=== PATIENT | male | born 1950 | race American Indian/Alaskan Native ===

== ENCOUNTER 2017-07-01 12:25 | Inpatient (IN) | payer MEDICARE, MEDICAID ==
[2017-07-01 12:26] VITALS: BMI 24.9
[2017-07-01] MEDS ORDERED: Pantoprazole 80 MG in Sodium Chloride 0.9% 100 ML IVPB STA (13:10)
--- NOTE | 2017-07-01 13:34 | RAD ---
HISTORY: Sepsis Patient COMPARISON: 02/01/2016 FINDINGS: LUNGS: There is consolidation in the upper lobes, lingula and left lower lobe. The right lung is clear. PLEURA: No significant pleural effusion identified, no pneumothorax apparent. CARDIOVASCULAR: Normal. OSSEOUS STRUCTURES: No significant abnormalities. VISUALIZED UPPER ABDOMEN: Normal. OTHER FINDINGS: None. IMPRESSION: Multifocal pneumonia in the left lung. Follow-up to resolution is advised.
[2017-07-01 13:40] LABS: ABG ALLEN TEST POS; ARTERIAL BLOOD GAS HCO3 25.1 mmol/L (21-28); ARTERIAL BLOOD GAS O2 SAT 72.4 % (95-98); ARTERIAL BLOOD GAS PCO2 36 mm/Hg (35-45); ARTERIAL BLOOD GAS PH 7.45 (7.35-7.45); ARTERIAL BLOOD GAS PO2 33 mm/Hg (80-100); ARTERIAL BLOOD GAS TCO2 26.1 mmol/L (22-28)
[2017-07-01] MEDS ORDERED: Vancomycin 1 GM 1 GM/250 ML BAG IV STA (13:47)
[2017-07-01] MEDS ORDERED: Sodium Chloride 0.9% 1,000 ML IV ONE ×2 (13:47→15:22)
[2017-07-01] MEDS ORDERED: Cefepime 1 GM in Sodium Chloride 0.9% 50 ML IVPB STA (13:47)
[2017-07-01] MEDS ORDERED: Moxifloxacin IV 400mg/250ml NS 400 MG/250 ML BAG IV STA (13:48)
[2017-07-01 13:49] LABS: BASO # 0.1 K/uL (0.0-0.2); BASO % 0.4 % (0.0-2.0); HEMOGLOBIN 13.3 g/dL (12.0-18.0); LYMPH # 0.6 K/uL (1.0-4.3); LYMPH % 3.8 % (20.0-40.0); MEAN CORPUSCULAR HEMOGLOBIN 24.6 pg (27.0-31.0); MEAN CORPUSCULAR HGB CONC 32.7 g/dL (33.0-37.0); MEAN PLATELET VOLUME 9.3 fL (7.2-11.7); MONO # 0.6 K/uL (0.0-0.8); MONO % 4.1 % (0.0-10.0); NEUT % 91.7 % (50.0-75.0); PLATELET COUNT 175 K/uL (130-400); RBC 5.42 Mil/uL (4.40-5.90); RED CELL DISTRIBUTION WIDTH 17.2 % (11.5-14.5)
[2017-07-01 13:51] LABS: WHITE BLOOD COUNT 15.3 K/uL (4.8-10.8)
[2017-07-01 13:52] LABS: MEAN CELL VOLUME 75.3 fL (80.0-94.0)
[2017-07-01 13:58] LABS: INR 1.5; PROTHROMBIN TIME 17.6 SECONDS (9.7-12.2)
[2017-07-01] MEDS ORDERED: Sodium Chloride 0.9% 1,000 ML ONE (14:03)
[2017-07-01 14:07] LABS: ALB/GLOB RATIO 0.8 (1.0-2.1); ALBUMIN 3.7 g/dL (3.5-5.0); ALT/SGPT 31 U/L (21-72); AST/SGOT 22 U/L (17-59); BLOOD UREA NITROGEN 16 mg/dL (9-20); CALCIUM 8.8 mg/dl (8.6-10.4); GFR AFRICAN-AMERICAN > 60; GFR NON-AFRICAN AMERICAN > 60
--- NOTE | 2017-07-01 14:13 | C.PDOC ---
History Of Present Illness Patient sent from [place] for evaluation of coffee ground emesis since approx 7: 15am. PMHx of MS, sepsis, pneumonia, CVA, gastritis, UTI, atrial fibrillation. As per [place] papers, currently on ASA 81mg PO and Eliquis 5mg PO. Time Seen by Provider: 07/01/17 12:54 Chief Complaint (Nursing): GI Problem Past Medical History Vital Signs: Last Vital Signs Temp 99 F 07/07/17 19:25 Pulse 57 L 07/07/17 19:25 Resp 23 07/07/17 19:25 BP 131/71 07/07/17 19:25 Pulse Ox 88 L 07/08/17 09:41 - Medical History PMH: HTN, Multiple Sclerosis, Pneumonia, Chronic Kidney Disease - [facility] Procedures DILATION OF URETHRA, PERCUTANEOUS APPROACH (02/25/16) ENTERAL INFUSION OF CONCENTRATED NUT. SUBSTANCES (04/12/13) INSERTION OF INFUSION DEV INTO R BRACH VEIN, PERC APPROACH (01/29/16) INSERTION OF INFUSION DEV INTO SUP VENA CAVA, PERC APPROACH (02/25/16) PERCUTANEOUS [ENDOSCOPIC] GASTROSTOMY [PEG] (04/12/13) Family History: States: Unknown Family Hx - Social History Hx Tobacco Use: No Hx Alcohol Use: No Hx Substance Use: No ED Course And Treatment - Laboratory Results Result Diagrams: 07/07/17 13:50 07/07/17 13:50 ECG: Interpreted By Me, Viewed By Me (sinus tachycardia 122bpm, normal axis, no acute ST/T wave changes) ECG Interpretation: Abnormal O2 Sat by Pulse Oximetry: 88 (ra) Pulse Ox Interpretation: Normal - Radiology CXR: Interpreted by Me, Viewed By Me (left sided pneumonia) Progress Note: Blood work, UA, CXR, EKG ordered and reviewed. IV NS bolus (30ml /kg) and broad spectrum antibiotics for pneumonia ordered. [place] tylenol given. Multiple attempts made at left sided EJ, unsuccessful. B/L 24 gauge IVs in feet inserted by me. Left arm 18 gauge inserted by nurse. Guzmán catheter insertion attempted by nurse x 2, and once by me with coudet catheter 10 venezuelan , unsuccessful. 15:20- Spoke with siding stapler Dr. Gonzalez, will come down and see patient. Dr. Chaka Ballesteros notified of patient being admitted to ICU for sepsis, coffee ground emesis, pneumonia. 16:15- NG tube inserted by Dr. Gonzalez and ICU. CTA chest ordered at his request; patient to go to ICU after CT. 17:45- Patient sent back from CT scan (no ICU beds) due to O2 desaturation to 30s when placed flat. Discussed with inetnsivist, will intubate patient in ED. RSI at bedside, patient given IV etomidate 20mg and IV rocuronium 60mg. One attempt made at direct laryngoscopy, cords very anterior and blood in oropharynx. Patient suctioned, 2nd attempt made with glidescope successful. OG tube inserted. Postintubation CXR ordered and pending. 6:45PM - CXR- ET tube in trachea, OG tube looped in esophagus. OG removed, attempted reinsertion unscuccessful. NG tube inserted into right nare, (+) epigastric gurgle auscultated, confirmed placement. CXR ordered. - Physician Consult Information Physician Contacted: Azul Lundberg Outcome Of Conversation: Discussed patient with his GI, recommends IV reglan and opening up peg tube to air to decompress abdomen. Will see patient for GI consult. Critical Care Time - Critical Care Note Total Time (in mins): 90 Documented critical care: time excludes all time spent performing seperately billable procedures. Disposition - Disposition Disposition: HOSPITALIZED Disposition Time: 15:23 Condition: CRITICAL - Clinical Impression Clinical Impression: Sepsis, Pneumonia, Coffee ground emesis, Respiratory distress, Bandemia, Tachycardia Procedure: Intubation - Time Performed Time Performed: 17:50 - Consent Obtained Consent obtained: Emergent consent implied - Performed By Performed by: Attending Physician - Indications Indication(s):: Hypoxia, Airway protection - Method Method:: Oral-Laryngoscopy - Rapid Sequence Intubation Anesthetic:: Etomidate (20MG) Paralytic:: Rocuronium (60MG) - Tube type Tube type:: Endotracheal tube (7.5) Tube size:: Uncuffed Number of attempts:: 2 Depth measured at lip: cm: 24 - Confirmation Confirmation: Direct visual.of intubate, End-tidal CO2 positive, Bilat. breath sounds
[2017-07-01 14:15] LABS: CK-MB 0.51 ng/mL (0.0-3.38)
[2017-07-01 14:25] LABS: ANISOCYTOSIS SLIGHT; BANDS 11 % (0-2); LYMPHOCYTE 2 % (20-40); MONOCYTE 3 % (0-10); NEUTROPHIL 84 % (50-75); OVALOCYTES SLIGHT; PLATELET ESTIMATE NORMAL (NORMAL); TOTAL CELLS COUNTED 100
[2017-07-01] MEDS ORDERED: Moxifloxacin IV 400mg/250ml NS 400 MG/250 ML BAG IVPB ONE (15:37)
[2017-07-01 15:59] LABS: ABG ALLEN TEST YES; ARTERIAL BLOOD GAS HCO3 25.4 mmol/L (21-28); ARTERIAL BLOOD GAS O2 SAT 88.9 % (95-98); ARTERIAL BLOOD GAS PCO2 31 mm/Hg (35-45); ARTERIAL BLOOD GAS PH 7.49 (7.35-7.45); ARTERIAL BLOOD GAS PO2 48 mm/Hg (80-100); ARTERIAL BLOOD GAS TCO2 24.6 mmol/L (22-28)
[2017-07-01] MEDS: Piperacill/Tazo 4.5gm in Dex 4.5 GM/100 ML BAG IVPB SCH (16:57)
[2017-07-01] MEDS ORDERED: Pantoprazole 80 MG in Sodium Chloride 0.9% 100 ML IVP SCH (17:00)
[2017-07-01] MEDS ORDERED: Iodixanol 320 MG/ML 100 ML BOTTLE IV ONE (17:11)
--- NOTE | 2017-07-01 17:22 | CP.PCM.CON ---
<Cong Price - Last Filed: 07/01/17 17:55> History of Present Illness - History of Present Illness History of Present Illness: CCU Consult Note HPI: Patient is a 66M with a PMH of HTN, CKD, Multiple Sclerosis, Gastritis, PEG , Afib, CVA on Eliquis and ASA. Patient comes from [place] after being found to have coffee ground emesis since [address] Lundberg was contact by the ED and told them to leave PEG open to air to help decompress the stomach. ICU was called. When we arrived the patient was laying in bed with brown fluid mixed with blood on towel under his chin. We connected the patient to pulse ox to find that he was saturating in the low 80s. We called respiratory to place the patient on high flow. The patient was lethargic would only open his eyes slightly when spoken to. We inserted a NGT and started protonix drip. Given hypoxia on ABG and tachy patient was taken for CTA to r/o PE. During that time patient desaturated so the test was unable to be done. Patient will be taken back to ED for intubation at this time. PMH: HTN, CKD, Multiple Sclerosis, Gastritis, Afib, CVA PSH: PEG, Suprapubic cath FH: unattainable SH: unattainable Meds: Eliquis/ASA All: NKA Review of Systems - Review of Systems Review of Systems: per hpi Past Patient History - Infectious Disease Hx of Infectious Diseases: MRSA - Past Medical History & Family History Past Medical History?: Yes - Past Social History Smoking Status: Never Smoked - CARDIAC Hx Hypertension: Yes - PULMONARY Hx Pneumonia: Yes - NEUROLOGICAL Hx Multiple Sclerosis: Yes - RENAL Hx Chronic Kidney Disease: Yes - MUSCULOSKELETAL/RHEUMATOLOGICAL Hx Falls: Yes - GASTROINTESTINAL Hx Gastrointestinal Disorders: Yes Other/Comment: Peg tube. Dysphagia - GENITOURINARY/GYNECOLOGICAL Other/Comment: hx MRSA in urine 2012 - PSYCHIATRIC Hx Substance Use: No - SURGICAL HISTORY Hx Surgeries: Yes Other/Comment: PEG insertion: Suprapubic cath - ANESTHESIA Hx Anesthesia: Yes Hx Anesthesia Reactions: No Hx Malignant Hyperthermia: No Meds Allergies/Adverse Reactions: Allergies Allergy/AdvReac Type Severity Reaction Status Date / Time No Known Allergies Allergy Unverified 01/29/16 17:27 - Medications Medications: Current Medications Pantoprazole Sodium 80 mg/ (Sodium Chloride) 100 mls @ 10 mls/hr IVP .Q10H ON LICENSE OF [facility] PRN Reason: 8 MG/HR Piperacillin Sod/Tazobactam Sod (Zosyn 4.5 Gm Iv Premix) 4.5 gm in 100 mls @ 100 mls/hr IVPB Q8H ON LICENSE OF [facility] Last Admin: 07/01/17 16:57 Dose: 100 mls/hr Vancomycin/Sodium Chloride (Vancomycin 1 Gm/Ns 200 Ml) 1 gm in 200 mls @ 133.333 mls/hr IVPB Q24H ON LICENSE OF [facility] Stop: 07/06/17 19:01 Physical Exam - Constitutional Appears: Chronically Ill - Head Exam Head Exam: NORMAL INSPECTION, NORMOCEPHALIC - Eye Exam Eye Exam: EOMI - Cardiovascular Exam Cardiovascular Exam: Tachycardia - GI/Abdominal Exam GI & Abdominal Exam: Normal Bowel Sounds, Soft. absent: Distended, Tenderness Additional comments: PEG - Extremities Exam Extremities exam: Negative for: joint swelling, tenderness Results - Vital Signs Recent Vital Signs: Last Vital Signs Temp 100.9 F H 07/01/17 16:59 Pulse 105 H 07/01/17 16:59 Resp 20 07/01/17 16:59 BP 117/62 07/01/17 16:59 Pulse Ox 92 L 07/01/17 16:59 - Labs Result Diagrams: 07/01/17 13:46 07/01/17 13:46 Labs: Laboratory Results - last 24 hr 07/01/17 07/01/17 07/01/17 13:37 13:46 13:46 WBC 15.3 H D RBC 5.42 Hgb 13.3 Hct 40.8 MCV 75.3 L D MCH 24.6 L MCHC 32.7 L RDW 17.2 H Plt Count 175 MPV 9.3 Neut % (Auto) 91.7 H Lymph % (Auto) 3.8 L [place] % (Auto) 4.1 Eos % (Auto) 0.0 Baso % (Auto) 0.4 Neut # (Auto) 14.0 H Lymph # (Auto) 0.6 L [place] # (Auto) 0.6 Eos # (Auto) 0.0 Baso # (Auto) 0.1 Neutrophils % (Manual) 84 H Band Neutrophils % 11 H* Lymphocytes % (Manual) 2 L Monocytes % (Manual) 3 Platelet Estimate Normal Anisocytosis (manual) Slight Ovalocytes Slight PT 17.6 H INR 1.5 APTT 35 H Puncture Site Rra pCO2 36 pO2 33 L* HCO3 25.1 ABG pH 7.45 ABG Total CO2 26.1 ABG O2 Saturation 72.4 L ABG Base Excess 1.3 Diaz Test Pos ABG Potassium 3.2 L A-a O2 Difference 635.0 Respiratory Index 19.2 Sodium 143.0 Chloride 108.0 H Glucose 120 H Lactate 2.0 Liter Flow 12.0 FiO2 100.0 Crit Value Called To Dr juarez Crit Value Called By Amos winter admittance attendant Crit Value Read Back Y Blood Gas Notified Time 1340 Potassium Carbon Dioxide Anion Gap BUN Creatinine Est GFR ( Amer) Est GFR (Non-Af Amer) Random Glucose Calcium Phosphorus Magnesium Total Bilirubin AST ALT Alkaline Phosphatase Total Creatine Kinase CK-MB (Mass) Troponin I Total Protein Albumin Globulin Albumin/Globulin Ratio Arterial Blood Potassium 3.2 L Blood Type Antibody Screen 07/01/17 07/01/17 07/01/17 13:46 13:51 15:50 WBC RBC Hgb Hct MCV MCH MCHC RDW Plt Count MPV Neut % (Auto) Lymph % (Auto) [place] % (Auto) Eos % (Auto) Baso % (Auto) Neut # (Auto) Lymph # (Auto) [place] # (Auto) Eos # (Auto) Baso # (Auto) Neutrophils % (Manual) Band Neutrophils % Lymphocytes % (Manual) Monocytes % (Manual) Platelet Estimate Anisocytosis (manual) Ovalocytes PT INR APTT Puncture Site Rra pCO2 31 L pO2 48 L HCO3 25.4 ABG pH 7.49 H ABG Total CO2 24.6 ABG O2 Saturation 88.9 L ABG Base Excess 1.0 Diaz Test Yes ABG Potassium 3.4 L A-a O2 Difference Respiratory Index Sodium 142 142.0 Chloride 106 111.0 H Glucose 110 Lactate 3.1 H Liter Flow 3.0 FiO2 Crit Value Called To Crit Value Called By Crit Value Read Back Blood Gas Notified Time Potassium 3.6 Carbon Dioxide 25 Anion Gap 16 BUN 16 Creatinine 0.8 Est GFR ( Amer) > 60 Est GFR (Non-Af Amer) > 60 Random Glucose 134 H Calcium 8.8 Phosphorus 2.3 L Magnesium 1.9 Total Bilirubin 0.9 AST 22 ALT 31 Alkaline Phosphatase 115 Total Creatine Kinase 105 CK-MB (Mass) 0.51 Troponin I < 0.0120 Total Protein 8.2 Albumin 3.7 Globulin 4.5 H Albumin/Globulin Ratio 0.8 L Arterial Blood Potassium 3.4 L Blood Type O POSITIVE Antibody Screen Negative Assessment & Plan - Assessment and Plan (Free Text) Assessment: 66M SOB, Coffee ground emesis Plan: Neuro: Very lethargic, Hx of CVA, may be secondary to CVA or hypoxia Cardio: Hx of afib Pulm: severely hypoxic, r/o PE, CTA, patient to be intubated in ED. Cant safely start anticoag given the coffee ground emesis so patient will need to be intubated for CTA and then plan for EGD Renal: No acute issues GI: patient presents with coffee ground emesis, NGT, Dr. Lundberg consult. Protonix Drip. PPX: Protonix drip <Jorge Luis Gonzalez - Last Filed: 07/01/17 19:22> Meds - Medications Medications: Current Medications Albuterol Sulfate (Albuterol 0.083% Inhal Gisella (2.5 Mg/3 Ml) Ud) 2.5 mg IH RQ6 LYNDSAY Piperacillin Sod/Tazobactam Sod (Zosyn 4.5 Gm Iv Premix) 4.5 gm in 100 mls @ 100 mls/hr IVPB Q8H ON LICENSE OF [facility] Last Admin: 07/01/17 16:57 Dose: 100 mls/hr Vancomycin/Sodium Chloride (Vancomycin 1 Gm/Ns 200 Ml) 1 gm in 200 mls @ 133.333 mls/hr IVPB Q24H ON LICENSE OF [facility] Stop: 07/06/17 19:01 Pantoprazole Sodium 80 mg/ (Sodium Chloride) 100 mls @ 10 mls/hr IV .Q10H LYNDSAY PRN Reason: 8 MG/HR Lactated Ringer's (Lactated Ringer's) 1,000 mls @ 150 mls/hr IV .Q6H40M LYNDSAY Propofol (Diprivan) 1,000 mg in 100 mls @ 2.517 mls/hr IV .Q24H PRN; Protocol; 5 MCG/KG/MIN PRN Reason: TITRATE PER MD ORDER Last Titration: 07/01/17 19:04 Dose: 10 mcg/kg/min, 5.035 mls/hr Results - Vital Signs Recent Vital Signs: Last Vital Signs Temp 99.6 F 07/01/17 18:33 Pulse 127 H 07/01/17 18:33 Resp 17 07/01/17 18:33 BP 173/107 H 07/01/17 18:33 Pulse Ox 88 L 07/01/17 18:54 - Labs Result Diagrams: 07/01/17 13:46 07/01/17 13:46 Labs: Laboratory Results - last 24 hr 07/01/17 07/01/17 07/01/17 13:37 13:46 13:46 WBC 15.3 H D RBC 5.42 Hgb 13.3 Hct 40.8 MCV 75.3 L D MCH 24.6 L MCHC 32.7 L RDW 17.2 H Plt Count 175 MPV 9.3 Neut % (Auto) 91.7 H Lymph % (Auto) 3.8 L [place] % (Auto) 4.1 Eos % (Auto) 0.0 Baso % (Auto) 0.4 Neut # (Auto) 14.0 H Lymph # (Auto) 0.6 L [place] # (Auto) 0.6 Eos # (Auto) 0.0 Baso # (Auto) 0.1 Neutrophils % (Manual) 84 H Band Neutrophils % 11 H* Lymphocytes % (Manual) 2 L Monocytes % (Manual) 3 Platelet Estimate Normal Anisocytosis (manual) Slight Ovalocytes Slight PT 17.6 H INR 1.5 APTT 35 H Puncture Site Rra pCO2 36 pO2 33 L* HCO3 25.1 ABG pH 7.45 ABG Total CO2 26.1 ABG O2 Saturation 72.4 L ABG Base Excess 1.3 Diaz Test Pos ABG Potassium 3.2 L A-a O2 Difference 635.0 Respiratory Index 19.2 Sodium 143.0 Chloride 108.0 H Glucose 120 H Lactate 2.0 Liter Flow 12.0 Vent Mode Mechanical Rate FiO2 100.0 Tidal Volume PEEP Crit Value Called To Dr juarez Crit Value Called By Amos winter admittance attendant Crit Value Read Back Y Blood Gas Notified Time 1340 Potassium Carbon Dioxide Anion Gap BUN Creatinine Est GFR ( Amer) Est GFR (Non-Af Amer) POC Glucose (mg/dL) Random Glucose Calcium Phosphorus Magnesium Total Bilirubin AST ALT Alkaline Phosphatase Total Creatine Kinase CK-MB (Mass) Troponin I Total Protein Albumin Globulin Albumin/Globulin Ratio Arterial Blood Potassium 3.2 L Blood Type Antibody Screen 07/01/17 07/01/17 07/01/17 13:46 13:51 15:50 WBC RBC Hgb Hct MCV MCH MCHC RDW Plt Count MPV Neut % (Auto) Lymph % (Auto) [place] % (Auto) Eos % (Auto) Baso % (Auto) Neut # (Auto) Lymph # (Auto) [place] # (Auto) Eos # (Auto) Baso # (Auto) Neutrophils % (Manual) Band Neutrophils % Lymphocytes % (Manual) Monocytes % (Manual) Platelet Estimate Anisocytosis (manual) Ovalocytes PT INR APTT Puncture Site Rra pCO2 31 L pO2 48 L HCO3 25.4 ABG pH 7.49 H ABG Total CO2 24.6 ABG O2 Saturation 88.9 L ABG Base Excess 1.0 Diaz Test Yes ABG Potassium 3.4 L A-a O2 Difference Respiratory Index Sodium 142 142.0 Chloride 106 111.0 H Glucose 110 Lactate 3.1 H Liter Flow 3.0 Vent Mode Mechanical Rate FiO2 Tidal Volume PEEP Crit Value Called To Crit Value Called By Crit Value Read Back Blood Gas Notified Time Potassium 3.6 Carbon Dioxide 25 Anion Gap 16 BUN 16 Creatinine 0.8 Est GFR ( Amer) > 60 Est GFR (Non-Af Amer) > 60 POC Glucose (mg/dL) Random Glucose 134 H Calcium 8.8 Phosphorus 2.3 L Magnesium 1.9 Total Bilirubin 0.9 AST 22 ALT 31 Alkaline Phosphatase 115 Total Creatine Kinase 105 CK-MB (Mass) 0.51 Troponin I < 0.0120 Total Protein 8.2 Albumin 3.7 Globulin 4.5 H Albumin/Globulin Ratio 0.8 L Arterial Blood Potassium 3.4 L Blood Type O POSITIVE Antibody Screen Negative 07/01/17 07/01/17 18:46 18:50 WBC RBC Hgb Hct MCV MCH MCHC RDW Plt Count MPV Neut % (Auto) Lymph % (Auto) [place] % (Auto) Eos % (Auto) Baso % (Auto) Neut # (Auto) Lymph # (Auto) [place] # (Auto) Eos # (Auto) Baso # (Auto) Neutrophils % (Manual) Band Neutrophils % Lymphocytes % (Manual) Monocytes % (Manual) Platelet Estimate Anisocytosis (manual) Ovalocytes PT INR APTT Puncture Site Rra pCO2 35 pO2 207 H HCO3 24.5 ABG pH 7.43 ABG Total CO2 24.3 ABG O2 Saturation 100.0 H ABG Base Excess -0.6 Diaz Test Yes ABG Potassium 3.0 L A-a O2 Difference 462.0 Respiratory Index 2.2 Sodium 143.0 Chloride 113.0 H Glucose 119 H Lactate 1.7 Liter Flow Vent Mode Prvc Mechanical Rate 16 FiO2 100.0 Tidal Volume 500 PEEP 5 Crit Value Called To Crit Value Called By Crit Value Read Back Blood Gas Notified Time Potassium Carbon Dioxide Anion Gap BUN Creatinine Est GFR ( Amer) Est GFR (Non-Af Amer) POC Glucose (mg/dL) 92 Random Glucose Calcium Phosphorus Magnesium Total Bilirubin AST ALT Alkaline Phosphatase Total Creatine Kinase CK-MB (Mass) Troponin I Total Protein Albumin Globulin Albumin/Globulin Ratio Arterial Blood Potassium 3.0 L Blood Type Antibody Screen Attending/Attestation - Attestation I have personally seen and examined this patient.: Yes I have fully participated in the care of the patient.: Yes I have reviewed all pertinent clinical information: Yes Notes (Text): 07/01/17 19:18 I have seen and examined the patient. Medical records, lab studies, and imaging were reviewed by me and a management plan was formulated on multidisciplinary rounds with resident Dr. Price. I agree with their documented assessment and plan. Coffee ground emesis, will need EGD to r/o ulcer, starting protonix gtt. ASA reversal with platelets and DDAVP. CT angio to r/o PE. intubated for airway protection and hypoxia. Critical Care Time 35 minutes. Multi-disciplinary rounds were performed with house staff, nursing, speech therapy, respiratory therapy, pharmacy and nutrition with integrated input from the primary team/attending and other consulting services. The documented time is cumulative and includes review of patient data/exams/labs/chart review and examination of the patient on rounds and throughout the day; time is exclusive of any procedures or teaching time.
[2017-07-01] MEDS ORDERED: Pantoprazole 80 MG in Sodium Chloride 0.9% 100 ML IV SCH (17:30)
--- NOTE | 2017-07-01 17:56 | CP.PCM.HP ---
Past Patient History - Infectious Disease Hx of Infectious Diseases: MRSA - Past Medical History & Family History Past Medical History?: Yes - Past Social History Smoking Status: Never Smoked - CARDIAC Hx Hypertension: Yes - PULMONARY Hx Pneumonia: Yes - NEUROLOGICAL Hx Multiple Sclerosis: Yes - RENAL Hx Chronic Kidney Disease: Yes - MUSCULOSKELETAL/RHEUMATOLOGICAL Hx Falls: Yes - GASTROINTESTINAL Hx Gastrointestinal Disorders: Yes Other/Comment: Peg tube. Dysphagia - GENITOURINARY/GYNECOLOGICAL Other/Comment: hx MRSA in urine 2012 - PSYCHIATRIC Hx Substance Use: No - SURGICAL HISTORY Hx Surgeries: Yes Other/Comment: PEG insertion: Suprapubic cath - ANESTHESIA Hx Anesthesia: Yes Hx Anesthesia Reactions: No Hx Malignant Hyperthermia: No Meds Allergies/Adverse Reactions: Allergies Allergy/AdvReac Type Severity Reaction Status Date / Time No Known Allergies Allergy Unverified 01/29/16 17:27 Physical Exam - Constitutional Appears: Well - Head Exam Head Exam: ATRAUMATIC, NORMAL INSPECTION, NORMOCEPHALIC - Eye Exam Eye Exam: EOMI, Normal appearance, PERRL Pupil Exam: NORMAL ACCOMODATION, PERRL - ENT Exam ENT Exam: Mucous Membranes Moist, Normal Exam - Neck Exam Neck exam: Positive for: Normal Inspection - Respiratory Exam Respiratory Exam: Decreased Breath Sounds - Cardiovascular Exam Cardiovascular Exam: REGULAR RHYTHM, +S1, +S2 - GI/Abdominal Exam GI & Abdominal Exam: Diminished Bowel Sounds, Soft - Rectal Exam Rectal Exam: Deferred Results - Vital Signs Recent Vital Signs: Last Vital Signs Temp 100.9 F H 07/01/17 16:59 Pulse 105 H 07/01/17 16:59 Resp 20 07/01/17 16:59 BP 117/62 07/01/17 16:59 Pulse Ox 92 L 07/01/17 16:59 - Labs Result Diagrams: 07/01/17 13:46 07/01/17 13:46 Labs: Laboratory Results - last 24 hr 07/01/17 07/01/17 07/01/17 13:37 13:46 13:46 WBC 15.3 H D RBC 5.42 Hgb 13.3 Hct 40.8 MCV 75.3 L D MCH 24.6 L MCHC 32.7 L RDW 17.2 H Plt Count 175 MPV 9.3 Neut % (Auto) 91.7 H Lymph % (Auto) 3.8 L [place] % (Auto) 4.1 Eos % (Auto) 0.0 Baso % (Auto) 0.4 Neut # (Auto) 14.0 H Lymph # (Auto) 0.6 L [place] # (Auto) 0.6 Eos # (Auto) 0.0 Baso # (Auto) 0.1 Neutrophils % (Manual) 84 H Band Neutrophils % 11 H* Lymphocytes % (Manual) 2 L Monocytes % (Manual) 3 Platelet Estimate Normal Anisocytosis (manual) Slight Ovalocytes Slight PT 17.6 H INR 1.5 APTT 35 H Puncture Site Rra pCO2 36 pO2 33 L* HCO3 25.1 ABG pH 7.45 ABG Total CO2 26.1 ABG O2 Saturation 72.4 L ABG Base Excess 1.3 Diaz Test Pos ABG Potassium 3.2 L A-a O2 Difference 635.0 Respiratory Index 19.2 Sodium 143.0 Chloride 108.0 H Glucose 120 H Lactate 2.0 Liter Flow 12.0 FiO2 100.0 Crit Value Called To Dr juarez Crit Value Called By Aoms winter secondary set up man Crit Value Read Back Y Blood Gas Notified Time 1340 Potassium Carbon Dioxide Anion Gap BUN Creatinine Est GFR ( Amer) Est GFR (Non-Af Amer) Random Glucose Calcium Phosphorus Magnesium Total Bilirubin AST ALT Alkaline Phosphatase Total Creatine Kinase CK-MB (Mass) Troponin I Total Protein Albumin Globulin Albumin/Globulin Ratio Arterial Blood Potassium 3.2 L Blood Type Antibody Screen 07/01/17 07/01/17 07/01/17 13:46 13:51 15:50 WBC RBC Hgb Hct MCV MCH MCHC RDW Plt Count MPV Neut % (Auto) Lymph % (Auto) [place] % (Auto) Eos % (Auto) Baso % (Auto) Neut # (Auto) Lymph # (Auto) [place] # (Auto) Eos # (Auto) Baso # (Auto) Neutrophils % (Manual) Band Neutrophils % Lymphocytes % (Manual) Monocytes % (Manual) Platelet Estimate Anisocytosis (manual) Ovalocytes PT INR APTT Puncture Site Rra pCO2 31 L pO2 48 L HCO3 25.4 ABG pH 7.49 H ABG Total CO2 24.6 ABG O2 Saturation 88.9 L ABG Base Excess 1.0 Diaz Test Yes ABG Potassium 3.4 L A-a O2 Difference Respiratory Index Sodium 142 142.0 Chloride 106 111.0 H Glucose 110 Lactate 3.1 H Liter Flow 3.0 FiO2 Crit Value Called To Crit Value Called By Crit Value Read Back Blood Gas Notified Time Potassium 3.6 Carbon Dioxide 25 Anion Gap 16 BUN 16 Creatinine 0.8 Est GFR ( Amer) > 60 Est GFR (Non-Af Amer) > 60 Random Glucose 134 H Calcium 8.8 Phosphorus 2.3 L Magnesium 1.9 Total Bilirubin 0.9 AST 22 ALT 31 Alkaline Phosphatase 115 Total Creatine Kinase 105 CK-MB (Mass) 0.51 Troponin I < 0.0120 Total Protein 8.2 Albumin 3.7 Globulin 4.5 H Albumin/Globulin Ratio 0.8 L Arterial Blood Potassium 3.4 L Blood Type O POSITIVE Antibody Screen Negative
[2017-07-01] MEDS ORDERED: Lactated Ringer's 1,000 ML IV SCH (18:15)
[2017-07-01] MEDS: Propofol 10 mg/ml 1,000 MG/100 ML VIAL IV PRN (18:32)
[2017-07-01] MEDS ORDERED: Rocuronium 10 mg/ml (5 ml) IV STA (18:38)
[2017-07-01] MEDS ORDERED: Etomidate 20 mg/10ml Inj IV STA (18:38)
[2017-07-01] MEDS ORDERED: Propofol 10 mg/ml 1,000 MG/100 ML VIAL ONE (18:39)
[2017-07-01 19:04] LABS: ABG ALLEN TEST YES; ARTERIAL BLOOD GAS HCO3 24.5 mmol/L (21-28); ARTERIAL BLOOD GAS PCO2 35 mm/Hg (35-45); ARTERIAL BLOOD GAS PH 7.43 (7.35-7.45); ARTERIAL BLOOD GAS PO2 207 mm/Hg (80-100); ARTERIAL BLOOD GAS TCO2 24.3 mmol/L (22-28)
[2017-07-01] MEDS ORDERED: Propofol 10 mg/ml Inj (20 ML) IV STA (19:19)
--- NOTE | 2017-07-01 20:14 | CT ---
EXAM: CT Angiography Chest With Intravenous Contrast EXAM DATE/TIME: Exam ordered 07/01/2017 4:23 PM CLINICAL HISTORY: 66 years old, male; Signs and symptoms; Dyspnea and shortness of breath; Patient HX: Hypxia; Additional info: Hypoxia, R/O pe TECHNIQUE: Axial computed tomographic angiography images of the chest with intravenous contrast using pulmonary embolism protocol. All CT scans at this facility use one or more dose reduction techniques, viz.: automated exposure control; ma/kV adjustment per patient size (including targeted exams where dose is matched to indication; i.e. head); or iterative reconstruction technique. MIP reconstructed images were created and reviewed. Coronal and sagittal reformatted images were created and reviewed. CONTRAST: 100 mL of visipaque 320 administered intravenously. COMPARISON: No relevant prior studies available. FINDINGS: Pulmonary arteries: Unremarkable. No pulmonary embolism. Aorta: The ascending thoracic aorta measures 4.4 cm in maximum diameter. No thoracic aortic aneurysm. Lungs: Atelectasis/consolidation is noted in the medial basal segment and posterior basal segment of the right lower lobe. Patchy atelectasis/pneumonitis is noted in the superior segment of the right lower lobe and posterior segment of the right upper lobe. There is enlargement of the centrilobular cor structures in the posterior segment of the left upper lobe with irregular hazy parenchymal density. Patchy atelectasis/consolidation is noted in the posterior subsegment of the left upper lobe. Consolidation is noted of the left lower lobe with relative sparing of the superior segment. Pleural space: Unremarkable. No significant effusion. No pneumothorax. Heart: Unremarkable. No cardiomegaly. No significant pericardial effusion. No evidence of RV dysfunction. Bones/joints: A 1 cm area of sclerosis is noted in the midportion of the sacrum body. A 3 mm area of sclerosis is noted in the manubrium. There is no associated soft tissue abnormality noted. There is apparent mild levoscoliosis of the thoracic spine which could be positional in nature. No acute fracture. No dislocation. Soft tissues: Unremarkable. Lymph nodes: There are enlarged lymph nodes are noted in the AP window and prevascular space. An AP window lymph node measures 2.3 x 1.7 by 1.4 cm. 2 AP window is measure approximately a centimeter. A precarinal lymph node measures approximately a centimeter. Right hilar lymph nodes the measure approximately 1.5 cm are present. Left infrahilar lymph node measuring approximately 2 cm is noted. Tubes, lines and devices: The distal tip of the endotracheal tube is a 5 cm above the adebayo.The tip of the nasogastric tube is positioned within the body of the stomach. IMPRESSION: 1. No pulmonary embolism. 2. Atelectasis/consolidation noted in both lower lobes, left greater than right with patchy pneumonitis noted predominantly in the posterior segments of the upper lobes bilaterally. 3. Mediastinal and hilar adenopathy as described above. 4. Aneurysmal dilatation of the ascending thoracic aorta with a maximum diameter 4.4 cm. 5. 2 areas of sclerosis noted within the sternum. The significance is uncertain. Osteoblastic metastatic disease versus benign bone islands are among the diagnostic considerations. No soft tissue abnormality noted.
[2017-07-01] MEDS: Lactated Ringer's 1,000 ML IV SCH (20:55)
[2017-07-01 21:45] LABS: BASO % 0.2 % (0.0-2.0); EOS % 0.4 % (0.0-4.0); HEMOGLOBIN 12.2 g/dL (12.0-18.0); LYMPH # 1.2 K/uL (1.0-4.3); MEAN CORPUSCULAR HGB CONC 32.2 g/dL (33.0-37.0); MONO # 0.5 K/uL (0.0-0.8); NEUT # 10.5 K/uL (1.8-7.0); NEUT % 85.4 % (50.0-75.0); NRBC % 0.1 % (0.0-2.0); RBC 4.88 Mil/uL (4.40-5.90); RED CELL DISTRIBUTION WIDTH 17.3 % (11.5-14.5); WHITE BLOOD COUNT 12.3 K/uL (4.8-10.8)
[2017-07-01 21:46] LABS: MEAN CELL VOLUME 77.4 fL (80.0-94.0)
[2017-07-01] MEDS: Rosuvastatin Calcium 2.5 mg Tab PEG SCH (22:03)
[2017-07-01] MEDS: Vancomycin 1 gm/NS 200 ml 1 GM/200 ML BAG IVPB SCH (22:09)
[2017-07-02] MEDS: Propofol 10 mg/ml 1,000 MG/100 ML VIAL IV PRN (00:35)
[2017-07-02] MEDS: Piperacill/Tazo 4.5gm in Dex 4.5 GM/100 ML BAG IVPB SCH ×3 (01:33→17:42)
[2017-07-02] MEDS: Albuterol 0.083% Inhal Sol (2.5 mg/3 mL) UD IH SCH ×3 (01:45→13:09)
[2017-07-02] MEDS ORDERED: Sodium Chloride 0.9% 1,000 ML IV ONE (01:51)
[2017-07-02] MEDS ORDERED: Albumin Human 25% (12.5 gm/50 ml) IV ONE (01:53)
--- NOTE | 2017-07-02 01:58 | CP.PCM.PN ---
Subjective - Date & Time of Evaluation Date of Evaluation: 07/02/17 Time of Evaluation: 01:57 - Subjective Subjective: Patient urinated, incontinent, [place] cath inserted. Objective - Vital Signs/Intake and Output Vital Signs (last 24 hours): Temp Pulse Resp BP Pulse Ox 100.1 F H 103 H 16 88/49 L 98 07/02/17 00:00 07/02/17 01:20 07/02/17 01:20 07/02/17 01:19 07/02/17 01:20 Intake and Output: 07/01/17 07/02/17 18:59 06:59 Intake Total 777.8 Output Total 0 Balance 777.8 - Medications Medications: Current Medications Albuterol Sulfate (Albuterol 0.083% Inhal Gisella (2.5 Mg/3 Ml) Ud) 2.5 mg IH RQ6 [facility] Last Admin: 07/02/17 01:45 Dose: 2.5 mg Aspirin (Aspirin Chewable) 81 mg PEG DAILY [facility] Clopidogrel Bisulfate (Plavix) 75 mg PEG DAILY [facility] Docusate Sodium (Colace) 100 mg PEG DAILY PRN PRN Reason: Constipation Famotidine (Pepcid) 20 mg PO BID [facility] Ferrous Sulfate (Feosol Liq) 220 mg PEG DAILY [facility] Piperacillin Sod/Tazobactam Sod (Zosyn 4.5 Gm Iv Premix) 4.5 gm in 100 mls @ 100 mls/hr IVPB Q8H [facility] Last Admin: 07/02/17 01:33 Dose: 100 mls/hr Vancomycin/Sodium Chloride (Vancomycin 1 Gm/Ns 200 Ml) 1 gm in 200 mls @ 133.333 mls/hr IVPB Q24H [facility] Stop: 07/06/17 19:01 Last Admin: 07/01/17 22:09 Dose: 133.333 mls/hr Lactated Ringer's (Lactated Ringer's) 1,000 mls @ 150 mls/hr IV .Q6H40M [facility] Last Admin: 07/01/17 20:55 Dose: 150 mls/hr Propofol (Diprivan) 1,000 mg in 100 mls @ 2.517 mls/hr IV .Q24H PRN; Protocol; 5 MCG/KG/MIN PRN Reason: TITRATE PER MD ORDER Last Admin: 07/02/17 00:35 Dose: 20 mcg/kg/min, 10.07 mls/hr Sodium Chloride (Sodium Chloride 0.9%) 1,000 mls @ 1,000 mls/hr IV .Q1H ONE Stop: 07/02/17 02:50 Rosuvastatin Calcium (Crestor) 10 mg PEG HS LYNDSAY Last Admin: 07/01/17 22:03 Dose: Not Given - Labs Labs: 07/01/17 21:40 07/01/17 13:46 PT 17.6 SECONDS (9.7-12.2) H 07/01/17 13:46 INR 1.5 07/01/17 13:46 APTT 35 SECONDS (21-34) H 07/01/17 13:46
[2017-07-02] MEDS: Lactated Ringer's 1,000 ML IV SCH (02:07)
[2017-07-02 05:46] LABS: ARTERIAL BLOOD GAS HCO3 26.5 mmol/L (21-28); ARTERIAL BLOOD GAS HEMOGLOBIN 10.5 g/dL (11.7-17.4); ARTERIAL BLOOD GAS O2 SAT 99.7 % (95-98); ARTERIAL BLOOD GAS PCO2 35 mm/Hg (35-45); ARTERIAL BLOOD GAS PH 7.47 (7.35-7.45); ARTERIAL BLOOD GAS PO2 114 mm/Hg (80-100); ARTERIAL BLOOD GAS TCO2 26.6 mmol/L (22-28)
[2017-07-02 06:42] LABS: BASO % 0.4 % (0.0-2.0); EOS # 0.1 K/uL (0.0-0.7); EOS % 0.7 % (0.0-4.0); HEMOGLOBIN 10.5 g/dL (12.0-18.0); LYMPH % 8.8 % (20.0-40.0); MEAN CELL VOLUME 77.1 fL (80.0-94.0); MEAN CORPUSCULAR HEMOGLOBIN 25.1 pg (27.0-31.0); MEAN CORPUSCULAR HGB CONC 32.6 g/dL (33.0-37.0); MEAN PLATELET VOLUME 10.7 fL (7.2-11.7); MONO # 0.7 K/uL (0.0-0.8); MONO % 5.8 % (0.0-10.0); NEUT # 9.9 K/uL (1.8-7.0); NEUT % 84.3 % (50.0-75.0); NRBC % 0.1 % (0.0-2.0); PLATELET COUNT 111 K/uL (130-400); RBC 4.19 Mil/uL (4.40-5.90); RED CELL DISTRIBUTION WIDTH 17.3 % (11.5-14.5); WHITE BLOOD COUNT 11.8 K/uL (4.8-10.8)
[2017-07-02 06:50] LABS: SQUAMOUS EPITHIAL 1 /hpf (0-5); URINE BILIRUBIN NEGATIVE (NEGATIVE); URINE BLOOD NEGATIVE (NEGATIVE); URINE CLARITY Clear (Clear); URINE COLOR Yellow (YELLOW); URINE GLUCOSE (UA) NORMAL (Normal); URINE LEUKOCYTE ESTERASE TRACE Leu/uL (Negative); URINE PROTEIN 1+ mg/dL (NEGATIVE); URINE UROBILINOGEN NORMAL mg/dL (0.2-1.0)
[2017-07-02 07:35] LABS: BLOOD UREA NITROGEN 14 mg/dL (9-20); CALCIUM 7.6 mg/dl (8.6-10.4); GFR AFRICAN-AMERICAN > 60; GFR NON-AFRICAN AMERICAN > 60
[2017-07-02 07:36] LABS: ALB/GLOB RATIO 0.8 (1.0-2.1); ALBUMIN 2.8 g/dL (3.5-5.0); ALT/SGPT 18 U/L (21-72); AST/SGOT 30 U/L (17-59)
--- NOTE | 2017-07-02 08:31 | RAD ---
Chest x-ray single frontal view History: Assessment of gastric tube. Comparison: 07/01/2017 Findings: NG tube extending into stomach. Moderate venous congestion with bibasilar airspace opacities. Tortuous aorta. Bilateral hilar prominence. Degenerative changes spine shoulders. Deformity of the left clavicle. Impression: NG tube extending into stomach. Moderate venous congestion with bibasilar airspace opacities. Tortuous aorta. Bilateral hilar prominence.
--- NOTE | 2017-07-02 08:51 | RAD ---
Chest x-ray single frontal view History: Intubated. Comparison: 07/01/2017 Findings: Interval removal of a nasogastric tube. Endotracheal tube extending into the mid thoracic trachea. Moderate venous congestion. Small to moderate left pleural effusion. Consolidative changes in the left mid to lower lung zone and right lung base. Cardiomegaly. Degenerative changes in the spine and shoulders. Deformity of the left clavicle. Impression: Interval removal of a nasogastric tube. Endotracheal tube extending into the mid thoracic trachea. Moderate venous congestion. Small to moderate left pleural effusion. Consolidative changes in the left mid to lower lung zone and right lung base. Cardiomegaly.
--- NOTE | 2017-07-02 08:52 | RAD ---
Chest x-ray single frontal view History: Intubation. Comparison: 07/01/2017 Findings: Endotracheal tube extending into the mid thoracic trachea. Prominent opacification seen within the left mid to lower lung zone as well as within the right lung base and right infrahilar region. Right hilar prominence. Top normal heart size. Degenerative changes in the spine and shoulders. Deformity of the left clavicle. Impression: Endotracheal tube extending into the mid thoracic trachea. Prominent opacification seen within the left mid to lower lung zone as well as within the right lung base and right infrahilar region. Right hilar prominence.
[2017-07-02] MEDS ORDERED: Magnesium Sulfate 1 gm in D5W 1 GM/100 ML BAG IVPB ONE (09:00)
[2017-07-02] MEDS ORDERED: Midazolam 2 MG/2 ML VIAL ONE ×2 (09:08→11:04)
[2017-07-02] MEDS ORDERED: Propofol 10 mg/ml Inj (20 ML) ONE (09:08)
[2017-07-02 09:14] LABS: BANDS 13 % (0-2); LYMPHOCYTE 12 % (20-40); MONOCYTE 5 % (0-10); NEUTROPHIL 70 % (50-75); PLATELET ESTIMATE SLIGHTLY DECREASED (NORMAL); TOTAL CELLS COUNTED 100
[2017-07-02 09:16] LABS: HYPOCHROMIC SLIGHT; LARGE PLATELETS PRESENT
[2017-07-02] MEDS ORDERED: Potassium Phosphate 15 MMOLE in Sodium Chloride 0.9% 250 ML IV ONE (09:30)
[2017-07-02] MEDS ORDERED: Lactated Ringer's 1,000 ML IV ONE (09:45)
[2017-07-02] MEDS: Ferrous Sulfate 300 mg/5 mL Liq UD PEG SCH (10:18)
[2017-07-02] MEDS ORDERED: ePHEDrine 50 mg/ml Inj ONE (10:40)
[2017-07-02] MEDS ORDERED: Dexmedetomidine Hydrochloride 200 MCG in Sodium Chloride 0.9% 48 ML IV PRN (11:15)
[2017-07-02] MEDS: Potassium Phosphate 15 MMOLE in Sodium Chloride 0.9% 250 ML IV ONE ×2 (11:47→12:22)
[2017-07-02] MEDS ORDERED: Potassium Phosphate 15 MMOLE in Dextrose 5% In Water 250 ML IVPB ONE (12:00)
--- NOTE | 2017-07-02 12:14 | RAD ---
HISTORY: tlc insertion COMPARISON: Chest x-ray performed 07/02/17, CTA chest performed 07/01/17 TECHNIQUE: Chest, one view. FINDINGS: Endotracheal tube terminates approximately 3.4 cm above the adebayo. Right IJ approach central venous catheter extends to the SVC. LUNGS: Moderate venous congestion. Consolidative changes within the mid to lower lung zones and left lung base, slightly increased in extent. Small left pleural effusion. No definite pneumothorax. Please note that chest x-ray has limited sensitivity for the detection of pulmonary masses. CARDIOVASCULAR: Cardiomegaly. OSSEOUS STRUCTURES: Degenerative changes. Osseous demineralization. Scoliosis convex to the right. Deformity of the left clavicle. VISUALIZED UPPER ABDOMEN: Unremarkable. OTHER FINDINGS: None. IMPRESSION: Endotracheal tube terminates approximately 3.4 cm above the adebayo. Right IJ approach central venous catheter extends to the SVC. Moderate venous congestion. Consolidative changes within the mid to lower lung zones and left lung base, slightly increased in extent. Small left pleural effusion. Cardiomegaly.
[2017-07-02] MEDS ORDERED: Albuterol 0.083% Inhal Sol (2.5 mg/3 mL) UD IH PRN (14:56)
--- NOTE | 2017-07-02 14:58 | CP.CCUPN ---
<Cong Price - Last Filed: 07/02/17 14:52> CCU Subjective - Physician Review Subjective (Free Text): 07/02/17 14:52 patient seen and examined at bedside EGD today was negative for active bleeding Extubated and tolerating well CCU Objective - Vital Signs / Intake & Output Vital Signs (Last 4 hours): Vital Signs Temp Pulse Resp BP Pulse Ox 07/02/17 13:00 100 H 19 116/69 97 07/02/17 12:00 99.4 F 101 H 19 110/56 L 97 07/02/17 11:00 100 H 16 107/57 L 98 Intake and Output (Last 8hrs): Intake & Output 07/01/17 07/02/17 07/02/17 22:59 06:59 14:59 Intake Total 212.6 2452.9 837.8 Output Total 0 100 Balance 212.6 2352.9 837.8 Weight 195 lb 12.8 oz Intake: IV 40.0 125 Intake, IV Amount 172.6 2327.9 837.8 Left Foot 10 70 Right Forearm 150 2150 750 Right Forearm 2nd port 12.6 107.9 87.8 Output: Urine 0 100 Urine, Voided 0 100 Other: # Voids Urine, Voided 1 # Bowel Movements 1 - Medications Active Medications: Active Medications Generic Name Dose Route Start Last Admin Trade Name Freq PRN Reason Stop Dose Admin Albuterol Sulfate 2.5 mg 07/01/17 18:15 07/02/17 13:09 Albuterol 0.083% Inhal Gisella (2.5 Mg/3 Ml) Ud IH 2.5 mg RQ6 LYNDSAY Administration Apixaban 5 mg 07/02/17 18:00 Eliquis PO BID LYNDSAY Aspirin 81 mg 07/02/17 10:00 07/02/17 10:19 Aspirin Chewable PEG 81 mg DAILY LYNDSAY Administration Clopidogrel Bisulfate 75 mg 07/02/17 10:00 07/02/17 10:22 Plavix PEG 75 mg DAILY LYNDSAY Administration Docusate Sodium 100 mg 07/01/17 20:15 Colace PEG DAILY PRN Constipation Famotidine 20 mg 07/02/17 10:00 07/02/17 10:19 Pepcid PO 20 mg BID LYNDSAY Administration Ferrous Sulfate 220 mg 07/02/17 10:00 03/01/18 10:18 Feosol Liq PEG 220 mg DAILY LYNDSAY Administration Piperacillin Sod/Tazobactam Sod 4.5 gm in 100 mls @ 100 mls/hr 07/01/17 17:00 07/02/17 10:00 Zosyn 4.5 Gm Iv Premix IVPB 100 mls/hr Q8H LYNDSAY Administration Vancomycin/Sodium Chloride 1 gm in 200 mls @ 133.333 mls/hr 07/01/17 19:00 22:09 Vancomycin 1 Gm/Ns 200 Ml IVPB 07/06/17 19:01 133.333 mls/hr Q24H LYNDSAY Administration Dexmedetomidine HCl 200 mcg/ 50 mls @ 4.44 mls/hr 07/02/17 11:15 07/02/17 11: 48 Sodium Chloride IV 0.2 mcg/kg/hr TITR PRN 4.44 mls/hr Agitation Administration Protocol 0.2 MCG/KG/HR Potassium Phosphate 15 mmole/ 255 mls @ 63 mls/hr 07/02/17 12:00 07/02/17 12: 22 Sodium Chloride IV 07/02/17 16:02 63 mls/hr ONCE ONE Administration Rosuvastatin Calcium 10 mg 07/01/17 22:00 07/01/17 22:03 Crestor PEG Not Given HS LYNDSAY - Patient Studies Lab Studies: Microbiology Studies 07/01/17 21:27 Gram Stain - Preliminary Sputum Lab Studies 07/02/17 07/02/17 07/02/17 Range/Units 06:36 06:36 06:28 WBC 11.8 H (4.8-10.8) K/uL RBC 4.19 L (4.40-5.90) Mil/uL Hgb 10.5 L (12.0-18.0) g/dL Hct 32.3 L (35.0-51.0) % MCV 77.1 L (80.0-94.0) fL MCH 25.1 L (27.0-31.0) pg MCHC 32.6 L (33.0-37.0) g/dL RDW 17.3 H (11.5-14.5) % Plt Count 111 L (130-400) K/uL MPV 10.7 (7.2-11.7) fL Neut % (Auto) 84.3 H (50.0-75.0) % Lymph % (Auto) 8.8 L (20.0-40.0) % Butler % (Auto) 5.8 (0.0-10.0) % Eos % (Auto) 0.7 (0.0-4.0) % Baso % (Auto) 0.4 (0.0-2.0) % Neut # (Auto) 9.9 H (1.8-7.0) K/uL Lymph # (Auto) 1.0 (1.0-4.3) K/uL Butler # (Auto) 0.7 (0.0-0.8) K/uL Eos # (Auto) 0.1 (0.0-0.7) K/uL Baso # (Auto) 0.0 (0.0-0.2) K/uL Neutrophils % (Manual) 70 (50-75) % Band Neutrophils % 13 H* (0-2) % Lymphocytes % (Manual) 12 L (20-40) % Monocytes % (Manual) 5 (0-10) % Platelet Estimate Slightly decreased L (NORMAL) Large Platelets Present Hypochromasia (manual) Slight Puncture Site pCO2 (35-45) mm/Hg pO2 (80-100) mm/Hg HCO3 (21-28) mmol/L ABG pH (7.35-7.45) ABG Total CO2 (22-28) mmol/L ABG O2 Saturation (95-98) % ABG Base Excess (-2.0-3.0) mmol/L ABG Hemoglobin (11.7-17.4) g/dL ABG Carboxyhemoglobin (0.5-1.5) % POC ABG HHb (Measured) (0.0-5.0) % ABG Methemoglobin (0.0-3.0) % Diaz Test ABG Potassium (3.6-5.2) mmol/L A-a O2 Difference mm/Hg Respiratory Index Hgb O2 Saturation (95.0-98.0) % Sodium 141 (132-148) mmol/l Chloride 109 H (98-107) mmol/L Glucose (75-110) mg/dl Lactate (0.7-2.1) mmol/L Liter Flow Vent Mode Mechanical Rate FiO2 % Tidal Volume PEEP Potassium 3.6 (3.6-5.2) mmol/L Carbon Dioxide 22 (22-30) mmol/L Anion Gap 14 (10-20) BUN 14 (9-20) mg/dL Creatinine 0.8 (0.8-1.5) mg/dL Est GFR ( Amer) > 60 Est GFR (Non-Af Amer) > 60 POC Glucose (mg/dL) (65-110) mg/dL Random Glucose 81 (75-110) mg/dL Calcium 7.6 L (8.6-10.4) mg/dl Phosphorus 1.9 L (2.5-4.5) mg/dL Magnesium 1.7 (1.6-2.3) mg/dL Total Bilirubin 1.3 (0.2-1.3) mg/dL AST 30 (17-59) U/L ALT 18 L D (21-72) U/L Alkaline Phosphatase 59 (38-126) U/L Total Protein 6.4 (6.3-8.3) g/dL Albumin 2.8 L D (3.5-5.0) g/dL Globulin 3.6 (2.2-3.9) gm/dL Albumin/Globulin Ratio 0.8 L (1.0-2.1) Arterial Blood Potassium (3.6-5.2) mmol/L Urine Color Yellow (YELLOW) Urine Clarity Clear (Clear) Urine pH 6.0 (5.0-8.0) Ur Specific [place] > 1.060 H (1.003-1.030) Urine Protein 1+ H (NEGATIVE) mg/dL Urine Glucose (UA) Normal (Normal) mg/dL Urine Ketones Negative (NEGATIVE) mg/dL Urine Blood Negative (NEGATIVE) Urine Nitrate Negative (NEGATIVE) Urine Bilirubin Negative (NEGATIVE) Urine Urobilinogen Normal (0.2-1.0) mg/dL Ur Leukocyte Esterase Trace (Negative) Diana/uL Urine WBC (Auto) 7 H (0-5) /hpf Urine RBC (Auto) 5 H (0-3) /hpf Ur Squamous Epith Cells 1 (0-5) /hpf Blood Type Antibody Screen 07/02/17 07/01/17 07/01/17 Range/Units 05:12 21:40 18:50 WBC 12.3 H (4.8-10.8) K/uL RBC 4.88 (4.40-5.90) Mil/uL Hgb 12.2 (12.0-18.0) g/dL Hct 37.8 (35.0-51.0) % MCV 77.4 L D (80.0-94.0) fL MCH 25.0 L (27.0-31.0) pg MCHC 32.2 L (33.0-37.0) g/dL RDW 17.3 H (11.5-14.5) % Plt Count 130 (130-400) K/uL MPV 10.0 (7.2-11.7) fL Neut % (Auto) 85.4 H (50.0-75.0) % Lymph % (Auto) 10.0 L (20.0-40.0) % Butler % (Auto) 4.0 (0.0-10.0) % Eos % (Auto) 0.4 (0.0-4.0) % Baso % (Auto) 0.2 (0.0-2.0) % Neut # (Auto) 10.5 H (1.8-7.0) K/uL Lymph # (Auto) 1.2 (1.0-4.3) K/uL Butler # (Auto) 0.5 (0.0-0.8) K/uL Eos # (Auto) 0.0 (0.0-0.7) K/uL Baso # (Auto) 0.0 (0.0-0.2) K/uL Neutrophils % (Manual) (50-75) % Band Neutrophils % (0-2) % Lymphocytes % (Manual) (20-40) % Monocytes % (Manual) (0-10) % Platelet Estimate (NORMAL) Large Platelets Hypochromasia (manual) Puncture Site Rb Rra pCO2 35 35 (35-45) mm/Hg pO2 114 H 207 H (80-100) mm/Hg HCO3 26.5 24.5 (21-28) mmol/L ABG pH 7.47 H 7.43 (7.35-7.45) ABG Total CO2 26.6 24.3 (22-28) mmol/L ABG O2 Saturation 99.7 H 100.0 H (95-98) % ABG Base Excess 2.0 -0.6 (-2.0-3.0) mmol/L ABG Hemoglobin 10.5 L (11.7-17.4) g/dL ABG Carboxyhemoglobin 1.9 H (0.5-1.5) % POC ABG HHb (Measured) 0.3 (0.0-5.0) % ABG Methemoglobin 1.0 (0.0-3.0) % Diaz Test Na Yes ABG Potassium 3.0 L (3.6-5.2) mmol/L A-a O2 Difference 199.0 462.0 mm/Hg Respiratory Index 1.7 2.2 Hgb O2 Saturation 96.9 (95.0-98.0) % Sodium 143.0 (132-148) mmol/l Chloride 113.0 H (98-107) mmol/L Glucose 119 H (75-110) mg/dl Lactate 1.7 (0.7-2.1) mmol/L Liter Flow Vent Mode Prvc Prvc Mechanical Rate 16 16 FiO2 50.0 100.0 % Tidal Volume 500 500 PEEP 5 5 Potassium (3.6-5.2) mmol/L Carbon Dioxide (22-30) mmol/L Anion Gap (10-20) BUN (9-20) mg/dL Creatinine (0.8-1.5) mg/dL Est GFR ( Amer) Est GFR (Non-Af Amer) POC Glucose (mg/dL) (65-110) mg/dL Random Glucose (75-110) mg/dL Calcium (8.6-10.4) mg/dl Phosphorus (2.5-4.5) mg/dL Magnesium (1.6-2.3) mg/dL Total Bilirubin (0.2-1.3) mg/dL AST (17-59) U/L ALT (21-72) U/L Alkaline Phosphatase (38-126) U/L Total Protein (6.3-8.3) g/dL Albumin (3.5-5.0) g/dL Globulin (2.2-3.9) gm/dL Albumin/Globulin Ratio (1.0-2.1) Arterial Blood Potassium 3.0 L (3.6-5.2) mmol/L Urine Color (YELLOW) Urine Clarity (Clear) Urine pH (5.0-8.0) Ur Specific [place] (1.003-1.030) Urine Protein (NEGATIVE) mg/dL Urine Glucose (UA) (Normal) mg/dL Urine Ketones (NEGATIVE) mg/dL Urine Blood (NEGATIVE) Urine Nitrate (NEGATIVE) Urine Bilirubin (NEGATIVE) Urine Urobilinogen (0.2-1.0) mg/dL Ur Leukocyte Esterase (Negative) Diana/uL Urine WBC (Auto) (0-5) /hpf Urine RBC (Auto) (0-3) /hpf Ur Squamous Epith Cells (0-5) /hpf Blood Type Antibody Screen 07/01/17 07/01/17 07/01/17 Range/Units 18:46 15:50 13:51 WBC (4.8-10.8) K/uL RBC (4.40-5.90) Mil/uL Hgb (12.0-18.0) g/dL Hct (35.0-51.0) % MCV (80.0-94.0) fL MCH (27.0-31.0) pg MCHC (33.0-37.0) g/dL RDW (11.5-14.5) % Plt Count (130-400) K/uL MPV (7.2-11.7) fL Neut % (Auto) (50.0-75.0) % Lymph % (Auto) (20.0-40.0) % Butler % (Auto) (0.0-10.0) % Eos % (Auto) (0.0-4.0) % Baso % (Auto) (0.0-2.0) % Neut # (Auto) (1.8-7.0) K/uL Lymph # (Auto) (1.0-4.3) K/uL Butler # (Auto) (0.0-0.8) K/uL Eos # (Auto) (0.0-0.7) K/uL Baso # (Auto) (0.0-0.2) K/uL Neutrophils % (Manual) (50-75) % Band Neutrophils % (0-2) % Lymphocytes % (Manual) (20-40) % Monocytes % (Manual) (0-10) % Platelet Estimate (NORMAL) Large Platelets Hypochromasia (manual) Puncture Site Rra pCO2 31 L (35-45) mm/Hg pO2 48 L (80-100) mm/Hg HCO3 25.4 (21-28) mmol/L ABG pH 7.49 H (7.35-7.45) ABG Total CO2 24.6 (22-28) mmol/L ABG O2 Saturation 88.9 L (95-98) % ABG Base Excess 1.0 (-2.0-3.0) mmol/L ABG Hemoglobin (11.7-17.4) g/dL ABG Carboxyhemoglobin (0.5-1.5) % POC ABG HHb (Measured) (0.0-5.0) % ABG Methemoglobin (0.0-3.0) % Diaz Test Yes ABG Potassium 3.4 L (3.6-5.2) mmol/L A-a O2 Difference mm/Hg Respiratory Index Hgb O2 Saturation (95.0-98.0) % Sodium 142.0 (132-148) mmol/l Chloride 111.0 H (98-107) mmol/L Glucose 110 (75-110) mg/dl Lactate 3.1 H (0.7-2.1) mmol/L Liter Flow 3.0 Vent Mode Mechanical Rate FiO2 % Tidal Volume PEEP Potassium (3.6-5.2) mmol/L Carbon Dioxide (22-30) mmol/L Anion Gap (10-20) BUN (9-20) mg/dL Creatinine (0.8-1.5) mg/dL Est GFR ( Amer) Est GFR (Non-Af Amer) POC Glucose (mg/dL) 92 (65-110) mg/dL Random Glucose (75-110) mg/dL Calcium (8.6-10.4) mg/dl Phosphorus (2.5-4.5) mg/dL Magnesium (1.6-2.3) mg/dL Total Bilirubin (0.2-1.3) mg/dL AST (17-59) U/L ALT (21-72) U/L Alkaline Phosphatase (38-126) U/L Total Protein (6.3-8.3) g/dL Albumin (3.5-5.0) g/dL Globulin (2.2-3.9) gm/dL Albumin/Globulin Ratio (1.0-2.1) Arterial Blood Potassium 3.4 L (3.6-5.2) mmol/L Urine Color (YELLOW) Urine Clarity (Clear) Urine pH (5.0-8.0) Ur Specific [place] (1.003-1.030) Urine Protein (NEGATIVE) mg/dL Urine Glucose (UA) (Normal) mg/dL Urine Ketones (NEGATIVE) mg/dL Urine Blood (NEGATIVE) Urine Nitrate (NEGATIVE) Urine Bilirubin (NEGATIVE) Urine Urobilinogen (0.2-1.0) mg/dL Ur Leukocyte Esterase (Negative) Diana/uL Urine WBC (Auto) (0-5) /hpf Urine RBC (Auto) (0-3) /hpf Ur Squamous Epith Cells (0-5) /hpf Blood Type O POSITIVE Antibody Screen Negative Laboratory Results - last 24 hr 07/01/17 07/01/17 07/01/17 13:51 15:50 18:46 WBC RBC Hgb Hct MCV MCH MCHC RDW Plt Count MPV Neut % (Auto) Lymph % (Auto) Butler % (Auto) Eos % (Auto) Baso % (Auto) Neut # (Auto) Lymph # (Auto) Butler # (Auto) Eos # (Auto) Baso # (Auto) Neutrophils % (Manual) Band Neutrophils % Lymphocytes % (Manual) Monocytes % (Manual) Platelet Estimate Large Platelets Hypochromasia (manual) Puncture Site Rra pCO2 31 L pO2 48 L HCO3 25.4 ABG pH 7.49 H ABG Total CO2 24.6 ABG O2 Saturation 88.9 L ABG Base Excess 1.0 ABG Hemoglobin ABG Carboxyhemoglobin POC ABG HHb (Measured) ABG Methemoglobin Diaz Test Yes ABG Potassium 3.4 L A-a O2 Difference Respiratory Index Hgb O2 Saturation Sodium 142.0 Chloride 111.0 H Glucose 110 Lactate 3.1 H Liter Flow 3.0 Vent Mode Mechanical Rate FiO2 Tidal Volume PEEP Potassium Carbon Dioxide Anion Gap BUN Creatinine Est GFR ( Amer) Est GFR (Non-Af Amer) POC Glucose (mg/dL) 92 Random Glucose Calcium Phosphorus Magnesium Total Bilirubin AST ALT Alkaline Phosphatase Total Protein Albumin Globulin Albumin/Globulin Ratio Arterial Blood Potassium 3.4 L Urine Color Urine Clarity Urine pH Ur Specific [place] Urine Protein Urine Glucose (UA) Urine Ketones Urine Blood Urine Nitrate Urine Bilirubin Urine Urobilinogen Ur Leukocyte Esterase Urine WBC (Auto) Urine RBC (Auto) Ur Squamous Epith Cells Blood Type O POSITIVE Antibody Screen Negative 07/01/17 07/01/1718 18:50 21:40 05:12 WBC 12.3 H RBC 4.88 Hgb 12.2 Hct 37.8 MCV 77.4 L D MCH 25.0 L MCHC 32.2 L RDW 17.3 H Plt Count 130 MPV 10.0 Neut % (Auto) 85.4 H Lymph % (Auto) 10.0 L Butler % (Auto) 4.0 Eos % (Auto) 0.4 Baso % (Auto) 0.2 Neut # (Auto) 10.5 H Lymph # (Auto) 1.2 Butler # (Auto) 0.5 Eos # (Auto) 0.0 Baso # (Auto) 0.0 Neutrophils % (Manual) Band Neutrophils % Lymphocytes % (Manual) Monocytes % (Manual) Platelet Estimate Large Platelets Hypochromasia (manual) Puncture Site Rra Rb pCO2 35 35 pO2 207 H 114 H HCO3 24.5 26.5 ABG pH 7.43 7.47 H ABG Total CO2 24.3 26.6 ABG O2 Saturation 100.0 H 99.7 H ABG Base Excess -0.6 2.0 ABG Hemoglobin 10.5 L ABG Carboxyhemoglobin 1.9 H POC ABG HHb (Measured) 0.3 ABG Methemoglobin 1.0 Diaz Test Yes Na ABG Potassium 3.0 L A-a O2 Difference 462.0 199.0 Respiratory Index 2.2 1.7 Hgb O2 Saturation 96.9 Sodium 143.0 Chloride 113.0 H Glucose 119 H Lactate 1.7 Liter Flow Vent Mode Prvc Prvc Mechanical Rate 16 16 FiO2 100.0 50.0 Tidal Volume 500 500 PEEP 5 5 Potassium Carbon Dioxide Anion Gap BUN Creatinine Est GFR ( Amer) Est GFR (Non-Af Amer) POC Glucose (mg/dL) Random Glucose Calcium Phosphorus Magnesium Total Bilirubin AST ALT Alkaline Phosphatase Total Protein Albumin Globulin Albumin/Globulin Ratio Arterial Blood Potassium 3.0 L Urine Color Urine Clarity Urine pH Ur Specific [place] Urine Protein Urine Glucose (UA) Urine Ketones Urine Blood Urine Nitrate Urine Bilirubin Urine Urobilinogen Ur Leukocyte Esterase Urine WBC (Auto) Urine RBC (Auto) Ur Squamous Epith Cells Blood Type Antibody Screen 07/02/17 07/02/17 07/02/17 06:28 06:36 06:36 WBC 11.8 H RBC 4.19 L Hgb 10.5 L Hct 32.3 L MCV 77.1 L MCH 25.1 L MCHC 32.6 L RDW 17.3 H Plt Count 111 L MPV 10.7 Neut % (Auto) 84.3 H Lymph % (Auto) 8.8 L Butler % (Auto) 5.8 Eos % (Auto) 0.7 Baso % (Auto) 0.4 Neut # (Auto) 9.9 H Lymph # (Auto) 1.0 Butler # (Auto) 0.7 Eos # (Auto) 0.1 Baso # (Auto) 0.0 Neutrophils % (Manual) 70 Band Neutrophils % 13 H* Lymphocytes % (Manual) 12 L Monocytes % (Manual) 5 Platelet Estimate Slightly decreased L Large Platelets Present Hypochromasia (manual) Slight Puncture Site pCO2 pO2 HCO3 ABG pH ABG Total CO2 ABG O2 Saturation ABG Base Excess ABG Hemoglobin ABG Carboxyhemoglobin POC ABG HHb (Measured) ABG Methemoglobin Diaz Test ABG Potassium A-a O2 Difference Respiratory Index Hgb O2 Saturation Sodium 141 Chloride 109 H Glucose Lactate Liter Flow Vent Mode Mechanical Rate FiO2 Tidal Volume PEEP Potassium 3.6 Carbon Dioxide 22 Anion Gap 14 BUN 14 Creatinine 0.8 Est GFR ( Amer) > 60 Est GFR (Non-Af Amer) > 60 POC Glucose (mg/dL) Random Glucose 81 Calcium 7.6 L Phosphorus 1.9 L Magnesium 1.7 Total Bilirubin 1.3 AST 30 ALT 18 L D Alkaline Phosphatase 59 Total Protein 6.4 Albumin 2.8 L D Globulin 3.6 Albumin/Globulin Ratio 0.8 L Arterial Blood Potassium Urine Color Yellow Urine Clarity Clear Urine pH 6.0 Ur Specific [place] > 1.060 H Urine Protein 1+ H Urine Glucose (UA) Normal Urine Ketones Negative Urine Blood Negative Urine Nitrate Negative Urine Bilirubin Negative Urine Urobilinogen Normal Ur Leukocyte Esterase Trace Urine WBC (Auto) 7 H Urine RBC (Auto) 5 H Ur Squamous Epith Cells 1 Blood Type Antibody Screen Fingerstick Blood Sugar Results: 92 Critical Care Progress Note - Nutrition Nutrition: Nutrition Category Date Time Status NPO Diet [DIET] Diets 07/01/17 Dinner Active Assessment/Plan - Assessment and Plan (Free Text) Assessment: 66M SOB, Coffee ground emesis Plan: Neuro: Lethargic, History of MS, No sedation Cardio: Hx of afib on eliquis Pulm: CTA negative for PE, Extubated today, Bilateral PNA on vanco, zosyn, moxiflox Renal: No acute issues GI: EGD Negative for bleed PPX: Pepcid, Eliquis, scd <Luis Enrique Ballesteros M - Last Filed: 07/02/17 16:09> CCU Subjective - Physician Review Critical Care Time Spent (in minutes): 35 CCU Objective - Vital Signs / Intake & Output Vital Signs (Last 4 hours): Vital Signs Pulse Resp BP Pulse Ox 07/02/17 15:00 102 H 19 116/71 97 07/02/17 14:00 101 H 18 122/84 98 07/02/17 13:00 100 H 19 116/69 97 Intake and Output (Last 8hrs): Intake & Output 07/02/17 07/02/17 07/02/17 06:59 14:59 22:59 Intake Total 2452.9 937.8 100 Output Total 100 Balance 2352.9 937.8 100 Weight 195 lb 12.8 oz Intake: IV 125 Intake, IV Amount 2327.9 937.8 100 Left Foot 70 Right Forearm 2150 850 100 Right Forearm 2nd port 107.9 87.8 Output: Urine 100 Urine, Voided 100 Other: # Voids Urine, Voided 1 - Medications Active Medications: Active Medications Generic Name Dose Route Start Last Admin Trade Name Freq PRN Reason Stop Dose Admin Albuterol Sulfate 2.5 mg 07/02/17 14:56 Albuterol 0.083% Inhal Gisella (2.5 Mg/3 Ml) Ud IH RQ6 PRN Wheezing Apixaban 5 mg 07/02/17 18:00 Eliquis PO BID LYNDSAY Docusate Sodium 100 mg 07/01/17 20:15 Colace PEG DAILY PRN Constipation Famotidine 20 mg 07/02/17 10:00 07/02/17 10:19 Pepcid PO 20 mg BID LYNDSAY Administration Ferrous Sulfate 220 mg 07/02/17 10:00 07/02/17 10:18 Feosol Liq PEG 220 mg DAILY LYNDSAY Administration Piperacillin Sod/Tazobactam Sod 4.5 gm in 100 mls @ 100 mls/hr 07/01/17 17:00 07/02/17 10:00 Zosyn 4.5 Gm Iv Premix IVPB 100 mls/hr Q8H LYNDSAY Administration Vancomycin/Sodium Chloride 1 gm in 200 mls @ 133.333 mls/hr 07/01/17 19:00 22:09 Vancomycin 1 Gm/Ns 200 Ml IVPB 07/06/17 19:01 133.333 mls/hr Q24H LYNDSAY Administration Metoprolol Tartrate 2.5 mg 07/02/17 15:30 Lopressor IVP Q6H LYNDSAY Rosuvastatin Calcium 10 mg 07/01/17 22:00 07/01/17 22:03 Crestor PEG Not Given HS [facility] - Patient Studies Lab Studies: Microbiology Studies 07/01/17 21:27 Gram Stain - Preliminary Sputum Lab Studies 07/02/17 07/02/17 07/02/17 Range/Units 06:36 06:36 06:28 WBC 11.8 H (4.8-10.8) K/uL RBC 4.19 L (4.40-5.90) Mil/uL Hgb 10.5 L (12.0-18.0) g/dL Hct 32.3 L (35.0-51.0) % MCV 77.1 L (80.0-94.0) fL MCH 25.1 L (27.0-31.0) pg MCHC 32.6 L (33.0-37.0) g/dL RDW 17.3 H (11.5-14.5) % Plt Count 111 L (130-400) K/uL MPV 10.7 (7.2-11.7) fL Neut % (Auto) 84.3 H (50.0-75.0) % Lymph % (Auto) 8.8 L (20.0-40.0) % Butler % (Auto) 5.8 (0.0-10.0) % Eos % (Auto) 0.7 (0.0-4.0) % Baso % (Auto) 0.4 (0.0-2.0) % Neut # (Auto) 9.9 H (1.8-7.0) K/uL Lymph # (Auto) 1.0 (1.0-4.3) K/uL Butler # (Auto) 0.7 (0.0-0.8) K/uL Eos # (Auto) 0.1 (0.0-0.7) K/uL Baso # (Auto) 0.0 (0.0-0.2) K/uL Neutrophils % (Manual) 70 (50-75) % Band Neutrophils % 13 H* (0-2) % Lymphocytes % (Manual) 12 L (20-40) % Monocytes % (Manual) 5 (0-10) % Platelet Estimate Slightly decreased L (NORMAL) Large Platelets Present Hypochromasia (manual) Slight Puncture Site pCO2 (35-45) mm/Hg pO2 (80-100) mm/Hg HCO3 (21-28) mmol/L ABG pH (7.35-7.45) ABG Total CO2 (22-28) mmol/L ABG O2 Saturation (95-98) % ABG Base Excess (-2.0-3.0) mmol/L ABG Hemoglobin (11.7-17.4) g/dL ABG Carboxyhemoglobin (0.5-1.5) % POC ABG HHb (Measured) (0.0-5.0) % ABG Methemoglobin (0.0-3.0) % Diaz Test ABG Potassium (3.6-5.2) mmol/L A-a O2 Difference mm/Hg Respiratory Index Hgb O2 Saturation (95.0-98.0) % Sodium 141 (132-148) mmol/l Chloride 109 H (98-107) mmol/L Glucose (75-110) mg/dl Lactate (0.7-2.1) mmol/L Vent Mode Mechanical Rate FiO2 % Tidal Volume PEEP Potassium 3.6 (3.6-5.2) mmol/L Carbon Dioxide 22 (22-30) mmol/L Anion Gap 14 (10-20) BUN 14 (9-20) mg/dL Creatinine 0.8 (0.8-1.5) mg/dL Est GFR ( Amer) > 60 Est GFR (Non-Af Amer) > 60 POC Glucose (mg/dL) (65-110) mg/dL Random Glucose 81 (75-110) mg/dL Calcium 7.6 L (8.6-10.4) mg/dl Phosphorus 1.9 L (2.5-4.5) mg/dL Magnesium 1.7 (1.6-2.3) mg/dL Total Bilirubin 1.3 (0.2-1.3) mg/dL AST 30 (17-59) U/L ALT 18 L D (21-72) U/L Alkaline Phosphatase 59 (38-126) U/L Total Protein 6.4 (6.3-8.3) g/dL Albumin 2.8 L D (3.5-5.0) g/dL Globulin 3.6 (2.2-3.9) gm/dL Albumin/Globulin Ratio 0.8 L (1.0-2.1) Arterial Blood Potassium (3.6-5.2) mmol/L Urine Color Yellow (YELLOW) Urine Clarity Clear (Clear) Urine pH 6.0 (5.0-8.0) Ur Specific [place] > 1.060 H (1.003-1.030) Urine Protein 1+ H (NEGATIVE) mg/dL Urine Glucose (UA) Normal (Normal) mg/dL Urine Ketones Negative (NEGATIVE) mg/dL Urine Blood Negative (NEGATIVE) Urine Nitrate Negative (NEGATIVE) Urine Bilirubin Negative (NEGATIVE) Urine Urobilinogen Normal (0.2-1.0) mg/dL Ur Leukocyte Esterase Trace (Negative) Diana/uL Urine WBC (Auto) 7 H (0-5) /hpf Urine RBC (Auto) 5 H (0-3) /hpf Ur Squamous Epith Cells 1 (0-5) /hpf 07/02/17 07/01/17 07/01/17 Range/Units 05:12 21:40 18:50 WBC 12.3 H (4.8-10.8) K/uL RBC 4.88 (4.40-5.90) Mil/uL Hgb 12.2 (12.0-18.0) g/dL Hct 37.8 (35.0-51.0) % MCV 77.4 L D (80.0-94.0) fL MCH 25.0 L (27.0-31.0) pg MCHC 32.2 L (33.0-37.0) g/dL RDW 17.3 H (11.5-14.5) % Plt Count 130 (130-400) K/uL MPV 10.0 (7.2-11.7) fL Neut % (Auto) 85.4 H (50.0-75.0) % Lymph % (Auto) 10.0 L (20.0-40.0) % Butler % (Auto) 4.0 (0.0-10.0) % Eos % (Auto) 0.4 (0.0-4.0) % Baso % (Auto) 0.2 (0.0-2.0) % Neut # (Auto) 10.5 H (1.8-7.0) K/uL Lymph # (Auto) 1.2 (1.0-4.3) K/uL Butler # (Auto) 0.5 (0.0-0.8) K/uL Eos # (Auto) 0.0 (0.0-0.7) K/uL Baso # (Auto) 0.0 (0.0-0.2) K/uL Neutrophils % (Manual) (50-75) % Band Neutrophils % (0-2) % Lymphocytes % (Manual) (20-40) % Monocytes % (Manual) (0-10) % Platelet Estimate (NORMAL) Large Platelets Hypochromasia (manual) Puncture Site Rb Rra pCO2 35 35 (35-45) mm/Hg pO2 114 H 207 H (80-100) mm/Hg HCO3 26.5 24.5 (21-28) mmol/L ABG pH 7.47 H 7.43 (7.35-7.45) ABG Total CO2 26.6 24.3 (22-28) mmol/L ABG O2 Saturation 99.7 H 100.0 H (95-98) % ABG Base Excess 2.0 -0.6 (-2.0-3.0) mmol/L ABG Hemoglobin 10.5 L (11.7-17.4) g/dL ABG Carboxyhemoglobin 1.9 H (0.5-1.5) % POC ABG HHb (Measured) 0.3 (0.0-5.0) % ABG Methemoglobin 1.0 (0.0-3.0) % Diaz Test Na Yes ABG Potassium 3.0 L (3.6-5.2) mmol/L A-a O2 Difference 199.0 462.0 mm/Hg Respiratory Index 1.7 2.2 Hgb O2 Saturation 96.9 (95.0-98.0) % Sodium 143.0 (132-148) mmol/l Chloride 113.0 H (98-107) mmol/L Glucose 119 H (75-110) mg/dl Lactate 1.7 (0.7-2.1) mmol/L Vent Mode Prvc Prvc Mechanical Rate 16 16 FiO2 50.0 100.0 % Tidal Volume 500 500 PEEP 5 5 Potassium (3.6-5.2) mmol/L Carbon Dioxide (22-30) mmol/L Anion Gap (10-20) BUN (9-20) mg/dL Creatinine (0.8-1.5) mg/dL Est GFR ( Amer) Est GFR (Non-Af Amer) POC Glucose (mg/dL) (65-110) mg/dL Random Glucose (75-110) mg/dL Calcium (8.6-10.4) mg/dl Phosphorus (2.5-4.5) mg/dL Magnesium (1.6-2.3) mg/dL Total Bilirubin (0.2-1.3) mg/dL AST (17-59) U/L ALT (21-72) U/L Alkaline Phosphatase (38-126) U/L Total Protein (6.3-8.3) g/dL Albumin (3.5-5.0) g/dL Globulin (2.2-3.9) gm/dL Albumin/Globulin Ratio (1.0-2.1) Arterial Blood Potassium 3.0 L (3.6-5.2) mmol/L Urine Color (YELLOW) Urine Clarity (Clear) Urine pH (5.0-8.0) Ur Specific [place] (1.003-1.030) Urine Protein (NEGATIVE) mg/dL Urine Glucose (UA) (Normal) mg/dL Urine Ketones (NEGATIVE) mg/dL Urine Blood (NEGATIVE) Urine Nitrate (NEGATIVE) Urine Bilirubin (NEGATIVE) Urine Urobilinogen (0.2-1.0) mg/dL Ur Leukocyte Esterase (Negative) Diana/uL Urine WBC (Auto) (0-5) /hpf Urine RBC (Auto) (0-3) /hpf Ur Squamous Epith Cells (0-5) /hpf 07/01/17 Range/Units 18:46 WBC (4.8-10.8) K/uL RBC (4.40-5.90) Mil/uL Hgb (12.0-18.0) g/dL Hct (35.0-51.0) % MCV (80.0-94.0) fL MCH (27.0-31.0) pg MCHC (33.0-37.0) g/dL RDW (11.5-14.5) % Plt Count (130-400) K/uL MPV (7.2-11.7) fL Neut % (Auto) (50.0-75.0) % Lymph % (Auto) (20.0-40.0) % Butler % (Auto) (0.0-10.0) % Eos % (Auto) (0.0-4.0) % Baso % (Auto) (0.0-2.0) % Neut # (Auto) (1.8-7.0) K/uL Lymph # (Auto) (1.0-4.3) K/uL Butler # (Auto) (0.0-0.8) K/uL Eos # (Auto) (0.0-0.7) K/uL Baso # (Auto) (0.0-0.2) K/uL Neutrophils % (Manual) (50-75) % Band Neutrophils % (0-2) % Lymphocytes % (Manual) (20-40) % Monocytes % (Manual) (0-10) % Platelet Estimate (NORMAL) Large Platelets Hypochromasia (manual) Puncture Site pCO2 (35-45) mm/Hg pO2 (80-100) mm/Hg HCO3 (21-28) mmol/L ABG pH (7.35-7.45) ABG Total CO2 (22-28) mmol/L ABG O2 Saturation (95-98) % ABG Base Excess (-2.0-3.0) mmol/L ABG Hemoglobin (11.7-17.4) g/dL ABG Carboxyhemoglobin (0.5-1.5) % POC ABG HHb (Measured) (0.0-5.0) % ABG Methemoglobin (0.0-3.0) % Diaz Test ABG Potassium (3.6-5.2) mmol/L A-a O2 Difference mm/Hg Respiratory Index Hgb O2 Saturation (95.0-98.0) % Sodium (132-148) mmol/l Chloride (98-107) mmol/L Glucose (75-110) mg/dl Lactate (0.7-2.1) mmol/L Vent Mode Mechanical Rate FiO2 % Tidal Volume PEEP Potassium (3.6-5.2) mmol/L Carbon Dioxide (22-30) mmol/L Anion Gap (10-20) BUN (9-20) mg/dL Creatinine (0.8-1.5) mg/dL Est GFR ( Amer) Est GFR (Non-Af Amer) POC Glucose (mg/dL) 92 (65-110) mg/dL Random Glucose (75-110) mg/dL Calcium (8.6-10.4) mg/dl Phosphorus (2.5-4.5) mg/dL Magnesium (1.6-2.3) mg/dL Total Bilirubin (0.2-1.3) mg/dL AST (17-59) U/L ALT (21-72) U/L Alkaline Phosphatase (38-126) U/L Total Protein (6.3-8.3) g/dL Albumin (3.5-5.0) g/dL Globulin (2.2-3.9) gm/dL Albumin/Globulin Ratio (1.0-2.1) Arterial Blood Potassium (3.6-5.2) mmol/L Urine Color (YELLOW) Urine Clarity (Clear) Urine pH (5.0-8.0) Ur Specific [place] (1.003-1.030) Urine Protein (NEGATIVE) mg/dL Urine Glucose (UA) (Normal) mg/dL Urine Ketones (NEGATIVE) mg/dL Urine Blood (NEGATIVE) Urine Nitrate (NEGATIVE) Urine Bilirubin (NEGATIVE) Urine Urobilinogen (0.2-1.0) mg/dL Ur Leukocyte Esterase (Negative) Diana/uL Urine WBC (Auto) (0-5) /hpf Urine RBC (Auto) (0-3) /hpf Ur Squamous Epith Cells (0-5) /hpf Laboratory Results - last 24 hr 07/01/17 07/01/17 07/01/17 18:46 18:50 21:40 WBC 12.3 H RBC 4.88 Hgb 12.2 Hct 37.8 MCV 77.4 L D MCH 25.0 L MCHC 32.2 L RDW 17.3 H Plt Count 130 MPV 10.0 Neut % (Auto) 85.4 H Lymph % (Auto) 10.0 L Butler % (Auto) 4.0 Eos % (Auto) 0.4 Baso % (Auto) 0.2 Neut # (Auto) 10.5 H Lymph # (Auto) 1.2 Butler # (Auto) 0.5 Eos # (Auto) 0.0 Baso # (Auto) 0.0 Neutrophils % (Manual) Band Neutrophils % Lymphocytes % (Manual) Monocytes % (Manual) Platelet Estimate Large Platelets Hypochromasia (manual) Puncture Site Rra pCO2 35 pO2 207 H HCO3 24.5 ABG pH 7.43 ABG Total CO2 24.3 ABG O2 Saturation 100.0 H ABG Base Excess -0.6 ABG Hemoglobin ABG Carboxyhemoglobin POC ABG HHb (Measured) ABG Methemoglobin Diaz Test Yes ABG Potassium 3.0 L A-a O2 Difference 462.0 Respiratory Index 2.2 Hgb O2 Saturation Sodium 143.0 Chloride 113.0 H Glucose 119 H Lactate 1.7 Vent Mode Prvc Mechanical Rate 16 FiO2 100.0 Tidal Volume 500 PEEP 5 Potassium Carbon Dioxide Anion Gap BUN Creatinine Est GFR ( Amer) Est GFR (Non-Af Amer) POC Glucose (mg/dL) 92 Random Glucose Calcium Phosphorus Magnesium Total Bilirubin AST ALT Alkaline Phosphatase Total Protein Albumin Globulin Albumin/Globulin Ratio Arterial Blood Potassium 3.0 L Urine Color Urine Clarity Urine pH Ur Specific [place] Urine Protein Urine Glucose (UA) Urine Ketones Urine Blood Urine Nitrate Urine Bilirubin Urine Urobilinogen Ur Leukocyte Esterase Urine WBC (Auto) Urine RBC (Auto) Ur Squamous Epith Cells 07/02/17 07/02/17 07/02/17 05:12 06:28 06:36 WBC RBC Hgb Hct MCV MCH MCHC RDW Plt Count MPV Neut % (Auto) Lymph % (Auto) Butler % (Auto) Eos % (Auto) Baso % (Auto) Neut # (Auto) Lymph # (Auto) Butler # (Auto) Eos # (Auto) Baso # (Auto) Neutrophils % (Manual) Band Neutrophils % Lymphocytes % (Manual) Monocytes % (Manual) Platelet Estimate Large Platelets Hypochromasia (manual) Puncture Site Rb pCO2 35 pO2 114 H HCO3 26.5 ABG pH 7.47 H ABG Total CO2 26.6 ABG O2 Saturation 99.7 H ABG Base Excess 2.0 ABG Hemoglobin 10.5 L ABG Carboxyhemoglobin 1.9 H POC ABG HHb (Measured) 0.3 ABG Methemoglobin 1.0 Diaz Test Na ABG Potassium A-a O2 Difference 199.0 Respiratory Index 1.7 Hgb O2 Saturation 96.9 Sodium 141 Chloride 109 H Glucose Lactate Vent Mode Prvc Mechanical Rate 16 FiO2 50.0 Tidal Volume 500 PEEP 5 Potassium 3.6 Carbon Dioxide 22 Anion Gap 14 BUN 14 Creatinine 0.8 Est GFR ( Amer) > 60 Est GFR (Non-Af Amer) > 60 POC Glucose (mg/dL) Random Glucose 81 Calcium 7.6 L Phosphorus 1.9 L Magnesium 1.7 Total Bilirubin 1.3 AST 30 ALT 18 L D Alkaline Phosphatase 59 Total Protein 6.4 Albumin 2.8 L D Globulin 3.6 Albumin/Globulin Ratio 0.8 L Arterial Blood Potassium Urine Color Yellow Urine Clarity Clear Urine pH 6.0 Ur Specific [place] > 1.060 H Urine Protein 1+ H Urine Glucose (UA) Normal Urine Ketones Negative Urine Blood Negative Urine Nitrate Negative Urine Bilirubin Negative Urine Urobilinogen Normal Ur Leukocyte Esterase Trace Urine WBC (Auto) 7 H Urine RBC (Auto) 5 H Ur Squamous Epith Cells 1 07/02/17 06:36 WBC 11.8 H RBC 4.19 L Hgb 10.5 L Hct 32.3 L MCV 77.1 L MCH 25.1 L MCHC 32.6 L RDW 17.3 H Plt Count 111 L MPV 10.7 Neut % (Auto) 84.3 H Lymph % (Auto) 8.8 L Butler % (Auto) 5.8 Eos % (Auto) 0.7 Baso % (Auto) 0.4 Neut # (Auto) 9.9 H Lymph # (Auto) 1.0 Butler # (Auto) 0.7 Eos # (Auto) 0.1 Baso # (Auto) 0.0 Neutrophils % (Manual) 70 Band Neutrophils % 13 H* Lymphocytes % (Manual) 12 L Monocytes % (Manual) 5 Platelet Estimate Slightly decreased L Large Platelets Present Hypochromasia (manual) Slight Puncture Site pCO2 pO2 HCO3 ABG pH ABG Total CO2 ABG O2 Saturation ABG Base Excess ABG Hemoglobin ABG Carboxyhemoglobin POC ABG HHb (Measured) ABG Methemoglobin Diaz Test ABG Potassium A-a O2 Difference Respiratory Index Hgb O2 Saturation Sodium Chloride Glucose Lactate Vent Mode Mechanical Rate FiO2 Tidal Volume PEEP Potassium Carbon Dioxide Anion Gap BUN Creatinine Est GFR ( Amer) Est GFR (Non-Af Amer) POC Glucose (mg/dL) Random Glucose Calcium Phosphorus Magnesium Total Bilirubin AST ALT Alkaline Phosphatase Total Protein Albumin Globulin Albumin/Globulin Ratio Arterial Blood Potassium Urine Color Urine Clarity Urine pH Ur Specific [place] Urine Protein Urine Glucose (UA) Urine Ketones Urine Blood Urine Nitrate Urine Bilirubin Urine Urobilinogen Ur Leukocyte Esterase Urine WBC (Auto) Urine RBC (Auto) Ur Squamous Epith Cells Critical Care Progress Note - Nutrition Nutrition: Nutrition Category Date Time Status NPO Diet [DIET] Diets 07/01/17 Dinner Active Assessment/Plan - Assessment and Plan (Free Text) Plan: Patient seen and examined at bedside. patient intubated to protect airway during upper gi bleed, Above resident note reviewed and verified during MICU rounds. medications- reconciled -s/p EGD -Esophagitis: continue PPI, carafate -A-fib: rate controlled with lopressor, and AC with eliquis -?aspiration sepsis: continue empirical abx -MS: avoid sedation, -constipation : PRN dulcolax -tolerated CPAP -extubate -monitor cbc -cc time 35 minutes - Date & Time Date: 07/02/17
--- NOTE | 2017-07-02 15:59 | CP.PCM.PN ---
Subjective - Date & Time of Evaluation Date of Evaluation: 07/02/17 Time of Evaluation: 12:40 - Subjective Subjective: clinically same Objective - Vital Signs/Intake and Output Vital Signs (last 24 hours): Temp Pulse Resp BP Pulse Ox 99.4 F 102 H 19 116/71 97 07/02/17 12:00 07/02/17 15:00 07/02/17 15:00 07/02/17 15:00 07/02/17 15:00 Intake and Output: 07/02/17 07/02/17 06:59 18:59 Intake Total 2665.5 1037.8 Output Total 100 Balance 2565.5 1037.8 - Medications Medications: Current Medications Albuterol Sulfate (Albuterol 0.083% Inhal Gisella (2.5 Mg/3 Ml) Ud) 2.5 mg IH RQ6 PRN PRN Reason: Wheezing Apixaban (Eliquis) 5 mg PO BID [facility] Docusate Sodium (Colace) 100 mg PEG DAILY PRN PRN Reason: Constipation Famotidine (Pepcid) 20 mg PO BID [facility] Last Admin: 07/02/17 10:19 Dose: 20 mg Ferrous Sulfate (Feosol Liq) 220 mg PEG DAILY [facility] Last Admin: 07/02/17 10:18 Dose: 220 mg Piperacillin Sod/Tazobactam Sod (Zosyn 4.5 Gm Iv Premix) 4.5 gm in 100 mls @ 100 mls/hr IVPB Q8H [facility] Last Admin: 07/02/17 10:00 Dose: 100 mls/hr Vancomycin/Sodium Chloride (Vancomycin 1 Gm/Ns 200 Ml) 1 gm in 200 mls @ 133.333 mls/hr IVPB Q24H [facility] Stop: 07/06/17 19:01 Last Admin: 07/01/17 22:09 Dose: 133.333 mls/hr Potassium Phosphate 15 mmole/ (Sodium Chloride) 255 mls @ 63 mls/hr IV ONCE ONE Stop: 07/02/17 16:02 Last Admin: 07/02/17 12:22 Dose: 63 mls/hr Metoprolol Tartrate (Lopressor) 2.5 mg IVP Q6H [facility] Rosuvastatin Calcium (Crestor) 10 mg PEG HS [facility] Last Admin: 07/01/17 22:03 Dose: Not Given - Labs Labs: 07/02/17 06:36 07/02/17 06:28 PT 17.6 SECONDS (9.7-12.2) H 07/01/17 13:46 INR 1.5 07/01/17 13:46 APTT 35 SECONDS (21-34) H 07/01/17 13:46 - Constitutional Appears: Well - Head Exam Head Exam: ATRAUMATIC, NORMAL INSPECTION, NORMOCEPHALIC - Eye Exam Eye Exam: EOMI, Normal appearance, PERRL Pupil Exam: NORMAL ACCOMODATION, PERRL - ENT Exam ENT Exam: Mucous Membranes Moist, Normal Exam - Neck Exam Neck Exam: Full ROM, Normal Inspection. absent: Lymphadenopathy - Respiratory Exam Respiratory Exam: Decreased Breath Sounds - Cardiovascular Exam Cardiovascular Exam: REGULAR RHYTHM, +S1, +S2 - GI/Abdominal Exam GI & Abdominal Exam: Soft, Diminished Bowel Sounds - Rectal Exam Rectal Exam: Deferred
[2017-07-02] MEDS: Metoprolol 1 mg/ml Inj IVP SCH ×2 (16:00→22:05)
--- NOTE | 2017-07-02 16:41 | PCM.PROC ---
Procedures Attestation:: I certify that I have explained the specified Operation(s) or Procedure(s), risks, benefits and reasonable alternatives to the Patient and/or other person responsible. The opportunity was given to ask questions and all questions answered - Central Line Placement Right Triple Lumen Catheter Aseptic technique was employed throughout the procedure: Hand Hygiene done prior to procedure, Full sterile barriers (mask, hair cover, sterile gown, sterile gloves), Full body sterile drape, Chloraprep Antiseptic: 30 second prep for IJ or SC sites CVP Time Out Performed: Yes Ultrasound Used for Placement: Yes Central Line Length: 20 cm Post Procedure: Sutured in Place, Good Blood Return, All Ports Aspirated, Flushed, Capped, Sterile Dressing Applied Secured by: Suture Post procedure dressing: Gauze Post Procedure X-Ray: Yes
[2017-07-02] MEDS: Vancomycin 1 gm/NS 200 ml 1 GM/200 ML BAG IVPB SCH (18:09)
--- NOTE | 2017-07-02 18:56 | CARD ---
APPROVED REPORT EKG Measurement Heart [id number] <Conclusion> Sinus tachycardia Inferior infarct, age undetermined Abnormal ECG
[2017-07-02] MEDS: Rosuvastatin Calcium 2.5 mg Tab PEG SCH (22:07)
[2017-07-03] MEDS: Piperacill/Tazo 4.5gm in Dex 4.5 GM/100 ML BAG IVPB SCH ×3 (00:51→17:23)
[2017-07-03] MEDS: Metoprolol 1 mg/ml Inj IVP SCH ×4 (03:52→23:00)
[2017-07-03 06:27] LABS: BASO # 0.1 K/uL (0.0-0.2); BASO % 0.8 % (0.0-2.0); EOS # 0.3 K/uL (0.0-0.7); HEMOGLOBIN 9.9 g/dL (12.0-18.0); LYMPH # 1.2 K/uL (1.0-4.3); LYMPH % 12.8 % (20.0-40.0); MEAN CELL VOLUME 76.5 fL (80.0-94.0); MEAN CORPUSCULAR HEMOGLOBIN 24.9 pg (27.0-31.0); MEAN CORPUSCULAR HGB CONC 32.6 g/dL (33.0-37.0); MEAN PLATELET VOLUME 9.7 fL (7.2-11.7); MONO # 0.6 K/uL (0.0-0.8); MONO % 6.4 % (0.0-10.0); NRBC % 0.1 % (0.0-2.0); RBC 3.95 Mil/uL (4.40-5.90); RED CELL DISTRIBUTION WIDTH 17.4 % (11.5-14.5)
[2017-07-03 06:44] LABS: ALB/GLOB RATIO 0.8 (1.0-2.1); ALBUMIN 2.8 g/dL (3.5-5.0); ALT/SGPT 31 U/L (21-72); AST/SGOT 29 U/L (17-59); BLOOD UREA NITROGEN 12 mg/dL (9-20); CALCIUM 8.1 mg/dl (8.6-10.4); GFR AFRICAN-AMERICAN > 60; GFR NON-AFRICAN AMERICAN > 60
--- NOTE | 2017-07-03 07:09 | CON ---
DATE: 07/01/[address] Pavon to Dr. Christopher Ballesteros. I was called for GI consultation by the admitting MD as well as the ER staff. The patient seen and fully examined on 07/01/2017 as requested by the ER staff as well as Dr. Christopher Ballesteros. The entire chart is reviewed including, but not limited to, the most recent lab and radiological results, current and the previous medication list, current and the previous medical events, allergy to medication list, as well as all the available current and the previous medical records. Case discussed with the staff at length. HISTORY OF PRESENT ILLNESS: This is a 66-year-old male who was admitted through the emergency room due to recurrent episode of nausea and vomiting of coffee-ground material as well as traces of all the blood through his previously inserted PEG tube. It has to be mentioned that the patient is aphasic and most of the information obtained from medical record, medical staff and the nursing staff as well as from the patient's own brother. PAST MEDICAL HISTORY: Including but not limited to, 1. Multiple sclerosis. 2. Hypertension. 3. Chronic renal disease. 4. COPD with pneumonia. 5. CVA. 6. Peptic ulcer disease. 7. Dysphagia, status post PEG insertion done by myself before. FAMILY HISTORY: Unknown. SOCIAL HISTORY: No known history of cigarette smoking or alcohol intake. CURRENT MEDICATIONS: Medication lists were reviewed. ALLERGY: ALLERGY TO MEDICATION, UNCLEAR. LABORATORY DATA: After being admitted to the hospital, the patient was found to have leukocytosis of 15.3 but normal hemoglobin and hematocrit with increased blood glucose level to 134. PHYSICAL EXAMINATION: GENERAL/VITAL SIGNS: A 66-year-old male with low grade temperature of 99.6, pulse of 108 respiratory rate 20-22, blood pressure 168/104. HEENT: Showed pale, dry oral mucous membrane. Nonicteric sclerae. LUNGS: Few scattered crepitation. Decreased air entry at bases. HEART: S1 and S2 with increased rate. ABDOMEN: Soft with mild abdominal distention. PEG tube is in place. Bowel sounds are hyperactive. No mass or organomegaly. No rebound tenderness or guarding. EXTREMITIES: Mild lower extremity edematous changes. No clubbing or cyanosis. NEUROLOGIC: No reported new neurological deficits, sensory or motor. No reported new focal deficits. IMPRESSION: 1. Upper gastrointestinal bleeding as reported, to rule out gastric versus duodenal ulcer. 2. Rule out upper gastrointestinal tract occult malignancy. SUGGESTIONS: 1. Agree with your plan. 2. Correct an underlying coagulopathy. 3. Proton pump inhibitors IV. 4. Hold PEG feeding for now. Start peripheral hyperalimentation. 5. Endoscopic evaluation of upper GI tract when the patient is more stable clinically and after receiving consent from the family. 6. Further recommendation to follow. 7. Cancer markers ____. 8. Sectional abdominal and pelvic CAT scan if the patient's symptoms persist. Thank you for letting me participate in your patient's case management. Azul Pavon MD
--- NOTE | 2017-07-03 10:50 | RAD ---
HISTORY: extubated, pna COMPARISON: 07/02/2017 FINDINGS: LUNGS: Extensive bibasilar opacity, possibly multi lobar pneumonia. Rule out pulmonary edema. PLEURA: No significant pleural effusion identified, no pneumothorax apparent. CARDIOVASCULAR: Normal heart size. Congestive change noted. Right internal jugular multi lumen central venous catheter unchanged. Endotracheal tube has been removed. OSSEOUS STRUCTURES: No significant abnormalities. VISUALIZED UPPER ABDOMEN: Normal. OTHER FINDINGS: None. IMPRESSION: Extensive bibasilar opacity. Multi lobar pneumonia versus pulmonary edema. No pleural effusion. Congestive change noted. Endotracheal tube removed.
[2017-07-03] MEDS: Ferrous Sulfate 300 mg/5 mL Liq UD PEG SCH (11:31)
--- NOTE | 2017-07-03 14:36 | VASCLAB ---
PROCEDURE: Lower Extremity Venous Duplex Exam. HISTORY: Leg swelling PRIORS: None. TECHNIQUE: Bilateral common femoral, femoral, popliteal and posterior tibial, peroneal and great saphenous veins were evaluated. Flow was assessed with color Doppler, compressibility, assessment of phasic flow and augmentation response. Report prepared by SCOTT Hernandez FINDINGS: RIGHT: 1. Common Femoral Vein: 1.1. Compressibility - Fully compressible: Thrombus - None : Flow - Phasic: Augmentation -Normal: Reflux - None. 2. Femoral Vein: (proximal and mid views only) 2.1. Compressibility - Fully compressible: Thrombus - None : Flow - Phasic: Augmentation -Normal: Reflux - None. 3. Popliteal Vein: 3.1. Compressibility - Fully compressible: Thrombus - None : Flow - Phasic: Augmentation -Normal: Reflux - None. 4. Posterior Tibial Vein: 4.1. Compressibility - Fully compressible: Thrombus - None: Flow - Phasic: Augmentation -Normal: Reflux - None. 5. Peroneal Vein: 5.1. Poorly imaged due to swelling. 6. Great Saphenous Vein: 6.1. Compressibility - Fully compressible: Thrombus - None: Flow - Phasic: Augmentation - Normal: Reflux - None. LEFT: 1. Common Femoral Vein: 1.1. Compressibility - Fully compressible: Thrombus - None: Flow - Phasic: Augmentation -Normal: Reflux - None. 2. Femoral Vein: 2.1. Compressibility - Fully compressible: Thrombus - None: Flow - Phasic: Augmentation -Normal: Reflux - None. 3. Popliteal Vein: 3.1. Compressibility - Fully compressible: Thrombus - None : Flow - Phasic: Augmentation -Normal: Reflux - None. 4. Posterior Tibial Vein: 4.1. Unable to examine. 5. Peroneal Vein: 5.1. Unable to examine. 6. Great Saphenous Vein: 6.1. Unable to examine. OTHER FINDINGS: Right: None significant. Left: None significant. IMPRESSION: 1. No evidence of venous thrombosis in bilateral lower extremities, for those imaged veins named above. 2. Limited exam, due to patient limited positioning.
--- NOTE | 2017-07-03 17:54 | CP.PCM.PN ---
Subjective - Date & Time of Evaluation Date of Evaluation: 07/03/17 Time of Evaluation: 12:40 - Subjective Subjective: clinically same Objective - Vital Signs/Intake and Output Vital Signs (last 24 hours): Temp Pulse Resp BP Pulse Ox 99.6 F 68 23 119/59 L 96 07/03/17 16:00 07/03/17 17:00 07/03/17 17:00 07/03/17 16:23 07/03/17 17:00 Intake and Output: 07/03/17 07/03/17 06:59 18:59 Intake Total 270 680 Output Total 330 400 Balance -60 280 - Medications Medications: Current Medications Albuterol Sulfate (Albuterol 0.083% Inhal Gisella (2.5 Mg/3 Ml) Ud) 2.5 mg IH RQ6 [facility] Apixaban (Eliquis) 5 mg PO BID [facility] Last Admin: 07/03/17 17:24 Dose: 5 mg Bisacodyl (Dulcolax) 10 mg MD HS PRN PRN Reason: Constipation Docusate Sodium (Colace) 100 mg PEG DAILY PRN PRN Reason: Constipation Famotidine (Pepcid) 20 mg PO BID [facility] Last Admin: 07/03/17 17:23 Dose: 20 mg Ferrous Sulfate (Feosol Liq) 220 mg PEG DAILY [facility] Last Admin: 07/03/17 11:31 Dose: 220 mg Piperacillin Sod/Tazobactam Sod (Zosyn 4.5 Gm Iv Premix) 4.5 gm in 100 mls @ 100 mls/hr IVPB Q8H [facility] Last Admin: 07/03/17 17:23 Dose: 100 mls/hr Vancomycin/Sodium Chloride (Vancomycin 1 Gm/Ns 200 Ml) 1 gm in 200 mls @ 133.333 mls/hr IVPB Q24H [facility] Stop: 07/06/17 19:01 Last Admin: 07/02/17 18:09 Dose: 133.333 mls/hr Metoprolol Tartrate (Lopressor) 2.5 mg IVP Q6H [facility] Last Admin: 07/03/17 17:23 Dose: 2.5 mg Rosuvastatin Calcium (Crestor) 10 mg PEG HS [facility] Last Admin: 07/02/17 22:07 Dose: 10 mg - Labs Labs: 07/03/17 06:22 07/03/17 06:22 PT 17.6 SECONDS (9.7-12.2) H 07/01/17 13:46 INR 1.5 07/01/17 13:46 APTT 35 SECONDS (21-34) H 07/01/17 13:46 - Constitutional Appears: Well - Head Exam Head Exam: ATRAUMATIC, NORMAL INSPECTION, NORMOCEPHALIC - Eye Exam Eye Exam: EOMI, Normal appearance, PERRL Pupil Exam: NORMAL ACCOMODATION, PERRL - ENT Exam ENT Exam: Mucous Membranes Moist, Normal Exam - Neck Exam Neck Exam: Full ROM, Normal Inspection. absent: Lymphadenopathy - Respiratory Exam Respiratory Exam: Decreased Breath Sounds - Cardiovascular Exam Cardiovascular Exam: REGULAR RHYTHM, +S1, +S2 - GI/Abdominal Exam GI & Abdominal Exam: Soft, Diminished Bowel Sounds - Rectal Exam Rectal Exam: Deferred
[2017-07-03] MEDS: Vancomycin 1 gm/NS 200 ml 1 GM/200 ML BAG IVPB SCH (18:01)
--- NOTE | 2017-07-03 22:31 | US ---
EXAM: US Abdomen Complete CLINICAL HISTORY: 66 years old, male; Signs and symptoms; Abdominal tenderness; Additional info: R/O cholecystitis TECHNIQUE: Real-time ultrasound of the abdomen (complete) with image documentation. COMPARISON: No relevant prior studies available. FINDINGS: Limitations: Patient compliance as per technologist. Liver: Enlarged, 18.8 cm. Fatty infiltration. No mass. No intrahepatic ductal dilatation. Gallbladder: No gallstones. Up to 0.4 cm wall thickness. No pericholecystic fluid. No sonographic Bray's sign. Common bile duct: No dilatation. No stones. Pancreas: Obscured by overlying bowel gas. Kidneys: Normal echogenicity. No hydronephrosis. Spleen: Not evaluated. Aorta: Obscured by overlying bowel gas. Inferior vena cava: Unremarkable. Free fluid: No significant free fluid. Bladder: Not adequately visualized. IMPRESSION: 1. Mild gallbladder wall thickening. Clinical correlation is needed. 2. Incidental/non-acute findings are described above.
[2017-07-04] MEDS: Rosuvastatin Calcium 2.5 mg Tab PEG SCH ×2 (00:07→21:53)
[2017-07-04] MEDS: Piperacill/Tazo 4.5gm in Dex 4.5 GM/100 ML BAG IVPB SCH ×3 (01:10→16:06)
[2017-07-04] MEDS: Albuterol 0.083% Inhal Sol (2.5 mg/3 mL) UD IH SCH ×4 (02:03→19:59)
[2017-07-04] MEDS: Metoprolol 1 mg/ml Inj IVP SCH ×4 (04:30→21:49)
[2017-07-04 07:01] LABS: BASO % 0.6 % (0.0-2.0); EOS # 0.4 K/uL (0.0-0.7); EOS % 5.2 % (0.0-4.0); HEMOGLOBIN 9.7 g/dL (12.0-18.0); LYMPH # 1.1 K/uL (1.0-4.3); LYMPH % 16.1 % (20.0-40.0); MEAN CELL VOLUME 76.2 fL (80.0-94.0); MEAN CORPUSCULAR HEMOGLOBIN 24.9 pg (27.0-31.0); MEAN CORPUSCULAR HGB CONC 32.7 g/dL (33.0-37.0); MONO # 0.5 K/uL (0.0-0.8); MONO % 6.5 % (0.0-10.0); NEUT # 4.9 K/uL (1.8-7.0); NEUT % 71.6 % (50.0-75.0); RBC 3.9 Mil/uL (4.40-5.90); RED CELL DISTRIBUTION WIDTH 16.8 % (11.5-14.5); WHITE BLOOD COUNT 6.9 K/uL (4.8-10.8)
[2017-07-04 07:31] LABS: ALB/GLOB RATIO 0.8 (1.0-2.1); ALBUMIN 2.8 g/dL (3.5-5.0); ALT/SGPT 42 U/L (21-72); AST/SGOT 37 U/L (17-59); BLOOD UREA NITROGEN 9 mg/dL (9-20); CALCIUM 8.1 mg/dl (8.6-10.4); GFR AFRICAN-AMERICAN > 60; GFR NON-AFRICAN AMERICAN > 60
[2017-07-04] MEDS: Ferrous Sulfate 300 mg/5 mL Liq UD PEG SCH (09:34)
[2017-07-04] MEDS: Vancomycin 1 gm/NS 200 ml 1 GM/200 ML BAG IVPB SCH (18:00)
--- NOTE | 2017-07-04 19:40 | CP.PCM.PN ---
Subjective - Date & Time of Evaluation Date of Evaluation: 07/04/17 Time of Evaluation: 11:10 - Subjective Subjective: Continue Eliquis Vancomycin continue Continue Zosyn ID consultations IV fluid Diet as ordered Objective - Vital Signs/Intake and Output Vital Signs (last 24 hours): Temp Pulse Resp BP Pulse Ox 99.4 F 72 18 133/77 95 07/04/17 16:00 07/04/17 08:00 07/04/17 16:00 07/04/17 04:00 07/04/17 16:00 - Medications Medications: Current Medications Albuterol Sulfate (Albuterol 0.083% Inhal Gisella (2.5 Mg/3 Ml) Ud) 2.5 mg IH RQ6 [facility] Last Admin: 07/04/17 13:19 Dose: Not Given Apixaban (Eliquis) 5 mg PO BID [facility] Last Admin: 07/04/17 17:13 Dose: 5 mg Bisacodyl (Dulcolax) 10 mg ID HS PRN PRN Reason: Constipation Docusate Sodium (Colace) 100 mg PEG DAILY PRN PRN Reason: Constipation Famotidine (Pepcid) 20 mg PO BID [facility] Last Admin: 07/04/17 17:14 Dose: 20 mg Ferrous Sulfate (Feosol Liq) 220 mg PEG DAILY [facility] Last Admin: 07/04/17 09:34 Dose: 220 mg Piperacillin Sod/Tazobactam Sod (Zosyn 4.5 Gm Iv Premix) 4.5 gm in 100 mls @ 100 mls/hr IVPB Q8H [facility] Last Admin: 07/04/17 16:06 Dose: 100 mls/hr Vancomycin/Sodium Chloride (Vancomycin 1 Gm/Ns 200 Ml) 1 gm in 200 mls @ 133.333 mls/hr IVPB Q24H [facility] Stop: 07/06/17 19:01 Last Admin: 07/04/17 18:00 Dose: 133.333 mls/hr Metoprolol Tartrate (Lopressor) 2.5 mg IVP Q6H [facility] Last Admin: 07/04/17 16:04 Dose: Not Given Rosuvastatin Calcium (Crestor) 10 mg PEG HS [facility] Last Admin: 07/04/17 00:07 Dose: 10 mg - Labs Labs: 07/04/17 06:57 07/04/17 06:57 PT 17.6 SECONDS (9.7-12.2) H 07/01/17 13:46 INR 1.5 07/01/17 13:46 APTT 35 SECONDS (21-34) H 07/01/17 13:46
[2017-07-05] MEDS: Piperacill/Tazo 4.5gm in Dex 4.5 GM/100 ML BAG IVPB SCH ×3 (00:28→17:14)
[2017-07-05] MEDS: Albuterol 0.083% Inhal Sol (2.5 mg/3 mL) UD IH SCH ×4 (01:38→19:17)
[2017-07-05] MEDS: Metoprolol 1 mg/ml Inj IVP SCH ×4 (03:27→22:01)
[2017-07-05] MEDS: Ferrous Sulfate 300 mg/5 mL Liq UD PEG SCH (09:30)
--- NOTE | 2017-07-05 11:35 | PN ---
DATE: LOCATION: ICU 17. SUBJECTIVE: This is a 66-year-old male seen and examined early in rounds without significant clinical changes or reported active bleeding as per record. The patient is nonverbal, on vancomycin IV as well as Eliquis with Zosyn IV. The entire chart is reviewed including, but not limited to, the most recent lab and radiology study results, current and previous medication list, current and previous medical events. Case discussed with the staff at length as well as the old medical cost consultant. The patient appeared to be somewhat awake, alert, tolerating PEG feeding well, but still incontinent of urine and stool as reported. [place] catheter is in place. Today's lab is still pending; but the patient recently reported to have normal white blood cell with hypochromic microcytic anemia, but normal platelet count with abnormal ABGs with increased blood glucose level, low calcium, low phosphorus and low albumin. PHYSICAL EXAMINATION: GENERAL: This is a 66-year-old male. VITAL SIGNS: Afebrile with pulse of 58, respiratory rate 20 to 22, blood pressure 106/54. HEENT: Showed pale, dry oral mucous membrane, nonicteric sclera. LUNGS: Few scattered crepitation. Decreased air entry at bases. HEART: Positive S1 and S2. ABDOMEN: Soft with slight distention, but previously inserted PEG tube is in place without reported bleeding, residual, or resistant. EXTREMITIES: With evidence of left arm contractions, but no clubbing or cyanosis with mild lower extremity edematous changes. NEUROLOGIC: No reported new neurological deficits, sensory, or motor. IMPRESSION: 1. Recent history of upper gastrointestinal bleeding, none this morning, subsided. 2. Peptic ulcer disease. 3. Known history of but not limited to hypertension, chronic obstructive pulmonary disease with pneumonia, chronic renal insufficiency, multiple sclerosis, cerebrovascular accident with reported dysphagia and status post percutaneous endoscopic gastrostomy insertion, intact. 3. Hypochromic microcytic anemia, most likely secondary to above. SUGGESTION: 1. Agree with your plan. 2. Subsequent increase the rate of eating. 3. Correct any underlying coagulopathy. Azul Pavon MD
--- NOTE | 2017-07-05 16:08 | CP.PCM.PN ---
Subjective - Date & Time of Evaluation Date of Evaluation: 07/05/17 Time of Evaluation: 11:50 - Subjective Subjective: clinically same Objective - Vital Signs/Intake and Output Vital Signs (last 24 hours): Temp Pulse Resp BP Pulse Ox 98.1 F 70 21 116/68 98 07/05/17 12:00 07/05/17 12:00 07/05/17 12:00 07/05/17 12:00 07/05/17 12:00 Intake and Output: 07/05/17 07/05/17 06:59 18:59 Intake Total 550 100 Output Total 0 550 Balance 550 -450 - Medications Medications: Current Medications Albuterol Sulfate (Albuterol 0.083% Inhal Gisella (2.5 Mg/3 Ml) Ud) 2.5 mg IH RQ6 [facility] Last Admin: 07/05/17 14:24 Dose: Not Given Apixaban (Eliquis) 5 mg PO BID [facility] Last Admin: 07/05/17 09:30 Dose: 5 mg Bisacodyl (Dulcolax) 10 mg [place] HS PRN PRN Reason: Constipation Docusate Sodium (Colace) 100 mg PEG DAILY PRN PRN Reason: Constipation Famotidine (Pepcid) 20 mg PO BID [facility] Last Admin: 07/05/17 09:30 Dose: 20 mg Ferrous Sulfate (Feosol Liq) 220 mg PEG DAILY [facility] Last Admin: 07/05/17 09:30 Dose: 220 mg Piperacillin Sod/Tazobactam Sod (Zosyn 4.5 Gm Iv Premix) 4.5 gm in 100 mls @ 100 mls/hr IVPB Q8H [facility] Last Admin: 07/05/17 09:29 Dose: 100 mls/hr Vancomycin/Sodium Chloride (Vancomycin 1 Gm/Ns 200 Ml) 1 gm in 200 mls @ 133.333 mls/hr IVPB Q24H [facility] Stop: 07/06/17 19:01 Last Admin: 07/04/17 18:00 Dose: 133.333 mls/hr Metoprolol Tartrate (Lopressor) 2.5 mg IVP Q6H [facility] Last Admin: 07/05/17 15:44 Dose: Not Given Rosuvastatin Calcium (Crestor) 10 mg PEG HS [facility] Last Admin: 07/04/17 21:53 Dose: 10 mg - Labs Labs: 07/04/17 06:57 07/04/17 06:57 PT 17.6 SECONDS (9.7-12.2) H 07/01/17 13:46 INR 1.5 07/01/17 13:46 APTT 35 SECONDS (21-34) H 07/01/17 13:46 - Constitutional Appears: Well - Head Exam Head Exam: ATRAUMATIC, NORMAL INSPECTION, NORMOCEPHALIC - Eye Exam Eye Exam: EOMI, Normal appearance, PERRL Pupil Exam: NORMAL ACCOMODATION, PERRL - ENT Exam ENT Exam: Mucous Membranes Moist, Normal Exam - Neck Exam Neck Exam: Full ROM, Normal Inspection. absent: Lymphadenopathy - Respiratory Exam Respiratory Exam: Decreased Breath Sounds - Cardiovascular Exam Cardiovascular Exam: REGULAR RHYTHM, +S1, +S2 - GI/Abdominal Exam GI & Abdominal Exam: Soft, Diminished Bowel Sounds - Rectal Exam Rectal Exam: Deferred Assessment and Plan (1) Hematuria due to cystitis Status: Acute (2) Hypokalemia Status: Acute (3) MRSA (methicillin resistant staph aureus) culture positive Status: Acute (4) Pneumonia Status: Acute (5) Sepsis Status: Acute (6) Suprapubic catheter dysfunction Status: Acute (7) Urinary retention Status: Acute - Assessment and Plan (Free Text) Plan: Continue same feeding Vanco and Zosyn as ordered Eliquis Follow-up with the cardiology GI and DVT prophylaxis
[2017-07-05] MEDS: Vancomycin 1 gm/NS 200 ml 1 GM/200 ML BAG IVPB SCH (18:18)
[2017-07-05] MEDS: Rosuvastatin Calcium 2.5 mg Tab PEG SCH (22:02)
[2017-07-06] MEDS: Piperacill/Tazo 4.5gm in Dex 4.5 GM/100 ML BAG IVPB SCH ×3 (01:25→17:00)
[2017-07-06] MEDS: Albuterol 0.083% Inhal Sol (2.5 mg/3 mL) UD IH SCH ×3 (02:55→19:38)
[2017-07-06] MEDS: Metoprolol 1 mg/ml Inj IVP SCH ×4 (04:00→21:24)
--- NOTE | 2017-07-06 07:38 | PN ---
LOCATION: ICU 17. SUBJECTIVE: This is a 66-year-old male post upper endoscopy due to reported nausea and vomiting of coffee-ground material with occasional hematemesis, which is subsided, appeared to be somewhat more awake and alert with PEG tube in place. The patient is still having new [place] Catheter with slightly darker urine. No reported active bleeding. No reported chest pain or palpitation or significant shortness of breath. The entire chart is reviewed including but not limited to the most recent lab and radiologist study results, current and the previous medication list, current and the previous medical events and today's lab results still pending; however, the patient still has hypochromic microcytic anemia with thrombocytopenia as per yesterday's blood workup with low potassium, low calcium, low phosphorus with low total protein and low albumin. Abdominal and bladder ultrasound done yesterday, official report seen. Repeated chest x-ray done yesterday, official report and the films were seen indicative of extensive bibasilar opacity with multilobar pneumonia versus possible pulmonary edema with endotracheal tube removed. PHYSICAL EXAMINATION: GENERAL: This is a 66-year-old male. VITAL SIGNS: Afebrile with pulse of 70, respiratory 20 to 22, blood pressure of 130/72. HEENT: Showed pale, dry oral mucous membrane, nonicteric sclera. LUNGS: Few scattered crepitation. Decreased air entry at bases. HEART: Positive S1 and S2. ABDOMEN: With mild distention. Bowel sounds are present. Feeding tube is in place, intact. No reported residual resistant or bleeding. EXTREMITIES: Without significant reported clubbing, cyanosis or edematous changes. NEUROLOGIC: No reported new neurological deficits, sensory, or motor. Peripheral pulses are present, but weak bilaterally. It has to be mentioned that the pathology report of the gastric mucosa is negative for helicobacter pylori infection. IMPRESSION: 1. Reported recent gastrointestinal bleeding, subsided. 2. Multiple sclerosis by history. 3. Pneumonia and/or pulmonary edema bilaterally. 4. Known history of hypertension, chronic renal disease, chronic obstructive pulmonary disease. 5. Cerebrovascular accident by history. 6. Dysphagia, malnutrition, hypoalbuminemia with status post percutaneous endoscopic gastrostomy insertion. 7. Anemia, secondary to above. 8. Electrolyte imbalance with hypokalemia and hypocalcemia. SUGGESTION: 1. Continue current management. 2. Correct any underlying electrolyte imbalance. 3. Correct any underlying coagulopathy. 4. No heparin and no anticoagulant or antiplatelet medications in the meantime due to the patient's recent history of bleeding. 5. Further recommendation to follow. Azul Pavon MD
--- NOTE | 2017-07-06 07:39 | PN ---
DATE: LOCATION: ICU, 17. SUBJECTIVE: This is a [id number]ho man seen and examined in rounds today without significant clinical changes. No reported active bleeding so far. The entire chart is reviewed including, but not limited to the most recent lab and radiology study results, current and the previous medication list, current and the previous medical events. Case discussed with the staff. LABORATORY DATA: Today's lab showed hemoglobin 9.9, hematocrit 30.3. This is highly suggestive of hypochromic macrocytic anemia with thrombocytopenia of , potassium 3.2, calcium 8.1, phosphorus 1.8, total bilirubin mildly elevated at 1.6, total protein 6.2, albumin 2.8. PHYSICAL EXAMINATION GENERAL: A 66-year-old male appeared to be more awake and alert. VITAL SIGNS: Low-grade temperature 99.9, heart rate of 96, respiratory rate of 20 to 24, blood pressure 116/68. HEENT: Showed pale, dry oral mucous membrane. Nonicteric sclerae. LUNGS: Scattered crepitation, decreased air entry at bases. HEART: Positive S1 and S2. ABDOMEN: Soft, with mild distension. No mass or organomegaly. No rebound tenderness or guarding. NEUROLOGIC: No reported new neurological deficits, sensory or motor. No reported new focal deficits. EXTREMITIES: Peripheral pulses are present, but weak. It has to be mentioned that there was no significant combination of chest pain or palpitation as per the staff. IMPRESSION: 1. The patient has peptic ulcer disease with diffuse esophagitis. 2. Recent history of nausea and vomiting coffee-ground material, none this a.m. 3. Multiple past medical history including, but not limited to multiple sclerosis, cerebrovascular accident, hypertension, chronic renal disease. 4. Dysphagia, malnutrition status post percutaneous endoscopic gastrostomy insertion. 5. Chronic obstructive pulmonary disease with anemia by history. SUGGESTION: 1. Continue current management. 2. Subsequent increase of the rate of the feeding tube. 3. Followup H and H with blood transfusion as needed to keep hemoglobin at 10 g percent. Azul Pavon MD
--- NOTE | 2017-07-06 07:42 | CON ---
DATE: The patient admitted through the emergency room with history of multiple sclerosis, questionable urinary retention. The patient had a condom catheter in place. The patient is comfortable with the condom catheter and attempt to put in a Guzmán failed. 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 The patient now is voiding through the Tiemann catheter, in one day voiding 400 cc. approximately 200. The patient is comfortable. No further intervention necessary at this point. Pedro Thayer MD
[2017-07-06] MEDS: Ferrous Sulfate 300 mg/5 mL Liq UD PEG SCH (11:19)
[2017-07-06 13:31] LABS: ALB/GLOB RATIO 0.8 (1.0-2.1); ALBUMIN 3.1 g/dL (3.5-5.0); ALT/SGPT 40 U/L (21-72); AST/SGOT 27 U/L (17-59); BLOOD UREA NITROGEN 10 mg/dL (9-20); CALCIUM 8.1 mg/dl (8.6-10.4); GFR AFRICAN-AMERICAN > 60; GFR NON-AFRICAN AMERICAN > 60
--- NOTE | 2017-07-06 15:05 | PN ---
DATE: LOCATION: ICU 17. SUBJECTIVE: This is a 66-year-old man seen and examined in rounds without reported significant clinical changes or reported active bleeding this morning, no reported chest pain or palpitation. The entire chart is reviewed including but not limited to the most recent lab and radiology study results, current and the previous medication list, current and the previous medical events. Case discussed with the staff at length. It had to be mentioned that today's lab is still pending, but the patient recently reported to have mild subsequent drop of hemoglobin and hematocrit with low indices highly suggestive of hypochromic macrocytic anemia, but not normal white blood cells and normal platelet count with low CO2 content, mildly increased blood glucose level, low calcium, low magnesium, and low albumin. The patient is so far tolerating PEG feeding without reported bleeding, resistant or residual. PHYSICAL EXAMINATION GENERAL: A 66-year-old male, afebrile who has pulse of 82, respiratory rate 20 to 22, blood pressure of 128/74. HEENT: Showed pale, dry, oral mucous membranes. Nonicteric sclera. LUNGS: Few scattered crepitation. Decreased air entry at bases. HEART: Positive S1 and S2. ABDOMEN: Soft, bowel sounds are present with PEG tube in place with slight abdominal distention. No mass or organomegaly. EXTREMITIES: Lower extremities, mild edematous changes. No clubbing or cyanosis. No reported significant edematous changes, but with evidence of left arm contractions. NEUROLOGIC: No new reported neurologic deficits, sensory or motor. Peripheral pulses are present bilaterally but weak. No reported new focal deficits. IMPRESSION: 1. Recent test of gastrointestinal bleeding, subsiding. 2. Peptic ulcer disease. 3. Hypochromic macrocytic anemia, most likely secondary to above as well as chronic disease. 4. Known history of but not limited to chronic obstructive pulmonary disease, hypertension, pneumonia, chronic renal insufficiency, with multiple sclerosis. 5. Known history of cerebrovascular accident. 6. Dysphagia, status post percutaneous endoscopic gastrostomy insertion before, stable. SUGGESTIONS: 1. Continue current management. 2. Due to the patient's anemia, repeat H and H to follow, with possible blood transfusion as needed, only to keep hemoglobin around 10 gm%. 3. Increase the rate of feeding, and subsequently increase frequency as needed. Azul Pavon MD 11:05:41
[2017-07-06] MEDS: Vancomycin 1 gm/NS 200 ml 1 GM/200 ML BAG IVPB SCH (18:00)
--- NOTE | 2017-07-06 19:43 | CP.PCM.PN ---
Subjective - Date & Time of Evaluation Date of Evaluation: 07/06/17 Time of Evaluation: 16:10 Objective - Vital Signs/Intake and Output Vital Signs (last 24 hours): Temp Pulse Resp BP Pulse Ox 97.2 F L 79 19 128/77 99 07/06/17 14:00 07/06/17 14:00 07/06/17 14:00 07/06/17 14:00 07/06/17 14:00 Intake and Output: 07/06/17 07/07/17 18:59 06:59 Intake Total 1000 Balance 1000 - Medications Medications: Current Medications Albuterol Sulfate (Albuterol 0.083% Inhal Gisella (2.5 Mg/3 Ml) Ud) 2.5 mg IH RQ6 [facility] Last Admin: 07/06/17 19:38 Dose: Not Given Apixaban (Eliquis) 5 mg PO BID [facility] Last Admin: 07/06/17 18:02 Dose: 5 mg Bisacodyl (Dulcolax) 10 mg [place] HS PRN PRN Reason: Constipation Docusate Sodium (Colace) 100 mg PEG DAILY PRN PRN Reason: Constipation Last Admin: 07/06/17 11:17 Dose: 100 mg Famotidine (Pepcid) 20 mg PO BID [facility] Last Admin: 07/06/17 18:06 Dose: 20 mg Ferrous Sulfate (Feosol Liq) 220 mg PEG DAILY [facility] Last Admin: 07/06/17 11:19 Dose: 220 mg Piperacillin Sod/Tazobactam Sod (Zosyn 4.5 Gm Iv Premix) 4.5 gm in 100 mls @ 100 mls/hr IVPB Q8H [facility] Last Admin: 07/06/17 17:00 Dose: 100 mls/hr Metoprolol Tartrate (Lopressor) 2.5 mg IVP Q6H [facility] Last Admin: 07/06/17 15:48 Dose: 2.5 mg Rosuvastatin Calcium (Crestor) 10 mg PEG HS [facility] Last Admin: 07/05/17 22:02 Dose: 10 mg - Labs Labs: 07/04/17 06:57 07/06/17 13:14 PT 17.6 SECONDS (9.7-12.2) H 07/01/17 13:46 INR 1.5 07/01/17 13:46 APTT 35 SECONDS (21-34) H 07/01/17 13:46 Assessment and Plan (1) Hematuria due to cystitis Status: Acute (2) Hypokalemia Status: Acute (3) MRSA (methicillin resistant staph aureus) culture positive Status: Acute (4) Pneumonia Status: Acute (5) Sepsis Status: Acute (6) Suprapubic catheter dysfunction Status: Acute (7) Urinary retention Status: Acute
[2017-07-06] MEDS: Rosuvastatin Calcium 2.5 mg Tab PEG SCH (21:15)
[2017-07-07] MEDS: Albuterol 0.083% Inhal Sol (2.5 mg/3 mL) UD IH SCH ×3 (01:14→19:05)
[2017-07-07] MEDS: Piperacill/Tazo 4.5gm in Dex 4.5 GM/100 ML BAG IVPB SCH ×3 (01:30→17:12)
[2017-07-07] MEDS: Metoprolol 1 mg/ml Inj IVP SCH ×3 (03:15→15:09)
[2017-07-07] MEDS: Ferrous Sulfate 300 mg/5 mL Liq UD PEG SCH (09:55)
--- NOTE | 2017-07-07 12:59 | CP.PCM.PN ---
Subjective - Date & Time of Evaluation Date of Evaluation: 07/07/17 Time of Evaluation: 12:58 - Subjective Subjective: PT SEEN WITH DR. Chaka BARNES DURING AFTERNOON ROUNDS. LABS REPEATED TODAY AND REVIEWED WITH . PT IS CLEARED FOR D/C AND TO RETURN TO [facility] TODAY PER Juan DOMINGUEZ. SPUTUM CX RESULTS DISCUSSED WITH DR. DOMINGUEZ; PT WILL CONTINUE ZOSYN 4.5 GM IV Q8 HOURS FOR ANOTHER 3 DAYS (LAST DAY TO BE GIVEN IS 07/10/17 FOR A TOTAL OF 10 DAYS REGIMEN); NO NEED FOR PICC LINE. PT TO BE D/.C WITH [facility] OK WITH PMD. METOPROLOL DOSE CONVERTED TO ORAL ALSO ADDED TO MED REC. PT TO BE FOLLOWED BY DR. DOMINGUEZ WHILE AT [facility]. SW AWARE OF DC AND WILL MAKE ARRANGEMENTS. NO FURTHER ORDERS. -PLACE UNDER THE SERVICE OF DR. Christopher DOMINGUEZ WHILE AT [facility]--- CALL UPON ARRIVAL TO FACILITY FOR ADMITTING ORDERS. -CONTINUE MEDICATIONS PER THE MED REC---CHANGES CAN BE MADE BY DR. DOMINGUEZ. -CONTINUE ZOSYN 4.5 GM IV Q8 HOURS X3 MORE DAYS (TO COMPLETE FULL 10 REGIMEN; WAS STARTED ON 07/01/17 AND LAST DOSE TO BE GIVEN ON ). [facility] CARE UNTIL IV ZOSYN IS COMPLETED, REPLACE [facility] PRN. -CONTINUE PEG FEEDINGS FOLLOWS; CHANGES CAN BE MADE BY DR. DOMINGUEZ: 1) JEVITY 1.5 TO RUN CONTINUOUSLY AT 50 ML/HR. -ASPIRATION PRECAUTIONS PER FACILITY PROTOCOL. -FURTHER ORDERS AND RECOMMENDATIONS PER DR. DOMINGUEZ. Objective - Vital Signs/Intake and Output Vital Signs (last 24 hours): Temp Pulse Resp BP Pulse Ox 97.8 F 78 18 120/74 99 07/07/17 12:00 07/07/17 12:00 07/07/17 12:00 07/07/17 12:00 07/07/17 12:00 Intake and Output: 07/07/17 07/07/17 06:59 18:59 Intake Total 500 300 Output Total 300 300 Balance 200 0 - Medications Medications: Current Medications Albuterol Sulfate (Albuterol 0.083% Inhal Gisella (2.5 Mg/3 Ml) Ud) 2.5 mg IH RQ6 [facility] Last Admin: 03/06/18 07:21 Dose: Not Given Apixaban (Eliquis) 5 mg PO BID [facility] Last Admin: 07/07/17 09:56 Dose: 5 mg Bisacodyl (Dulcolax) 10 mg [place] HS PRN PRN Reason: Constipation Docusate Sodium (Colace) 100 mg PEG DAILY PRN PRN Reason: Constipation Last Admin: 07/06/17 11:17 Dose: 100 mg Famotidine (Pepcid) 20 mg PO BID [facility] Last Admin: 07/07/17 09:56 Dose: 20 mg Ferrous Sulfate (Feosol Liq) 220 mg PEG DAILY [facility] Last Admin: 07/07/17 09:55 Dose: 220 mg Piperacillin Sod/Tazobactam Sod (Zosyn 4.5 Gm Iv Premix) 4.5 gm in 100 mls @ 100 mls/hr IVPB Q8H [facility] Last Admin: 07/07/17 09:54 Dose: 100 mls/hr Metoprolol Tartrate (Lopressor) 2.5 mg IVP Q6H [facility] Last Admin: 07/07/17 09:55 Dose: 2.5 mg Rosuvastatin Calcium (Crestor) 10 mg PEG HS [facility] Last Admin: 07/06/17 21:15 Dose: 10 mg - Labs Labs: 07/04/17 06:57 07/06/17 13:14 PT 17.6 SECONDS (9.7-12.2) H 07/01/17 13:46 INR 1.5 07/01/17 13:46 APTT 35 SECONDS (21-34) H 07/01/17 13:46
[2017-07-07 14:01] LABS: BASO # 0.1 K/uL (0.0-0.2); BASO % 0.8 % (0.0-2.0); EOS # 0.5 K/uL (0.0-0.7); EOS % 5.4 % (0.0-4.0); HEMOGLOBIN 10.6 g/dL (12.0-18.0); LYMPH # 1.4 K/uL (1.0-4.3); LYMPH % 15.5 % (20.0-40.0); MEAN CELL VOLUME 76.2 fL (80.0-94.0); MEAN CORPUSCULAR HEMOGLOBIN 25.2 pg (27.0-31.0); MONO # 0.8 K/uL (0.0-0.8); MONO % 8.2 % (0.0-10.0); NEUT # 6.5 K/uL (1.8-7.0); NEUT % 70.1 % (50.0-75.0); NRBC % 0.2 % (0.0-2.0); RBC 4.22 Mil/uL (4.40-5.90); RED CELL DISTRIBUTION WIDTH 16.8 % (11.5-14.5); WHITE BLOOD COUNT 9.3 K/uL (4.8-10.8)
[2017-07-07 14:12] LABS: BLOOD UREA NITROGEN 12 mg/dL (9-20); CALCIUM 8.2 mg/dl (8.6-10.4); GFR AFRICAN-AMERICAN > 60; GFR NON-AFRICAN AMERICAN > 60
[2017-07-07 20:12] VITALS: BP 131/71; PULSE 57; RESP 23; TEMP 99
--- NOTE | 2017-07-07 21:16 | CP.PCM.PN ---
Subjective - Date & Time of Evaluation Date of Evaluation: 07/07/17 Objective - Vital Signs/Intake and Output Vital Signs (last 24 hours): Temp Pulse Resp BP Pulse Ox 99 F 57 L 23 131/71 98 07/07/17 19:25 07/07/17 19:25 07/07/17 19:25 07/07/17 19:25 07/07/17 19:25 Intake and Output: 07/07/17 07/08/17 18:59 06:59 Intake Total 900 Output Total 600 Balance 300 - Labs Labs: 07/07/17 13:50 07/07/17 13:50 PT 17.6 SECONDS (9.7-12.2) H 07/01/17 13:46 INR 1.5 07/01/17 13:46 APTT 35 SECONDS (21-34) H 07/01/17 13:46 Assessment and Plan (1) Hematuria due to cystitis Status: Acute (2) Hypokalemia Status: Acute (3) MRSA (methicillin resistant staph aureus) culture positive Status: Acute (4) Pneumonia Status: Acute (5) Sepsis Status: Acute (6) Suprapubic catheter dysfunction Status: Acute (7) Urinary retention Status: Acute - Assessment and Plan (Free Text) Plan: Follow-up with ID follow-up with the IN follow-up with the dosing follow-up with the Eric[facility] possible discharge planning for dosing for 3 more days will resume the Copaxone once the patient is back in the [facility] casein and discussed with the staff
[2017-07-08 09:32] VITALS: O2SAT 88
== END 2017-07-07 20:56 | DRG 208 ==
LOC: C.ER 12:25 → C.9E 15:23 → C.9I 18:06
PROVIDERS: ADMIT Internal Medicine Nephrology; ATTEND Internal Medicine Nephrology
PROC: 5A1935Z Respiratory Ventilation, Less than 24 Consecutive Hours (ICD-10-PCS; 2017-07-01)
PROC: 0BH17EZ Insertion of Endotracheal Airway into Trachea, Via Natural or Artificial Opening (ICD-10-PCS; 2017-07-01)
PROC: 02HV33Z Insertion of Infusion Device into Superior Vena Cava, Percutaneous Approach (ICD-10-PCS; 2017-07-02)
PROC: 3E0G76Z Introduction of Nutritional Substance into Upper GI, Via Natural or Artificial Opening (ICD-10-PCS; 2017-07-02)
PROC: 3E0336Z Introduction of Nutritional Substance into Peripheral Vein, Percutaneous Approach (ICD-10-PCS; 2017-07-02)
PROC: 0DB68ZX Excision of Stomach, Via Natural or Artificial Opening Endoscopic, Diagnostic (ICD-10-PCS; principal; 2017-07-02 09:45)
DX: J18.9 Pneumonia, unspecified organism (principal); A41.1 Sepsis due to other specified staphylococcus; E46 Unspecified protein-calorie malnutrition; K92.0 Hematemesis; G35 Multiple sclerosis; J44.0 Chronic obstructive pulmonary disease with (acute) lower respiratory infection; D68.9 Coagulation defect, unspecified; D69.6 Thrombocytopenia, unspecified; I48.91 Unspecified atrial fibrillation; E83.51 Hypocalcemia; R47.01 Aphasia; T83.090A Other mechanical complication of cystostomy catheter, initial encounter; N30.91 Cystitis, unspecified with hematuria; D50.9 Iron deficiency anemia, unspecified; K29.50 Unspecified chronic gastritis without bleeding; D53.9 Nutritional anemia, unspecified; E87.6 Hypokalemia; I12.9 Hypertensive chronic kidney disease with stage 1 through stage 4 chronic kidney disease, or unspecified chronic kidney disease; K21.0 Gastro-esophageal reflux disease with esophagitis; N18.9 Chronic kidney disease, unspecified; R09.02 Hypoxemia; K44.9 Diaphragmatic hernia without obstruction or gangrene; K29.80 Duodenitis without bleeding; R13.10 Dysphagia, unspecified; N35.9 Urethral stricture, unspecified; Z79.82 Long term (current) use of aspirin; Z86.14 Personal history of Methicillin resistant Staphylococcus aureus infection; Z79.01 Long term (current) use of anticoagulants; Z86.73 Personal history of transient ischemic attack (TIA), and cerebral infarction without residual deficits; Z87.11 Personal history of peptic ulcer disease; Z87.01 Personal history of pneumonia (recurrent); Z93.1 Gastrostomy status

== ENCOUNTER 2018-03-04 05:02 | Inpatient (IN) | payer MEDICARE, MEDICAID ==
--- NOTE | 2018-03-04 05:08 | C.PDOC ---
History Of Present Illness 67 year old male is brought to the ED by EMS from his Detention for evaluation. Patient was initially sent for evaluation of high fever, however patient was later found unresponsive at the Detention. Patient had fever of 104 and was given Tylenol. No further history able to be obtained due to patient's current state. Upon arrival patient was in acute distress, tachypnic, tachycardic, lethargic and satting 90%. Time Seen by Provider: 03/04/18 05:08 Chief Complaint (Nursing): Respiratory Distress History Per: EMS History/Exam Limitations: clinical condition Onset/Duration Of Symptoms: Hrs Current Symptoms Are (Timing): Still Present Severity: Severe Pain Scale Rating Of: 9 Reports Recently: Seen In ED, Treated By A Physician, Hospitalized Recent travel outside of the [place]: No Additional History Per: Detention Past Medical History Reviewed: Historical Data, Nursing Documentation, Vital Signs - Medical History PMH: COPD, HTN, Multiple Sclerosis, Pneumonia, Chronic Kidney Disease Surgical History: No Surg Hx - [facility] Procedures DILATION OF URETHRA, PERCUTANEOUS APPROACH (02/25/16) ENTERAL INFUSION OF CONCENTRATED NUT. SUBSTANCES (04/12/13) EXCISION OF STOMACH, ENDO, DIAGN (07/01/17) INSERTION OF ENDOTRACHEAL AIRWAY INTO TRACHEA, VIA OPENING (07/01/17) INSERTION OF INFUSION DEV INTO R BRACH VEIN, PERC APPROACH (01/29/16) INSERTION OF INFUSION DEV INTO SUP VENA CAVA, PERC APPROACH (07/01/17) INTRODUCTION OF NUTRITIONAL INTO PERIPH VEIN, PERC APPROACH (07/01/17) INTRODUCTION OF NUTRITIONAL INTO UP GI, VIA OPENING (07/01/17) PERCUTANEOUS [ENDOSCOPIC] GASTROSTOMY [PEG] (04/12/13) RESPIRATORY VENTILATION, LESS THAN 24 CONSECUTIVE HOURS (07/01/17) Family History: States: Unknown Family Hx - Social History Hx Tobacco Use: No Hx Alcohol Use: No Hx Substance Use: No Review Of Systems Review Of Systems: ROS cannot be obtained secondary to pt's inabilty to answer questions. Physical Exam - Physical Exam Appears: In Acute Distress, Other (lethargic, unresponsive) Skin: Warm, Dry Head: Normacephalic Eye(s): bilateral: Normal Inspection Oral Mucosa: Dry Neck: Supple Chest: Symmetrical Cardiovascular: Rhythm Regular (tachycardic) Respiratory: No Rales, Rhonchi, No Wheezing, Other (tachypnic) Gastrointestinal/Abdominal: Soft, No Tenderness, No Guarding, No Rebound, Other (PEG tube in place) Back: Normal Inspection Male Genital: Circumcised, Other (hypospadias, hauser in place) Extremity: Bilateral: Atraumatic, Normal Color And Temperature Pulses: Left Dorsalis Pedis: Normal, Right Dorsalis Pedis: Normal Neurological/Psych: Other (lethargic, unresponsive) Gait: Unable To Assess ED Course And Treatment - Laboratory Results Result Diagrams: 03/04/18 05:35 03/04/18 05:35 ECG: Interpreted By Me, Viewed By Me ECG Rhythm: Sinus Tachycardia (151), Nonspecific Changes O2 Sat by Pulse Oximetry: 91 Pulse Ox Interpretation: Abnormal - Radiology CXR: Interpreted by Me, Viewed By Me CXR Interpretation: Yes: Other (rotated). No: Infiltrates, Fracture, Pne mothorax Progress Note: Plan: - ABG. - VBG. - EKG. - Labs. - CXR. - Zosyn IVPB. - Tylenol 975 mg PEG. - Tylenol 650 mg DC. - Vacomycin IVPB. - Urine culture. - Blood culture. - UA. unable to canulate urethra even with a coudet. 6am spoke with dr barone -icu-will come and see the pt in the ed Critical Care Time - Critical Care Note Total Time (in mins): 40 Documented critical care: time excludes all time spent performing seperately billable procedures. Disposition Discussed With : Mckenzie Ballesteros Comment: accepted the pt on his service and took over the care at 6:05 AM Doctor Will See Patient In The: ED Counseled Patient/Family Regarding: Studies Performed, Diagnosis - Disposition Disposition: HOSPITALIZED Disposition Time: 05:08 Condition: CRITICAL Forms: [employer] ([place]ian) - Clinical Impression Clinical Impression: Sepsis, Tachycardia, Respiratory distress, Hypernatremia - Scribe Statement The provider has reviewed the documentation as recorded by the Scribe Kan Bergman All medical record entries made by the Scribe were at my direction and personally dictated by me. I have reviewed the chart and agree that the record accurately reflects my personal performance of the history, physical exam, medical decision making, and the department course for this patient. I have also personally directed, reviewed, and agree with the discharge instructions and disposition. Decision To Admit - Pt Status Changed To: Hospital Disposition Of: Inpatient - Admit Certification Admit to Inpatient:: After my assessment, the patient will require hospitalization for at least two midnights. This is because of the severity of symptoms shown, intensity of services needed, and/or the medical risk in this patient being treated as an outpatient. - InPatient: Physician Admission Certification: I certify that this patient requires 2 or more midnights of care for the following reason:: After my assessment, the patient will require hospitalization for at least two midnights. This is bec ause of the severity of symptoms shown, intensity of services needed, and/or the medical risk in this patient being treated as an outpatient. - . Bed Request Type: ICU Admitting Physician: Mckenzie Ballesteros Patient Diagnosis: Sepsis, Tachycardia, Respiratory distress, Hypernatremia
[2018-03-04 05:10] VITALS: BMI 27.3
[2018-03-04] MEDS ORDERED: Vancomycin 1 gm/NS 200 ml 1 GM/200 ML BAG IVPB STA (05:10)
[2018-03-04] MEDS ORDERED: Piperacill/Tazo 3.375gm in Dex 3.375 GM/50 ML BAG IVPB STA (05:10)
[2018-03-04] MEDS ORDERED: Sodium Chloride 0.9% 1,000 ML ONE (05:21)
[2018-03-04 05:39] LABS: BASO % 0.4 % (0.0-2.0); EOS % 0.1 % (0.0-4.0); HEMOGLOBIN 15.9 g/dL (12.0-18.0); LYMPH # 0.9 K/uL (1.0-4.3); LYMPH % 9.7 % (20.0-40.0); MEAN CELL VOLUME 79.9 fL (80.0-94.0); MEAN CORPUSCULAR HEMOGLOBIN 25.1 pg (27.0-31.0); MEAN CORPUSCULAR HGB CONC 31.4 g/dL (33.0-37.0); MEAN PLATELET VOLUME 11.4 fL (7.2-11.7); MONO # 0.6 K/uL (0.0-0.8); MONO % 6.9 % (0.0-10.0); NEUT # 7.6 K/uL (1.8-7.0); NEUT % 82.9 % (50.0-75.0); NRBC % 0.2 % (0.0-2.0); PLATELET COUNT 157 K/uL (130-400); RBC 6.35 Mil/uL (4.40-5.90); WHITE BLOOD COUNT 9.1 K/uL (4.8-10.8)
[2018-03-04 05:40] LABS: VENOUS BLOOD GAS BASE EXCESS -7.4 mmol/L (0.0-2.0); VENOUS BLOOD GAS PCO2 19 mmHg (40-60); VENOUS BLOOD GAS PO2 55 mm/Hg (30-55); VENOUS BLOOD PH 7.47 (7.32-7.43)
[2018-03-04] MEDS ORDERED: Piperacillin/Tazobact 3.375 gm 100 ML IVPB ONE (05:42)
[2018-03-04] MEDS ORDERED: Vancomycin 1 GM 1 GM/250 ML BAG IVPB ONE (05:47)
[2018-03-04 06:00] LABS: INR 2.9; PROTHROMBIN TIME 31.7 SECONDS (9.7-12.2)
[2018-03-04 06:04] LABS: ABG ALLEN TEST YES; ARTERIAL BLOOD GAS HCO3 20.1 mmol/L (21-28); ARTERIAL BLOOD GAS O2 SAT 95.6 % (95-98); ARTERIAL BLOOD GAS PCO2 24 mm/Hg (35-45); ARTERIAL BLOOD GAS PH 7.44 (7.35-7.45); ARTERIAL BLOOD GAS PO2 67 mm/Hg (80-100)
[2018-03-04 06:15] LABS: ALB/GLOB RATIO 0.8 (1.0-2.1); ALT/SGPT 98 U/L (21-72); AST/SGOT 52 U/L (17-59); BLOOD UREA NITROGEN 30 mg/dL (9-20); CALCIUM 7.4 mg/dl (8.6-10.4); GFR NON-AFRICAN AMERICAN 51
--- NOTE | 2018-03-04 06:54 | CP.PCM.CON ---
History of Present Illness - History of Present Illness History of Present Illness: Chief complaint: Patient was sent from assisted for high fever and also lethargic. HPI: Patient is a 66M with a PMH of HTN, CKD, Multiple Sclerosis, Gastritis, PEG, Afib, CVA on Eliquis and ASA. Patient was sent from assisted because of the high fever, and also unresponsive in the assisted. Patient was having fever of 104 and was sent to the emergency room because of the unstable condition. In the emergency room patient was found to be severe acute respiratory distress, he was tachypneic and tachycardic and he was also unresponsive at the time. He was initially placed on BiPAP. IV fluids were given. Slowly he got better. Now he is more awake. He is responding, following simple, is. But currently he is on BiPAP. Tachypnea noted. He was also mildly tachycardic. Comparing of some pain in the abdomen. Attempted for Guzmán catheter by the ER, but unable to get. Patient is also on anticoagulation Patient in the past had a multiple hospitalization for pneumonia sepsis. PMH: HTN, CKD, Multiple Sclerosis, Gastritis, Afib, CVA PSH: PEG, Suprapubic cath FH: unattainable SH: unattainable Meds: Eliquis/ASA All: NKA Review of system: Currently patient is awake. On BiPAP. Chest bilateral good air entry. Regular heart sound noted. Abdominal tenderness in the lower part of the abdomen noted. 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 Labs: Sodium 161. Elevated BUN mild elevation of the lactate noted Chest x-ray showing no acute infiltrative changes. Assessment: Patient is a 67-year-old male with a history of hypertension, renal insufficiency, multiple sclerosis, history of PEG a history of GI bleed in the past and also sepsis in the past and now admitted with the high fever, tachy cardia tachypnea most likely related to infectious process, but the source is unclear. Currently on BiPAP with respiratory failure secondary to sepsis. Will continue the BiPAP. IV fluid. Antibiotic. Blood cultures taken. Will be monitoring the patient in the intensive care unit. GI and DVT prophylaxis. Will get the CAT scan of the abdomen possibly to rule out underlying source P And will follow-up the patient in ICU Past Patient History - Infectious Disease Hx of Infectious Diseases: MRSA - Past Medical History & Family History Past Medical History?: Yes - Past Social History Smoking Status: Never Smoked - CARDIAC Hx Hypertension: Yes - PULMONARY Hx Chronic Obstructive Pulmonary Disease (COPD): Yes Hx Pneumonia: Yes - NEUROLOGICAL Hx Multiple Sclerosis: Yes - RENAL Hx Chronic Kidney Disease: Yes - HEMATOLOGICAL/ONCOLOGICAL Other/Comment: sepsis - MUSCULOSKELETAL/RHEUMATOLOGICAL Hx Falls: Yes - GASTROINTESTINAL Hx Gastrointestinal Disorders: Yes Other/Comment: Peg tube. Dysphagia - GENITOURINARY/GYNECOLOGICAL Other/Comment: hx MRSA in urine 2012 - PSYCHIATRIC Hx Substance Use: No - SURGICAL HISTORY Hx Surgeries: Yes Other/Comment: PEG insertion: Suprapubic cath - ANESTHESIA Hx Anesthesia: Yes Hx Anesthesia Reactions: No Hx Malignant Hyperthermia: No Meds Allergies/Adverse Reactions: Allergies Allergy/AdvReac Type Severity Reaction Status Date / Time No Known Allergies Allergy Verified 03/04/18 05:12 - Medications Medications: Current Medications Acetaminophen (Tylenol 325mg Tab) 975 mg PEG ONCE PRN PRN Reason: Fever >100.4 F Results - Vital Signs Recent Vital Signs: Last Vital Signs Temp 100.6 F H 03/04/18 06:25 Pulse 122 H 03/04/18 06:25 Resp 26 H 03/04/18 06:25 BP 100/65 03/04/18 06:25 Pulse Ox 95 03/04/18 06:25 - Labs Result Diagrams: 03/04/18 05:35 03/04/18 05:35 Labs: Laboratory Results - last 24 hr 03/04/18 03/04/18 03/04/18 05:12 05:15 05:35 WBC 9.1 RBC 6.35 H Hgb 15.9 D Hct 50.7 MCV 79.9 L D MCH 25.1 L MCHC 31.4 L RDW 18.0 H Plt Count 157 MPV 11.4 Neut % (Auto) 82.9 H Lymph % (Auto) 9.7 L Real % (Auto) 6.9 Eos % (Auto) 0.1 Baso % (Auto) 0.4 Neut # (Auto) 7.6 H Lymph # (Auto) 0.9 L Real # (Auto) 0.6 Eos # (Auto) 0.0 Baso # (Auto) 0.0 PT INR APTT Puncture Site pCO2 pO2 55 HCO3 ABG pH ABG Total CO2 ABG O2 Saturation ABG Base Excess Diaz Test ABG Potassium VBG pH 7.47 H VBG pCO2 19 L* VBG HCO3 19.0 VBG Total CO2 14.4 L VBG O2 Sat (Calc) 92.5 H VBG Base Excess -7.4 L VBG Potassium 3.1 L A-a O2 Difference Respiratory Index Sodium 163.0 H* Chloride 135.0 H Glucose 117 H Lactate 4.1 H* FiO2 Inspiratory BiPAP Expiratory BiPAP Crit Value Called To Renea donahue Crit Value Called By Renata rt Crit Value Read Back Y Blood Gas Notified Time 540 Potassium Carbon Dioxide Anion Gap BUN Creatinine Est GFR ( Amer) Est GFR (Non-Af Amer) POC Glucose (mg/dL) 149 H Random Glucose Calcium Phosphorus Magnesium Total Bilirubin AST ALT Alkaline Phosphatase Total Protein Albumin Globulin Albumin/Globulin Ratio Arterial Blood Potassium Venous Blood Potassium 3.1 L 03/04/18 03/04/18 03/04/18 05:35 05:35 05:45 WBC RBC Hgb Hct MCV MCH MCHC RDW Plt Count MPV Neut % (Auto) Lymph % (Auto) Real % (Auto) Eos % (Auto) Baso % (Auto) Neut # (Auto) Lymph # (Auto) Real # (Auto) Eos # (Auto) Baso # (Auto) PT 31.7 H INR 2.9 APTT 37 H Puncture Site Rb pCO2 24 L pO2 67 L HCO3 20.1 L ABG pH 7.44 ABG Total CO2 17.0 L ABG O2 Saturation 95.6 ABG Base Excess -6.0 L Diaz Test Yes ABG Potassium 3.3 L VBG pH VBG pCO2 VBG HCO3 VBG Total CO2 VBG O2 Sat (Calc) VBG Base Excess VBG Potassium A-a O2 Difference 260.0 Respiratory Index 3.9 Sodium 161 H* 163.0 H* Chloride 134 H 131.0 H Glucose 146 H Lactate 5.6 H* FiO2 50.0 Inspiratory BiPAP 14 Expiratory BiPAP 6 Crit Value Called To Renea donahue Crit Value Called By Emiliano rt Crit Value Read Back Y Blood Gas Notified Time 559 Potassium 3.2 L Carbon Dioxide 15 L Anion Gap 15 BUN 30 H Creatinine 1.4 Est GFR ( Amer) > 60 Est GFR (Non-Af Amer) 51 POC Glucose (mg/dL) Random Glucose 139 H Calcium 7.4 L Phosphorus 2.3 L Magnesium 2.1 Total Bilirubin 1.5 H AST 52 ALT 98 H D Alkaline Phosphatase 86 Total Protein 6.9 Albumin 3.0 L Globulin 3.9 Albumin/Globulin Ratio 0.8 L Arterial Blood Potassium 3.3 L Venous Blood Potassium
[2018-03-04] MEDS ORDERED: Piperacillin/Tazobact 3.375 GM in Sodium Chloride 100 ML IVPB SCH (07:00)
[2018-03-04] MEDS: Sodium Chloride 0.45% 1,000 ML IV SCH ×2 (07:04→17:14)
[2018-03-04] MEDS ORDERED: Potassium Chloride 20 mEq/15 ml LIQ UD PO ONE ×3 (07:35→11:30)
[2018-03-04] MEDS: Albuterol 0.083% Inhal Sol (2.5 mg/3 mL) UD IH SCH ×2 (08:04→19:00)
[2018-03-04 08:12] LABS: ANISOCYTOSIS SLIGHT; BANDS 32 % (0-2); LYMPHOCYTE 14 % (20-40); MONOCYTE 4 % (0-10); NEUTROPHIL 50 % (50-75); PLATELET ESTIMATE NORMAL (NORMAL); TOTAL CELLS COUNTED 100
--- NOTE | 2018-03-04 08:19 | RAD ---
Date of service: 03/04/2018 HISTORY: Sepsis Patient COMPARISON: 07/03/2017 FINDINGS: LUNGS: Current technique markedly different than before. Current technique markedly rotated towards the left Prior right basal opacities no longer appreciated-interval clearance suggested. The prior left basal opacities are also much improved-nearly completely cleared. PLEURA: No significant pleural effusion identified, no pneumothorax apparent. CARDIOVASCULAR: There is presence of aortic atherosclerotic calcification on x-ray. Normal cardiac size. No current significant appearing pulmonary vascular congestion. OSSEOUS STRUCTURES: No significant abnormalities. VISUALIZED UPPER ABDOMEN: Normal. OTHER FINDINGS: None. IMPRESSION: Although exam is limited, interval improvement suggested in prior bibasilar pathology
--- NOTE | 2018-03-04 10:57 | PCM.SEPTIC ---
<Jessica Rosales - Last Filed: 03/04/18 10:54> Sepsis Progress Note - Reassessment Type Date of Evaluation: 03/04/18 Time of Evaluation: 10:45 Reassessment Type: Non-invasive reassessment - Non Invasive Reassessment Were the most recent vital sign reviewed: Yes Vital Sign (Latest): Temp Pulse Resp BP Pulse Ox 100.6 F H 119 H 36 H 101/66 98 03/04/18 06:25 03/04/18 07:32 03/04/18 07:32 03/04/18 07:32 03/04/18 07:32 Cardiovascular: Yes: Regular Rate, Rhythm, Tachycardia Respiratory: Yes: Normal Breath Sounds, Other (BiPAP). No: Accessory Muscle Use, Respiratory Distress Capillary Refill: Normal (Less than 2 sec) Skin: Normal Color, Warm, Dry <Luis Enrique Ballesteros M - Last Filed: 03/05/18 12:55> Sepsis Progress Note - Non Invasive Reassessment Vital Sign (Latest): Temp Pulse Resp BP Pulse Ox 98.3 F 94 H 24 93/58 L 94 L 03/04/18 16:00 03/05/18 11:32 03/05/18 11:32 03/05/18 11:32 03/05/18 11:32
--- NOTE | 2018-03-04 11:57 | CT ---
PROCEDURE: CT Abdomen and Pelvis without Oral or IV contrast. HISTORY: sepsis COMPARISON: Limited abdominal/renal ultrasound performed 07/03/17 TECHNIQUE: Contiguous axial images of the abdomen and pelvis. No oral or IV contrast administered. Coronal and Sagittal reformats generated and reviewed. Radiation dose: Total exam DLP = 1224.86 mGy-cm. This CT exam was performed using one or more of the following dose reduction techniques: Automated exposure control, adjustment of the mA and/or kV according to patient size, and/or use of iterative reconstruction technique. FINDINGS: There is limited evaluation of the solid organs without the administration of IV contrast. LOWER THORAX: Luoj-[id number]-hqdm-right lower lobe consolidation/atelectasis. Patchy ground-glass infiltrates and nodular opacities. Trace left pleural effusion. No visible pneumothorax. LIVER: Portal venous gas. Otherwise unremarkable unenhanced appearance. GALLBLADDER AND BILE DUCTS: Unremarkable unenhanced appearance. PANCREAS: Unremarkable unenhanced appearance. SPLEEN: Unremarkable unenhanced appearance. ADRENALS: Unremarkable unenhanced appearance. KIDNEYS AND URETERS: No hydronephrosis or obstructing renal calculus. Bilateral renal atrophy. BLADDER: Calcifications along the dependent portions of the urinary bladder which appears mildly thick walled. REPRODUCTIVE: Unremarkable. APPENDIX: No secondary signs of acute appendicitis. BOWEL: Percutaneous gastrostomy tube. The stomach is nondistended. Lack of oral contrast limits evaluation for bowel pathology. No evidence of bowel obstruction. Moderate to severe constipation. PERITONEUM: No significant free fluid. No definite free air. LYMPH NODES: No bulky lymphadenopathy identified. VASCULATURE: No aortic aneurysm. Atherosclerotic calcifications of the aorta present. BONES: Degenerative changes. Osseous demineralization. Multilevel Schmorl's nodes. OTHER FINDINGS: None. IMPRESSION: Portal venous gas. Correlate clinically for possibility of infection, inflammation, trauma, or ischemia of the gastrointestinal tact. Percutaneous gastrostomy tube. Calcifications noted along the dependent aspect of the urinary bladder which is distended and mildly thick-walled. Correlate clinically including urinalysis. Moderate to severe constipation. Spsl-[id number]-eoim-right lower lobe consolidation/atelectasis. Patchy ground-glass infiltrates and nodular opacities. Trace left pleural effusion. Additional findings as above. Findings discussed with ACCOUNT EXECUTIVE AGRIBUSINESSAMBER Hazel on 03/04/18 at 11:41 a.m.
--- NOTE | 2018-03-04 12:23 | CP.CCUPN ---
<Jessica Rosales - Last Filed: 03/04/18 19:03> CCU Subjective - Physician Review Events Since Last Encounter (Free Text): 03/04/18 18:23 Patient was seen as soon as he arrived from ED. Subjective (Free Text): 03/04/18 12:23 Patient was seen and examined this morning. He is on BiPap. He does not appear in acute distress. He can follow simple commands. 03/04/18 19:05 Critical Care Time Spent (in minutes): 35 CCU Objective - Vital Signs / Intake & Output Intake and Output (Last 8hrs): Intake & Output 03/03/18 03/04/18 03/04/18 22:59 06:59 14:59 Weight 185 lb 3.013 oz - Physical Exam Physical Exam Limitations: Positive for: Altered Mental Status Head: Positive for: Atraumatic, Normocephalic Pupils: Positive for: PERRL Extroacular Muscles: Positive for: EOMI Mouth: Positive for: Dry Respiratory/Chest: Positive for: Other (BiPAP). Negative for: Respiratory Distress Cardiovascular: Positive for: Regular Rate and Rhythm, Tachycardic Abdomen: Positive for: Tenderness (mild). Negative for: Distention Neurological: Positive for: GCS=15 Skin: Positive for: Warm, Dry, Normal Color Psychiatric: Positive for: Alert - Medications Active Medications: Active Medications Generic Name Dose Route Start Last Admin Trade Name Freq PRN Reason Stop Dose Admin Acetaminophen 975 mg 03/04/18 05:10 Tylenol 325mg Tab PEG ONCE PRN Fever >100.4 F Albuterol Sulfate 2.5 mg 03/04/18 08:00 03/04/18 08:04 Albuterol 0.083% Inhal Gisella (2.5 Mg/3 Ml) Ud IH Not Given RQ6 LYNDSAY Sodium Chloride 1,000 mls @ 100 mls/hr 03/04/18 07:00 03/04/18 07:04 Sodium Chloride 0.45% IV 100 mls/hr .Q10H LYNDSAY Administration Piperacillin Sod/Tazobactam Sod 3.375 gm in 50 mls @ 100 mls/hr 03/04/18 14:00 Zosyn 3.375 Gm Iv Premix IVPB Q8H LYNDSAY Protocol Vancomycin HCl 1 gm in 250 mls @ 166.7 mls/hr 03/05/18 07:00 Vancomycin 1gm In Normal Saline Addvantage IVPB Q24H LYNDSAY Protocol Metoprolol Tartrate 12.5 mg 03/04/18 10:00 Lopressor PEG Q12 LYNDSAY Pantoprazole Sodium 40 mg 03/04/18 07:00 03/04/18 07:05 Protonix Inj IVP 40 mg Q12H LYNDSAY Administration - Patient Studies Lab Studies: Lab Studies 03/04/18 03/04/18 03/04/18 Range/Units 08:11 05:45 05:35 WBC (4.8-10.8) K/uL RBC (4.40-5.90) Mil/uL Hgb (12.0-18.0) g/dL Hct (35.0-51.0) % MCV (80.0-94.0) fL MCH (27.0-31.0) pg MCHC (33.0-37.0) g/dL RDW (11.5-14.5) % Plt Count (130-400) K/uL MPV (7.2-11.7) fL Neut % (Auto) (50.0-75.0) % Lymph % (Auto) (20.0-40.0) % [place] % (Auto) (0.0-10.0) % Eos % (Auto) (0.0-4.0) % Baso % (Auto) (0.0-2.0) % Neut # (Auto) (1.8-7.0) K/uL Lymph # (Auto) (1.0-4.3) K/uL [place] # (Auto) (0.0-0.8) K/uL Eos # (Auto) (0.0-0.7) K/uL Baso # (Auto) (0.0-0.2) K/uL Neutrophils % (Manual) (50-75) % Band Neutrophils % (0-2) % Lymphocytes % (Manual) (20-40) % Monocytes % (Manual) (0-10) % Platelet Estimate (NORMAL) Anisocytosis (manual) PT (9.7-12.2) SECONDS INR APTT (21-34) SECONDS Puncture Site Rb pCO2 24 L (35-45) mm/Hg pO2 67 L (30-55) mm/Hg HCO3 20.1 L (21-28) mmol/L ABG pH 7.44 (7.35-7.45) ABG Total CO2 17.0 L (22-28) mmol/L ABG O2 Saturation 95.6 (95-98) % ABG Base Excess -6.0 L (-2.0-3.0) mmol/L Diaz Test Yes ABG Potassium 3.3 L (3.6-5.2) mmol/L VBG pH (7.32-7.43) VBG pCO2 (40-60) mmHg VBG HCO3 mmol/L VBG Total CO2 (22-28) mmol/L VBG O2 Sat (Calc) (40-65) % VBG Base Excess (0.0-2.0) mmol/L VBG Potassium (3.6-5.2) mmol/L A-a O2 Difference 260.0 mm/Hg Respiratory Index 3.9 Sodium 163.0 H* 161 H* (132-148) mmol/l Chloride 131.0 H 134 H (98-107) mmol/L Glucose 146 H (75-110) mg/dl Lactate 5.6 H* (0.7-2.1) mmol/L FiO2 50.0 % Inspiratory BiPAP 14 Expiratory BiPAP 6 Crit Value Called To Renea donahue Crit Value Called By Emiliano rt Crit Value Read Back Y Blood Gas Notified Time 559 Potassium 3.2 L (3.6-5.2) mmol/L Carbon Dioxide 15 L (22-30) mmol/L Anion Gap 15 (10-20) BUN 30 H (9-20) mg/dL Creatinine 1.4 (0.8-1.5) mg/dL Est GFR ( Amer) > 60 Est GFR (Non-Af Amer) 51 POC Glucose (mg/dL) (65-110) mg/dL Random Glucose 139 H (75-110) mg/dL Lactic Acid 3.5 H (0.7-2.1) mmol/L Calcium 7.4 L (8.6-10.4) mg/dl Phosphorus 2.3 L (2.5-4.5) mg/dL Magnesium 2.1 (1.6-2.3) mg/dL Total Bilirubin 1.5 H (0.2-1.3) mg/dL AST 52 (17-59) U/L ALT 98 H D (21-72) U/L Alkaline Phosphatase 86 (38-126) U/L Total Protein 6.9 (6.3-8.3) g/dL Albumin 3.0 L (3.5-5.0) g/dL Globulin 3.9 (2.2-3.9) gm/dL Albumin/Globulin Ratio 0.8 L (1.0-2.1) Arterial Blood Potassium 3.3 L (3.6-5.2) mmol/L Venous Blood Potassium (3.6-5.2) mmol/L 03/04/18 03/04/18 03/04/18 Range/Units 05:35 05:35 05:15 WBC 9.1 (4.8-10.8) K/uL RBC 6.35 H (4.40-5.90) Mil/uL Hgb 15.9 D (12.0-18.0) g/dL Hct 50.7 (35.0-51.0) % MCV 79.9 L D (80.0-94.0) fL MCH 25.1 L (27.0-31.0) pg MCHC 31.4 L (33.0-37.0) g/dL RDW 18.0 H (11.5-14.5) % Plt Count 157 (130-400) K/uL MPV 11.4 (7.2-11.7) fL Neut % (Auto) 82.9 H (50.0-75.0) % Lymph % (Auto) 9.7 L (20.0-40.0) % [place] % (Auto) 6.9 (0.0-10.0) % Eos % (Auto) 0.1 (0.0-4.0) % Baso % (Auto) 0.4 (0.0-2.0) % Neut # (Auto) 7.6 H (1.8-7.0) K/uL Lymph # (Auto) 0.9 L (1.0-4.3) K/uL [place] # (Auto) 0.6 (0.0-0.8) K/uL Eos # (Auto) 0.0 (0.0-0.7) K/uL Baso # (Auto) 0.0 (0.0-0.2) K/uL Neutrophils % (Manual) 50 (50-75) % Band Neutrophils % 32 H* (0-2) % Lymphocytes % (Manual) 14 L (20-40) % Monocytes % (Manual) 4 (0-10) % Platelet Estimate Normal (NORMAL) Anisocytosis (manual) Slight PT 31.7 H (9.7-12.2) SECONDS INR 2.9 APTT 37 H (21-34) SECONDS Puncture Site pCO2 (35-45) mm/Hg pO2 55 (30-55) mm/Hg HCO3 (21-28) mmol/L ABG pH (7.35-7.45) ABG Total CO2 (22-28) mmol/L ABG O2 Saturation (95-98) % ABG Base Excess (-2.0-3.0) mmol/L Diaz Test ABG Potassium (3.6-5.2) mmol/L VBG pH 7.47 H (7.32-7.43) VBG pCO2 19 L* (40-60) mmHg VBG HCO3 19.0 mmol/L VBG Total CO2 14.4 L (22-28) mmol/L VBG O2 Sat (Calc) 92.5 H (40-65) % VBG Base Excess -7.4 L (0.0-2.0) mmol/L VBG Potassium 3.1 L (3.6-5.2) mmol/L A-a O2 Difference mm/Hg Respiratory Index Sodium 163.0 H* (132-148) mmol/l Chloride 135.0 H (98-107) mmol/L Glucose 117 H (75-110) mg/dl Lactate 4.1 H* (0.7-2.1) mmol/L FiO2 % Inspiratory BiPAP Expiratory BiPAP Crit Value Called To Renea rn Crit Value Called By Renata rt Crit Value Read Back Y Blood Gas Notified Time 540 Potassium (3.6-5.2) mmol/L Carbon Dioxide (22-30) mmol/L Anion Gap (10-20) BUN (9-20) mg/dL Creatinine (0.8-1.5) mg/dL Est GFR ( Amer) Est GFR (Non-Af Amer) POC Glucose (mg/dL) (65-110) mg/dL Random Glucose (75-110) mg/dL Lactic Acid (0.7-2.1) mmol/L Calcium (8.6-10.4) mg/dl Phosphorus (2.5-4.5) mg/dL Magnesium (1.6-2.3) mg/dL Total Bilirubin (0.2-1.3) mg/dL AST (17-59) U/L ALT (21-72) U/L Alkaline Phosphatase (38-126) U/L Total Protein (6.3-8.3) g/dL Albumin (3.5-5.0) g/dL Globulin (2.2-3.9) gm/dL Albumin/Globulin Ratio (1.0-2.1) Arterial Blood Potassium (3.6-5.2) mmol/L Venous Blood Potassium 3.1 L (3.6-5.2) mmol/L 03/04/18 Range/Units 05:12 WBC (4.8-10.8) K/uL RBC (4.40-5.90) Mil/uL Hgb (12.0-18.0) g/dL Hct (35.0-51.0) % MCV (80.0-94.0) fL MCH (27.0-31.0) pg MCHC (33.0-37.0) g/dL RDW (11.5-14.5) % Plt Count (130-400) K/uL MPV (7.2-11.7) fL Neut % (Auto) (50.0-75.0) % Lymph % (Auto) (20.0-40.0) % [place] % (Auto) (0.0-10.0) % Eos % (Auto) (0.0-4.0) % Baso % (Auto) (0.0-2.0) % Neut # (Auto) (1.8-7.0) K/uL Lymph # (Auto) (1.0-4.3) K/uL [place] # (Auto) (0.0-0.8) K/uL Eos # (Auto) (0.0-0.7) K/uL Baso # (Auto) (0.0-0.2) K/uL Neutrophils % (Manual) (50-75) % Band Neutrophils % (0-2) % Lymphocytes % (Manual) (20-40) % Monocytes % (Manual) (0-10) % Platelet Estimate (NORMAL) Anisocytosis (manual) PT (9.7-12.2) SECONDS INR APTT (21-34) SECONDS Puncture Site pCO2 (35-45) mm/Hg pO2 (30-55) mm/Hg HCO3 (21-28) mmol/L ABG pH (7.35-7.45) ABG Total CO2 (22-28) mmol/L ABG O2 Saturation (95-98) % ABG Base Excess (-2.0-3.0) mmol/L Diaz Test ABG Potassium (3.6-5.2) mmol/L VBG pH (7.32-7.43) VBG pCO2 (40-60) mmHg VBG HCO3 mmol/L VBG Total CO2 (22-28) mmol/L VBG O2 Sat (Calc) (40-65) % VBG Base Excess (0.0-2.0) mmol/L VBG Potassium (3.6-5.2) mmol/L A-a O2 Difference mm/Hg Respiratory Index Sodium (132-148) mmol/l Chloride (98-107) mmol/L Glucose (75-110) mg/dl Lactate (0.7-2.1) mmol/L FiO2 % Inspiratory BiPAP Expiratory BiPAP Crit Value Called To Crit Value Called By Crit Value Read Back Blood Gas Notified Time Potassium (3.6-5.2) mmol/L Carbon Dioxide (22-30) mmol/L Anion Gap (10-20) BUN (9-20) mg/dL Creatinine (0.8-1.5) mg/dL Est GFR ( Amer) Est GFR (Non-Af Amer) POC Glucose (mg/dL) 149 H (65-110) mg/dL Random Glucose (75-110) mg/dL Lactic Acid (0.7-2.1) mmol/L Calcium (8.6-10.4) mg/dl Phosphorus (2.5-4.5) mg/dL Magnesium (1.6-2.3) mg/dL Total Bilirubin (0.2-1.3) mg/dL AST (17-59) U/L ALT (21-72) U/L Alkaline Phosphatase (38-126) U/L Total Protein (6.3-8.3) g/dL Albumin (3.5-5.0) g/dL Globulin (2.2-3.9) gm/dL Albumin/Globulin Ratio (1.0-2.1) Arterial Blood Potassium (3.6-5.2) mmol/L Venous Blood Potassium (3.6-5.2) mmol/L Laboratory Results - last 24 hr 03/04/18 03/04/18 03/04/18 05:12 05:15 05:35 WBC 9.1 RBC 6.35 H Hgb 15.9 D Hct 50.7 MCV 79.9 L D MCH 25.1 L MCHC 31.4 L RDW 18.0 H Plt Count 157 MPV 11.4 Neut % (Auto) 82.9 H Lymph % (Auto) 9.7 L [place] % (Auto) 6.9 Eos % (Auto) 0.1 Baso % (Auto) 0.4 Neut # (Auto) 7.6 H Lymph # (Auto) 0.9 L [place] # (Auto) 0.6 Eos # (Auto) 0.0 Baso # (Auto) 0.0 Neutrophils % (Manual) 50 Band Neutrophils % 32 H* Lymphocytes % (Manual) 14 L Monocytes % (Manual) 4 Platelet Estimate Normal Anisocytosis (manual) Slight PT INR APTT Puncture Site pCO2 pO2 55 HCO3 ABG pH ABG Total CO2 ABG O2 Saturation ABG Base Excess Diaz Test ABG Potassium VBG pH 7.47 H VBG pCO2 19 L* VBG HCO3 19.0 VBG Total CO2 14.4 L VBG O2 Sat (Calc) 92.5 H VBG Base Excess -7.4 L VBG Potassium 3.1 L A-a O2 Difference Respiratory Index Sodium 163.0 H* Chloride 135.0 H Glucose 117 H Lactate 4.1 H* FiO2 Inspiratory BiPAP Expiratory BiPAP Crit Value Called To Renea donahue Crit Value Called By Renata rt Crit Value Read Back Y Blood Gas Notified Time 540 Potassium Carbon Dioxide Anion Gap BUN Creatinine Est GFR ( Amer) Est GFR (Non-Af Amer) POC Glucose (mg/dL) 149 H Random Glucose Lactic Acid Calcium Phosphorus Magnesium Total Bilirubin AST ALT Alkaline Phosphatase Total Protein Albumin Globulin Albumin/Globulin Ratio Arterial Blood Potassium Venous Blood Potassium 3.1 L 03/04/18 03/04/18 03/04/18 05:35 05:35 05:45 WBC RBC Hgb Hct MCV MCH MCHC RDW Plt Count MPV Neut % (Auto) Lymph % (Auto) [place] % (Auto) Eos % (Auto) Baso % (Auto) Neut # (Auto) Lymph # (Auto) [place] # (Auto) Eos # (Auto) Baso # (Auto) Neutrophils % (Manual) Band Neutrophils % Lymphocytes % (Manual) Monocytes % (Manual) Platelet Estimate Anisocytosis (manual) PT 31.7 H INR 2.9 APTT 37 H Puncture Site Rb pCO2 24 L pO2 67 L HCO3 20.1 L ABG pH 7.44 ABG Total CO2 17.0 L ABG O2 Saturation 95.6 ABG Base Excess -6.0 L Diaz Test Yes ABG Potassium 3.3 L VBG pH VBG pCO2 VBG HCO3 VBG Total CO2 VBG O2 Sat (Calc) VBG Base Excess VBG Potassium A-a O2 Difference 260.0 Respiratory Index 3.9 Sodium 161 H* 163.0 H* Chloride 134 H 131.0 H Glucose 146 H Lactate 5.6 H* FiO2 50.0 Inspiratory BiPAP 14 Expiratory BiPAP 6 Crit Value Called To Renea donahue Crit Value Called By Emiliano rt Crit Value Read Back Y Blood Gas Notified Time 559 Potassium 3.2 L Carbon Dioxide 15 L Anion Gap 15 BUN 30 H Creatinine 1.4 Est GFR ( Amer) > 60 Est GFR (Non-Af Amer) 51 POC Glucose (mg/dL) Random Glucose 139 H Lactic Acid Calcium 7.4 L Phosphorus 2.3 L Magnesium 2.1 Total Bilirubin 1.5 H AST 52 ALT 98 H D Alkaline Phosphatase 86 Total Protein 6.9 Albumin 3.0 L Globulin 3.9 Albumin/Globulin Ratio 0.8 L Arterial Blood Potassium 3.3 L Venous Blood Potassium 03/04/18 08:11 WBC RBC Hgb Hct MCV MCH MCHC RDW Plt Count MPV Neut % (Auto) Lymph % (Auto) [place] % (Auto) Eos % (Auto) Baso % (Auto) Neut # (Auto) Lymph # (Auto) [place] # (Auto) Eos # (Auto) Baso # (Auto) Neutrophils % (Manual) Band Neutrophils % Lymphocytes % (Manual) Monocytes % (Manual) Platelet Estimate Anisocytosis (manual) PT INR APTT Puncture Site pCO2 pO2 HCO3 ABG pH ABG Total CO2 ABG O2 Saturation ABG Base Excess Diaz Test ABG Potassium VBG pH VBG pCO2 VBG HCO3 VBG Total CO2 VBG O2 Sat (Calc) VBG Base Excess VBG Potassium A-a O2 Difference Respiratory Index Sodium Chloride Glucose Lactate FiO2 Inspiratory BiPAP Expiratory BiPAP Crit Value Called To Crit Value Called By Crit Value Read Back Blood Gas Notified Time Potassium Carbon Dioxide Anion Gap BUN Creatinine Est GFR ( Amer) Est GFR (Non-Af Amer) POC Glucose (mg/dL) Random Glucose Lactic Acid 3.5 H Calcium Phosphorus Magnesium Total Bilirubin AST ALT Alkaline Phosphatase Total Protein Albumin Globulin Albumin/Globulin Ratio Arterial Blood Potassium Venous Blood Potassium EKG/Cardiology Studies: Cardiology / EKG Studies 03/04/18 05:10 ELECTROCARDIOGRAM Stat Comment: Mode Of Transportation: Reason For Exam: Sepsis Patient Fingerstick Blood Sugar Results: 149 Review of Systems - Review of Systems Systems not reviewed;Unavailable: Acuity of Condition Critical Care Progress Note - Extremities/Vascular Does the Patient have a Central Venous Catheter?: No Does the Patient need a Central Venous Catheter?: No Does the Patient have a Guzmán Catheter?: No Does the Patient need a Gumzán Catheter?: No - Prophylaxis GI Prophylaxis GI: PPI - Prophylaxis DVT Prophylaxis DVT: SCDs - Nutrition Nutrition: Nutrition Category Date Time Status NPO Diet [DIET] Diets 03/04/18 Lunch Active Assessment/Plan - Assessment and Plan (Free Text) Assessment: Patient is a 67 yo male who presented from retirement with fever and lethargy. Patient was placed on BiPAP. Code sepsis was called. Plan: Neuro: - h/o CVA- LUE deficit AMS - Strong patient - Monitor mental status CV: Dehydration - BUN 30 - ProBNP 825 - Trop 0.06 - IVF- alternate LR and NS HTN - Metoprolol 12.5 mg PO BID - Monitor vitals Afib - Hold Eliquis due to elevated INR Pulm: Respiratory distress - CXR: no active disease - CT A/P: L>R lower lobe consolidation/atelectasis, patchy ground glass infiltrates and nodular opacities - Maintain spO2>92%- BiPAP or NC PRN - Duoneb Q6H GI: - CT A/P: portal venous gas - NPO - PEG tube - [employer] Operator consulted Constipation - Dulcolax PRN Renal: Volume contraction hyponatremia - NA 161 - CMP daily - Replete electrolytes PRN - Bladder scan- straight cath PRN Endo: - Maintain euglycemia - Hypoglycemia protocol - Accuchecks Q6H Heme: Coagulopathy - PT/INR/PTT increased- hold Eliquis - Monitor H&H ID: Sepsis- suspect 2/ PNA - Temp 100.6 - Lactate 4.1->5.6->3.5->4.1 - Procal pending - UA pending - Blood Cx pending - Tylenol 650 mg PO Q6H PRN - Zosyn 3.375 g IV Q8H - Vancomycin 1 g IV Q24H PPx: VTE: SCDs GI: PTX 40 mg PO Q12H Code status: full code Case discussed with attending, Dr. Sharon Ballesteros. PGY-1 Jessica Rosales D.O. <Luis Enrique Ballesteros - Last Filed: 03/05/18 11:18> CCU Objective - Vital Signs / Intake & Output Vital Signs (Last 4 hours): Vital Signs Pulse Resp BP 03/05/18 08:24 22 L 03/05/18 07:32 98 H 25 H 103/62 03/05/18 07:30 99 H 24 Intake and Output (Last 8hrs): Intake & Output 03/04/18 03/05/18 03/05/18 22:59 06:59 14:59 Intake Total 3400 2800 200 Output Total 126 251 Balance 3274 2549 200 Weight 190 lb Intake: Intake, IV Amount 3200 2600 200 Right Proximal Port 3200 2600 200 Internal Jugular Other 200 200 Output: Gastric Amount 0 Stomach 0 Urine 125 250 Condom 250 Urethral (Guzmán) 125 Urine/Stool Mix 1 1 Other: # Bowel Movements 1 - Medications Active Medications: Active Medications Generic Name Dose Route Start Last Admin Trade Name Freq PRN Reason Stop Dose Admin Acetaminophen 975 mg 03/04/18 05:10 Tylenol 325mg Tab PEG ONCE PRN Fever >100.4 F Albuterol Sulfate 2.5 mg 03/04/18 08:00 03/05/18 07:45 Albuterol 0.083% Inhal Gisella (2.5 Mg/3 Ml) Ud IH 2.5 mg RQ6 LYNDSAY Administration Aspirin 81 mg 03/05/18 10:00 03/05/18 10:15 Ecotrin PO 81 mg DAILY LYNDSAY Administration Dextrose 0 ml 03/04/18 19:10 Dextrose 50% Inj IV STAT PRN Hypoglycemia Protocol Protocol Dextrose 0 gm 03/04/18 19:10 Glutose 15 PO ONCE PRN Hypoglycemia Protocol Protocol Glucagon 0 mg 03/04/18 19:10 Glucagen Diagnostic Kit IM STAT PRN Hypoglycemia Protocol Protocol Piperacillin Sod/Tazobactam Sod 3.375 gm in 50 mls @ 100 mls/hr 03/04/18 14:00 03/05/18 05:13 Zosyn 3.375 Gm Iv Premix IVPB 100 mls/hr Q8H LYNDSAY Administration Protocol Vancomycin/Sodium Chloride 1 gm in 200 mls @ 166.7 mls/hr 03/05/18 07:00 03/05/18 06:54 Vancomycin 1 Gm/Ns 200 Ml IVPB 03/10/18 07:01 166.7 mls/hr Q24H LYNDSAY Administration Protocol Dextrose 1,000 mls @ 0 mls/hr 03/04/18 19:10 Dextrose 5% In Water 1000 Ml IV .Q0M PRN Hypoglycemia Protocol Protocol Per Protocol Dextrose/Sodium Chloride 1,000 mls @ 150 mls/hr 03/05/18 06:30 03/05/18 07:44 Dextrose 5%/0.45% Ns 1000 Ml IV 150 mls/hr .Q6H40M LYNDSAY Administration Potassium Phosphate 15 mmole/ 255 mls @ 42.5 mls/hr 03/05/18 09:00 03/05/18 09:50 Dextrose IVPB 03/05/18 14:59 42.5 mls/hr ONCE ONE Administration Sodium Chloride 1,000 mls @ 100 mls/hr 03/05/18 09:30 03/05/18 10:00 Sodium Chloride 0.45% IV 100 mls/hr .Q10H LYNDSAY Administration Metoprolol Tartrate 12.5 mg 03/05/18 10:00 03/05/18 10:14 Lopressor PEG 12.5 mg Q12 LYNDSAY Administration Pantoprazole Sodium 40 mg 03/04/18 07:00 03/05/18 07:39 Protonix Inj IVP 40 mg Q12H LYNDSAY Administration Rosuvastatin Calcium 5 mg 03/05/18 22:00 Crestor PO HS LYNDSAY Tamsulosin HCl 0.4 mg 03/05/18 10:00 03/05/18 10:15 Flomax PO 0.4 mg DAILY LYNDSAY Administration - Patient Studies Lab Studies: Microbiology Studies 03/04/18 07:26 Blood Culture - Preliminary Blood Gram Positive Cocci Gram Stain - Final 03/04/18 07:26 Blood Culture - Preliminary Blood NO GROWTH AFTER 24 HOURS Lab Studies 03/05/18 03/05/18 03/05/18 Range/Units 06:19 06:14 06:14 WBC (4.8-10.8) K/uL RBC (4.40-5.90) Mil/uL Hgb (12.0-18.0) g/dL Hct (35.0-51.0) % MCV (80.0-94.0) fL MCH (27.0-31.0) pg MCHC (33.0-37.0) g/dL RDW (11.5-14.5) % Plt Count (130-400) K/uL MPV (7.2-11.7) fL Neut % (Auto) (50.0-75.0) % Lymph % (Auto) (20.0-40.0) % [place] % (Auto) (0.0-10.0) % Eos % (Auto) (0.0-4.0) % Baso % (Auto) (0.0-2.0) % Neut # (Auto) (1.8-7.0) K/uL Lymph # (Auto) (1.0-4.3) K/uL [place] # (Auto) (0.0-0.8) K/uL Eos # (Auto) (0.0-0.7) K/uL Baso # (Auto) (0.0-0.2) K/uL PT 30.3 H (9.7-12.2) SECONDS INR 2.8 APTT 34 (21-34) SECONDS Sodium 154 H (132-148) mmol/L Potassium 3.7 (3.6-5.2) mmol/L Chloride 129 H (98-107) mmol/L Carbon Dioxide 21 L (22-30) mmol/L Anion Gap 8 L (10-20) BUN 20 (9-20) mg/dL Creatinine 0.9 (0.8-1.5) mg/dL Est GFR ( Amer) > 60 Est GFR (Non-Af Amer) > 60 POC Glucose (mg/dL) (65-110) mg/dL Random Glucose 91 (75-110) mg/dL Lactic Acid 1.6 (0.7-2.1) mmol/L Calcium 7.3 L (8.6-10.4) mg/dl Phosphorus 1.3 L (2.5-4.5) mg/dL Magnesium 2.0 (1.6-2.3) mg/dL Total Bilirubin 1.6 H (0.2-1.3) mg/dL AST 39 (17-59) U/L ALT 58 (21-72) U/L Alkaline Phosphatase 65 (38-126) U/L Troponin I (0.00-0.120) ng/mL NT-Pro-B Natriuret Pep (0-900) pg/mL Total Protein 5.9 L (6.3-8.3) g/dL Albumin 2.5 L D (3.5-5.0) g/dL Globulin 3.3 (2.2-3.9) gm/dL Albumin/Globulin Ratio 0.8 L (1.0-2.1) Procalcitonin (0.19-0.49) NG/ML Urine Color (YELLOW) Urine Clarity (Clear) Urine pH (5.0-8.0) Ur Specific [place] (1.003-1.030) Urine Protein (NEGATIVE) mg/dL Urine Glucose (UA) (Normal) mg/dL Urine Ketones (NEGATIVE) mg/dL Urine Blood (NEGATIVE) Urine Nitrate (NEGATIVE) Urine Bilirubin (NEGATIVE) Urine Urobilinogen (0.2-1.0) mg/dL Ur Leukocyte Esterase (Negative) Diana/uL Urine WBC (Auto) (0-5) /hpf Urine RBC (Auto) (0-3) /hpf Urine Opiates Screen (NEGATIVE) Ur Opiates (GC/MS) (Negative) 300 Urine Methadone Screen (NEGATIVE) Ur Methadone, Qual (Negative) 300 Urine Propoxyphene (Negative) 300 Methaqualone (Negative) 300 Ur Barbiturates Screen (NEGATIVE) Ur Barbiturates, Qual (Negative) 300 Ur Phencyclidine Scrn (NEGATIVE) Ur Phencyclidine (PCP) (Negative) 25 Ur Amphetamines Screen (Negative) 1000 U Benzodiazepines Scrn (NEGATIVE) U Benzodiazepines Qual (Negative) 300 Urine Cocaine (Negative) 300 U Oth Cocaine Metabols (NEGATIVE) U Cannabinoids Screen (NEGATIVE) U Marijuana (THC) Screen (Negative) 50 Drugs of Abuse Note 03/05/18 03/05/18 03/04/18 Range/Units 06:14 05:27 23:24 WBC 11.0 H (4.8-10.8) K/uL RBC 4.54 (4.40-5.90) Mil/uL Hgb 11.7 L D (12.0-18.0) g/dL Hct 36.7 (35.0-51.0) % MCV 80.8 (80.0-94.0) fL MCH 25.7 L (27.0-31.0) pg MCHC 31.7 L (33.0-37.0) g/dL RDW 17.5 H (11.5-14.5) % Plt Count 90 L D (130-400) K/uL MPV 11.9 H (7.2-11.7) fL Neut % (Auto) 82.9 H (50.0-75.0) % Lymph % (Auto) 11.0 L (20.0-40.0) % [place] % (Auto) 4.8 (0.0-10.0) % Eos % (Auto) 0.7 (0.0-4.0) % Baso % (Auto) 0.6 (0.0-2.0) % Neut # (Auto) 9.2 H (1.8-7.0) K/uL Lymph # (Auto) 1.2 (1.0-4.3) K/uL [place] # (Auto) 0.5 (0.0-0.8) K/uL Eos # (Auto) 0.1 (0.0-0.7) K/uL Baso # (Auto) 0.1 (0.0-0.2) K/uL PT (9.7-12.2) SECONDS INR APTT (21-34) SECONDS Sodium (132-148) mmol/L Potassium (3.6-5.2) mmol/L Chloride (98-107) mmol/L Carbon Dioxide (22-30) mmol/L Anion Gap (10-20) BUN (9-20) mg/dL Creatinine (0.8-1.5) mg/dL Est GFR ( Amer) Est GFR (Non-Af Amer) POC Glucose (mg/dL) 88 97 (65-110) mg/dL Random Glucose (75-110) mg/dL Lactic Acid (0.7-2.1) mmol/L Calcium (8.6-10.4) mg/dl Phosphorus (2.5-4.5) mg/dL Magnesium (1.6-2.3) mg/dL Total Bilirubin (0.2-1.3) mg/dL AST (17-59) U/L ALT (21-72) U/L Alkaline Phosphatase (38-126) U/L Troponin I (0.00-0.120) ng/mL NT-Pro-B Natriuret Pep (0-900) pg/mL Total Protein (6.3-8.3) g/dL Albumin (3.5-5.0) g/dL Globulin (2.2-3.9) gm/dL Albumin/Globulin Ratio (1.0-2.1) Procalcitonin (0.19-0.49) NG/ML Urine Color (YELLOW) Urine Clarity (Clear) Urine pH (5.0-8.0) Ur Specific [place] (1.003-1.030) Urine Protein (NEGATIVE) mg/dL Urine Glucose (UA) (Normal) mg/dL Urine Ketones (NEGATIVE) mg/dL Urine Blood (NEGATIVE) Urine Nitrate (NEGATIVE) Urine Bilirubin (NEGATIVE) Urine Urobilinogen (0.2-1.0) mg/dL Ur Leukocyte Esterase (Negative) [place]/uL Urine WBC (Auto) (0-5) /hpf Urine RBC (Auto) (0-3) /hpf Urine Opiates Screen (NEGATIVE) Ur Opiates (GC/MS) (Negative) 300 Urine Methadone Screen (NEGATIVE) Ur Methadone, Qual (Negative) 300 Urine Propoxyphene (Negative) 300 Methaqualone (Negative) 300 Ur Barbiturates Screen (NEGATIVE) Ur Barbiturates, Qual (Negative) 300 Ur Phencyclidine Scrn (NEGATIVE) Ur Phencyclidine (PCP) (Negative) 25 Ur Amphetamines Screen (Negative) 1000 U Benzodiazepines Scrn (NEGATIVE) U Benzodiazepines Qual (Negative) 300 Urine Cocaine (Negative) 300 U Oth Cocaine Metabols (NEGATIVE) U Cannabinoids Screen (NEGATIVE) U Marijuana (THC) Screen (Negative) 50 Drugs of Abuse Note 03/04/18 03/04/18 03/04/18 Range/Units 18:27 18:27 18:06 WBC (4.8-10.8) K/uL RBC (4.40-5.90) Mil/uL Hgb (12.0-18.0) g/dL Hct (35.0-51.0) % MCV (80.0-94.0) fL MCH (27.0-31.0) pg MCHC (33.0-37.0) g/dL RDW (11.5-14.5) % Plt Count (130-400) K/uL MPV (7.2-11.7) fL Neut % (Auto) (50.0-75.0) % Lymph % (Auto) (20.0-40.0) % [place] % (Auto) (0.0-10.0) % Eos % (Auto) (0.0-4.0) % Baso % (Auto) (0.0-2.0) % Neut # (Auto) (1.8-7.0) K/uL Lymph # (Auto) (1.0-4.3) K/uL [place] # (Auto) (0.0-0.8) K/uL Eos # (Auto) (0.0-0.7) K/uL Baso # (Auto) (0.0-0.2) K/uL PT (9.7-12.2) SECONDS INR APTT (21-34) SECONDS Sodium (132-148) mmol/L Potassium (3.6-5.2) mmol/L Chloride (98-107) mmol/L Carbon Dioxide (22-30) mmol/L Anion Gap (10-20) BUN (9-20) mg/dL Creatinine (0.8-1.5) mg/dL Est GFR ( Amer) Est GFR (Non-Af Amer) POC Glucose (mg/dL) 98 (65-110) mg/dL Random Glucose (75-110) mg/dL Lactic Acid 2.4 H (0.7-2.1) mmol/L Calcium (8.6-10.4) mg/dl Phosphorus (2.5-4.5) mg/dL Magnesium (1.6-2.3) mg/dL Total Bilirubin (0.2-1.3) mg/dL AST (17-59) U/L ALT (21-72) U/L Alkaline Phosphatase (38-126) U/L Troponin I 0.0600 (0.00-0.120) ng/mL NT-Pro-B Natriuret Pep 825 (0-900) pg/mL Total Protein (6.3-8.3) g/dL Albumin (3.5-5.0) g/dL Globulin (2.2-3.9) gm/dL Albumin/Globulin Ratio (1.0-2.1) Procalcitonin (0.19-0.49) NG/ML Urine Color (YELLOW) Urine Clarity (Clear) Urine pH (5.0-8.0) Ur Specific [place] (1.003-1.030) Urine Protein (NEGATIVE) mg/dL Urine Glucose (UA) (Normal) mg/dL Urine Ketones (NEGATIVE) mg/dL Urine Blood (NEGATIVE) Urine Nitrate (NEGATIVE) Urine Bilirubin (NEGATIVE) Urine Urobilinogen (0.2-1.0) mg/dL Ur Leukocyte Esterase (Negative) [place]/uL Urine WBC (Auto) (0-5) /hpf Urine RBC (Auto) (0-3) /hpf Urine Opiates Screen (NEGATIVE) Ur Opiates (GC/MS) (Negative) 300 Urine Methadone Screen (NEGATIVE) Ur Methadone, Qual (Negative) 300 Urine Propoxyphene (Negative) 300 Methaqualone (Negative) 300 Ur Barbiturates Screen (NEGATIVE) Ur Barbiturates, Qual (Negative) 300 Ur Phencyclidine Scrn (NEGATIVE) Ur Phencyclidine (PCP) (Negative) 25 Ur Amphetamines Screen (Negative) 1000 U Benzodiazepines Scrn (NEGATIVE) U Benzodiazepines Qual (Negative) 300 Urine Cocaine (Negative) 300 U Oth Cocaine Metabols (NEGATIVE) U Cannabinoids Screen (NEGATIVE) U Marijuana (THC) Screen (Negative) 50 Drugs of Abuse Note 03/04/18 03/04/18 03/04/18 Range/Units 15:30 15:30 13:57 WBC (4.8-10.8) K/uL RBC (4.40-5.90) Mil/uL Hgb (12.0-18.0) g/dL Hct (35.0-51.0) % MCV (80.0-94.0) fL MCH (27.0-31.0) pg MCHC (33.0-37.0) g/dL RDW (11.5-14.5) % Plt Count (130-400) K/uL MPV (7.2-11.7) fL Neut % (Auto) (50.0-75.0) % Lymph % (Auto) (20.0-40.0) % [place] % (Auto) (0.0-10.0) % Eos % (Auto) (0.0-4.0) % Baso % (Auto) (0.0-2.0) % Neut # (Auto) (1.8-7.0) K/uL Lymph # (Auto) (1.0-4.3) K/uL [place] # (Auto) (0.0-0.8) K/uL Eos # (Auto) (0.0-0.7) K/uL Baso # (Auto) (0.0-0.2) K/uL PT (9.7-12.2) SECONDS INR APTT (21-34) SECONDS Sodium (132-148) mmol/L Potassium (3.6-5.2) mmol/L Chloride (98-107) mmol/L Carbon Dioxide (22-30) mmol/L Anion Gap (10-20) BUN (9-20) mg/dL Creatinine (0.8-1.5) mg/dL Est GFR ( Amer) Est GFR (Non-Af Amer) POC Glucose (mg/dL) (65-110) mg/dL Random Glucose (75-110) mg/dL Lactic Acid 4.1 H* (0.7-2.1) mmol/L Calcium (8.6-10.4) mg/dl Phosphorus (2.5-4.5) mg/dL Magnesium (1.6-2.3) mg/dL Total Bilirubin (0.2-1.3) mg/dL AST (17-59) U/L ALT (21-72) U/L Alkaline Phosphatase (38-126) U/L Troponin I (0.00-0.120) ng/mL NT-Pro-B Natriuret Pep (0-900) pg/mL Total Protein (6.3-8.3) g/dL Albumin (3.5-5.0) g/dL Globulin (2.2-3.9) gm/dL Albumin/Globulin Ratio (1.0-2.1) Procalcitonin (0.19-0.49) NG/ML Urine Color Michelle (YELLOW) Urine Clarity Hazy (Clear) Urine pH 5.0 (5.0-8.0) Ur Specific [place] 1.032 H (1.003-1.030) Urine Protein 2+ H (NEGATIVE) mg/dL Urine Glucose (UA) Normal (Normal) mg/dL Urine Ketones Negative (NEGATIVE) mg/dL Urine Blood 3+ H (NEGATIVE) Urine Nitrate Negative (NEGATIVE) Urine Bilirubin Negative (NEGATIVE) Urine Urobilinogen Normal (0.2-1.0) mg/dL Ur Leukocyte Esterase 2+ H (Negative) Diana/uL Urine WBC (Auto) 72 H (0-5) /hpf Urine RBC (Auto) 2617 H (0-3) /hpf Urine Opiates Screen Negative (NEGATIVE) Ur Opiates (GC/MS) (Negative) 300 Urine Methadone Screen Negative (NEGATIVE) Ur Methadone, Qual (Negative) 300 Urine Propoxyphene (Negative) 300 Methaqualone (Negative) 300 Ur Barbiturates Screen Negative (NEGATIVE) Ur Barbiturates, Qual (Negative) 300 Ur Phencyclidine Scrn Negative (NEGATIVE) Ur Phencyclidine (PCP) (Negative) 25 Ur Amphetamines Screen Negative (Negative) 1000 U Benzodiazepines Scrn Negative (NEGATIVE) U Benzodiazepines Qual (Negative) 300 Urine Cocaine (Negative) 300 U Oth Cocaine Metabols Negative (NEGATIVE) U Cannabinoids Screen Negative (NEGATIVE) U Marijuana (THC) Screen (Negative) 50 Drugs of Abuse Note 03/04/18 03/04/18 03/04/18 Range/Units 13:33 13:27 11:27 WBC (4.8-10.8) K/uL RBC (4.40-5.90) Mil/uL Hgb (12.0-18.0) g/dL Hct (35.0-51.0) % MCV (80.0-94.0) fL MCH (27.0-31.0) pg MCHC (33.0-37.0) g/dL RDW (11.5-14.5) % Plt Count (130-400) K/uL MPV (7.2-11.7) fL Neut % (Auto) (50.0-75.0) % Lymph % (Auto) (20.0-40.0) % [place] % (Auto) (0.0-10.0) % Eos % (Auto) (0.0-4.0) % Baso % (Auto) (0.0-2.0) % Neut # (Auto) (1.8-7.0) K/uL Lymph # (Auto) (1.0-4.3) K/uL [place] # (Auto) (0.0-0.8) K/uL Eos # (Auto) (0.0-0.7) K/uL Baso # (Auto) (0.0-0.2) K/uL PT (9.7-12.2) SECONDS INR APTT (21-34) SECONDS Sodium 161 H* (132-148) mmol/L Potassium 4.0 (3.6-5.2) mmol/L Chloride 128 H (98-107) mmol/L Carbon Dioxide 23 (22-30) mmol/L Anion Gap 15 (10-20) BUN 31 H (9-20) mg/dL Creatinine 1.2 (0.8-1.5) mg/dL Est GFR ( Amer) > 60 Est GFR (Non-Af Amer) > 60 POC Glucose (mg/dL) 115 H (65-110) mg/dL Random Glucose 125 H (75-110) mg/dL Lactic Acid (0.7-2.1) mmol/L Calcium 8.2 L (8.6-10.4) mg/dl Phosphorus (2.5-4.5) mg/dL Magnesium (1.6-2.3) mg/dL Total Bilirubin 2.4 H (0.2-1.3) mg/dL AST 59 (17-59) U/L ALT 92 H (21-72) U/L Alkaline Phosphatase 83 (38-126) U/L Troponin I (0.00-0.120) ng/mL NT-Pro-B Natriuret Pep (0-900) pg/mL Total Protein 7.7 (6.3-8.3) g/dL Albumin 3.5 (3.5-5.0) g/dL Globulin 4.2 H (2.2-3.9) gm/dL Albumin/Globulin Ratio 0.8 L (1.0-2.1) Procalcitonin (0.19-0.49) NG/ML Urine Color (YELLOW) Urine Clarity (Clear) Urine pH (5.0-8.0) Ur Specific [place] (1.003-1.030) Urine Protein (NEGATIVE) mg/dL Urine Glucose (UA) (Normal) mg/dL Urine Ketones (NEGATIVE) mg/dL Urine Blood (NEGATIVE) Urine Nitrate (NEGATIVE) Urine Bilirubin (NEGATIVE) Urine Urobilinogen (0.2-1.0) mg/dL Ur Leukocyte Esterase (Negative) Diana/uL Urine WBC (Auto) (0-5) /hpf Urine RBC (Auto) (0-3) /hpf Urine Opiates Screen (NEGATIVE) Ur Opiates (GC/MS) Negative (Negative) 300 Urine Methadone Screen (NEGATIVE) Ur Methadone, Qual Negative (Negative) 300 Urine Propoxyphene Negative (Negative) 300 Methaqualone Negative (Negative) 300 Ur Barbiturates Screen (NEGATIVE) Ur Barbiturates, Qual Negative (Negative) 300 Ur Phencyclidine Scrn (NEGATIVE) Ur Phencyclidine (PCP) Negative (Negative) 25 Ur Amphetamines Screen Negative (Negative) 1000 U Benzodiazepines Scrn (NEGATIVE) U Benzodiazepines Qual Negative (Negative) 300 Urine Cocaine Negative (Negative) 300 U Oth Cocaine Metabols (NEGATIVE) U Cannabinoids Screen (NEGATIVE) U Marijuana (THC) Screen Negative (Negative) 50 Drugs of Abuse Note See note 03/04/18 Range/Units 05:35 WBC (4.8-10.8) K/uL RBC (4.40-5.90) Mil/uL Hgb (12.0-18.0) g/dL Hct (35.0-51.0) % MCV (80.0-94.0) fL MCH (27.0-31.0) pg MCHC (33.0-37.0) g/dL RDW (11.5-14.5) % Plt Count (130-400) K/uL MPV (7.2-11.7) fL Neut % (Auto) (50.0-75.0) % Lymph % (Auto) (20.0-40.0) % [place] % (Auto) (0.0-10.0) % Eos % (Auto) (0.0-4.0) % Baso % (Auto) (0.0-2.0) % Neut # (Auto) (1.8-7.0) K/uL Lymph # (Auto) (1.0-4.3) K/uL [place] # (Auto) (0.0-0.8) K/uL Eos # (Auto) (0.0-0.7) K/uL Baso # (Auto) (0.0-0.2) K/uL PT (9.7-12.2) SECONDS INR APTT (21-34) SECONDS Sodium (132-148) mmol/L Potassium (3.6-5.2) mmol/L Chloride (98-107) mmol/L Carbon Dioxide (22-30) mmol/L Anion Gap (10-20) BUN (9-20) mg/dL Creatinine (0.8-1.5) mg/dL Est GFR ( Amer) Est GFR (Non-Af Amer) POC Glucose (mg/dL) (65-110) mg/dL Random Glucose (75-110) mg/dL Lactic Acid (0.7-2.1) mmol/L Calcium (8.6-10.4) mg/dl Phosphorus (2.5-4.5) mg/dL Magnesium (1.6-2.3) mg/dL Total Bilirubin (0.2-1.3) mg/dL AST (17-59) U/L ALT (21-72) U/L Alkaline Phosphatase (38-126) U/L Troponin I (0.00-0.120) ng/mL NT-Pro-B Natriuret Pep (0-900) pg/mL Total Protein (6.3-8.3) g/dL Albumin (3.5-5.0) g/dL Globulin (2.2-3.9) gm/dL Albumin/Globulin Ratio (1.0-2.1) Procalcitonin 0.10 L (0.19-0.49) NG/ML Urine Color (YELLOW) Urine Clarity (Clear) Urine pH (5.0-8.0) Ur Specific [place] (1.003-1.030) Urine Protein (NEGATIVE) mg/dL Urine Glucose (UA) (Normal) mg/dL Urine Ketones (NEGATIVE) mg/dL Urine Blood (NEGATIVE) Urine Nitrate (NEGATIVE) Urine Bilirubin (NEGATIVE) Urine Urobilinogen (0.2-1.0) mg/dL Ur Leukocyte Esterase (Negative) Diana/uL Urine WBC (Auto) (0-5) /hpf Urine RBC (Auto) (0-3) /hpf Urine Opiates Screen (NEGATIVE) Ur Opiates (GC/MS) (Negative) 300 Urine Methadone Screen (NEGATIVE) Ur Methadone, Qual (Negative) 300 Urine Propoxyphene (Negative) 300 Methaqualone (Negative) 300 Ur Barbiturates Screen (NEGATIVE) Ur Barbiturates, Qual (Negative) 300 Ur Phencyclidine Scrn (NEGATIVE) Ur Phencyclidine (PCP) (Negative) 25 Ur Amphetamines Screen (Negative) 1000 U Benzodiazepines Scrn (NEGATIVE) U Benzodiazepines Qual (Negative) 300 Urine Cocaine (Negative) 300 U Oth Cocaine Metabols (NEGATIVE) U Cannabinoids Screen (NEGATIVE) U Marijuana (THC) Screen (Negative) 50 Drugs of Abuse Note Laboratory Results - last 24 hr 03/04/18 03/04/18 03/04/18 05:35 11:27 13:27 WBC RBC Hgb Hct MCV MCH MCHC RDW Plt Count MPV Neut % (Auto) Lymph % (Auto) [place] % (Auto) Eos % (Auto) Baso % (Auto) Neut # (Auto) Lymph # (Auto) [place] # (Auto) Eos # (Auto) Baso # (Auto) PT INR APTT Sodium 161 H* Potassium 4.0 Chloride 128 H Carbon Dioxide 23 Anion Gap 15 BUN 31 H Creatinine 1.2 Est GFR ( Amer) > 60 Est GFR (Non-Af Amer) > 60 POC Glucose (mg/dL) 115 H Random Glucose 125 H Lactic Acid Calcium 8.2 L Phosphorus Magnesium Total Bilirubin 2.4 H AST 59 ALT 92 H Alkaline Phosphatase 83 Troponin I NT-Pro-B Natriuret Pep Total Protein 7.7 Albumin 3.5 Globulin 4.2 H Albumin/Globulin Ratio 0.8 L Procalcitonin 0.10 L Urine Color Urine Clarity Urine pH Ur Specific [place] Urine Protein Urine Glucose (UA) Urine Ketones Urine Blood Urine Nitrate Urine Bilirubin Urine Urobilinogen Ur Leukocyte Esterase Urine WBC (Auto) Urine RBC (Auto) Urine Opiates Screen Ur Opiates (GC/MS) Urine Methadone Screen Ur Methadone, Qual Urine Propoxyphene Methaqualone Ur Barbiturates Screen Ur Barbiturates, Qual Ur Phencyclidine Scrn Ur Phencyclidine (PCP) Ur Amphetamines Screen U Benzodiazepines Scrn U Benzodiazepines Qual Urine Cocaine U Oth Cocaine Metabols U Cannabinoids Screen U Marijuana (THC) Screen Drugs of Abuse Note 03/04/18 03/04/18 03/04/18 13:33 13:57 15:30 WBC RBC Hgb Hct MCV MCH MCHC RDW Plt Count MPV Neut % (Auto) Lymph % (Auto) [place] % (Auto) Eos % (Auto) Baso % (Auto) Neut # (Auto) Lymph # (Auto) [place] # (Auto) Eos # (Auto) Baso # (Auto) PT INR APTT Sodium Potassium Chloride Carbon Dioxide Anion Gap BUN Creatinine Est GFR ( Amer) Est GFR (Non-Af Amer) POC Glucose (mg/dL) Random Glucose Lactic Acid 4.1 H* Calcium Phosphorus Magnesium Total Bilirubin AST ALT Alkaline Phosphatase Troponin I NT-Pro-B Natriuret Pep Total Protein Albumin Globulin Albumin/Globulin Ratio Procalcitonin Urine Color Urine Clarity Urine pH Ur Specific [place] Urine Protein Urine Glucose (UA) Urine Ketones Urine Blood Urine Nitrate Urine Bilirubin Urine Urobilinogen Ur Leukocyte Esterase Urine WBC (Auto) Urine RBC (Auto) Urine Opiates Screen Negative Ur Opiates (GC/MS) Negative Urine Methadone Screen Negative Ur Methadone, Qual Negative Urine Propoxyphene Negative Methaqualone Negative Ur Barbiturates Screen Negative Ur Barbiturates, Qual Negative Ur Phencyclidine Scrn Negative Ur Phencyclidine (PCP) Negative Ur Amphetamines Screen Negative Negative U Benzodiazepines Scrn Negative U Benzodiazepines Qual Negative Urine Cocaine Negative U Oth Cocaine Metabols Negative U Cannabinoids Screen Negative U Marijuana (THC) Screen Negative Drugs of Abuse Note See note 03/04/18 03/04/18 03/04/18 15:30 18:06 18:27 WBC RBC Hgb Hct MCV MCH MCHC RDW Plt Count MPV Neut % (Auto) Lymph % (Auto) [place] % (Auto) Eos % (Auto) Baso % (Auto) Neut # (Auto) Lymph # (Auto) [place] # (Auto) Eos # (Auto) Baso # (Auto) PT INR APTT Sodium Potassium Chloride Carbon Dioxide Anion Gap BUN Creatinine Est GFR ( Amer) Est GFR (Non-Af Amer) POC Glucose (mg/dL) 98 Random Glucose Lactic Acid 2.4 H Calcium Phosphorus Magnesium Total Bilirubin AST ALT Alkaline Phosphatase Troponin I NT-Pro-B Natriuret Pep Total Protein Albumin Globulin Albumin/Globulin Ratio Procalcitonin Urine Color Michelle Urine Clarity Hazy Urine pH 5.0 Ur Specific [place] 1.032 H Urine Protein 2+ H Urine Glucose (UA) Normal Urine Ketones Negative Urine Blood 3+ H Urine Nitrate Negative Urine Bilirubin Negative Urine Urobilinogen Normal Ur Leukocyte Esterase 2+ H Urine WBC (Auto) 72 H Urine RBC (Auto) 2617 H Urine Opiates Screen Ur Opiates (GC/MS) Urine Methadone Screen Ur Methadone, Qual Urine Propoxyphene Methaqualone Ur Barbiturates Screen Ur Barbiturates, Qual Ur Phencyclidine Scrn Ur Phencyclidine (PCP) Ur Amphetamines Screen U Benzodiazepines Scrn U Benzodiazepines Qual Urine Cocaine U Oth Cocaine Metabols U Cannabinoids Screen U Marijuana (THC) Screen Drugs of Abuse Note 03/04/18 03/04/18 03/05/18 18:27 23:24 05:27 WBC RBC Hgb Hct MCV MCH MCHC RDW Plt Count MPV Neut % (Auto) Lymph % (Auto) [place] % (Auto) Eos % (Auto) Baso % (Auto) Neut # (Auto) Lymph # (Auto) [place] # (Auto) Eos # (Auto) Baso # (Auto) PT INR APTT Sodium Potassium Chloride Carbon Dioxide Anion Gap BUN Creatinine Est GFR ( Amer) Est GFR (Non-Af Amer) POC Glucose (mg/dL) 97 88 Random Glucose Lactic Acid Calcium Phosphorus Magnesium Total Bilirubin AST ALT Alkaline Phosphatase Troponin I 0.0600 NT-Pro-B Natriuret Pep 825 Total Protein Albumin Globulin Albumin/Globulin Ratio Procalcitonin Urine Color Urine Clarity Urine pH Ur Specific [place] Urine Protein Urine Glucose (UA) Urine Ketones Urine Blood Urine Nitrate Urine Bilirubin Urine Urobilinogen Ur Leukocyte Esterase Urine WBC (Auto) Urine RBC (Auto) Urine Opiates Screen Ur Opiates (GC/MS) Urine Methadone Screen Ur Methadone, Qual Urine Propoxyphene Methaqualone Ur Barbiturates Screen Ur Barbiturates, Qual Ur Phencyclidine Scrn Ur Phencyclidine (PCP) Ur Amphetamines Screen U Benzodiazepines Scrn U Benzodiazepines Qual Urine Cocaine U Oth Cocaine Metabols U Cannabinoids Screen U Marijuana (THC) Screen Drugs of Abuse Note 03/05/18 03/05/18 03/05/18 06:14 06:14 06:14 WBC 11.0 H RBC 4.54 Hgb 11.7 L D Hct 36.7 MCV 80.8 MCH 25.7 L MCHC 31.7 L RDW 17.5 H Plt Count 90 L D MPV 11.9 H Neut % (Auto) 82.9 H Lymph % (Auto) 11.0 L [place] % (Auto) 4.8 Eos % (Auto) 0.7 Baso % (Auto) 0.6 Neut # (Auto) 9.2 H Lymph # (Auto) 1.2 [place] # (Auto) 0.5 Eos # (Auto) 0.1 Baso # (Auto) 0.1 PT 30.3 H INR 2.8 APTT 34 Sodium 154 H Potassium 3.7 Chloride 129 H Carbon Dioxide 21 L Anion Gap 8 L BUN 20 Creatinine 0.9 Est GFR ( Amer) > 60 Est GFR (Non-Af Amer) > 60 POC Glucose (mg/dL) Random Glucose 91 Lactic Acid Calcium 7.3 L Phosphorus 1.3 L Magnesium 2.0 Total Bilirubin 1.6 H AST 39 ALT 58 Alkaline Phosphatase 65 Troponin I NT-Pro-B Natriuret Pep Total Protein 5.9 L Albumin 2.5 L D Globulin 3.3 Albumin/Globulin Ratio 0.8 L Procalcitonin Urine Color Urine Clarity Urine pH Ur Specific [place] Urine Protein Urine Glucose (UA) Urine Ketones Urine Blood Urine Nitrate Urine Bilirubin Urine Urobilinogen Ur Leukocyte Esterase Urine WBC (Auto) Urine RBC (Auto) Urine Opiates Screen Ur Opiates (GC/MS) Urine Methadone Screen Ur Methadone, Qual Urine Propoxyphene Methaqualone Ur Barbiturates Screen Ur Barbiturates, Qual Ur Phencyclidine Scrn Ur Phencyclidine (PCP) Ur Amphetamines Screen U Benzodiazepines Scrn U Benzodiazepines Qual Urine Cocaine U Oth Cocaine Metabols U Cannabinoids Screen U Marijuana (THC) Screen Drugs of Abuse Note 03/05/18 06:19 WBC RBC Hgb Hct MCV MCH MCHC RDW Plt Count MPV Neut % (Auto) Lymph % (Auto) [place] % (Auto) Eos % (Auto) Baso % (Auto) Neut # (Auto) Lymph # (Auto) [place] # (Auto) Eos # (Auto) Baso # (Auto) PT INR APTT Sodium Potassium Chloride Carbon Dioxide Anion Gap BUN Creatinine Est GFR ( Amer) Est GFR (Non-Af Amer) POC Glucose (mg/dL) Random Glucose Lactic Acid 1.6 Calcium Phosphorus Magnesium Total Bilirubin AST ALT Alkaline Phosphatase Troponin I NT-Pro-B Natriuret Pep Total Protein Albumin Globulin Albumin/Globulin Ratio Procalcitonin Urine Color Urine Clarity Urine pH Ur Specific [place] Urine Protein Urine Glucose (UA) Urine Ketones Urine Blood Urine Nitrate Urine Bilirubin Urine Urobilinogen Ur Leukocyte Esterase Urine WBC (Auto) Urine RBC (Auto) Urine Opiates Screen Ur Opiates (GC/MS) Urine Methadone Screen Ur Methadone, Qual Urine Propoxyphene Methaqualone Ur Barbiturates Screen Ur Barbiturates, Qual Ur Phencyclidine Scrn Ur Phencyclidine (PCP) Ur Amphetamines Screen U Benzodiazepines Scrn U Benzodiazepines Qual Urine Cocaine U Oth Cocaine Metabols U Cannabinoids Screen U Marijuana (THC) Screen Drugs of Abuse Note Critical Care Progress Note - Nutrition Nutrition: Nutrition Category Date Time Status NPO Diet [DIET] Diets 03/04/18 Lunch Active Assessment/Plan - Assessment and Plan (Free Text) Plan: Above patient seen and examined at bedside. Patient with poor IV access not tolrating IVF via peripharl line -Dehydration: continue IV hdyration -HOMER: continue IVF, avoid nephrotoxic drugs -sepsis: delgado culture, lactic q3hrs (resolving), continue empirical abx -continue dvt/pud ppx -continue to resusitate -above resident documents my clinical management and physical exam - Date & Time Date: 03/04/18 Time: 21:00
[2018-03-04] MEDS ORDERED: Lactated Ringer's 1,000 ML IV ONE ×3 (12:54→18:09)
[2018-03-04 13:59] LABS: ALB/GLOB RATIO 0.8 (1.0-2.1); ALBUMIN 3.5 g/dL (3.5-5.0); ALT/SGPT 92 U/L (21-72); AST/SGOT 59 U/L (17-59); BLOOD UREA NITROGEN 31 mg/dL (9-20); CALCIUM 8.2 mg/dl (8.6-10.4); GFR NON-AFRICAN AMERICAN > 60
[2018-03-04] MEDS: Piperacill/Tazo 3.375gm in Dex 3.375 GM/50 ML BAG IVPB SCH ×2 (14:00→21:36)
[2018-03-04 15:51] LABS: URINE BILIRUBIN NEGATIVE (NEGATIVE); URINE BLOOD 3+ (NEGATIVE); URINE CLARITY Hazy (Clear); URINE COLOR Amber (YELLOW); URINE GLUCOSE (UA) NORMAL (Normal); URINE LEUKOCYTE ESTERASE 2+ Leu/uL (Negative); URINE PROTEIN 2+ mg/dL (NEGATIVE); URINE UROBILINOGEN NORMAL mg/dL (0.2-1.0)
[2018-03-04] MEDS ORDERED: Sodium Chloride 0.9% 1,000 ML IV ONE (17:30)
[2018-03-04] MEDS: Dextrose 5%/0.45% NS 1,000 ML IV SCH ×2 (17:35→20:53)
[2018-03-04 18:04] LABS: BARBITURATES, UR NEGATIVE (NEGATIVE); BENZODIAZEPINES, UR NEGATIVE (NEGATIVE); OPIATES, UR NEGATIVE (NEGATIVE); PHENCYCLIDINE, UR NEGATIVE (NEGATIVE)
--- NOTE | 2018-03-04 18:08 | CP.PCM.HP ---
Past Patient History - Infectious Disease Hx of Infectious Diseases: MRSA - Past Medical History & Family History Past Medical History?: Yes - Past Social History Smoking Status: Never Smoked - CARDIAC Hx Hypertension: Yes - PULMONARY Hx Chronic Obstructive Pulmonary Disease (COPD): Yes Hx Pneumonia: Yes - NEUROLOGICAL Hx Multiple Sclerosis: Yes - RENAL Hx Chronic Kidney Disease: Yes - HEMATOLOGICAL/ONCOLOGICAL Other/Comment: sepsis - MUSCULOSKELETAL/RHEUMATOLOGICAL Hx Falls: Yes - GASTROINTESTINAL Hx Gastrointestinal Disorders: Yes Other/Comment: Peg tube. Dysphagia - GENITOURINARY/GYNECOLOGICAL Other/Comment: hx MRSA in urine 2012 - PSYCHIATRIC Hx Substance Use: No - SURGICAL HISTORY Hx Surgeries: Yes Other/Comment: PEG insertion: Suprapubic cath - ANESTHESIA Hx Anesthesia: Yes Hx Anesthesia Reactions: No Hx Malignant Hyperthermia: No Meds Allergies/Adverse Reactions: Allergies Allergy/AdvReac Type Severity Reaction Status Date / Time No Known Allergies Allergy Verified 03/04/18 05:12 Physical Exam - Constitutional Appears: Well - Head Exam Head Exam: ATRAUMATIC, NORMAL INSPECTION, NORMOCEPHALIC - Eye Exam Eye Exam: EOMI, Normal appearance, PERRL Pupil Exam: NORMAL ACCOMODATION, PERRL - ENT Exam ENT Exam: Mucous Membranes Moist, Normal Exam - Neck Exam Neck exam: Positive for: Normal Inspection - Respiratory Exam Respiratory Exam: Decreased Breath Sounds - Cardiovascular Exam Cardiovascular Exam: REGULAR RHYTHM, +S1, +S2 - GI/Abdominal Exam GI & Abdominal Exam: Diminished Bowel Sounds, Soft - Rectal Exam Rectal Exam: Deferred Results - Vital Signs Recent Vital Signs: Last Vital Signs Temp 100.6 F H 03/04/18 06:25 Pulse 119 H 03/04/18 07:32 Resp 36 H 03/04/18 07:32 BP 101/66 03/04/18 07:32 Pulse Ox 98 03/04/18 07:32 - Labs Result Diagrams: 03/04/18 05:35 03/04/18 13:27 Labs: Laboratory Results - last 24 hr 03/04/18 03/04/18 03/04/18 05:12 05:15 05:35 WBC 9.1 RBC 6.35 H Hgb 15.9 D Hct 50.7 MCV 79.9 L D MCH 25.1 L MCHC 31.4 L RDW 18.0 H Plt Count 157 MPV 11.4 Neut % (Auto) 82.9 H Lymph % (Auto) 9.7 L Yancey % (Auto) 6.9 Eos % (Auto) 0.1 Baso % (Auto) 0.4 Neut # (Auto) 7.6 H Lymph # (Auto) 0.9 L Yancey # (Auto) 0.6 Eos # (Auto) 0.0 Baso # (Auto) 0.0 Neutrophils % (Manual) 50 Band Neutrophils % 32 H* Lymphocytes % (Manual) 14 L Monocytes % (Manual) 4 Platelet Estimate Normal Anisocytosis (manual) Slight PT INR APTT Puncture Site pCO2 pO2 55 HCO3 ABG pH ABG Total CO2 ABG O2 Saturation ABG Base Excess Diaz Test ABG Potassium VBG pH 7.47 H VBG pCO2 19 L* VBG HCO3 19.0 VBG Total CO2 14.4 L VBG O2 Sat (Calc) 92.5 H VBG Base Excess -7.4 L VBG Potassium 3.1 L A-a O2 Difference Respiratory Index Sodium 163.0 H* Chloride 135.0 H Glucose 117 H Lactate 4.1 H* FiO2 Inspiratory BiPAP Expiratory BiPAP Crit Value Called To Renea donahue Crit Value Called By Renata rt Crit Value Read Back Y Blood Gas Notified Time 540 Potassium Carbon Dioxide Anion Gap BUN Creatinine Est GFR ( Amer) Est GFR (Non-Af Amer) POC Glucose (mg/dL) 149 H Random Glucose Lactic Acid Calcium Phosphorus Magnesium Total Bilirubin AST ALT Alkaline Phosphatase Total Protein Albumin Globulin Albumin/Globulin Ratio Procalcitonin Arterial Blood Potassium Venous Blood Potassium 3.1 L Urine Color Urine Clarity Urine pH Ur Specific [place] Urine Protein Urine Glucose (UA) Urine Ketones Urine Blood Urine Nitrate Urine Bilirubin Urine Urobilinogen Ur Leukocyte Esterase Urine WBC (Auto) Urine RBC (Auto) Urine Opiates Screen Urine Methadone Screen Ur Barbiturates Screen Ur Phencyclidine Scrn Ur Amphetamines Screen U Benzodiazepines Scrn U Oth Cocaine Metabols U Cannabinoids Screen 03/04/18 03/04/18 03/04/18 05:35 05:35 05:35 WBC RBC Hgb Hct MCV MCH MCHC RDW Plt Count MPV Neut % (Auto) Lymph % (Auto) Yancey % (Auto) Eos % (Auto) Baso % (Auto) Neut # (Auto) Lymph # (Auto) Yancey # (Auto) Eos # (Auto) Baso # (Auto) Neutrophils % (Manual) Band Neutrophils % Lymphocytes % (Manual) Monocytes % (Manual) Platelet Estimate Anisocytosis (manual) PT 31.7 H INR 2.9 APTT 37 H Puncture Site pCO2 pO2 HCO3 ABG pH ABG Total CO2 ABG O2 Saturation ABG Base Excess Diaz Test ABG Potassium VBG pH VBG pCO2 VBG HCO3 VBG Total CO2 VBG O2 Sat (Calc) VBG Base Excess VBG Potassium A-a O2 Difference Respiratory Index Sodium 161 H* Chloride 134 H Glucose Lactate FiO2 Inspiratory BiPAP Expiratory BiPAP Crit Value Called To Crit Value Called By Crit Value Read Back Blood Gas Notified Time Potassium 3.2 L Carbon Dioxide 15 L Anion Gap 15 BUN 30 H Creatinine 1.4 Est GFR ( Amer) > 60 Est GFR (Non-Af Amer) 51 POC Glucose (mg/dL) Random Glucose 139 H Lactic Acid Calcium 7.4 L Phosphorus 2.3 L Magnesium 2.1 Total Bilirubin 1.5 H AST 52 ALT 98 H D Alkaline Phosphatase 86 Total Protein 6.9 Albumin 3.0 L Globulin 3.9 Albumin/Globulin Ratio 0.8 L Procalcitonin 0.10 L Arterial Blood Potassium Venous Blood Potassium Urine Color Urine Clarity Urine pH Ur Specific [place] Urine Protein Urine Glucose (UA) Urine Ketones Urine Blood Urine Nitrate Urine Bilirubin Urine Urobilinogen Ur Leukocyte Esterase Urine WBC (Auto) Urine RBC (Auto) Urine Opiates Screen Urine Methadone Screen Ur Barbiturates Screen Ur Phencyclidine Scrn Ur Amphetamines Screen U Benzodiazepines Scrn U Oth Cocaine Metabols U Cannabinoids Screen 03/04/18 03/04/18 03/04/18 05:45 08:11 11:27 WBC RBC Hgb Hct MCV MCH MCHC RDW Plt Count MPV Neut % (Auto) Lymph % (Auto) Yancey % (Auto) Eos % (Auto) Baso % (Auto) Neut # (Auto) Lymph # (Auto) Yancey # (Auto) Eos # (Auto) Baso # (Auto) Neutrophils % (Manual) Band Neutrophils % Lymphocytes % (Manual) Monocytes % (Manual) Platelet Estimate Anisocytosis (manual) PT INR APTT Puncture Site Rb pCO2 24 L pO2 67 L HCO3 20.1 L ABG pH 7.44 ABG Total CO2 17.0 L ABG O2 Saturation 95.6 ABG Base Excess -6.0 L Diaz Test Yes ABG Potassium 3.3 L VBG pH VBG pCO2 VBG HCO3 VBG Total CO2 VBG O2 Sat (Calc) VBG Base Excess VBG Potassium A-a O2 Difference 260.0 Respiratory Index 3.9 Sodium 163.0 H* Chloride 131.0 H Glucose 146 H Lactate 5.6 H* FiO2 50.0 Inspiratory BiPAP 14 Expiratory BiPAP 6 Crit Value Called To Renea donahue Crit Value Called By Emiliano rt Crit Value Read Back Y Blood Gas Notified Time 559 Potassium Carbon Dioxide Anion Gap BUN Creatinine Est GFR ( Amer) Est GFR (Non-Af Amer) POC Glucose (mg/dL) 115 H Random Glucose Lactic Acid 3.5 H Calcium Phosphorus Magnesium Total Bilirubin AST ALT Alkaline Phosphatase Total Protein Albumin Globulin Albumin/Globulin Ratio Procalcitonin Arterial Blood Potassium 3.3 L Venous Blood Potassium Urine Color Urine Clarity Urine pH Ur Specific [place] Urine Protein Urine Glucose (UA) Urine Ketones Urine Blood Urine Nitrate Urine Bilirubin Urine Urobilinogen Ur Leukocyte Esterase Urine WBC (Auto) Urine RBC (Auto) Urine Opiates Screen Urine Methadone Screen Ur Barbiturates Screen Ur Phencyclidine Scrn Ur Amphetamines Screen U Benzodiazepines Scrn U Oth Cocaine Metabols U Cannabinoids Screen 03/04/18 03/04/18 03/04/18 13:27 13:57 15:30 WBC RBC Hgb Hct MCV MCH MCHC RDW Plt Count MPV Neut % (Auto) Lymph % (Auto) Yancey % (Auto) Eos % (Auto) Baso % (Auto) Neut # (Auto) Lymph # (Auto) Yancey # (Auto) Eos # (Auto) Baso # (Auto) Neutrophils % (Manual) Band Neutrophils % Lymphocytes % (Manual) Monocytes % (Manual) Platelet Estimate Anisocytosis (manual) PT INR APTT Puncture Site pCO2 pO2 HCO3 ABG pH ABG Total CO2 ABG O2 Saturation ABG Base Excess Diaz Test ABG Potassium VBG pH VBG pCO2 VBG HCO3 VBG Total CO2 VBG O2 Sat (Calc) VBG Base Excess VBG Potassium A-a O2 Difference Respiratory Index Sodium 161 H* Chloride 128 H Glucose Lactate FiO2 Inspiratory BiPAP Expiratory BiPAP Crit Value Called To Crit Value Called By Crit Value Read Back Blood Gas Notified Time Potassium 4.0 Carbon Dioxide 23 Anion Gap 15 BUN 31 H Creatinine 1.2 Est GFR ( Amer) > 60 Est GFR (Non-Af Amer) > 60 POC Glucose (mg/dL) Random Glucose 125 H Lactic Acid 4.1 H* Calcium 8.2 L Phosphorus Magnesium Total Bilirubin 2.4 H AST 59 ALT 92 H Alkaline Phosphatase 83 Total Protein 7.7 Albumin 3.5 Globulin 4.2 H Albumin/Globulin Ratio 0.8 L Procalcitonin Arterial Blood Potassium Venous Blood Potassium Urine Color Urine Clarity Urine pH Ur Specific [place] Urine Protein Urine Glucose (UA) Urine Ketones Urine Blood Urine Nitrate Urine Bilirubin Urine Urobilinogen Ur Leukocyte Esterase Urine WBC (Auto) Urine RBC (Auto) Urine Opiates Screen Negative Urine Methadone Screen Negative Ur Barbiturates Screen Negative Ur Phencyclidine Scrn Negative Ur Amphetamines Screen Negative U Benzodiazepines Scrn Negative U Oth Cocaine Metabols Negative U Cannabinoids Screen Negative 03/04/18 15:30 WBC RBC Hgb Hct MCV MCH MCHC RDW Plt Count MPV Neut % (Auto) Lymph % (Auto) [place] % (Auto) Eos % (Auto) Baso % (Auto) Neut # (Auto) Lymph # (Auto) [place]y # (Auto) Eos # (Auto) Baso # (Auto) Neutrophils % (Manual) Band Neutrophils % Lymphocytes % (Manual) Monocytes % (Manual) Platelet Estimate Anisocytosis (manual) PT INR APTT Puncture Site pCO2 pO2 HCO3 ABG pH ABG Total CO2 ABG O2 Saturation ABG Base Excess Diaz Test ABG Potassium VBG pH VBG pCO2 VBG HCO3 VBG Total CO2 VBG O2 Sat (Calc) VBG Base Excess VBG Potassium A-a O2 Difference Respiratory Index Sodium Chloride Glucose Lactate FiO2 Inspiratory BiPAP Expiratory BiPAP Crit Value Called To Crit Value Called By Crit Value Read Back Blood Gas Notified Time Potassium Carbon Dioxide Anion Gap BUN Creatinine Est GFR ( Amer) Est GFR (Non-Af Amer) POC Glucose (mg/dL) Random Glucose Lactic Acid Calcium Phosphorus Magnesium Total Bilirubin AST ALT Alkaline Phosphatase Total Protein Albumin Globulin Albumin/Globulin Ratio Procalcitonin Arterial Blood Potassium Venous Blood Potassium Urine Color Michelle Urine Clarity Hazy Urine pH 5.0 Ur Specific [place] 1.032 H Urine Protein 2+ H Urine Glucose (UA) Normal Urine Ketones Negative Urine Blood 3+ H Urine Nitrate Negative Urine Bilirubin Negative Urine Urobilinogen Normal Ur Leukocyte Esterase 2+ H Urine WBC (Auto) 72 H Urine RBC (Auto) 2617 H Urine Opiates Screen Urine Methadone Screen Ur Barbiturates Screen Ur Phencyclidine Scrn Ur Amphetamines Screen U Benzodiazepines Scrn U Oth Cocaine Metabols U Cannabinoids Screen
--- NOTE | 2018-03-04 18:09 | PCM.PROC ---
Procedures Attestation:: I certify that I have explained the specified Operation(s) or Procedure(s), risks, benefits and reasonable alternatives to the Patient and/or other person responsible. The opportunity was given to ask questions and all questions answered - Central Line Placement Right Internal Jugular Triple Lumen Catheter Aseptic technique was employed throughout the procedure: Full sterile barriers (mask, hair cover, sterile gown, sterile gloves), Chloraprep Antiseptic: 30 sec ond prep for IJ or SC sites CVP Time Out Performed: Yes Pt. Placed on Pulse Ox Monitor: Yes Central Line Prep: Chlorhexidine-Alcohol Combination Local Anesthesia Used: Lidocaine 1% Amount of Anesthesia Used (mls): 20 Ultrasound Used for Placement: Yes Central Line Lumen Inserted: triple Central Line Length: 20 cm Post Procedure: Sutured in Place, Good Blood Return, All Ports Aspirated, Flushed, Capped, Sterile Dressing Applied Secured by: Suture Post procedure dressing: Gauze, Clear vapor permeable, Chlorhexidine disc ( Biopatch) Post Procedure X-Ray: Yes Patient Tolerated Procedure: Well Immediate Complications: None
--- NOTE | 2018-03-04 18:48 | RAD ---
HISTORY: s/p central line placement COMPARISON: Chest x-ray performed 03/04/18 at 540 hr TECHNIQUE: Chest, one view. FINDINGS: Right IJ approach central venous catheter extends to the expected location of the SVC. Examination limited by habitus and patient obliquity. LUNGS: Right greater than left lower lobe consolidations. Patchy lingular infiltrate. No significant pleural effusion or definite pneumothorax. CARDIOVASCULAR: Cardiomegaly. Ectatic aorta. No significant atherosclerotic calcification present. OSSEOUS STRUCTURES: Degenerative changes. VISUALIZED UPPER ABDOMEN: Unremarkable. OTHER FINDINGS: None. IMPRESSION: Right IJ approach central venous catheter extends expected location of the SVC. Right greater than left lower lobe consolidations, increased since earlier the same day. Patchy lingular infiltrate.
[2018-03-04 19:01] LABS: TROPONIN I 0.06 ng/mL (0.00-0.120)
[2018-03-04] MEDS ORDERED: Glucagon Recombinant 1 mg Inj IM PRN (19:10)
[2018-03-04] MEDS ORDERED: Dextrose 50% SYRINGE Inj (50 ml) IV PRN (19:10)
[2018-03-05] MEDS: Albuterol 0.083% Inhal Sol (2.5 mg/3 mL) UD IH SCH ×4 (02:10→19:31)
[2018-03-05] MEDS: Dextrose 5%/0.45% NS 1,000 ML IV SCH (03:15)
[2018-03-05] MEDS ORDERED: Sodium Chloride 0.9% 1,000 ML IV ONE (03:56)
[2018-03-05] MEDS ORDERED: Dextrose 5%/0.9% NS 1,000 ML IV SCH (04:00)
[2018-03-05] MEDS: Piperacill/Tazo 3.375gm in Dex 3.375 GM/50 ML BAG IVPB SCH ×3 (05:13→23:12)
[2018-03-05 06:23] LABS: BASO # 0.1 K/uL (0.0-0.2); BASO % 0.6 % (0.0-2.0); EOS # 0.1 K/uL (0.0-0.7); EOS % 0.7 % (0.0-4.0); HEMOGLOBIN 11.7 g/dL (12.0-18.0); LYMPH # 1.2 K/uL (1.0-4.3); MEAN CELL VOLUME 80.8 fL (80.0-94.0); MEAN CORPUSCULAR HEMOGLOBIN 25.7 pg (27.0-31.0); MEAN CORPUSCULAR HGB CONC 31.7 g/dL (33.0-37.0); MEAN PLATELET VOLUME 11.9 fL (7.2-11.7); MONO # 0.5 K/uL (0.0-0.8); MONO % 4.8 % (0.0-10.0); NEUT # 9.2 K/uL (1.8-7.0); NEUT % 82.9 % (50.0-75.0); NRBC % 0.1 % (0.0-2.0); RBC 4.54 Mil/uL (4.40-5.90); RED CELL DISTRIBUTION WIDTH 17.5 % (11.5-14.5)
[2018-03-05] MEDS ORDERED: Dextrose 5%/0.45% NS 1,000 ML IV SCH (06:30)
[2018-03-05 06:32] LABS: INR 2.8; PROTHROMBIN TIME 30.3 SECONDS (9.7-12.2)
[2018-03-05] MEDS: Vancomycin 1 gm/NS 200 ml 1 GM/200 ML BAG IVPB SCH (06:54)
[2018-03-05 06:58] LABS: ALB/GLOB RATIO 0.8 (1.0-2.1); ALBUMIN 2.5 g/dL (3.5-5.0); ALT/SGPT 58 U/L (21-72); AST/SGOT 39 U/L (17-59); BLOOD UREA NITROGEN 20 mg/dL (9-20); CALCIUM 7.3 mg/dl (8.6-10.4); GFR NON-AFRICAN AMERICAN > 60
[2018-03-05] MEDS ORDERED: Digoxin 500 mcg/2ml (0.5 mg/2ml) Inj IVP ONE (08:34)
[2018-03-05] MEDS ORDERED: Potassium Phosphate 15 MMOLE in Dextrose 5% In Water 250 ML IVPB ONE (09:00)
[2018-03-05] MEDS ORDERED: Sodium Chloride 0.45% 1,000 ML IV SCH (09:30)
[2018-03-05 10:16] VITALS: PULSE 104
--- NOTE | 2018-03-05 10:26 | CP.CCUPN ---
<Jessica Rosales - Last Filed: 03/05/18 10:23> CCU Subjective - Physician Review Events Since Last Encounter (Free Text): 03/05/18 10:23 no over night events reported Subjective (Free Text): 03/05/18 10:23 Patient was seen and examined this morning. He states he feels a little better. He is receiving a breathing treatment. Not in acute distress. Not requiring BiPAP. Critical Care Time Spent (in minutes): 35 CCU Objective - Vital Signs / Intake & Output Vital Signs (Last 4 hours): Vital Signs Pulse Resp BP 03/05/18 08:24 22 L 03/05/18 07:32 98 H 25 H 103/62 03/05/18 07:30 99 H 24 03/05/18 07:05 102 H 29 H 109/67 03/05/18 07:00 95 H 27 H 03/05/18 06:33 102 H 17 110/73 03/05/18 06:30 102 H 14 Intake and Output (Last 8hrs): Intake & Output 03/04/18 03/05/18 03/05/18 22:59 06:59 14:59 Intake Total 3400 2800 200 Output Total 126 251 Balance 3274 2549 200 Weight 190 lb Intake: Intake, IV Amount 3200 2600 200 Right Proximal Port 3200 2600 200 Internal Jugular Other 200 200 Output: Gastric Amount 0 Stomach 0 Urine 125 250 Condom 250 Urethral ([place]) 125 Urine/Stool Mix 1 1 Other: # Bowel Movements 1 - Physical Exam Head: Positive for: Atraumatic, Normocephalic Pupils: Positive for: PERRL Extroacular Muscles: Positive for: EOMI Mouth: Positive for: Dry Respiratory/Chest: Positive for: Other (BiPAP). Negative for: Respiratory Distress Cardiovascular: Positive for: Regular Rate and Rhythm, Tachycardic Abdomen: Positive for: Tenderness (mild). Negative for: Distention Neurological: Positive for: GCS=15 Skin: Positive for: Warm, Dry, Normal Color Psychiatric: Positive for: Alert - Medications Active Medications: Active Medications Generic Name Dose Route Start Last Admin Trade Name Freq PRN Reason Stop Dose Admin Acetaminophen 975 mg 03/04/18 05:10 Tylenol 325mg Tab PEG ONCE PRN Fever >100.4 F Albuterol Sulfate 2.5 mg 03/04/18 08:00 03/05/18 07:45 Albuterol 0.083% Inhal Gisella (2.5 Mg/3 Ml) Ud IH 2.5 mg RQ6 LYNDSAY Administration Aspirin 81 mg 03/05/18 10:00 03/05/18 10:15 Ecotrin PO 81 mg DAILY LYNDSAY Administration Dextrose 0 ml 03/04/18 19:10 Dextrose 50% Inj IV STAT PRN Hypoglycemia Protocol Protocol Dextrose 0 gm 03/04/18 19:10 Glutose 15 PO ONCE PRN Hypoglycemia Protocol Protocol Glucagon 0 mg 03/04/18 19:10 Glucagen Diagnostic Kit IM STAT PRN Hypoglycemia Protocol Protocol Piperacillin Sod/Tazobactam Sod 3.375 gm in 50 mls @ 100 mls/hr 03/04/18 14:00 03/05/18 05:13 Zosyn 3.375 Gm Iv Premix IVPB 100 mls/hr Q8H LYNDSAY Administration Protocol Vancomycin/Sodium Chloride 1 gm in 200 mls @ 166.7 mls/hr 03/05/18 07:00 03/05/18 06:54 Vancomycin 1 Gm/Ns 200 Ml IVPB 03/10/18 07:01 166.7 mls/hr Q24H LYNDSAY Administration Protocol Dextrose 1,000 mls @ 0 mls/hr 03/04/18 19:10 Dextrose 5% In Water 1000 Ml IV .Q0M PRN Hypoglycemia Protocol Protocol Per Protocol Dextrose/Sodium Chloride 1,000 mls @ 150 mls/hr 03/05/18 06:30 03/05/18 07:44 Dextrose 5%/0.45% Ns 1000 Ml IV 150 mls/hr .Q6H40M LYNDSAY Administration Potassium Phosphate 15 mmole/ 255 mls @ 42.5 mls/hr 03/05/18 09:00 03/05/18 09:50 Dextrose IVPB 03/05/18 14:59 42.5 mls/hr ONCE ONE Administration Sodium Chloride 1,000 mls @ 100 mls/hr 03/05/18 09:30 03/05/18 10:00 Sodium Chloride 0.45% IV 100 mls/hr .Q10H LYNDSAY Administration Metoprolol Tartrate 12.5 mg 03/05/18 10:00 03/05/18 10:14 Lopressor PEG 12.5 mg Q12 LYNDSAY Administration Pantoprazole Sodium 40 mg 03/04/18 07:00 11/02/18 07:39 Protonix Inj IVP 40 mg Q12H LYNDSAY Administration Rosuvastatin Calcium 5 mg 03/05/18 22:00 Crestor PO HS LYNDSAY Tamsulosin HCl 0.4 mg 03/05/18 10:00 03/05/18 10:15 Flomax PO 0.4 mg DAILY LYNDSAY Administration - Patient Studies Lab Studies: Microbiology Studies 03/04/18 07:26 Blood Culture - Preliminary Blood Gram Positive Cocci Gram Stain - Final 03/04/18 07:26 Blood Culture - Preliminary Blood NO GROWTH AFTER 24 HOURS Lab Studies 03/05/18 03/05/18 03/05/18 Range/Units 06:19 06:14 06:14 WBC (4.8-10.8) K/uL RBC (4.40-5.90) Mil/uL Hgb (12.0-18.0) g/dL Hct (35.0-51.0) % MCV (80.0-94.0) fL MCH (27.0-31.0) pg MCHC (33.0-37.0) g/dL RDW (11.5-14.5) % Plt Count (130-400) K/uL MPV (7.2-11.7) fL Neut % (Auto) (50.0-75.0) % Lymph % (Auto) (20.0-40.0) % [place] % (Auto) (0.0-10.0) % Eos % (Auto) (0.0-4.0) % Baso % (Auto) (0.0-2.0) % Neut # (Auto) (1.8-7.0) K/uL Lymph # (Auto) (1.0-4.3) K/uL [place] # (Auto) (0.0-0.8) K/uL Eos # (Auto) (0.0-0.7) K/uL Baso # (Auto) (0.0-0.2) K/uL PT 30.3 H (9.7-12.2) SECONDS INR 2.8 APTT 34 (21-34) SECONDS Sodium 154 H (132-148) mmol/L Potassium 3.7 (3.6-5.2) mmol/L Chloride 129 H (98-107) mmol/L Carbon Dioxide 21 L (22-30) mmol/L Anion Gap 8 L (10-20) BUN 20 (9-20) mg/dL Creatinine 0.9 (0.8-1.5) mg/dL Est GFR ( Amer) > 60 Est GFR (Non-Af Amer) > 60 POC Glucose (mg/dL) (65-110) mg/dL Random Glucose 91 (75-110) mg/dL Lactic Acid 1.6 (0.7-2.1) mmol/L Calcium 7.3 L (8.6-10.4) mg/dl Phosphorus 1.3 L (2.5-4.5) mg/dL Magnesium 2.0 (1.6-2.3) mg/dL Total Bilirubin 1.6 H (0.2-1.3) mg/dL AST 39 (17-59) U/L ALT 58 (21-72) U/L Alkaline Phosphatase 65 (38-126) U/L Troponin I (0.00-0.120) ng/mL NT-Pro-B Natriuret Pep (0-900) pg/mL Total Protein 5.9 L (6.3-8.3) g/dL Albumin 2.5 L D (3.5-5.0) g/dL Globulin 3.3 (2.2-3.9) gm/dL Albumin/Globulin Ratio 0.8 L (1.0-2.1) Procalcitonin (0.19-0.49) NG/ML Urine Color (YELLOW) Urine Clarity (Clear) Urine pH (5.0-8.0) Ur Specific [place] (1.003-1.030) Urine Protein (NEGATIVE) mg/dL Urine Glucose (UA) (Normal) mg/dL Urine Ketones (NEGATIVE) mg/dL Urine Blood (NEGATIVE) Urine Nitrate (NEGATIVE) Urine Bilirubin (NEGATIVE) Urine Urobilinogen (0.2-1.0) mg/dL Ur Leukocyte Esterase (Negative) Diana/uL Urine WBC (Auto) (0-5) /hpf Urine RBC (Auto) (0-3) /hpf Urine Opiates Screen (NEGATIVE) Ur Opiates (GC/MS) (Negative) 300 Urine Methadone Screen (NEGATIVE) Ur Methadone, Qual (Negative) 300 Urine Propoxyphene (Negative) 300 Methaqualone (Negative) 300 Ur Barbiturates Screen (NEGATIVE) Ur Barbiturates, Qual (Negative) 300 Ur Phencyclidine Scrn (NEGATIVE) Ur Phencyclidine (PCP) (Negative) 25 Ur Amphetamines Screen (Negative) 1000 U Benzodiazepines Scrn (NEGATIVE) U Benzodiazepines Qual (Negative) 300 Urine Cocaine (Negative) 300 U Oth Cocaine Metabols (NEGATIVE) U Cannabinoids Screen (NEGATIVE) U Marijuana (THC) Screen (Negative) 50 Drugs of Abuse Note 03/05/18 03/05/18 03/04/18 Range/Units 06:14 05:27 23:24 WBC 11.0 H (4.8-10.8) K/uL RBC 4.54 (4.40-5.90) Mil/uL Hgb 11.7 L D (12.0-18.0) g/dL Hct 36.7 (35.0-51.0) % MCV 80.8 (80.0-94.0) fL MCH 25.7 L (27.0-31.0) pg MCHC 31.7 L (33.0-37.0) g/dL RDW 17.5 H (11.5-14.5) % Plt Count 90 L D (130-400) K/uL MPV 11.9 H (7.2-11.7) fL Neut % (Auto) 82.9 H (50.0-75.0) % Lymph % (Auto) 11.0 L (20.0-40.0) % [place] % (Auto) 4.8 (0.0-10.0) % Eos % (Auto) 0.7 (0.0-4.0) % Baso % (Auto) 0.6 (0.0-2.0) % Neut # (Auto) 9.2 H (1.8-7.0) K/uL Lymph # (Auto) 1.2 (1.0-4.3) K/uL [place] # (Auto) 0.5 (0.0-0.8) K/uL Eos # (Auto) 0.1 (0.0-0.7) K/uL Baso # (Auto) 0.1 (0.0-0.2) K/uL PT (9.7-12.2) SECONDS INR APTT (21-34) SECONDS Sodium (132-148) mmol/L Potassium (3.6-5.2) mmol/L Chloride (98-107) mmol/L Carbon Dioxide (22-30) mmol/L Anion Gap (10-20) BUN (9-20) mg/dL Creatinine (0.8-1.5) mg/dL Est GFR ( Amer) Est GFR (Non-Af Amer) POC Glucose (mg/dL) 88 97 (65-110) mg/dL Random Glucose (75-110) mg/dL Lactic Acid (0.7-2.1) mmol/L Calcium (8.6-10.4) mg/dl Phosphorus (2.5-4.5) mg/dL Magnesium (1.6-2.3) mg/dL Total Bilirubin (0.2-1.3) mg/dL AST (17-59) U/L ALT (21-72) U/L Alkaline Phosphatase (38-126) U/L Troponin I (0.00-0.120) ng/mL NT-Pro-B Natriuret Pep (0-900) pg/mL Total Protein (6.3-8.3) g/dL Albumin (3.5-5.0) g/dL Globulin (2.2-3.9) gm/dL Albumin/Globulin Ratio (1.0-2.1) Procalcitonin (0.19-0.49) NG/ML Urine Color (YELLOW) Urine Clarity (Clear) Urine pH (5.0-8.0) Ur Specific [place] (1.003-1.030) Urine Protein (NEGATIVE) mg/dL Urine Glucose (UA) (Normal) mg/dL Urine Ketones (NEGATIVE) mg/dL Urine Blood (NEGATIVE) Urine Nitrate (NEGATIVE) Urine Bilirubin (NEGATIVE) Urine Urobilinogen (0.2-1.0) mg/dL Ur Leukocyte Esterase (Negative) Diana/uL Urine WBC (Auto) (0-5) /hpf Urine RBC (Auto) (0-3) /hpf Urine Opiates Screen (NEGATIVE) Ur Opiates (GC/MS) (Negative) 300 Urine Methadone Screen (NEGATIVE) Ur Methadone, Qual (Negative) 300 Urine Propoxyphene (Negative) 300 Methaqualone (Negative) 300 Ur Barbiturates Screen (NEGATIVE) Ur Barbiturates, Qual (Negative) 300 Ur Phencyclidine Scrn (NEGATIVE) Ur Phencyclidine (PCP) (Negative) 25 Ur Amphetamines Screen (Negative) 1000 U Benzodiazepines Scrn (NEGATIVE) U Benzodiazepines Qual (Negative) 300 Urine Cocaine (Negative) 300 U Oth Cocaine Metabols (NEGATIVE) U Cannabinoids Screen (NEGATIVE) U Marijuana (THC) Screen (Negative) 50 Drugs of Abuse Note 03/04/18 03/04/18 03/04/18 Range/Units 18:27 18:27 18:06 WBC (4.8-10.8) K/uL RBC (4.40-5.90) Mil/uL Hgb (12.0-18.0) g/dL Hct (35.0-51.0) % MCV (80.0-94.0) fL MCH (27.0-31.0) pg MCHC (33.0-37.0) g/dL RDW (11.5-14.5) % Plt Count (130-400) K/uL MPV (7.2-11.7) fL Neut % (Auto) (50.0-75.0) % Lymph % (Auto) (20.0-40.0) % [place] % (Auto) (0.0-10.0) % Eos % (Auto) (0.0-4.0) % Baso % (Auto) (0.0-2.0) % Neut # (Auto) (1.8-7.0) K/uL Lymph # (Auto) (1.0-4.3) K/uL [place] # (Auto) (0.0-0.8) K/uL Eos # (Auto) (0.0-0.7) K/uL Baso # (Auto) (0.0-0.2) K/uL PT (9.7-12.2) SECONDS INR APTT (21-34) SECONDS Sodium (132-148) mmol/L Potassium (3.6-5.2) mmol/L Chloride (98-107) mmol/L Carbon Dioxide (22-30) mmol/L Anion Gap (10-20) BUN (9-20) mg/dL Creatinine (0.8-1.5) mg/dL Est GFR ( Amer) Est GFR (Non-Af Amer) POC Glucose (mg/dL) 98 (65-110) mg/dL Random Glucose (75-110) mg/dL Lactic Acid 2.4 H (0.7-2.1) mmol/L Calcium (8.6-10.4) mg/dl Phosphorus (2.5-4.5) mg/dL Magnesium (1.6-2.3) mg/dL Total Bilirubin (0.2-1.3) mg/dL AST (17-59) U/L ALT (21-72) U/L Alkaline Phosphatase (38-126) U/L Troponin I 0.0600 (0.00-0.120) ng/mL NT-Pro-B Natriuret Pep 825 (0-900) pg/mL Total Protein (6.3-8.3) g/dL Albumin (3.5-5.0) g/dL Globulin (2.2-3.9) gm/dL Albumin/Globulin Ratio (1.0-2.1) Procalcitonin (0.19-0.49) NG/ML Urine Color (YELLOW) Urine Clarity (Clear) Urine pH (5.0-8.0) Ur Specific [place] (1.003-1.030) Urine Protein (NEGATIVE) mg/dL Urine Glucose (UA) (Normal) mg/dL Urine Ketones (NEGATIVE) mg/dL Urine Blood (NEGATIVE) Urine Nitrate (NEGATIVE) Urine Bilirubin (NEGATIVE) Urine Urobilinogen (0.2-1.0) mg/dL Ur Leukocyte Esterase (Negative) Diana/uL Urine WBC (Auto) (0-5) /hpf Urine RBC (Auto) (0-3) /hpf Urine Opiates Screen (NEGATIVE) Ur Opiates (GC/MS) (Negative) 300 Urine Methadone Screen (NEGATIVE) Ur Methadone, Qual (Negative) 300 Urine Propoxyphene (Negative) 300 Methaqualone (Negative) 300 Ur Barbiturates Screen (NEGATIVE) Ur Barbiturates, Qual (Negative) 300 Ur Phencyclidine Scrn (NEGATIVE) Ur Phencyclidine (PCP) (Negative) 25 Ur Amphetamines Screen (Negative) 1000 U Benzodiazepines Scrn (NEGATIVE) U Benzodiazepines Qual (Negative) 300 Urine Cocaine (Negative) 300 U Oth Cocaine Metabols (NEGATIVE) U Cannabinoids Screen (NEGATIVE) U Marijuana (THC) Screen (Negative) 50 Drugs of Abuse Note 11/01/18 11/01/18 11/01/18 Range/Units 15:30 15:30 13:57 WBC (4.8-10.8) K/uL RBC (4.40-5.90) Mil/uL Hgb (12.0-18.0) g/dL Hct (35.0-51.0) % MCV (80.0-94.0) fL MCH (27.0-31.0) pg MCHC (33.0-37.0) g/dL RDW (11.5-14.5) % Plt Count (130-400) K/uL MPV (7.2-11.7) fL Neut % (Auto) (50.0-75.0) % Lymph % (Auto) (20.0-40.0) % [place] % (Auto) (0.0-10.0) % Eos % (Auto) (0.0-4.0) % Baso % (Auto) (0.0-2.0) % Neut # (Auto) (1.8-7.0) K/uL Lymph # (Auto) (1.0-4.3) K/uL [place] # (Auto) (0.0-0.8) K/uL Eos # (Auto) (0.0-0.7) K/uL Baso # (Auto) (0.0-0.2) K/uL PT (9.7-12.2) SECONDS INR APTT (21-34) SECONDS Sodium (132-148) mmol/L Potassium (3.6-5.2) mmol/L Chloride (98-107) mmol/L Carbon Dioxide (22-30) mmol/L Anion Gap (10-20) BUN (9-20) mg/dL Creatinine (0.8-1.5) mg/dL Est GFR ( Amer) Est GFR (Non-Af Amer) POC Glucose (mg/dL) (65-110) mg/dL Random Glucose (75-110) mg/dL Lactic Acid 4.1 H* (0.7-2.1) mmol/L Calcium (8.6-10.4) mg/dl Phosphorus (2.5-4.5) mg/dL Magnesium (1.6-2.3) mg/dL Total Bilirubin (0.2-1.3) mg/dL AST (17-59) U/L ALT (21-72) U/L Alkaline Phosphatase (38-126) U/L Troponin I (0.00-0.120) ng/mL NT-Pro-B Natriuret Pep (0-900) pg/mL Total Protein (6.3-8.3) g/dL Albumin (3.5-5.0) g/dL Globulin (2.2-3.9) gm/dL Albumin/Globulin Ratio (1.0-2.1) Procalcitonin (0.19-0.49) NG/ML Urine Color [place] (YELLOW) Urine Clarity Hazy (Clear) Urine pH 5.0 (5.0-8.0) Ur Specific [place] 1.032 H (1.003-1.030) Urine Protein 2+ H (NEGATIVE) mg/dL Urine Glucose (UA) Normal (Normal) mg/dL Urine Ketones Negative (NEGATIVE) mg/dL Urine Blood 3+ H (NEGATIVE) Urine Nitrate Negative (NEGATIVE) Urine Bilirubin Negative (NEGATIVE) Urine Urobilinogen Normal (0.2-1.0) mg/dL Ur Leukocyte Esterase 2+ H (Negative) Diana/uL Urine WBC (Auto) 72 H (0-5) /hpf Urine RBC (Auto) 2617 H (0-3) /hpf Urine Opiates Screen Negative (NEGATIVE) Ur Opiates (GC/MS) (Negative) 300 Urine Methadone Screen Negative (NEGATIVE) Ur Methadone, Qual (Negative) 300 Urine Propoxyphene (Negative) 300 Methaqualone (Negative) 300 Ur Barbiturates Screen Negative (NEGATIVE) Ur Barbiturates, Qual (Negative) 300 Ur Phencyclidine Scrn Negative (NEGATIVE) Ur Phencyclidine (PCP) (Negative) 25 Ur Amphetamines Screen Negative (Negative) 1000 U Benzodiazepines Scrn Negative (NEGATIVE) U Benzodiazepines Qual (Negative) 300 Urine Cocaine (Negative) 300 U Oth Cocaine Metabols Negative (NEGATIVE) U Cannabinoids Screen Negative (NEGATIVE) U Marijuana (THC) Screen (Negative) 50 Drugs of Abuse Note 03/04/18 03/04/18 03/04/18 Range/Units 13:33 13:27 11:27 WBC (4.8-10.8) K/uL RBC (4.40-5.90) Mil/uL Hgb (12.0-18.0) g/dL Hct (35.0-51.0) % MCV (80.0-94.0) fL MCH (27.0-31.0) pg MCHC (33.0-37.0) g/dL RDW (11.5-14.5) % Plt Count (130-400) K/uL MPV (7.2-11.7) fL Neut % (Auto) (50.0-75.0) % Lymph % (Auto) (20.0-40.0) % [place] % (Auto) (0.0-10.0) % Eos % (Auto) (0.0-4.0) % Baso % (Auto) (0.0-2.0) % Neut # (Auto) (1.8-7.0) K/uL Lymph # (Auto) (1.0-4.3) K/uL [place] # (Auto) (0.0-0.8) K/uL Eos # (Auto) (0.0-0.7) K/uL Baso # (Auto) (0.0-0.2) K/uL PT (9.7-12.2) SECONDS INR APTT (21-34) SECONDS Sodium 161 H* (132-148) mmol/L Potassium 4.0 (3.6-5.2) mmol/L Chloride 128 H (98-107) mmol/L Carbon Dioxide 23 (22-30) mmol/L Anion Gap 15 (10-20) BUN 31 H (9-20) mg/dL Creatinine 1.2 (0.8-1.5) mg/dL Est GFR ( Amer) > 60 Est GFR (Non-Af Amer) > 60 POC Glucose (mg/dL) 115 H (65-110) mg/dL Random Glucose 125 H (75-110) mg/dL Lactic Acid (0.7-2.1) mmol/L Calcium 8.2 L (8.6-10.4) mg/dl Phosphorus (2.5-4.5) mg/dL Magnesium (1.6-2.3) mg/dL Total Bilirubin 2.4 H (0.2-1.3) mg/dL AST 59 (17-59) U/L ALT 92 H (21-72) U/L Alkaline Phosphatase 83 (38-126) U/L Troponin I (0.00-0.120) ng/mL NT-Pro-B Natriuret Pep (0-900) pg/mL Total Protein 7.7 (6.3-8.3) g/dL Albumin 3.5 (3.5-5.0) g/dL Globulin 4.2 H (2.2-3.9) gm/dL Albumin/Globulin Ratio 0.8 L (1.0-2.1) Procalcitonin (0.19-0.49) NG/ML Urine Color (YELLOW) Urine Clarity (Clear) Urine pH (5.0-8.0) Ur Specific [place] (1.003-1.030) Urine Protein (NEGATIVE) mg/dL Urine Glucose (UA) (Normal) mg/dL Urine Ketones (NEGATIVE) mg/dL Urine Blood (NEGATIVE) Urine Nitrate (NEGATIVE) Urine Bilirubin (NEGATIVE) Urine Urobilinogen (0.2-1.0) mg/dL Ur Leukocyte Esterase (Negative) Diana/uL Urine WBC (Auto) (0-5) /hpf Urine RBC (Auto) (0-3) /hpf Urine Opiates Screen (NEGATIVE) Ur Opiates (GC/MS) Negative (Negative) 300 Urine Methadone Screen (NEGATIVE) Ur Methadone, Qual Negative (Negative) 300 Urine Propoxyphene Negative (Negative) 300 Methaqualone Negative (Negative) 300 Ur Barbiturates Screen (NEGATIVE) Ur Barbiturates, Qual Negative (Negative) 300 Ur Phencyclidine Scrn (NEGATIVE) Ur Phencyclidine (PCP) Negative (Negative) 25 Ur Amphetamines Screen Negative (Negative) 1000 U Benzodiazepines Scrn (NEGATIVE) U Benzodiazepines Qual Negative (Negative) 300 Urine Cocaine Negative (Negative) 300 U Oth Cocaine Metabols (NEGATIVE) U Cannabinoids Screen (NEGATIVE) U Marijuana (THC) Screen Negative (Negative) 50 Drugs of Abuse Note See note 03/04/18 Range/Units 05:35 WBC (4.8-10.8) K/uL RBC (4.40-5.90) Mil/uL Hgb (12.0-18.0) g/dL Hct (35.0-51.0) % MCV (80.0-94.0) fL MCH (27.0-31.0) pg MCHC (33.0-37.0) g/dL RDW (11.5-14.5) % Plt Count (130-400) K/uL MPV (7.2-11.7) fL Neut % (Auto) (50.0-75.0) % Lymph % (Auto) (20.0-40.0) % [place] % (Auto) (0.0-10.0) % Eos % (Auto) (0.0-4.0) % Baso % (Auto) (0.0-2.0) % Neut # (Auto) (1.8-7.0) K/uL Lymph # (Auto) (1.0-4.3) K/uL [place] # (Auto) (0.0-0.8) K/uL Eos # (Auto) (0.0-0.7) K/uL Baso # (Auto) (0.0-0.2) K/uL PT (9.7-12.2) SECONDS INR APTT (21-34) SECONDS Sodium (132-148) mmol/L Potassium (3.6-5.2) mmol/L Chloride (98-107) mmol/L Carbon Dioxide (22-30) mmol/L Anion Gap (10-20) BUN (9-20) mg/dL Creatinine (0.8-1.5) mg/dL Est GFR ( Amer) Est GFR (Non-Af Amer) POC Glucose (mg/dL) (65-110) mg/dL Random Glucose (75-110) mg/dL Lactic Acid (0.7-2.1) mmol/L Calcium (8.6-10.4) mg/dl Phosphorus (2.5-4.5) mg/dL Magnesium (1.6-2.3) mg/dL Total Bilirubin (0.2-1.3) mg/dL AST (17-59) U/L ALT (21-72) U/L Alkaline Phosphatase (38-126) U/L Troponin I (0.00-0.120) ng/mL NT-Pro-B Natriuret Pep (0-900) pg/mL Total Protein (6.3-8.3) g/dL Albumin (3.5-5.0) g/dL Globulin (2.2-3.9) gm/dL Albumin/Globulin Ratio (1.0-2.1) Procalcitonin 0.10 L (0.19-0.49) NG/ML Urine Color (YELLOW) Urine Clarity (Clear) Urine pH (5.0-8.0) Ur Specific [place] (1.003-1.030) Urine Protein (NEGATIVE) mg/dL Urine Glucose (UA) (Normal) mg/dL Urine Ketones (NEGATIVE) mg/dL Urine Blood (NEGATIVE) Urine Nitrate (NEGATIVE) Urine Bilirubin (NEGATIVE) Urine Urobilinogen (0.2-1.0) mg/dL Ur Leukocyte Esterase (Negative) Diana/uL Urine WBC (Auto) (0-5) /hpf Urine RBC (Auto) (0-3) /hpf Urine Opiates Screen (NEGATIVE) Ur Opiates (GC/MS) (Negative) 300 Urine Methadone Screen (NEGATIVE) Ur Methadone, Qual (Negative) 300 Urine Propoxyphene (Negative) 300 Methaqualone (Negative) 300 Ur Barbiturates Screen (NEGATIVE) Ur Barbiturates, Qual (Negative) 300 Ur Phencyclidine Scrn (NEGATIVE) Ur Phencyclidine (PCP) (Negative) 25 Ur Amphetamines Screen (Negative) 1000 U Benzodiazepines Scrn (NEGATIVE) U Benzodiazepines Qual (Negative) 300 Urine Cocaine (Negative) 300 U Oth Cocaine Metabols (NEGATIVE) U Cannabinoids Screen (NEGATIVE) U Marijuana (THC) Screen (Negative) 50 Drugs of Abuse Note Laboratory Results - last 24 hr 03/04/18 03/04/18 03/04/18 05:35 11:27 13:27 WBC RBC Hgb Hct MCV MCH MCHC RDW Plt Count MPV Neut % (Auto) Lymph % (Auto) [place] % (Auto) Eos % (Auto) Baso % (Auto) Neut # (Auto) Lymph # (Auto) [place] # (Auto) Eos # (Auto) Baso # (Auto) PT INR APTT Sodium 161 H* Potassium 4.0 Chloride 128 H Carbon Dioxide 23 Anion Gap 15 BUN 31 H Creatinine 1.2 Est GFR ( Amer) > 60 Est GFR (Non-Af Amer) > 60 POC Glucose (mg/dL) 115 H Random Glucose 125 H Lactic Acid Calcium 8.2 L Phosphorus Magnesium Total Bilirubin 2.4 H AST 59 ALT 92 H Alkaline Phosphatase 83 Troponin I NT-Pro-B Natriuret Pep Total Protein 7.7 Albumin 3.5 Globulin 4.2 H Albumin/Globulin Ratio 0.8 L Procalcitonin 0.10 L Urine Color Urine Clarity Urine pH Ur Specific [place] Urine Protein Urine Glucose (UA) Urine Ketones Urine Blood Urine Nitrate Urine Bilirubin Urine Urobilinogen Ur Leukocyte Esterase Urine WBC (Auto) Urine RBC (Auto) Urine Opiates Screen Ur Opiates (GC/MS) Urine Methadone Screen Ur Methadone, Qual Urine Propoxyphene Methaqualone Ur Barbiturates Screen Ur Barbiturates, Qual Ur Phencyclidine Scrn Ur Phencyclidine (PCP) Ur Amphetamines Screen U Benzodiazepines Scrn U Benzodiazepines Qual Urine Cocaine U Oth Cocaine Metabols U Cannabinoids Screen U Marijuana (THC) Screen Drugs of Abuse Note 03/04/18 03/04/18 03/04/18 13:33 13:57 15:30 WBC RBC Hgb Hct MCV MCH MCHC RDW Plt Count MPV Neut % (Auto) Lymph % (Auto) [place] % (Auto) Eos % (Auto) Baso % (Auto) Neut # (Auto) Lymph # (Auto) [place] # (Auto) Eos # (Auto) Baso # (Auto) PT INR APTT Sodium Potassium Chloride Carbon Dioxide Anion Gap BUN Creatinine Est GFR ( Amer) Est GFR (Non-Af Amer) POC Glucose (mg/dL) Random Glucose Lactic Acid 4.1 H* Calcium Phosphorus Magnesium Total Bilirubin AST ALT Alkaline Phosphatase Troponin I NT-Pro-B Natriuret Pep Total Protein Albumin Globulin Albumin/Globulin Ratio Procalcitonin Urine Color Urine Clarity Urine pH Ur Specific [place] Urine Protein Urine Glucose (UA) Urine Ketones Urine Blood Urine Nitrate Urine Bilirubin Urine Urobilinogen Ur Leukocyte Esterase Urine WBC (Auto) Urine RBC (Auto) Urine Opiates Screen Negative Ur Opiates (GC/MS) Negative Urine Methadone Screen Negative Ur Methadone, Qual Negative Urine Propoxyphene Negative Methaqualone Negative Ur Barbiturates Screen Negative Ur Barbiturates, Qual Negative Ur Phencyclidine Scrn Negative Ur Phencyclidine (PCP) Negative Ur Amphetamines Screen Negative Negative U Benzodiazepines Scrn Negative U Benzodiazepines Qual Negative Urine Cocaine Negative U Oth Cocaine Metabols Negative U Cannabinoids Screen Negative U Marijuana (THC) Screen Negative Drugs of Abuse Note See note 03/04/18 03/04/18 03/04/18 15:30 18:06 18:27 WBC RBC Hgb Hct MCV MCH MCHC RDW Plt Count MPV Neut % (Auto) Lymph % (Auto) [place] % (Auto) Eos % (Auto) Baso % (Auto) Neut # (Auto) Lymph # (Auto) [place] # (Auto) Eos # (Auto) Baso # (Auto) PT INR APTT Sodium Potassium Chloride Carbon Dioxide Anion Gap BUN Creatinine Est GFR ( Amer) Est GFR (Non-Af Amer) POC Glucose (mg/dL) 98 Random Glucose Lactic Acid 2.4 H Calcium Phosphorus Magnesium Total Bilirubin AST ALT Alkaline Phosphatase Troponin I NT-Pro-B Natriuret Pep Total Protein Albumin Globulin Albumin/Globulin Ratio Procalcitonin Urine Color [place] Urine Clarity Hazy Urine pH 5.0 Ur Specific [place] 1.032 H Urine Protein 2+ H Urine Glucose (UA) Normal Urine Ketones Negative Urine Blood 3+ H Urine Nitrate Negative Urine Bilirubin Negative Urine Urobilinogen Normal Ur Leukocyte Esterase 2+ H Urine WBC (Auto) 72 H Urine RBC (Auto) 2617 H Urine Opiates Screen Ur Opiates (GC/MS) Urine Methadone Screen Ur Methadone, Qual Urine Propoxyphene Methaqualone Ur Barbiturates Screen Ur Barbiturates, Qual Ur Phencyclidine Scrn Ur Phencyclidine (PCP) Ur Amphetamines Screen U Benzodiazepines Scrn U Benzodiazepines Qual Urine Cocaine U Oth Cocaine Metabols U Cannabinoids Screen U Marijuana (THC) Screen Drugs of Abuse Note 03/04/18 03/04/18 03/05/18 18:27 23:24 05:27 WBC RBC Hgb Hct MCV MCH MCHC RDW Plt Count MPV Neut % (Auto) Lymph % (Auto) [place] % (Auto) Eos % (Auto) Baso % (Auto) Neut # (Auto) Lymph # (Auto) [place] # (Auto) Eos # (Auto) Baso # (Auto) PT INR APTT Sodium Potassium Chloride Carbon Dioxide Anion Gap BUN Creatinine Est GFR ( Amer) Est GFR (Non-Af Amer) POC Glucose (mg/dL) 97 88 Random Glucose Lactic Acid Calcium Phosphorus Magnesium Total Bilirubin AST ALT Alkaline Phosphatase Troponin I 0.0600 NT-Pro-B Natriuret Pep 825 Total Protein Albumin Globulin Albumin/Globulin Ratio Procalcitonin Urine Color Urine Clarity Urine pH Ur Specific [place] Urine Protein Urine Glucose (UA) Urine Ketones Urine Blood Urine Nitrate Urine Bilirubin Urine Urobilinogen Ur Leukocyte Esterase Urine WBC (Auto) Urine RBC (Auto) Urine Opiates Screen Ur Opiates (GC/MS) Urine Methadone Screen Ur Methadone, Qual Urine Propoxyphene Methaqualone Ur Barbiturates Screen Ur Barbiturates, Qual Ur Phencyclidine Scrn Ur Phencyclidine (PCP) Ur Amphetamines Screen U Benzodiazepines Scrn U Benzodiazepines Qual Urine Cocaine U Oth Cocaine Metabols U Cannabinoids Screen U Marijuana (THC) Screen Drugs of Abuse Note 03/05/18 03/05/18 03/05/18 06:14 06:14 06:14 WBC 11.0 H RBC 4.54 Hgb 11.7 L D Hct 36.7 MCV 80.8 MCH 25.7 L MCHC 31.7 L RDW 17.5 H Plt Count 90 L D MPV 11.9 H Neut % (Auto) 82.9 H Lymph % (Auto) 11.0 L [place] % (Auto) 4.8 Eos % (Auto) 0.7 Baso % (Auto) 0.6 Neut # (Auto) 9.2 H Lymph # (Auto) 1.2 [place] # (Auto) 0.5 Eos # (Auto) 0.1 Baso # (Auto) 0.1 PT 30.3 H INR 2.8 APTT 34 Sodium 154 H Potassium 3.7 Chloride 129 H Carbon Dioxide 21 L Anion Gap 8 L BUN 20 Creatinine 0.9 Est GFR ( Amer) > 60 Est GFR (Non-Af Amer) > 60 POC Glucose (mg/dL) Random Glucose 91 Lactic Acid Calcium 7.3 L Phosphorus 1.3 L Magnesium 2.0 Total Bilirubin 1.6 H AST 39 ALT 58 Alkaline Phosphatase 65 Troponin I NT-Pro-B Natriuret Pep Total Protein 5.9 L Albumin 2.5 L D Globulin 3.3 Albumin/Globulin Ratio 0.8 L Procalcitonin Urine Color Urine Clarity Urine pH Ur Specific [place] Urine Protein Urine Glucose (UA) Urine Ketones Urine Blood Urine Nitrate Urine Bilirubin Urine Urobilinogen Ur Leukocyte Esterase Urine WBC (Auto) Urine RBC (Auto) Urine Opiates Screen Ur Opiates (GC/MS) Urine Methadone Screen Ur Methadone, Qual Urine Propoxyphene Methaqualone Ur Barbiturates Screen Ur Barbiturates, Qual Ur Phencyclidine Scrn Ur Phencyclidine (PCP) Ur Amphetamines Screen U Benzodiazepines Scrn U Benzodiazepines Qual Urine Cocaine U Oth Cocaine Metabols U Cannabinoids Screen U Marijuana (THC) Screen Drugs of Abuse Note 03/05/18 06:19 WBC RBC Hgb Hct MCV MCH MCHC RDW Plt Count MPV Neut % (Auto) Lymph % (Auto) [place] % (Auto) Eos % (Auto) Baso % (Auto) Neut # (Auto) Lymph # (Auto) [place] # (Auto) Eos # (Auto) Baso # (Auto) PT INR APTT Sodium Potassium Chloride Carbon Dioxide Anion Gap BUN Creatinine Est GFR ( Amer) Est GFR (Non-Af Amer) POC Glucose (mg/dL) Random Glucose Lactic Acid 1.6 Calcium Phosphorus Magnesium Total Bilirubin AST ALT Alkaline Phosphatase Troponin I NT-Pro-B Natriuret Pep Total Protein Albumin Globulin Albumin/Globulin Ratio Procalcitonin Urine Color Urine Clarity Urine pH Ur Specific [place] Urine Protein Urine Glucose (UA) Urine Ketones Urine Blood Urine Nitrate Urine Bilirubin Urine Urobilinogen Ur Leukocyte Esterase Urine WBC (Auto) Urine RBC (Auto) Urine Opiates Screen Ur Opiates (GC/MS) Urine Methadone Screen Ur Methadone, Qual Urine Propoxyphene Methaqualone Ur Barbiturates Screen Ur Barbiturates, Qual Ur Phencyclidine Scrn Ur Phencyclidine (PCP) Ur Amphetamines Screen U Benzodiazepines Scrn U Benzodiazepines Qual Urine Cocaine U Oth Cocaine Metabols U Cannabinoids Screen U Marijuana (THC) Screen Drugs of Abuse Note Fingerstick Blood Sugar Results: 88 Results Reviewed to Date: Yes Review of Systems - Review of Systems Systems not reviewed;Unavailable: Other (nebulizer) Critical Care Progress Note - Extremities/Vascular Does the Patient have a Central Venous Catheter?: Yes Insertion Site: Internal Jugular Vein Does the Patient need a Central Venous Catheter?: Yes Does the Patient have a Guzmán Catheter?: No Does the Patient need a Guzmán Catheter?: No - Prophylaxis GI Prophylaxis GI: PPI - Prophylaxis DVT Prophylaxis DVT: SCDs - Nutrition Nutrition: Nutrition Category Date Time Status NPO Diet [DIET] Diets 03/04/18 Lunch Active Assessment/Plan - Assessment and Plan (Free Text) Assessment: Patient is a 67 yo male who presented from [facility] with fever and lethargy. Patient was placed on BiPAP. Code sepsis was called. Patient no longer requires BiPAP. Central line was place din R IJ due to poor IV access 2/2 severe dehydration. Plan: Neuro: - h/o CVA- LUE deficit - MS not on tx AMS- delirium, improving - UDS neg - [place] patient - Monitor mental status CV: Dehydration - Elevated BUN improved (20) - ProBNP 825 - Trop 0.06 - CVP improving (2->7) - 1/2NS @ 100 mL/hr HTN - Metoprolol 12.5 mg PO BID - Monitor vitals- maintain MAP>65 Afib - Hold Eliquis due to elevated INR - Metoprolol 12.5 mg PO BID - Digoxin 0.5 mg IV x1 H/o CVA - Start ASA 81 mg PO daily - Start Crestor 10 mg PO QHS Pulm: Respiratory distress - CXR: no active disease - CT A/P: L>R lower lobe consolidation/atelectasis, patchy ground glass infiltrates and nodular opacities - Maintain spO2>92%- BiPAP or NC PRN - Duoneb Q6H GI: PEG tube - CT A/P: portal venous gas - NPO - Wallpaperer Helper consulted - GI consulted (Karis) Constipation- resolved - Dulcolax PRN - Elevated Tbili (1.6) - ALP wnl - FOBT pending Renal: Volume contraction hyponatremia - Na 161->154 - CMP daily - Replete electrolytes PRN - 1/2NS @ 100 mL/hr - Condom cath - Start Flomax 0.4 mg PO daily - Bladder scan PRN Endo: - Maintain euglycemia - Hypoglycemia protocol - Accuchecks Q6H Heme: Coagulopathy - PT/INR/PTT increased- hold Eliquis Anemia - Hgb 11.7- appropriate decrease due to rehydration - Monitor H&H - FOBT pending ID: Sepsis- suspect 2/2 PNA - Afebrile since 03/04 6AM - Elevated lactate (max 5.6)- improved (1.2) - Procal 0.1 - UA: 2+LE, neg nitrate, 72 WBC, 3+blood (likely traumatic) - Blood Cx GPC 1/2 - Tylenol 650 mg PO Q6H PRN - Zosyn 3.375 g IV Q8H - Vancomycin 1 g IV Q24H - Trough pending PPx: VTE: SCDs GI: PTX 40 mg PO Q12H PT/OT/ST Code status: full code Case discussed with attending, Dr. Sharon Ballesteros. PGY-1 Jessica Rosales D.O. <Luis Enrique Ballesteros - Last Filed: 03/05/18 11:16> CCU Objective - Vital Signs / Intake & Output Vital Signs (Last 4 hours): Vital Signs Pulse Resp BP 03/05/18 08:24 22 L 03/05/18 07:32 98 H 25 H 103/62 03/05/18 07:30 99 H 24 Intake and Output (Last 8hrs): Intake & Output 03/04/18 03/05/18 03/05/18 22:59 06:59 14:59 Intake Total 3400 2800 200 Output Total 126 251 Balance 3274 2549 200 Weight 190 lb Intake: Intake, IV Amount 3200 2600 200 Right Proximal Port 3200 2600 200 Internal Jugular Other 200 200 Output: Gastric Amount 0 Stomach 0 Urine 125 250 Condom 250 Urethral (Guzmán) 125 Urine/Stool Mix 1 1 Other: # Bowel Movements 1 - Medications Active Medications: Active Medications Generic Name Dose Route Start Last Admin Trade Name Freq PRN Reason Stop Dose Admin Acetaminophen 975 mg 03/04/18 05:10 Tylenol 325mg Tab PEG ONCE PRN Fever >100.4 F Albuterol Sulfate 2.5 mg 03/04/18 08:00 03/05/18 07:45 Albuterol 0.083% Inhal Gisella (2.5 Mg/3 Ml) Ud IH 2.5 mg RQ6 LYNDSAY Administration Aspirin 81 mg 03/05/18 10:00 03/05/18 10:15 Ecotrin PO 81 mg DAILY LYNDSAY Administration Dextrose 0 ml 03/04/18 19:10 Dextrose 50% Inj IV STAT PRN Hypoglycemia Protocol Protocol Dextrose 0 gm 03/04/18 19:10 Glutose 15 PO ONCE PRN Hypoglycemia Protocol Protocol Glucagon 0 mg 03/04/18 19:10 Glucagen Diagnostic Kit IM STAT PRN Hypoglycemia Protocol Protocol Piperacillin Sod/Tazobactam Sod 3.375 gm in 50 mls @ 100 mls/hr 03/04/18 14:00 03/05/18 05:13 Zosyn 3.375 Gm Iv Premix IVPB 100 mls/hr Q8H LYNDSAY Administration Protocol Vancomycin/Sodium Chloride 1 gm in 200 mls @ 166.7 mls/hr 03/05/18 07:00 03/05/18 06:54 Vancomycin 1 Gm/Ns 200 Ml IVPB 03/10/18 07:01 166.7 mls/hr Q24H LYNDSAY Administration Protocol Dextrose 1,000 mls @ 0 mls/hr 03/04/18 19:10 Dextrose 5% In Water 1000 Ml IV .Q0M PRN Hypoglycemia Protocol Protocol Per Protocol Dextrose/Sodium Chloride 1,000 mls @ 150 mls/hr 03/05/18 06:30 03/05/18 07:44 Dextrose 5%/0.45% Ns 1000 Ml IV 150 mls/hr .Q6H40M LYNDSAY Administration Potassium Phosphate 15 mmole/ 255 mls @ 42.5 mls/hr 03/05/18 09:00 03/05/18 09:50 Dextrose IVPB 03/05/18 14:59 42.5 mls/hr ONCE ONE Administration Sodium Chloride 1,000 mls @ 100 mls/hr 03/05/18 09:30 03/05/18 10:00 Sodium Chloride 0.45% IV 100 mls/hr .Q10H LYNDSAY Administration Metoprolol Tartrate 12.5 mg 03/05/18 10:00 03/05/18 10:14 Lopressor PEG 12.5 mg Q12 LYNDSAY Administration Pantoprazole Sodium 40 mg 03/04/18 07:00 03/05/18 07:39 Protonix Inj IVP 40 mg Q12H LYNDSAY Administration Rosuvastatin Calcium 5 mg 03/05/18 22:00 Crestor PO HS LYNDSAY Tamsulosin HCl 0.4 mg 03/05/18 10:00 03/05/18 10:15 Flomax PO 0.4 mg DAILY LYNDSAY Administration - Patient Studies Lab Studies: Microbiology Studies 03/04/18 07:26 Blood Culture - Preliminary Blood Gram Positive Cocci Gram Stain - Final 03/04/18 07:26 Blood Culture - Preliminary Blood NO GROWTH AFTER 24 HOURS Lab Studies 03/05/18 03/05/18 03/05/18 Range/Units 06:19 06:14 06:14 WBC (4.8-10.8) K/uL RBC (4.40-5.90) Mil/uL Hgb (12.0-18.0) g/dL Hct (35.0-51.0) % MCV (80.0-94.0) fL MCH (27.0-31.0) pg MCHC (33.0-37.0) g/dL RDW (11.5-14.5) % Plt Count (130-400) K/uL MPV (7.2-11.7) fL Neut % (Auto) (50.0-75.0) % Lymph % (Auto) (20.0-40.0) % [place] % (Auto) (0.0-10.0) % Eos % (Auto) (0.0-4.0) % Baso % (Auto) (0.0-2.0) % Neut # (Auto) (1.8-7.0) K/uL Lymph # (Auto) (1.0-4.3) K/uL [place] # (Auto) (0.0-0.8) K/uL Eos # (Auto) (0.0-0.7) K/uL Baso # (Auto) (0.0-0.2) K/uL PT 30.3 H (9.7-12.2) SECONDS INR 2.8 APTT 34 (21-34) SECONDS Sodium 154 H (132-148) mmol/L Potassium 3.7 (3.6-5.2) mmol/L Chloride 129 H (98-107) mmol/L Carbon Dioxide 21 L (22-30) mmol/L Anion Gap 8 L (10-20) BUN 20 (9-20) mg/dL Creatinine 0.9 (0.8-1.5) mg/dL Est GFR ( Amer) > 60 Est GFR (Non-Af Amer) > 60 POC Glucose (mg/dL) (65-110) mg/dL Random Glucose 91 (75-110) mg/dL Lactic Acid 1.6 (0.7-2.1) mmol/L Calcium 7.3 L (8.6-10.4) mg/dl Phosphorus 1.3 L (2.5-4.5) mg/dL Magnesium 2.0 (1.6-2.3) mg/dL Total Bilirubin 1.6 H (0.2-1.3) mg/dL AST 39 (17-59) U/L ALT 58 (21-72) U/L Alkaline Phosphatase 65 (38-126) U/L Troponin I (0.00-0.120) ng/mL NT-Pro-B Natriuret Pep (0-900) pg/mL Total Protein 5.9 L (6.3-8.3) g/dL Albumin 2.5 L D (3.5-5.0) g/dL Globulin 3.3 (2.2-3.9) gm/dL Albumin/Globulin Ratio 0.8 L (1.0-2.1) Procalcitonin (0.19-0.49) NG/ML Urine Color (YELLOW) Urine Clarity (Clear) Urine pH (5.0-8.0) Ur Specific [place] (1.003-1.030) Urine Protein (NEGATIVE) mg/dL Urine Glucose (UA) (Normal) mg/dL Urine Ketones (NEGATIVE) mg/dL Urine Blood (NEGATIVE) Urine Nitrate (NEGATIVE) Urine Bilirubin (NEGATIVE) Urine Urobilinogen (0.2-1.0) mg/dL Ur Leukocyte Esterase (Negative) Diana/uL Urine WBC (Auto) (0-5) /hpf Urine RBC (Auto) (0-3) /hpf Urine Opiates Screen (NEGATIVE) Ur Opiates (GC/MS) (Negative) 300 Urine Methadone Screen (NEGATIVE) Ur Methadone, Qual (Negative) 300 Urine Propoxyphene (Negative) 300 Methaqualone (Negative) 300 Ur Barbiturates Screen (NEGATIVE) Ur Barbiturates, Qual (Negative) 300 Ur Phencyclidine Scrn (NEGATIVE) Ur Phencyclidine (PCP) (Negative) 25 Ur Amphetamines Screen (Negative) 1000 U Benzodiazepines Scrn (NEGATIVE) U Benzodiazepines Qual (Negative) 300 Urine Cocaine (Negative) 300 U Oth Cocaine Metabols (NEGATIVE) U Cannabinoids Screen (NEGATIVE) U Marijuana (THC) Screen (Negative) 50 Drugs of Abuse Note 03/05/18 03/05/18 03/04/18 Range/Units 06:14 05:27 23:24 WBC 11.0 H (4.8-10.8) K/uL RBC 4.54 (4.40-5.90) Mil/uL Hgb 11.7 L D (12.0-18.0) g/dL Hct 36.7 (35.0-51.0) % MCV 80.8 (80.0-94.0) fL MCH 25.7 L (27.0-31.0) pg MCHC 31.7 L (33.0-37.0) g/dL RDW 17.5 H (11.5-14.5) % Plt Count 90 L D (130-400) K/uL MPV 11.9 H (7.2-11.7) fL Neut % (Auto) 82.9 H (50.0-75.0) % Lymph % (Auto) 11.0 L (20.0-40.0) % [place] % (Auto) 4.8 (0.0-10.0) % Eos % (Auto) 0.7 (0.0-4.0) % Baso % (Auto) 0.6 (0.0-2.0) % Neut # (Auto) 9.2 H (1.8-7.0) K/uL Lymph # (Auto) 1.2 (1.0-4.3) K/uL [place] # (Auto) 0.5 (0.0-0.8) K/uL Eos # (Auto) 0.1 (0.0-0.7) K/uL Baso # (Auto) 0.1 (0.0-0.2) K/uL PT (9.7-12.2) SECONDS INR APTT (21-34) SECONDS Sodium (132-148) mmol/L Potassium (3.6-5.2) mmol/L Chloride (98-107) mmol/L Carbon Dioxide (22-30) mmol/L Anion Gap (10-20) BUN (9-20) mg/dL Creatinine (0.8-1.5) mg/dL Est GFR ( Amer) Est GFR (Non-Af Amer) POC Glucose (mg/dL) 88 97 (65-110) mg/dL Random Glucose (75-110) mg/dL Lactic Acid (0.7-2.1) mmol/L Calcium (8.6-10.4) mg/dl Phosphorus (2.5-4.5) mg/dL Magnesium (1.6-2.3) mg/dL Total Bilirubin (0.2-1.3) mg/dL AST (17-59) U/L ALT (21-72) U/L Alkaline Phosphatase (38-126) U/L Troponin I (0.00-0.120) ng/mL NT-Pro-B Natriuret Pep (0-900) pg/mL Total Protein (6.3-8.3) g/dL Albumin (3.5-5.0) g/dL Globulin (2.2-3.9) gm/dL Albumin/Globulin Ratio (1.0-2.1) Procalcitonin (0.19-0.49) NG/ML Urine Color (YELLOW) Urine Clarity (Clear) Urine pH (5.0-8.0) Ur Specific [place] (1.003-1.030) Urine Protein (NEGATIVE) mg/dL Urine Glucose (UA) (Normal) mg/dL Urine Ketones (NEGATIVE) mg/dL Urine Blood (NEGATIVE) Urine Nitrate (NEGATIVE) Urine Bilirubin (NEGATIVE) Urine Urobilinogen (0.2-1.0) mg/dL Ur Leukocyte Esterase (Negative) Diana/uL Urine WBC (Auto) (0-5) /hpf Urine RBC (Auto) (0-3) /hpf Urine Opiates Screen (NEGATIVE) Ur Opiates (GC/MS) (Negative) 300 Urine Methadone Screen (NEGATIVE) Ur Methadone, Qual (Negative) 300 Urine Propoxyphene (Negative) 300 Methaqualone (Negative) 300 Ur Barbiturates Screen (NEGATIVE) Ur Barbiturates, Qual (Negative) 300 Ur Phencyclidine Scrn (NEGATIVE) Ur Phencyclidine (PCP) (Negative) 25 Ur Amphetamines Screen (Negative) 1000 U Benzodiazepines Scrn (NEGATIVE) U Benzodiazepines Qual (Negative) 300 Urine Cocaine (Negative) 300 U Oth Cocaine Metabols (NEGATIVE) U Cannabinoids Screen (NEGATIVE) U Marijuana (THC) Screen (Negative) 50 Drugs of Abuse Note 03/04/18 03/04/18 03/04/18 Range/Units 18:27 18:27 18:06 WBC (4.8-10.8) K/uL RBC (4.40-5.90) Mil/uL Hgb (12.0-18.0) g/dL Hct (35.0-51.0) % MCV (80.0-94.0) fL MCH (27.0-31.0) pg MCHC (33.0-37.0) g/dL RDW (11.5-14.5) % Plt Count (130-400) K/uL MPV (7.2-11.7) fL Neut % (Auto) (50.0-75.0) % Lymph % (Auto) (20.0-40.0) % [place] % (Auto) (0.0-10.0) % Eos % (Auto) (0.0-4.0) % Baso % (Auto) (0.0-2.0) % Neut # (Auto) (1.8-7.0) K/uL Lymph # (Auto) (1.0-4.3) K/uL [place] # (Auto) (0.0-0.8) K/uL Eos # (Auto) (0.0-0.7) K/uL Baso # (Auto) (0.0-0.2) K/uL PT (9.7-12.2) SECONDS INR APTT (21-34) SECONDS Sodium (132-148) mmol/L Potassium (3.6-5.2) mmol/L Chloride (98-107) mmol/L Carbon Dioxide (22-30) mmol/L Anion Gap (10-20) BUN (9-20) mg/dL Creatinine (0.8-1.5) mg/dL Est GFR ( Amer) Est GFR (Non-Af Amer) POC Glucose (mg/dL) 98 (65-110) mg/dL Random Glucose (75-110) mg/dL Lactic Acid 2.4 H (0.7-2.1) mmol/L Calcium (8.6-10.4) mg/dl Phosphorus (2.5-4.5) mg/dL Magnesium (1.6-2.3) mg/dL Total Bilirubin (0.2-1.3) mg/dL AST (17-59) U/L ALT (21-72) U/L Alkaline Phosphatase (38-126) U/L Troponin I 0.0600 (0.00-0.120) ng/mL NT-Pro-B Natriuret Pep 825 (0-900) pg/mL Total Protein (6.3-8.3) g/dL Albumin (3.5-5.0) g/dL Globulin (2.2-3.9) gm/dL Albumin/Globulin Ratio (1.0-2.1) Procalcitonin (0.19-0.49) NG/ML Urine Color (YELLOW) Urine Clarity (Clear) Urine pH (5.0-8.0) Ur Specific [place] (1.003-1.030) Urine Protein (NEGATIVE) mg/dL Urine Glucose (UA) (Normal) mg/dL Urine Ketones (NEGATIVE) mg/dL Urine Blood (NEGATIVE) Urine Nitrate (NEGATIVE) Urine Bilirubin (NEGATIVE) Urine Urobilinogen (0.2-1.0) mg/dL Ur Leukocyte Esterase (Negative) Diana/uL Urine WBC (Auto) (0-5) /hpf Urine RBC (Auto) (0-3) /hpf Urine Opiates Screen (NEGATIVE) Ur Opiates (GC/MS) (Negative) 300 Urine Methadone Screen (NEGATIVE) Ur Methadone, Qual (Negative) 300 Urine Propoxyphene (Negative) 300 Methaqualone (Negative) 300 Ur Barbiturates Screen (NEGATIVE) Ur Barbiturates, Qual (Negative) 300 Ur Phencyclidine Scrn (NEGATIVE) Ur Phencyclidine (PCP) (Negative) 25 Ur Amphetamines Screen (Negative) 1000 U Benzodiazepines Scrn (NEGATIVE) U Benzodiazepines Qual (Negative) 300 Urine Cocaine (Negative) 300 U Oth Cocaine Metabols (NEGATIVE) U Cannabinoids Screen (NEGATIVE) U Marijuana (THC) Screen (Negative) 50 Drugs of Abuse Note 03/04/18 03/04/18 03/04/18 Range/Units 15:30 15:30 13:57 WBC (4.8-10.8) K/uL RBC (4.40-5.90) Mil/uL Hgb (12.0-18.0) g/dL Hct (35.0-51.0) % MCV (80.0-94.0) fL MCH (27.0-31.0) pg MCHC (33.0-37.0) g/dL RDW (11.5-14.5) % Plt Count (130-400) K/uL MPV (7.2-11.7) fL Neut % (Auto) (50.0-75.0) % Lymph % (Auto) (20.0-40.0) % [place] % (Auto) (0.0-10.0) % Eos % (Auto) (0.0-4.0) % Baso % (Auto) (0.0-2.0) % Neut # (Auto) (1.8-7.0) K/uL Lymph # (Auto) (1.0-4.3) K/uL [place] # (Auto) (0.0-0.8) K/uL Eos # (Auto) (0.0-0.7) K/uL Baso # (Auto) (0.0-0.2) K/uL PT (9.7-12.2) SECONDS INR APTT (21-34) SECONDS Sodium (132-148) mmol/L Potassium (3.6-5.2) mmol/L Chloride (98-107) mmol/L Carbon Dioxide (22-30) mmol/L Anion Gap (10-20) BUN (9-20) mg/dL Creatinine (0.8-1.5) mg/dL Est GFR ( Amer) Est GFR (Non-Af Amer) POC Glucose (mg/dL) (65-110) mg/dL Random Glucose (75-110) mg/dL Lactic Acid 4.1 H* (0.7-2.1) mmol/L Calcium (8.6-10.4) mg/dl Phosphorus (2.5-4.5) mg/dL Magnesium (1.6-2.3) mg/dL Total Bilirubin (0.2-1.3) mg/dL AST (17-59) U/L ALT (21-72) U/L Alkaline Phosphatase (38-126) U/L Troponin I (0.00-0.120) ng/mL NT-Pro-B Natriuret Pep (0-900) pg/mL Total Protein (6.3-8.3) g/dL Albumin (3.5-5.0) g/dL Globulin (2.2-3.9) gm/dL Albumin/Globulin Ratio (1.0-2.1) Procalcitonin (0.19-0.49) NG/ML Urine Color Michelle (YELLOW) Urine Clarity Hazy (Clear) Urine pH 5.0 (5.0-8.0) Ur Specific [place] 1.032 H (1.003-1.030) Urine Protein 2+ H (NEGATIVE) mg/dL Urine Glucose (UA) Normal (Normal) mg/dL Urine Ketones Negative (NEGATIVE) mg/dL Urine Blood 3+ H (NEGATIVE) Urine Nitrate Negative (NEGATIVE) Urine Bilirubin Negative (NEGATIVE) Urine Urobilinogen Normal (0.2-1.0) mg/dL Ur Leukocyte Esterase 2+ H (Negative) Diana/uL Urine WBC (Auto) 72 H (0-5) /hpf Urine RBC (Auto) 2617 H (0-3) /hpf Urine Opiates Screen Negative (NEGATIVE) Ur Opiates (GC/MS) (Negative) 300 Urine Methadone Screen Negative (NEGATIVE) Ur Methadone, Qual (Negative) 300 Urine Propoxyphene (Negative) 300 Methaqualone (Negative) 300 Ur Barbiturates Screen Negative (NEGATIVE) Ur Barbiturates, Qual (Negative) 300 Ur Phencyclidine Scrn Negative (NEGATIVE) Ur Phencyclidine (PCP) (Negative) 25 Ur Amphetamines Screen Negative (Negative) 1000 U Benzodiazepines Scrn Negative (NEGATIVE) U Benzodiazepines Qual (Negative) 300 Urine Cocaine (Negative) 300 U Oth Cocaine Metabols Negative (NEGATIVE) U Cannabinoids Screen Negative (NEGATIVE) U Marijuana (THC) Screen (Negative) 50 Drugs of Abuse Note 03/04/18 03/04/18 03/04/18 Range/Units 13:33 13:27 11:27 WBC (4.8-10.8) K/uL RBC (4.40-5.90) Mil/uL Hgb (12.0-18.0) g/dL Hct (35.0-51.0) % MCV (80.0-94.0) fL MCH (27.0-31.0) pg MCHC (33.0-37.0) g/dL RDW (11.5-14.5) % Plt Count (130-400) K/uL MPV (7.2-11.7) fL Neut % (Auto) (50.0-75.0) % Lymph % (Auto) (20.0-40.0) % [place] % (Auto) (0.0-10.0) % Eos % (Auto) (0.0-4.0) % Baso % (Auto) (0.0-2.0) % Neut # (Auto) (1.8-7.0) K/uL Lymph # (Auto) (1.0-4.3) K/uL [place] # (Auto) (0.0-0.8) K/uL Eos # (Auto) (0.0-0.7) K/uL Baso # (Auto) (0.0-0.2) K/uL PT (9.7-12.2) SECONDS INR APTT (21-34) SECONDS Sodium 161 H* (132-148) mmol/L Potassium 4.0 (3.6-5.2) mmol/L Chloride 128 H (98-107) mmol/L Carbon Dioxide 23 (22-30) mmol/L Anion Gap 15 (10-20) BUN 31 H (9-20) mg/dL Creatinine 1.2 (0.8-1.5) mg/dL Est GFR ( Amer) > 60 Est GFR (Non-Af Amer) > 60 POC Glucose (mg/dL) 115 H (65-110) mg/dL Random Glucose 125 H (75-110) mg/dL Lactic Acid (0.7-2.1) mmol/L Calcium 8.2 L (8.6-10.4) mg/dl Phosphorus (2.5-4.5) mg/dL Magnesium (1.6-2.3) mg/dL Total Bilirubin 2.4 H (0.2-1.3) mg/dL AST 59 (17-59) U/L ALT 92 H (21-72) U/L Alkaline Phosphatase 83 (38-126) U/L Troponin I (0.00-0.120) ng/mL NT-Pro-B Natriuret Pep (0-900) pg/mL Total Protein 7.7 (6.3-8.3) g/dL Albumin 3.5 (3.5-5.0) g/dL Globulin 4.2 H (2.2-3.9) gm/dL Albumin/Globulin Ratio 0.8 L (1.0-2.1) Procalcitonin (0.19-0.49) NG/ML Urine Color (YELLOW) Urine Clarity (Clear) Urine pH (5.0-8.0) Ur Specific [place] (1.003-1.030) Urine Protein (NEGATIVE) mg/dL Urine Glucose (UA) (Normal) mg/dL Urine Ketones (NEGATIVE) mg/dL Urine Blood (NEGATIVE) Urine Nitrate (NEGATIVE) Urine Bilirubin (NEGATIVE) Urine Urobilinogen (0.2-1.0) mg/dL Ur Leukocyte Esterase (Negative) Diana/uL Urine WBC (Auto) (0-5) /hpf Urine RBC (Auto) (0-3) /hpf Urine Opiates Screen (NEGATIVE) Ur Opiates (GC/MS) Negative (Negative) 300 Urine Methadone Screen (NEGATIVE) Ur Methadone, Qual Negative (Negative) 300 Urine Propoxyphene Negative (Negative) 300 Methaqualone Negative (Negative) 300 Ur Barbiturates Screen (NEGATIVE) Ur Barbiturates, Qual Negative (Negative) 300 Ur Phencyclidine Scrn (NEGATIVE) Ur Phencyclidine (PCP) Negative (Negative) 25 Ur Amphetamines Screen Negative (Negative) 1000 U Benzodiazepines Scrn (NEGATIVE) U Benzodiazepines Qual Negative (Negative) 300 Urine Cocaine Negative (Negative) 300 U Oth Cocaine Metabols (NEGATIVE) U Cannabinoids Screen (NEGATIVE) U Marijuana (THC) Screen Negative (Negative) 50 Drugs of Abuse Note See note 03/04/18 Range/Units 05:35 WBC (4.8-10.8) K/uL RBC (4.40-5.90) Mil/uL Hgb (12.0-18.0) g/dL Hct (35.0-51.0) % MCV (80.0-94.0) fL MCH (27.0-31.0) pg MCHC (33.0-37.0) g/dL RDW (11.5-14.5) % Plt Count (130-400) K/uL MPV (7.2-11.7) fL Neut % (Auto) (50.0-75.0) % Lymph % (Auto) (20.0-40.0) % [place] % (Auto) (0.0-10.0) % Eos % (Auto) (0.0-4.0) % Baso % (Auto) (0.0-2.0) % Neut # (Auto) (1.8-7.0) K/uL Lymph # (Auto) (1.0-4.3) K/uL [place] # (Auto) (0.0-0.8) K/uL Eos # (Auto) (0.0-0.7) K/uL Baso # (Auto) (0.0-0.2) K/uL PT (9.7-12.2) SECONDS INR APTT (21-34) SECONDS Sodium (132-148) mmol/L Potassium (3.6-5.2) mmol/L Chloride (98-107) mmol/L Carbon Dioxide (22-30) mmol/L Anion Gap (10-20) BUN (9-20) mg/dL Creatinine (0.8-1.5) mg/dL Est GFR ( Amer) Est GFR (Non-Af Amer) POC Glucose (mg/dL) (65-110) mg/dL Random Glucose (75-110) mg/dL Lactic Acid (0.7-2.1) mmol/L Calcium (8.6-10.4) mg/dl Phosphorus (2.5-4.5) mg/dL Magnesium (1.6-2.3) mg/dL Total Bilirubin (0.2-1.3) mg/dL AST (17-59) U/L ALT (21-72) U/L Alkaline Phosphatase (38-126) U/L Troponin I (0.00-0.120) ng/mL NT-Pro-B Natriuret Pep (0-900) pg/mL Total Protein (6.3-8.3) g/dL Albumin (3.5-5.0) g/dL Globulin (2.2-3.9) gm/dL Albumin/Globulin Ratio (1.0-2.1) Procalcitonin 0.10 L (0.19-0.49) NG/ML Urine Color (YELLOW) Urine Clarity (Clear) Urine pH (5.0-8.0) Ur Specific [place] (1.003-1.030) Urine Protein (NEGATIVE) mg/dL Urine Glucose (UA) (Normal) mg/dL Urine Ketones (NEGATIVE) mg/dL Urine Blood (NEGATIVE) Urine Nitrate (NEGATIVE) Urine Bilirubin (NEGATIVE) Urine Urobilinogen (0.2-1.0) mg/dL Ur Leukocyte Esterase (Negative) [place]/uL Urine WBC (Auto) (0-5) /hpf Urine RBC (Auto) (0-3) /hpf Urine Opiates Screen (NEGATIVE) Ur Opiates (GC/MS) (Negative) 300 Urine Methadone Screen (NEGATIVE) Ur Methadone, Qual (Negative) 300 Urine Propoxyphene (Negative) 300 Methaqualone (Negative) 300 Ur Barbiturates Screen (NEGATIVE) Ur Barbiturates, Qual (Negative) 300 Ur Phencyclidine Scrn (NEGATIVE) Ur Phencyclidine (PCP) (Negative) 25 Ur Amphetamines Screen (Negative) 1000 U Benzodiazepines Scrn (NEGATIVE) U Benzodiazepines Qual (Negative) 300 Urine Cocaine (Negative) 300 U Oth Cocaine Metabols (NEGATIVE) U Cannabinoids Screen (NEGATIVE) U Marijuana (THC) Screen (Negative) 50 Drugs of Abuse Note Laboratory Results - last 24 hr 03/04/18 03/04/18 03/04/18 05:35 11:27 13:27 WBC RBC Hgb Hct MCV MCH MCHC RDW Plt Count MPV Neut % (Auto) Lymph % (Auto) [place] % (Auto) Eos % (Auto) Baso % (Auto) Neut # (Auto) Lymph # (Auto) [place] # (Auto) Eos # (Auto) Baso # (Auto) PT INR APTT Sodium 161 H* Potassium 4.0 Chloride 128 H Carbon Dioxide 23 Anion Gap 15 BUN 31 H Creatinine 1.2 Est GFR ( Amer) > 60 Est GFR (Non-Af Amer) > 60 POC Glucose (mg/dL) 115 H Random Glucose 125 H Lactic Acid Calcium 8.2 L Phosphorus Magnesium Total Bilirubin 2.4 H AST 59 ALT 92 H Alkaline Phosphatase 83 Troponin I NT-Pro-B Natriuret Pep Total Protein 7.7 Albumin 3.5 Globulin 4.2 H Albumin/Globulin Ratio 0.8 L Procalcitonin 0.10 L Urine Color Urine Clarity Urine pH Ur Specific [place] Urine Protein Urine Glucose (UA) Urine Ketones Urine Blood Urine Nitrate Urine Bilirubin Urine Urobilinogen Ur Leukocyte Esterase Urine WBC (Auto) Urine RBC (Auto) Urine Opiates Screen Ur Opiates (GC/MS) Urine Methadone Screen Ur Methadone, Qual Urine Propoxyphene Methaqualone Ur Barbiturates Screen Ur Barbiturates, Qual Ur Phencyclidine Scrn Ur Phencyclidine (PCP) Ur Amphetamines Screen U Benzodiazepines Scrn U Benzodiazepines Qual Urine Cocaine U Oth Cocaine Metabols U Cannabinoids Screen U Marijuana (THC) Screen Drugs of Abuse Note 03/04/18 03/04/18 03/04/18 13:33 13:57 15:30 WBC RBC Hgb Hct MCV MCH MCHC RDW Plt Count MPV Neut % (Auto) Lymph % (Auto) [place] % (Auto) Eos % (Auto) Baso % (Auto) Neut # (Auto) Lymph # (Auto) [place] # (Auto) Eos # (Auto) Baso # (Auto) PT INR APTT Sodium Potassium Chloride Carbon Dioxide Anion Gap BUN Creatinine Est GFR ( Amer) Est GFR (Non-Af Amer) POC Glucose (mg/dL) Random Glucose Lactic Acid 4.1 H* Calcium Phosphorus Magnesium Total Bilirubin AST ALT Alkaline Phosphatase Troponin I NT-Pro-B Natriuret Pep Total Protein Albumin Globulin Albumin/Globulin Ratio Procalcitonin Urine Color Urine Clarity Urine pH Ur Specific [place] Urine Protein Urine Glucose (UA) Urine Ketones Urine Blood Urine Nitrate Urine Bilirubin Urine Urobilinogen Ur Leukocyte Esterase Urine WBC (Auto) Urine RBC (Auto) Urine Opiates Screen Negative Ur Opiates (GC/MS) Negative Urine Methadone Screen Negative Ur Methadone, Qual Negative Urine Propoxyphene Negative Methaqualone Negative Ur Barbiturates Screen Negative Ur Barbiturates, Qual Negative Ur Phencyclidine Scrn Negative Ur Phencyclidine (PCP) Negative Ur Amphetamines Screen Negative Negative U Benzodiazepines Scrn Negative U Benzodiazepines Qual Negative Urine Cocaine Negative U Oth Cocaine Metabols Negative U Cannabinoids Screen Negative U Marijuana (THC) Screen Negative Drugs of Abuse Note See note 03/04/18 03/04/18 03/04/18 15:30 18:06 18:27 WBC RBC Hgb Hct MCV MCH MCHC RDW Plt Count MPV Neut % (Auto) Lymph % (Auto) [place] % (Auto) Eos % (Auto) Baso % (Auto) Neut # (Auto) Lymph # (Auto) [place] # (Auto) Eos # (Auto) Baso # (Auto) PT INR APTT Sodium Potassium Chloride Carbon Dioxide Anion Gap BUN Creatinine Est GFR ( Amer) Est GFR (Non-Af Amer) POC Glucose (mg/dL) 98 Random Glucose Lactic Acid 2.4 H Calcium Phosphorus Magnesium Total Bilirubin AST ALT Alkaline Phosphatase Troponin I NT-Pro-B Natriuret Pep Total Protein Albumin Globulin Albumin/Globulin Ratio Procalcitonin Urine Color Michelle Urine Clarity Hazy Urine pH 5.0 Ur Specific [place] 1.032 H Urine Protein 2+ H Urine Glucose (UA) Normal Urine Ketones Negative Urine Blood 3+ H Urine Nitrate Negative Urine Bilirubin Negative Urine Urobilinogen Normal Ur Leukocyte Esterase 2+ H Urine WBC (Auto) 72 H Urine RBC (Auto) 2617 H Urine Opiates Screen Ur Opiates (GC/MS) Urine Methadone Screen Ur Methadone, Qual Urine Propoxyphene Methaqualone Ur Barbiturates Screen Ur Barbiturates, Qual Ur Phencyclidine Scrn Ur Phencyclidine (PCP) Ur Amphetamines Screen U Benzodiazepines Scrn U Benzodiazepines Qual Urine Cocaine U Oth Cocaine Metabols U Cannabinoids Screen U Marijuana (THC) Screen Drugs of Abuse Note 03/04/18 03/04/18 03/05/18 18:27 23:24 05:27 WBC RBC Hgb Hct MCV MCH MCHC RDW Plt Count MPV Neut % (Auto) Lymph % (Auto) [place] % (Auto) Eos % (Auto) Baso % (Auto) Neut # (Auto) Lymph # (Auto) [place] # (Auto) Eos # (Auto) Baso # (Auto) PT INR APTT Sodium Potassium Chloride Carbon Dioxide Anion Gap BUN Creatinine Est GFR ( Amer) Est GFR (Non-Af Amer) POC Glucose (mg/dL) 97 88 Random Glucose Lactic Acid Calcium Phosphorus Magnesium Total Bilirubin AST ALT Alkaline Phosphatase Troponin I 0.0600 NT-Pro-B Natriuret Pep 825 Total Protein Albumin Globulin Albumin/Globulin Ratio Procalcitonin Urine Color Urine Clarity Urine pH Ur Specific [place] Urine Protein Urine Glucose (UA) Urine Ketones Urine Blood Urine Nitrate Urine Bilirubin Urine Urobilinogen Ur Leukocyte Esterase Urine WBC (Auto) Urine RBC (Auto) Urine Opiates Screen Ur Opiates (GC/MS) Urine Methadone Screen Ur Methadone, Qual Urine Propoxyphene Methaqualone Ur Barbiturates Screen Ur Barbiturates, Qual Ur Phencyclidine Scrn Ur Phencyclidine (PCP) Ur Amphetamines Screen U Benzodiazepines Scrn U Benzodiazepines Qual Urine Cocaine U Oth Cocaine Metabols U Cannabinoids Screen U Marijuana (THC) Screen Drugs of Abuse Note 03/05/18 03/05/18 03/05/18 06:14 06:14 06:14 WBC 11.0 H RBC 4.54 Hgb 11.7 L D Hct 36.7 MCV 80.8 MCH 25.7 L MCHC 31.7 L RDW 17.5 H Plt Count 90 L D MPV 11.9 H Neut % (Auto) 82.9 H Lymph % (Auto) 11.0 L [place] % (Auto) 4.8 Eos % (Auto) 0.7 Baso % (Auto) 0.6 Neut # (Auto) 9.2 H Lymph # (Auto) 1.2 [place] # (Auto) 0.5 Eos # (Auto) 0.1 Baso # (Auto) 0.1 PT 30.3 H INR 2.8 APTT 34 Sodium 154 H Potassium 3.7 Chloride 129 H Carbon Dioxide 21 L Anion Gap 8 L BUN 20 Creatinine 0.9 Est GFR ( Amer) > 60 Est GFR (Non-Af Amer) > 60 POC Glucose (mg/dL) Random Glucose 91 Lactic Acid Calcium 7.3 L Phosphorus 1.3 L Magnesium 2.0 Total Bilirubin 1.6 H AST 39 ALT 58 Alkaline Phosphatase 65 Troponin I NT-Pro-B Natriuret Pep Total Protein 5.9 L Albumin 2.5 L D Globulin 3.3 Albumin/Globulin Ratio 0.8 L Procalcitonin Urine Color Urine Clarity Urine pH Ur Specific [place] Urine Protein Urine Glucose (UA) Urine Ketones Urine Blood Urine Nitrate Urine Bilirubin Urine Urobilinogen Ur Leukocyte Esterase Urine WBC (Auto) Urine RBC (Auto) Urine Opiates Screen Ur Opiates (GC/MS) Urine Methadone Screen Ur Methadone, Qual Urine Propoxyphene Methaqualone Ur Barbiturates Screen Ur Barbiturates, Qual Ur Phencyclidine Scrn Ur Phencyclidine (PCP) Ur Amphetamines Screen U Benzodiazepines Scrn U Benzodiazepines Qual Urine Cocaine U Oth Cocaine Metabols U Cannabinoids Screen U Marijuana (THC) Screen Drugs of Abuse Note 03/05/18 06:19 WBC RBC Hgb Hct MCV MCH MCHC RDW Plt Count MPV Neut % (Auto) Lymph % (Auto) [place] % (Auto) Eos % (Auto) Baso % (Auto) Neut # (Auto) Lymph # (Auto) [place] # (Auto) Eos # (Auto) Baso # (Auto) PT INR APTT Sodium Potassium Chloride Carbon Dioxide Anion Gap BUN Creatinine Est GFR ( Amer) Est GFR (Non-Af Amer) POC Glucose (mg/dL) Random Glucose Lactic Acid 1.6 Calcium Phosphorus Magnesium Total Bilirubin AST ALT Alkaline Phosphatase Troponin I NT-Pro-B Natriuret Pep Total Protein Albumin Globulin Albumin/Globulin Ratio Procalcitonin Urine Color Urine Clarity Urine pH Ur Specific [place] Urine Protein Urine Glucose (UA) Urine Ketones Urine Blood Urine Nitrate Urine Bilirubin Urine Urobilinogen Ur Leukocyte Esterase Urine WBC (Auto) Urine RBC (Auto) Urine Opiates Screen Ur Opiates (GC/MS) Urine Methadone Screen Ur Methadone, Qual Urine Propoxyphene Methaqualone Ur Barbiturates Screen Ur Barbiturates, Qual Ur Phencyclidine Scrn Ur Phencyclidine (PCP) Ur Amphetamines Screen U Benzodiazepines Scrn U Benzodiazepines Qual Urine Cocaine U Oth Cocaine Metabols U Cannabinoids Screen U Marijuana (THC) Screen Drugs of Abuse Note Critical Care Progress Note - Nutrition Nutrition: Nutrition Category Date Time Status NPO Diet [DIET] Diets 03/04/18 Lunch Active Assessment/Plan - Assessment and Plan (Free Text) Plan: Above patient seen and examined at bedside. Patient admitted to [facility] with dehydration and sepsis. -dehydration improving -continue empirical abx for ?cholangitis ?air in portal system, Gi input regarding air possible due to PEG as alk phos normal -NPO -continue abx as per ID -A-fib rate controlled, off AC 2nd high INR -continue dvt/pud ppx Patient remains hemodynamically stable. - Date & Time Date: 03/05/18 Time: 11:16
--- NOTE | 2018-03-05 15:09 | CP.PCM.CON ---
History of Present Illness - History of Present Illness History of Present Illness: 67-year-old male with past medical history of hypertension, CVA, multiple sclerosis, CKD, A. fib was sent from prison for worsening mental status and high fevers of 104. Patient is found to have pneumonia/sepsis and initially required BiPAP. Patient is admitted to medical intensive care unit. Chart reviewed. Patient is currently off BiPAP Review of Systems - Review of Systems All systems: reviewed and no additional remarkable complaints except (As mention ed in HPI) Past Patient History - Infectious Disease Hx of Infectious Diseases: MRSA - Past Medical History & Family History Past Medical History?: Yes - Past Social History Smoking Status: Never Smoked - CARDIAC Hx Hypertension: Yes - PULMONARY Hx Chronic Obstructive Pulmonary Disease (COPD): Yes - NEUROLOGICAL Hx Multiple Sclerosis: Yes - RENAL Hx Chronic Kidney Disease: Yes - HEMATOLOGICAL/ONCOLOGICAL Other/Comment: sepsis - MUSCULOSKELETAL/RHEUMATOLOGICAL Hx Falls: Yes - GASTROINTESTINAL Hx Gastrointestinal Disorders: Yes Other/Comment: Peg tube. Dysphagia - GENITOURINARY/GYNECOLOGICAL Other/Comment: hx MRSA in urine 2012 - PSYCHIATRIC Hx Substance Use: No - SURGICAL HISTORY Hx Surgeries: Yes Other/Comment: PEG insertion: Suprapubic cath - ANESTHESIA Hx Anesthesia: Yes Hx Anesthesia Reactions: No Hx Malignant Hyperthermia: No Meds Allergies/Adverse Reactions: Allergies Allergy/AdvReac Type Severity Reaction Status Date / Time No Known Allergies Allergy Verified 03/04/18 05:12 - Medications Medications: Current Medications Acetaminophen (Tylenol 325mg Tab) 975 mg PEG ONCE PRN PRN Reason: Fever >100.4 F Albuterol Sulfate (Albuterol 0.083% Inhal Gisella (2.5 Mg/3 Ml) Ud) 2.5 mg IH RQ6 [facility] Last Admin: 03/05/18 13:29 Dose: 2.5 mg Aspirin (Ecotrin) 81 mg PO DAILY [facility] Last Admin: 03/05/18 10:15 Dose: 81 mg Dextrose (Dextrose 50% Inj) 0 ml IV STAT PRN; Protocol PRN Reason: Hypoglycemia Protocol Dextrose (Glutose 15) 0 gm PO ONCE PRN; Protocol PRN Reason: Hypoglycemia Protocol Glucagon (Glucagen Diagnostic Kit) 0 mg IM STAT PRN; Protocol PRN Reason: Hypoglycemia Protocol Piperacillin Sod/Tazobactam Sod (Zosyn 3.375 Gm Iv Premix) 3.375 gm in 50 mls @ 100 mls/hr IVPB Q8H [facility]; Protocol Last Admin: 03/05/18 05:13 Dose: 100 mls/hr Vancomycin/Sodium Chloride (Vancomycin 1 Gm/Ns 200 Ml) 1 gm in 200 mls @ 166.7 mls/hr IVPB Q24H [facility]; Protocol Stop: 03/10/18 07:01 Last Admin: 03/05/18 06:54 Dose: 166.7 mls/hr Dextrose (Dextrose 5% In Water 1000 Ml) 1,000 mls @ 0 mls/hr IV .Q0M PRN; Protocol PRN Reason: Hypoglycemia Protocol Dextrose/Sodium Chloride (Dextrose 5%/0.45% Ns 1000 Ml) 1,000 mls @ 150 mls/hr IV .Q6H40M [facility] Last Admin: 03/05/18 07:44 Dose: 150 mls/hr Sodium Chloride (Sodium Chloride 0.45%) 1,000 mls @ 100 mls/hr IV .Q10H [facility] Last Admin: 03/05/18 10:00 Dose: 100 mls/hr Metoprolol Tartrate (Lopressor) 12.5 mg PEG Q12 [facility] Last Admin: 03/05/18 10:14 Dose: 12.5 mg Pantoprazole Sodium (Protonix Inj) 40 mg IVP Q12H [facility] Last Admin: 03/05/18 07:39 Dose: 40 mg Rosuvastatin Calcium (Crestor) 5 mg PO HS [facility] Tamsulosin HCl (Flomax) 0.4 mg PO DAILY [facility] Last Admin: 03/05/18 10:15 Dose: 0.4 mg Physical Exam - Head Exam Head Exam: NORMAL INSPECTION - Eye Exam Eye Exam: Normal appearance - ENT Exam ENT Exam: Mucous Membranes Moist - Respiratory Exam Respiratory Exam: Rales, Rhonchi - Cardiovascular Exam Cardiovascular Exam: REGULAR RHYTHM, +S1, +S2 - GI/Abdominal Exam GI & Abdominal Exam: Normal Bowel Sounds, Soft - Extremities Exam Extremities exam: Positive for: normal inspection Results - Vital Signs Recent Vital Signs: Last Vital Signs Temp 98.3 F 03/04/18 16:00 Pulse 116 H 03/05/18 14:32 Resp 42 H 03/05/18 14:32 BP 97/62 L 03/05/18 14:32 Pulse Ox 92 L 03/05/18 14:32 - Labs Result Diagrams: 03/05/18 06:14 03/05/18 06:14 Labs: Laboratory Results - last 24 hr 03/04/18 03/04/18 03/04/18 13:33 15:30 15:30 WBC RBC Hgb Hct MCV MCH MCHC RDW Plt Count MPV Neut % (Auto) Lymph % (Auto) [place] % (Auto) Eos % (Auto) Baso % (Auto) Neut # (Auto) Lymph # (Auto) [place] # (Auto) Eos # (Auto) Baso # (Auto) PT INR APTT Sodium Potassium Chloride Carbon Dioxide Anion Gap BUN Creatinine Est GFR ( Amer) Est GFR (Non-Af Amer) POC Glucose (mg/dL) Random Glucose Lactic Acid Calcium Phosphorus Magnesium Total Bilirubin AST ALT Alkaline Phosphatase Troponin I NT-Pro-B Natriuret Pep Total Protein Albumin Globulin Albumin/Globulin Ratio Urine Color Michelle Urine Clarity Hazy Urine pH 5.0 Ur Specific [place] 1.032 H Urine Protein 2+ H Urine Glucose (UA) Normal Urine Ketones Negative Urine Blood 3+ H Urine Nitrate Negative Urine Bilirubin Negative Urine Urobilinogen Normal Ur Leukocyte Esterase 2+ H Urine WBC (Auto) 72 H Urine RBC (Auto) 2617 H Urine Opiates Screen Negative Ur Opiates (GC/MS) Negative Urine Methadone Screen Negative Ur Methadone, Qual Negative Urine Propoxyphene Negative Methaqualone Negative Ur Barbiturates Screen Negative Ur Barbiturates, Qual Negative Ur Phencyclidine Scrn Negative Ur Phencyclidine (PCP) Negative Ur Amphetamines Screen Negative Negative U Benzodiazepines Scrn Negative U Benzodiazepines Qual Negative Urine Cocaine Negative U Oth Cocaine Metabols Negative U Cannabinoids Screen Negative U Marijuana (THC) Screen Negative Drugs of Abuse Note See note 03/04/18 03/04/18 03/04/18 18:06 18:27 18:27 WBC RBC Hgb Hct MCV MCH MCHC RDW Plt Count MPV Neut % (Auto) Lymph % (Auto) [place] % (Auto) Eos % (Auto) Baso % (Auto) Neut # (Auto) Lymph # (Auto) [place] # (Auto) Eos # (Auto) Baso # (Auto) PT INR APTT Sodium Potassium Chloride Carbon Dioxide Anion Gap BUN Creatinine Est GFR ( Amer) Est GFR (Non-Af Amer) POC Glucose (mg/dL) 98 Random Glucose Lactic Acid 2.4 H Calcium Phosphorus Magnesium Total Bilirubin AST ALT Alkaline Phosphatase Troponin I 0.0600 NT-Pro-B Natriuret Pep 825 Total Protein Albumin Globulin Albumin/Globulin Ratio Urine Color Urine Clarity Urine pH Ur Specific [place] Urine Protein Urine Glucose (UA) Urine Ketones Urine Blood Urine Nitrate Urine Bilirubin Urine Urobilinogen Ur Leukocyte Esterase Urine WBC (Auto) Urine RBC (Auto) Urine Opiates Screen Ur Opiates (GC/MS) Urine Methadone Screen Ur Methadone, Qual Urine Propoxyphene Methaqualone Ur Barbiturates Screen Ur Barbiturates, Qual Ur Phencyclidine Scrn Ur Phencyclidine (PCP) Ur Amphetamines Screen U Benzodiazepines Scrn U Benzodiazepines Qual Urine Cocaine U Oth Cocaine Metabols U Cannabinoids Screen U Marijuana (THC) Screen Drugs of Abuse Note 03/04/18 03/05/18 03/05/18 23:24 05:27 06:14 WBC 11.0 H RBC 4.54 Hgb 11.7 L D Hct 36.7 MCV 80.8 MCH 25.7 L MCHC 31.7 L RDW 17.5 H Plt Count 90 L D MPV 11.9 H Neut % (Auto) 82.9 H Lymph % (Auto) 11.0 L [place] % (Auto) 4.8 Eos % (Auto) 0.7 Baso % (Auto) 0.6 Neut # (Auto) 9.2 H Lymph # (Auto) 1.2 [place] # (Auto) 0.5 Eos # (Auto) 0.1 Baso # (Auto) 0.1 PT INR APTT Sodium Potassium Chloride Carbon Dioxide Anion Gap BUN Creatinine Est GFR ( Amer) Est GFR (Non-Af Amer) POC Glucose (mg/dL) 97 88 Random Glucose Lactic Acid Calcium Phosphorus Magnesium Total Bilirubin AST ALT Alkaline Phosphatase Troponin I NT-Pro-B Natriuret Pep Total Protein Albumin Globulin Albumin/Globulin Ratio Urine Color Urine Clarity Urine pH Ur Specific [place] Urine Protein Urine Glucose (UA) Urine Ketones Urine Blood Urine Nitrate Urine Bilirubin Urine Urobilinogen Ur Leukocyte Esterase Urine WBC (Auto) Urine RBC (Auto) Urine Opiates Screen Ur Opiates (GC/MS) Urine Methadone Screen Ur Methadone, Qual Urine Propoxyphene Methaqualone Ur Barbiturates Screen Ur Barbiturates, Qual Ur Phencyclidine Scrn Ur Phencyclidine (PCP) Ur Amphetamines Screen U Benzodiazepines Scrn U Benzodiazepines Qual Urine Cocaine U Oth Cocaine Metabols U Cannabinoids Screen U Marijuana (THC) Screen Drugs of Abuse Note 03/05/18 03/05/18 03/05/18 06:14 06:14 06:19 WBC RBC Hgb Hct MCV MCH MCHC RDW Plt Count MPV Neut % (Auto) Lymph % (Auto) [place] % (Auto) Eos % (Auto) Baso % (Auto) Neut # (Auto) Lymph # (Auto) [place] # (Auto) Eos # (Auto) Baso # (Auto) PT 30.3 H INR 2.8 APTT 34 Sodium 154 H Potassium 3.7 Chloride 129 H Carbon Dioxide 21 L Anion Gap 8 L BUN 20 Creatinine 0.9 Est GFR ( Amer) > 60 Est GFR (Non-Af Amer) > 60 POC Glucose (mg/dL) Random Glucose 91 Lactic Acid 1.6 Calcium 7.3 L Phosphorus 1.3 L Magnesium 2.0 Total Bilirubin 1.6 H AST 39 ALT 58 Alkaline Phosphatase 65 Troponin I NT-Pro-B Natriuret Pep Total Protein 5.9 L Albumin 2.5 L D Globulin 3.3 Albumin/Globulin Ratio 0.8 L Urine Color Urine Clarity Urine pH Ur Specific [place] Urine Protein Urine Glucose (UA) Urine Ketones Urine Blood Urine Nitrate Urine Bilirubin Urine Urobilinogen Ur Leukocyte Esterase Urine WBC (Auto) Urine RBC (Auto) Urine Opiates Screen Ur Opiates (GC/MS) Urine Methadone Screen Ur Methadone, Qual Urine Propoxyphene Methaqualone Ur Barbiturates Screen Ur Barbiturates, Qual Ur Phencyclidine Scrn Ur Phencyclidine (PCP) Ur Amphetamines Screen U Benzodiazepines Scrn U Benzodiazepines Qual Urine Cocaine U Oth Cocaine Metabols U Cannabinoids Screen U Marijuana (THC) Screen Drugs of Abuse Note 03/05/18 11:48 WBC RBC Hgb Hct MCV MCH MCHC RDW Plt Count MPV Neut % (Auto) Lymph % (Auto) [place] % (Auto) Eos % (Auto) Baso % (Auto) Neut # (Auto) Lymph # (Auto) [place] # (Auto) Eos # (Auto) Baso # (Auto) PT INR APTT Sodium Potassium Chloride Carbon Dioxide Anion Gap BUN Creatinine Est GFR ( Amer) Est GFR (Non-Af Amer) POC Glucose (mg/dL) 102 Random Glucose Lactic Acid Calcium Phosphorus Magnesium Total Bilirubin AST ALT Alkaline Phosphatase Troponin I NT-Pro-B Natriuret Pep Total Protein Albumin Globulin Albumin/Globulin Ratio Urine Color Urine Clarity Urine pH Ur Specific [place] Urine Protein Urine Glucose (UA) Urine Ketones Urine Blood Urine Nitrate Urine Bilirubin Urine Urobilinogen Ur Leukocyte Esterase Urine WBC (Auto) Urine RBC (Auto) Urine Opiates Screen Ur Opiates (GC/MS) Urine Methadone Screen Ur Methadone, Qual Urine Propoxyphene Methaqualone Ur Barbiturates Screen Ur Barbiturates, Qual Ur Phencyclidine Scrn Ur Phencyclidine (PCP) Ur Amphetamines Screen U Benzodiazepines Scrn U Benzodiazepines Qual Urine Cocaine U Oth Cocaine Metabols U Cannabinoids Screen U Marijuana (THC) Screen Drugs of Abuse Note Assessment & Plan (1) Respiratory distress Status: Acute (2) Sepsis Status: Acute (3) Pneumonia Status: Acute - Assessment and Plan (Free Text) Plan: BiPAP as needed Continue Vanco/Zosyn Follow-up Vanco levels Bronchodilators as needed Oxygen supplementation Chest PT Thank you for pulmonary consult we will follow patient with you
--- NOTE | 2018-03-05 15:36 | CP.PCM.PN ---
Subjective - Date & Time of Evaluation Date of Evaluation: 03/05/18 Time of Evaluation: 10:00 - Subjective Subjective: clinically same Objective - Vital Signs/Intake and Output Vital Signs (last 24 hours): Temp Pulse Resp BP Pulse Ox 98.3 F 118 H 19 100/62 91 L 03/04/18 16:00 03/05/18 15:02 03/05/18 15:02 03/05/18 15:02 03/05/18 15:02 Intake and Output: 03/05/18 03/05/18 06:59 18:59 Intake Total 4200 3012.5 Output Total 377 Balance 3823 3012.5 - Medications Medications: Current Medications Acetaminophen (Tylenol 325mg Tab) 975 mg PEG ONCE PRN PRN Reason: Fever >100.4 F Albuterol Sulfate (Albuterol 0.083% Inhal Gisella (2.5 Mg/3 Ml) Ud) 2.5 mg IH RQ6 [facility] Last Admin: 03/05/18 13:29 Dose: 2.5 mg Aspirin (Ecotrin) 81 mg PO DAILY [facility] Last Admin: 03/05/18 10:15 Dose: 81 mg Dextrose (Dextrose 50% Inj) 0 ml IV STAT PRN; Protocol PRN Reason: Hypoglycemia Protocol Dextrose (Glutose 15) 0 gm PO ONCE PRN; Protocol PRN Reason: Hypoglycemia Protocol Glucagon (Glucagen Diagnostic Kit) 0 mg IM STAT PRN; Protocol PRN Reason: Hypoglycemia Protocol Piperacillin Sod/Tazobactam Sod (Zosyn 3.375 Gm Iv Premix) 3.375 gm in 50 mls @ 100 mls/hr IVPB Q8H [facility]; Protocol Last Admin: 03/05/18 05:13 Dose: 100 mls/hr Vancomycin/Sodium Chloride (Vancomycin 1 Gm/Ns 200 Ml) 1 gm in 200 mls @ 166.7 mls/hr IVPB Q24H [facility]; Protocol Stop: 03/10/18 07:01 Last Admin: 03/05/18 06:54 Dose: 166.7 mls/hr Dextrose (Dextrose 5% In Water 1000 Ml) 1,000 mls @ 0 mls/hr IV .Q0M PRN; Protocol PRN Reason: Hypoglycemia Protocol Dextrose/Sodium Chloride (Dextrose 5%/0.45% Ns 1000 Ml) 1,000 mls @ 150 mls/hr IV .Q6H40M [facility] Last Admin: 03/05/18 07:44 Dose: 150 mls/hr Sodium Chloride (Sodium Chloride 0.45%) 1,000 mls @ 100 mls/hr IV .Q10H [facility] Last Admin: 03/05/18 10:00 Dose: 100 mls/hr Metoprolol Tartrate (Lopressor) 12.5 mg PEG Q12 [facility] Last Admin: 03/05/18 10:14 Dose: 12.5 mg Pantoprazole Sodium (Protonix Inj) 40 mg IVP Q12H [facility] Last Admin: 03/05/18 07:39 Dose: 40 mg Rosuvastatin Calcium (Crestor) 5 mg PO HS [facility] Tamsulosin HCl (Flomax) 0.4 mg PO DAILY [facility] Last Admin: 03/05/18 10:15 Dose: 0.4 mg - Labs Labs: 03/05/18 06:14 03/05/18 06:14 PT 30.3 SECONDS (9.7-12.2) H 03/05/18 06:14 INR 2.8 03/05/18 06:14 APTT 34 SECONDS (21-34) 03/05/18 06:14
--- NOTE | 2018-03-05 16:16 | RAD ---
Date of service: 03/05/2018 HISTORY: ?fluid overload/congestion COMPARISON: Chest radiograph dated 03/04/2018. FINDINGS: LUNGS: Bibasilar infiltrates, grossly similar. Mild pulmonary vascular congestion. PLEURA: No significant pleural effusion identified, no pneumothorax apparent. CARDIOVASCULAR: Aortic atherosclerotic calcifications. Cardiomediastinal silhouette stably enlarged. OSSEOUS STRUCTURES: Unchanged. VISUALIZED UPPER ABDOMEN: Normal. OTHER FINDINGS: Right internal jugular access central venous catheter, unchanged. IMPRESSION: Mild pulmonary vascular congestion. Grossly similar bibasilar infiltrates..
--- NOTE | 2018-03-05 19:36 | CP.PCM.CON ---
History of Present Illness - History of Present Illness History of Present Illness: 67 year old male is brought to the ED by EMS from his [facility] for evaluation. Patient was initially sent for evaluation of high fever, however patient was later found unresponsive at the [facility]. Patient had fever of 104 and was given TylenoL REFERRED FOR id EVAL + BLOOD CULTURES - Medical History PMH: COPD, HTN, Multiple Sclerosis, Pneumonia, Chronic Kidney Disease Surgical History: No Surg Hx - [facility] Procedures DILATION OF URETHRA, PERCUTANEOUS APPROACH (02/25/16) ENTERAL INFUSION OF CONCENTRATED NUT. SUBSTANCES (04/12/13) EXCISION OF STOMACH, ENDO, DIAGN (07/01/17) INSERTION OF ENDOTRACHEAL AIRWAY INTO TRACHEA, VIA OPENING (07/01/17) INSERTION OF INFUSION DEV INTO R BRACH VEIN, PERC APPROACH (01/29/16) INSERTION OF INFUSION DEV INTO SUP VENA CAVA, PERC APPROACH (07/01/17) INTRODUCTION OF NUTRITIONAL INTO PERIPH VEIN, PERC APPROACH (07/01/17) INTRODUCTION OF NUTRITIONAL INTO UP GI, VIA OPENING (07/01/17) PERCUTANEOUS [ENDOSCOPIC] GASTROSTOMY [PEG] (04/12/13) RESPIRATORY VENTILATION, LESS THAN 24 CONSECUTIVE HOURS (07/01/17) Review of Systems - Review of Systems Systems not reviewed;Unavailable: Altered Mental Status All systems: reviewed and no additional remarkable complaints except - Constitutional Constitutional: As Per HPI - EENT Eyes: absent: As Per HPI, Blind Spots, Blurred Vision, Change in Vision, Decreased Night Vision, Diplopia, Discharge, Dry Eye, Exophthalmos, Floaters, Irritation, Itchy Eyes, Loss of Peripheral Vision, Pain, Photophobia, Requires Corrective Lenses, Sees Flashes, Spots in Vision, Tunnel Vision, Other Visual Disturbances, Loss of Vision, Other Ears: absent: As Per HPI, Decreased Hearing, Ear Discharge, Ear Pain, Tinnitus, Abnormal Hearing, Disequilibrium, Dizziness, Other Nose/Mouth/Throat: absent: As Per HPI, Epistaxis, Nasal Congestion, Nasal Discharge, Nasal Obstruction, Nasal Trauma, Nose Pain, Post Nasal Drip, Sinus Pain, Sinus Pressure, Bleeding Gums, Change in Voice, Dental Pain, Dry Mouth, Dysphagia, Halitosis, Hoarsness, Lip Swelling, Mouth Lesions, Mouth Pain, Odynophagia, Sore Throat, Throat Swelling, Tongue Swelling, Facial Pain, Neck Pain, Neck Mass, Other - Cardiovascular Cardiovascular: absent: As Per HPI, Acrocyanosis, Chest Pain, Chest Pain at Rest, Chest Pain with Activity, Claudication, Diaphoresis, Dyspnea, Dyspnea on Exertion, Edema, Irregular Heart Rhythm, Pain Radiating to Arm/Neck/Jaw, Leg Edema, Leg Ulcers, Lightheadedness, Orthopnea, Palpitations, Paroxysmal Noctur nal Dyspnea, Pedal Edema, Radiating Pain, Rapid Heart Rate, Slow Heart Rate, Syncope, Other - Respiratory Respiratory: absent: As Per HPI, Cough, Dyspnea, Hemoptysis, Dyspnea on Exertion, Wheezing, Snoring, Stridor, Pain on Inspiration, Chest Congestion, Excessive Mucous Production, Change in Mucous Color, Pain with Coughing, Other - Gastrointestinal Gastrointestinal: absent: As Per HPI, Abdominal Pain, Belching, Bloating, Change in Bowel Habits, Change in Stool Character, Coffee Ground Emesis, Constipation, Cramping, Diarrhea, Dyspepsia, Dysphagia, Early Satiety, Excessive Flatus, Fecal Incontinence, Heartburn, Hematemesis, Hematochezia, Loose Stools, Melena, Nausea, Odynophagia, Temesmus, Vomiting, Other - Genitourinary Genitourinary: absent: As Per HPI, Change in Urinary Stream, Difficulty Urinating, Dysuria, Flank Pain, Hematuria, Pyuria, Nocturia, Urinary Incontinen ce, Urinary Frequency, Urinary Hesitance, Urinary Urgency, Voiding Freq/Small Amts, Freq UTI, Hx Renal/Bladder Calculi, Hx /Renal Surgery, Bladder Distension, Other - Musculoskeletal Musculoskeletal: As Per HPI - Integumentary Integumentary: As Per HPI - Neurological Neurological: As Per HPI - Psychiatric Psychiatric: absent: As Per HPI, Abnormal Sleep Pattern, Anhedonia, Anxiety, Auditory Hallucinations, Behavioral Changes, Change in Appetite, Change in Libido, Confusion, Depression, Difficulty Concentrating, Hallucinations, Homicidal Ideation, Hopelessness, Irritability, Memory Loss, Mood Swings, Panic Attacks, Paranoia, Suicidal Ideation, Visual Hallucinations, Tactile Hallucinations, Other - Endocrine Endocrine: absent: As Per HPI, Change in Body Appearance, Change in Libido, Cold Intolorance, Deepening of Voice, Excessive Sweating, Fatigue, Flushing, Heat Intolorance, Increase in Ring/Shoe/Hat Size, Palpitations, Polydipsia, Polyphagia, Polyuria, Other - Hematologic/Lymphatic Hematologic: absent: As Per HPI, Easy Bleeding, Easy Bruising, Lymphadenopathy, Other Past Patient History - Infectious Disease Hx of Infectious Diseases: MRSA - Past Medical History & Family History Past Medical History?: Yes - Past Social History Smoking Status: Never Smoked - CARDIAC Hx Hypertension: Yes - PULMONARY Hx Chronic Obstructive Pulmonary Disease (COPD): Yes - NEUROLOGICAL Hx Multiple Sclerosis: Yes - RENAL Hx Chronic Kidney Disease: Yes - HEMATOLOGICAL/ONCOLOGICAL Other/Comment: sepsis - MUSCULOSKELETAL/RHEUMATOLOGICAL Hx Falls: Yes - GASTROINTESTINAL Hx Gastrointestinal Disorders: Yes Other/Comment: Peg tube. Dysphagia - GENITOURINARY/GYNECOLOGICAL Other/Comment: hx MRSA in urine 2012 - PSYCHIATRIC Hx Substance Use: No - SURGICAL HISTORY Hx Surgeries: Yes Other/Comment: PEG insertion: Suprapubic cath - ANESTHESIA Hx Anesthesia: Yes Hx Anesthesia Reactions: No Hx Malignant Hyperthermia: No Meds Allergies/Adverse Reactions: Allergies Allergy/AdvReac Type Severity Reaction Status Date / Time No Known Allergies Allergy Verified 03/04/18 05:12 - Medications Medications: Current Medications Acetaminophen (Tylenol 325mg Tab) 975 mg PEG ONCE PRN PRN Reason: Fever >100.4 F Albuterol Sulfate (Albuterol 0.083% Inhal Gisella (2.5 Mg/3 Ml) Ud) 2.5 mg IH RQ6 [facility] Last Admin: 03/05/18 19:31 Dose: 2.5 mg Aspirin (Ecotrin) 81 mg PO DAILY [facility] Last Admin: 03/05/18 10:15 Dose: 81 mg Dextrose (Dextrose 50% Inj) 0 ml IV STAT PRN; Protocol PRN Reason: Hypoglycemia Protocol Dextrose (Glutose 15) 0 gm PO ONCE PRN; Protocol PRN Reason: Hypoglycemia Protocol Glucagon (Glucagen Diagnostic Kit) 0 mg IM STAT PRN; Protocol PRN Reason: Hypoglycemia Protocol Piperacillin Sod/Tazobactam Sod (Zosyn 3.375 Gm Iv Premix) 3.375 gm in 50 mls @ 100 mls/hr IVPB Q8H [facility]; Protocol Last Admin: 03/05/18 14:05 Dose: 100 mls/hr Vancomycin/Sodium Chloride (Vancomycin 1 Gm/Ns 200 Ml) 1 gm in 200 mls @ 166.7 mls/hr IVPB Q24H [facility]; Protocol Stop: 03/10/18 07:01 Last Admin: 03/05/18 06:54 Dose: 166.7 mls/hr Dextrose (Dextrose 5% In Water 1000 Ml) 1,000 mls @ 0 mls/hr IV .Q0M PRN; Prot ocol PRN Reason: Hypoglycemia Protocol Dextrose/Sodium Chloride (Dextrose 5%/0.45% Ns 1000 Ml) 1,000 mls @ 150 mls/hr IV .Q6H40M [facility] Last Admin: 03/05/18 07:44 Dose: 150 mls/hr Metoprolol Tartrate (Lopressor) 12.5 mg PEG Q12 [facility] Last Admin: 03/05/18 10:14 Dose: 12.5 mg Pantoprazole Sodium (Protonix Inj) 40 mg IVP Q12H [facility] Last Admin: 03/05/18 18:04 Dose: 40 mg Rosuvastatin Calcium (Crestor) 5 mg PO HS [facility] Tamsulosin HCl (Flomax) 0.4 mg PO DAILY [facility] Last Admin: 03/05/18 10:15 Dose: 0.4 mg Physical Exam - Constitutional Appears: Non-toxic, Chronically Ill - Head Exam Head Exam: ATRAUMATIC, NORMOCEPHALIC - Eye Exam Eye Exam: PERRL. absent: Scleral icterus - ENT Exam ENT Exam: Mucous Membranes Dry - Neck Exam Neck exam: Negative for: Lymphadenopathy - Respiratory Exam Respiratory Exam: Decreased Breath Sounds - Cardiovascular Exam Cardiovascular Exam: REGULAR RHYTHM - GI/Abdominal Exam GI & Abdominal Exam: Diminished Bowel Sounds, Soft. absent: Tenderness - Rectal Exam Rectal Exam: Deferred - Exam Exam: NORMAL INSPECTION - Extremities Exam Extremities exam: Negative for: pedal edema - Back Exam Back exam: absent: CVA tenderness (L), CVA tenderness (R) - Neurological Exam Neurological exam: Alert, CN II-XII Intact, Motor Sensory Deficit, Oriented x3 Additional comments: weakness bilat left > right upper and lowwer extremities - Psychiatric Exam Psychiatric exam: Depressed - Skin Skin Exam: Dry Results - Vital Signs Recent Vital Signs: Last Vital Signs Temp 98.3 F 03/04/18 16:00 Pulse 118 H 03/05/18 15:02 Resp 19 03/05/18 15:02 BP 100/62 03/05/18 15:02 Pulse Ox 91 L 03/05/18 15:02 - Labs Result Diagrams: 03/07/18 06:30 03/07/18 06:30 Labs: Laboratory Results - last 24 hr 03/04/18 03/04/18 03/05/18 13:33 23:24 05:27 WBC RBC Hgb Hct MCV MCH MCHC RDW Plt Count MPV Neut % (Auto) Lymph % (Auto) [place] % (Auto) Eos % (Auto) Baso % (Auto) Neut # (Auto) Lymph # (Auto) [place] # (Auto) Eos # (Auto) Baso # (Auto) PT INR APTT Sodium Potassium Chloride Carbon Dioxide Anion Gap BUN Creatinine Est GFR ( Amer) Est GFR (Non-Af Amer) POC Glucose (mg/dL) 97 88 Random Glucose Lactic Acid Calcium Phosphorus Magnesium Total Bilirubin AST ALT Alkaline Phosphatase Total Protein Albumin Globulin Albumin/Globulin Ratio Ur Opiates (GC/MS) Negative Ur Methadone, Qual Negative Urine Propoxyphene Negative Methaqualone Negative Ur Barbiturates, Qual Negative Ur Phencyclidine (PCP) Negative Ur Amphetamines Screen Negative U Benzodiazepines Qual Negative Urine Cocaine Negative U Marijuana (THC) Screen Negative Drugs of Abuse Note See note 03/05/18 03/05/18 03/05/18 06:14 06:14 06:14 WBC 11.0 H RBC 4.54 Hgb 11.7 L D Hct 36.7 MCV 80.8 MCH 25.7 L MCHC 31.7 L RDW 17.5 H Plt Count 90 L D MPV 11.9 H Neut % (Auto) 82.9 H Lymph % (Auto) 11.0 L [place] % (Auto) 4.8 Eos % (Auto) 0.7 Baso % (Auto) 0.6 Neut # (Auto) 9.2 H Lymph # (Auto) 1.2 [place] # (Auto) 0.5 Eos # (Auto) 0.1 Baso # (Auto) 0.1 PT 30.3 H INR 2.8 APTT 34 Sodium 154 H Potassium 3.7 Chloride 129 H Carbon Dioxide 21 L Anion Gap 8 L BUN 20 Creatinine 0.9 Est GFR ( Amer) > 60 Est GFR (Non-Af Amer) > 60 POC Glucose (mg/dL) Random Glucose 91 Lactic Acid Calcium 7.3 L Phosphorus 1.3 L Magnesium 2.0 Total Bilirubin 1.6 H AST 39 ALT 58 Alkaline Phosphatase 65 Total Protein 5.9 L Albumin 2.5 L D Globulin 3.3 Albumin/Globulin Ratio 0.8 L Ur Opiates (GC/MS) Ur Methadone, Qual Urine Propoxyphene Methaqualone Ur Barbiturates, Qual Ur Phencyclidine (PCP) Ur Amphetamines Screen U Benzodiazepines Qual Urine Cocaine U Marijuana (THC) Screen Drugs of Abuse Note 03/05/18 03/05/18 03/05/18 06:19 11:48 18:19 WBC RBC Hgb Hct MCV MCH MCHC RDW Plt Count MPV Neut % (Auto) Lymph % (Auto) [place] % (Auto) Eos % (Auto) Baso % (Auto) Neut # (Auto) Lymph # (Auto) [place] # (Auto) Eos # (Auto) Baso # (Auto) PT INR APTT Sodium Potassium Chloride Carbon Dioxide Anion Gap BUN Creatinine Est GFR ( Amer) Est GFR (Non-Af Amer) POC Glucose (mg/dL) 102 92 Random Glucose Lactic Acid 1.6 Calcium Phosphorus Magnesium Total Bilirubin AST ALT Alkaline Phosphatase Total Protein Albumin Globulin Albumin/Globulin Ratio Ur Opiates (GC/MS) Ur Methadone, Qual Urine Propoxyphene Methaqualone Ur Barbiturates, Qual Ur Phencyclidine (PCP) Ur Amphetamines Screen U Benzodiazepines Qual Urine Cocaine U Marijuana (THC) Screen Drugs of Abuse Note Assessment & Plan (1) Hypernatremia Status: Acute (2) Respiratory distress Status: Acute (3) Sepsis Status: Acute (4) Tachycardia Status: Acute (5) Bandemia Status: Acute - Assessment and Plan (Free Text) Assessment: GRAM POSITIVE BACTEREMIA/ SEPSIS SOURCE UNCLEAR - POSSIBLY LUNG URINE SKIN AND SOFT TISSUE ? CONT EMPIRIC IV RX [facility]
--- NOTE | 2018-03-05 21:20 | CARD ---
APPROVED REPORT Date of service: 03/04/2018 EKG Measurement Heart [id number] ME 112P [id number] <Conclusion> Sinus tachycardia Otherwise normal ECG
[2018-03-06] MEDS: Albuterol 0.083% Inhal Sol (2.5 mg/3 mL) UD IH SCH ×3 (01:56→19:28)
[2018-03-06] MEDS: Piperacill/Tazo 3.375gm in Dex 3.375 GM/50 ML BAG IVPB SCH ×3 (06:00→21:42)
[2018-03-06] MEDS: Vancomycin 1 gm/NS 200 ml 1 GM/200 ML BAG IVPB SCH (07:37)
[2018-03-06 08:04] LABS: BASO % 0.4 % (0.0-2.0); EOS # 0.2 K/uL (0.0-0.7); EOS % 1.7 % (0.0-4.0); LYMPH % 9.4 % (20.0-40.0); MEAN CELL VOLUME 79.3 fL (80.0-94.0); MEAN CORPUSCULAR HEMOGLOBIN 25.7 pg (27.0-31.0); MEAN CORPUSCULAR HGB CONC 32.4 g/dL (33.0-37.0); MEAN PLATELET VOLUME 11.9 fL (7.2-11.7); MONO # 0.5 K/uL (0.0-0.8); MONO % 4.8 % (0.0-10.0); NEUT # 8.9 K/uL (1.8-7.0); NEUT % 83.7 % (50.0-75.0); PLATELET COUNT 94 K/uL (130-400); RBC 4.26 Mil/uL (4.40-5.90); RED CELL DISTRIBUTION WIDTH 16.8 % (11.5-14.5); WHITE BLOOD COUNT 10.7 K/uL (4.8-10.8)
[2018-03-06 08:14] LABS: INR 1.9; PROTHROMBIN TIME 20.3 SECONDS (9.7-12.2)
[2018-03-06 08:23] LABS: ALB/GLOB RATIO 0.8 (1.0-2.1); ALBUMIN 2.5 g/dL (3.5-5.0); ALT/SGPT 54 U/L (21-72); AST/SGOT 36 U/L (17-59); BLOOD UREA NITROGEN 17 mg/dL (9-20); CALCIUM 7.7 mg/dl (8.6-10.4); GFR NON-AFRICAN AMERICAN > 60
[2018-03-06] MEDS ORDERED: Magnesium Sulfate 1 gm in D5W 1 GM/100 ML BAG IVPB ONE (09:30)
[2018-03-06] MEDS: Potassium Chloride 20 mEq/15 ml LIQ UD PO SCH ×2 (09:30→15:53)
--- NOTE | 2018-03-06 09:43 | CP.PCM.CON ---
History of Present Illness - History of Present Illness History of Present Illness: GI Service Consult CC: GTube + portal venous gas on CT HPI: 67 year old man admitted from [facility] 2 days ago for fever 102 and dehydrat ion. Patient has gastrostomy feeding tube, and has had CVA with resultant hemiplegia and aphasia, as well as Multiple Sclerosis. There have been multiple admissions over the past several years with urinary infections and gastrostomy complications. The patient can not provide a reliable history and is severely aphasic and difficult to understand, history was obtained via review of previous and current records. As part of a sepsis workup a CT abdomen was done and shows portal venous gas. In July 2017 an abdominal sonogram showed a mildly thickened GB wall, without gallstones or biliary ductal dilatation. The patient denies nausea, vomiting, abdominal pain. His bilirubin is mildly elevated, and transaminases are presently normal, initially on admission the ALT was mildly elevated < 2x normal. The patient has a microcytic anemia and thrombocytopenia with prolonged INR. [facility] He presently appears comfortable in his bed in the ICU, and has no reported issues or difficulties with the gastrostomy. Review of Systems - Review of Systems Systems not reviewed;Unavailable: Other (severe apahsia) Past Patient History - Infectious Disease Hx of Infectious Diseases: MRSA - Past Medical History & Family History Past Medical History?: Yes - Past Social History Smoking Status: Never Smoked - CARDIAC Hx Hypertension: Yes - PULMONARY Hx Chronic Obstructive Pulmonary Disease (COPD): Yes - NEUROLOGICAL Hx Multiple Sclerosis: Yes - RENAL Hx Chronic Kidney Disease: Yes - HEMATOLOGICAL/ONCOLOGICAL Other/Comment: sepsis - MUSCULOSKELETAL/RHEUMATOLOGICAL Hx Falls: Yes - GASTROINTESTINAL Hx Gastrointestinal Disorders: Yes Other/Comment: Peg tube. Dysphagia - GENITOURINARY/GYNECOLOGICAL Other/Comment: hx MRSA in urine 2012 - PSYCHIATRIC Hx Substance Use: No - SURGICAL HISTORY Hx Surgeries: Yes Other/Comment: PEG insertion: Suprapubic cath - ANESTHESIA Hx Anesthesia: Yes Hx Anesthesia Reactions: No Hx Malignant Hyperthermia: No Meds Allergies/Adverse Reactions: Allergies Allergy/AdvReac Type Severity Reaction Status Date / Time No Known Allergies Allergy Verified 03/04/18 05:12 - Medications Medications: Current Medications Acetaminophen (Tylenol 325mg Tab) 975 mg PEG ONCE PRN PRN Reason: Fever >100.4 F Albuterol Sulfate (Albuterol 0.083% Inhal Gisella (2.5 Mg/3 Ml) Ud) 2.5 mg IH RQ6 [facility] Last Admin: 03/06/18 07:28 Dose: Not Given Aspirin (Ecotrin) 81 mg PO DAILY [facility] Last Admin: 03/06/18 09:29 Dose: 81 mg Dextrose (Dextrose 50% Inj) 0 ml IV STAT PRN; Protocol PRN Reason: Hypoglycemia Protocol Dextrose (Glutose 15) 0 gm PO ONCE PRN; Protocol PRN Reason: Hypoglycemia Protocol Glucagon (Glucagen Diagnostic Kit) 0 mg IM STAT PRN; Protocol PRN Reason: Hypoglycemia Protocol Piperacillin Sod/Tazobactam Sod (Zosyn 3.375 Gm Iv Premix) 3.375 gm in 50 mls @ 100 mls/hr IVPB Q8H [facility]; Protocol Last Admin: 03/06/18 06:00 Dose: 100 mls/hr Vancomycin/Sodium Chloride (Vancomycin 1 Gm/Ns 200 Ml) 1 gm in 200 mls @ 166.7 mls/hr IVPB Q24H [facility]; Protocol Stop: 03/10/18 07:01 Last Admin: 03/06/18 07:37 Dose: 166.7 mls/hr Dextrose (Dextrose 5% In Water 1000 Ml) 1,000 mls @ 0 mls/hr IV .Q0M PRN; Protocol PRN Reason: Hypoglycemia Protocol Potassium Chloride (Potassium Chloride 20 Meq/100 Ml) 20 meq in 100 mls @ 50 mls/hr IVPB ONCE ONE Stop: 03/06/18 11:29 Last Admin: 03/06/18 09:27 Dose: 50 mls/hr Magnesium Sulfate/Dextrose (Magnesium Sulfate 1 Gm/100 Ml D5w) 1 gm in 100 mls @ 200 mls/hr IVPB ONCE ONE Stop: 03/06/18 09:59 Last Admin: 03/06/18 09:29 Dose: 200 mls/hr Potassium Phosphate 15 mmole/ (Dextrose) 255 mls @ 42.5 mls/hr IVPB ONCE ONE Stop: 03/06/18 15:59 Metoprolol Tartrate (Lopressor) 12.5 mg PEG Q12 [facility] Last Admin: 03/06/18 09:30 Dose: 12.5 mg Pantoprazole Sodium (Protonix Inj) 40 mg IVP Q12H [facility] Last Admin: 03/06/18 07:37 Dose: 40 mg Potassium Chloride (Potassium Chloride Oral Soln) 40 meq PO Q6H [facility] Stop: 03/06/18 15:31 Last Admin: 03/06/18 09:30 Dose: 40 meq Rosuvastatin Calcium (Crestor) 5 mg PO HS [facility] Last Admin: 03/05/18 23:12 Dose: 5 mg Tamsulosin HCl (Flomax) 0.4 mg PO DAILY [facility] Last Admin: 03/06/18 09:29 Dose: 0.4 mg Physical Exam - Constitutional Appears: Chronically Ill - Head Exam Additional comments: left facial droop, with saliva - Eye Exam Eye Exam: absent: Scleral icterus - Neck Exam Neck exam: Positive for: Normal Inspection - Respiratory Exam Respiratory Exam: NORMAL BREATHING PATTERN - Cardiovascular Exam Cardiovascular Exam: Tachycardia, REGULAR RHYTHM - GI/Abdominal Exam GI & Abdominal Exam: Normal Bowel Sounds, Soft. absent: Guarding, Mass, Rebound, Tenderness Additional comments: replacement gastrostomy tube in place, clean, dry, without surrounding erythema Results - Vital Signs Recent Vital Signs: Last Vital Signs Temp 98.3 F 03/06/18 08:00 Pulse 96 H 03/06/18 08:00 Resp 31 H 03/06/18 08:00 BP 130/78 03/06/18 07:42 Pulse Ox 96 03/06/18 08:00 - Labs Result Diagrams: 03/06/18 07:55 03/06/18 07:55 Labs: Laboratory Results - last 24 hr 03/04/18 03/05/18 03/05/18 13:33 11:48 18:19 WBC RBC Hgb Hct MCV MCH MCHC RDW Plt Count MPV Neut % (Auto) Lymph % (Auto) [place] % (Auto) Eos % (Auto) Baso % (Auto) Neut # (Auto) Lymph # (Auto) [place] # (Auto) Eos # (Auto) Baso # (Auto) PT INR APTT Sodium Potassium Chloride Carbon Dioxide Anion Gap BUN Creatinine Est GFR ( Amer) Est GFR (Non-Af Amer) POC Glucose (mg/dL) 102 92 Random Glucose Calcium Phosphorus Magnesium Total Bilirubin AST ALT Alkaline Phosphatase Total Protein Albumin Globulin Albumin/Globulin Ratio Ur Opiates (GC/MS) Negative Ur Methadone, Qual Negative Urine Propoxyphene Negative Methaqualone Negative Ur Barbiturates, Qual Negative Ur Phencyclidine (PCP) Negative Ur Amphetamines Screen Negative U Benzodiazepines Qual Negative Urine Cocaine Negative U Marijuana (THC) Screen Negative Drugs of Abuse Note See note 03/06/18 03/06/18 03/06/18 00:03 07:55 07:55 WBC 10.7 RBC 4.26 L Hgb 11.0 L Hct 33.8 L MCV 79.3 L MCH 25.7 L MCHC 32.4 L RDW 16.8 H Plt Count 94 L MPV 11.9 H Neut % (Auto) 83.7 H Lymph % (Auto) 9.4 L [place] % (Auto) 4.8 Eos % (Auto) 1.7 Baso % (Auto) 0.4 Neut # (Auto) 8.9 H Lymph # (Auto) 1.0 [place] # (Auto) 0.5 Eos # (Auto) 0.2 Baso # (Auto) 0.0 PT 20.3 H D INR 1.9 D APTT 36 H Sodium Potassium Chloride Carbon Dioxide Anion Gap BUN Creatinine Est GFR ( Amer) Est GFR (Non-Af Amer) POC Glucose (mg/dL) 92 Random Glucose Calcium Phosphorus Magnesium Total Bilirubin AST ALT Alkaline Phosphatase Total Protein Albumin Globulin Albumin/Globulin Ratio Ur Opiates (GC/MS) Ur Methadone, Qual Urine Propoxyphene Methaqualone Ur Barbiturates, Qual Ur Phencyclidine (PCP) Ur Amphetamines Screen U Benzodiazepines Qual Urine Cocaine U Marijuana (THC) Screen Drugs of Abuse Note 03/06/18 07:55 WBC RBC Hgb Hct MCV MCH MCHC RDW Plt Count MPV Neut % (Auto) Lymph % (Auto) [place] % (Auto) Eos % (Auto) Baso % (Auto) Neut # (Auto) Lymph # (Auto) [place] # (Auto) Eos # (Auto) Baso # (Auto) PT INR APTT Sodium 151 H Potassium 3.3 L Chloride 126 H Carbon Dioxide 20 L Anion Gap 8 L BUN 17 Creatinine 0.9 Est GFR ( Amer) > 60 Est GFR (Non-Af Amer) > 60 POC Glucose (mg/dL) Random Glucose 89 Calcium 7.7 L Phosphorus 2.1 L Magnesium 2.0 Total Bilirubin 1.6 H AST 36 ALT 54 Alkaline Phosphatase 80 Total Protein 5.7 L Albumin 2.5 L Globulin 3.2 Albumin/Globulin Ratio 0.8 L Ur Opiates (GC/MS) Ur Methadone, Qual Urine Propoxyphene Methaqualone Ur Barbiturates, Qual Ur Phencyclidine (PCP) Ur Amphetamines Screen U Benzodiazepines Qual Urine Cocaine U Marijuana (THC) Screen Drugs of Abuse Note Assessment & Plan (1) Sepsis Assessment and Plan: Undetermined cause of fevers, Staph bacteremia in patient with Multiple Sclerosis and gastrostomy tube. Portal venous gas noted on CT, however patient is presently asymptomatic. Need to exclude acalculous cholecystitis (no calculi seen on sono in July), biliary obstruction, or other types of hepatobiliary diseases. Rec: sono RUQ, direct bili, ID follow up for antibiotic management Status: Acute (2) Gastrostomy status Assessment and Plan: appears functional and without infection Status: Acute (3) Hypochromic microcytic anemia Assessment and Plan: Esophagitis and gastritis noted on EGD July [address] Lundberg, at which time patient presented with hematemesis. Patient is on antiplatelet therapy, and is also thrombocytopenic and coagulopathic. Rec: PPI, check Iron studies and stool OB. Not presently a candidate for colonoscopy. Agree with holding Primo1D. Status: Acute - Date & Time Date: 03/06/18 Time: 09:57
[2018-03-06 09:49] LABS: ANISOCYTOSIS SLIGHT; BANDS 9 % (0-2); EOSINOPHIL 1 % (0-4); LYMPHOCYTE 9 % (20-40); MONOCYTE 3 % (0-10); NEUTROPHIL 78 % (50-75); PLATELET ESTIMATE DECREASED (NORMAL); TOTAL CELLS COUNTED 100
[2018-03-06 09:50] LABS: HYPOCHROMIC SLIGHT; LARGE PLATELETS PRESENT; POLYCHROMIC SLIGHT; TOXIC GRANULATION PRESENT
[2018-03-06] MEDS ORDERED: Potassium Phosphate 15 MMOLE in Dextrose 5% In Water 250 ML IVPB ONE (10:00)
[2018-03-06 11:00] LABS: IRON 13 ug/dL (49-181)
[2018-03-06 11:09] LABS: % IRON SATURATION 6 (20-55); TOTAL IRON BINDING CAPACITY 215 ug/dL (250-450)
--- NOTE | 2018-03-06 13:01 | CP.PCM.PN ---
Subjective - Date & Time of Evaluation Date of Evaluation: 03/06/18 Time of Evaluation: 10:00 - Subjective Subjective: clinically same Objective - Vital Signs/Intake and Output Vital Signs (last 24 hours): Temp Pulse Resp BP Pulse Ox 98 F 85 25 H 112/70 88 L 03/06/18 12:00 03/06/18 12:00 03/06/18 12:00 03/06/18 11:41 03/06/18 12:00 Intake and Output: 03/06/18 03/06/18 06:59 18:59 Intake Total 900 1006 Output Total 375 Balance 525 1006 - Medications Medications: Current Medications Acetaminophen (Tylenol 325mg Tab) 975 mg PEG ONCE PRN PRN Reason: Fever >100.4 F Albuterol Sulfate (Albuterol 0.083% Inhal Gisella (2.5 Mg/3 Ml) Ud) 2.5 mg IH RQ6 [facility] Last Admin: 03/06/18 07:28 Dose: Not Given Aspirin (Ecotrin) 81 mg PO DAILY [facility] Last Admin: 03/06/18 09:29 Dose: 81 mg Dextrose (Dextrose 50% Inj) 0 ml IV STAT PRN; Protocol PRN Reason: Hypoglycemia Protocol Dextrose (Glutose 15) 0 gm PO ONCE PRN; Protocol PRN Reason: Hypoglycemia Protocol Glucagon (Glucagen Diagnostic Kit) 0 mg IM STAT PRN; Protocol PRN Reason: Hypoglycemia Protocol Piperacillin Sod/Tazobactam Sod (Zosyn 3.375 Gm Iv Premix) 3.375 gm in 50 mls @ 100 mls/hr IVPB Q8H [facility]; Protocol Last Admin: 03/06/18 06:00 Dose: 100 mls/hr Vancomycin/Sodium Chloride (Vancomycin 1 Gm/Ns 200 Ml) 1 gm in 200 mls @ 166.7 mls/hr IVPB Q24H [facility]; Protocol Stop: 03/10/18 07:01 Last Admin: 03/06/18 07:37 Dose: 166.7 mls/hr Dextrose (Dextrose 5% In Water 1000 Ml) 1,000 mls @ 0 mls/hr IV .Q0M PRN; Protocol PRN Reason: Hypoglycemia Protocol Potassium Phosphate 15 mmole/ (Dextrose) 255 mls @ 42.5 mls/hr IVPB ONCE ONE Stop: 03/06/18 15:59 Last Admin: 03/06/18 10:20 Dose: 42.5 mls/hr Metoprolol Tartrate (Lopressor) 12.5 mg PEG Q12 [facility] Last Admin: 03/06/18 09:30 Dose: 12.5 mg Pantoprazole Sodium (Protonix Inj) 40 mg IVP Q12H [facility] Last Admin: 03/06/18 07:37 Dose: 40 mg Potassium Chloride (Potassium Chloride Oral Soln) 40 meq PO Q6H [facility] Stop: 03/06/18 15:31 Last Admin: 03/06/18 09:30 Dose: 40 meq Rosuvastatin Calcium (Crestor) 5 mg PO HS [facility] Last Admin: 03/05/18 23:12 Dose: 5 mg Tamsulosin HCl (Flomax) 0.4 mg PO DAILY [facility] Last Admin: 03/06/18 09:29 Dose: 0.4 mg - Labs Labs: 03/06/18 07:55 03/06/18 07:55 PT 20.3 SECONDS (9.7-12.2) H D 03/06/18 07:55 INR 1.9 D 03/06/18 07:55 APTT 36 SECONDS (21-34) H 03/06/18 07:55 - Constitutional Appears: Well - Head Exam Head Exam: ATRAUMATIC, NORMAL INSPECTION, NORMOCEPHALIC - Eye Exam Eye Exam: EOMI, Normal appearance, PERRL Pupil Exam: NORMAL ACCOMODATION, PERRL - ENT Exam ENT Exam: Mucous Membranes Moist, Normal Exam - Neck Exam Neck Exam: Full ROM, Normal Inspection. absent: Lymphadenopathy - Respiratory Exam Respiratory Exam: Decreased Breath Sounds - Cardiovascular Exam Cardiovascular Exam: REGULAR RHYTHM, +S1, +S2 - GI/Abdominal Exam GI & Abdominal Exam: Soft, Diminished Bowel Sounds - Rectal Exam Rectal Exam: Deferred
--- NOTE | 2018-03-06 13:40 | US ---
Date of service: 03/06/2018 HISTORY: portal venous gas COMPARISON: None. TECHNIQUE: Sonographic evaluation of the right upper quadrant of the abdomen. FINDINGS: LIVER: Measures 16.9 cm in length. Diffusely increased echogenicity of the liver parenchyma. No mass. No intrahepatic bile duct dilatation. GALLBLADDER: Gallbladder is distended with extensive sludge in the lumen and mural thickening up to 3.9 mm. No sonographic Bray sign is reported and there is no pericholecystic fluid collection. Small polyp is questioned in the nondependent portion of the gallbladder. This may also represent focal adenomyosis. Clinically correlate overall for potential cholecystitis. COMMON BILE DUCT: Measures 5.7 mm. No stones. No dilatation. PANCREAS: Pancreas completely obscured by overlying bowel gas. RIGHT KIDNEY: Measures 10.9 cm in length. Cortical atrophy is appreciated without focal lesion associated. There is poor corticomedullary differentiation which may be seen in intrinsic medical renal disease. Clinically correlate further. No calculus, mass, or hydronephrosis. AORTA: No aneurysmal dilatation. IVC: Unremarkable. OTHER FINDINGS: None . IMPRESSION: 1. Thick gallbladder wall with extensive sludge in the lumen but no pericholecystic fluid collection or reported sonographic Bray's sign. Clinically correlate for potential cholecystitis nevertheless. 2. Normal caliber visualized proximal common bile duct. 3. Potential intrinsic medical renal disease. 4. Hepatic steatosis or other infiltrative process.
--- NOTE | 2018-03-06 13:42 | CP.PCM.PN ---
Subjective - Date & Time of Evaluation Date of Evaluation: 03/06/18 Time of Evaluation: 10:15 - Subjective Subjective: clinically same Objective - Vital Signs/Intake and Output Vital Signs (last 24 hours): Temp Pulse Resp BP Pulse Ox 98 F 97 H 24 119/58 L 98 03/06/18 12:00 03/06/18 13:00 03/06/18 13:00 03/06/18 12:41 03/06/18 13:00 Intake and Output: 03/06/18 03/06/18 06:59 18:59 Intake Total 900 1006 Output Total 375 Balance 525 1006 - Medications Medications: Current Medications Acetaminophen (Tylenol 325mg Tab) 975 mg PEG ONCE PRN PRN Reason: Fever >100.4 F Albuterol Sulfate (Albuterol 0.083% Inhal Gisella (2.5 Mg/3 Ml) Ud) 2.5 mg IH RQ6 [facility] Last Admin: 03/06/18 07:28 Dose: Not Given Aspirin (Ecotrin) 81 mg PO DAILY [facility] Last Admin: 03/06/18 09:29 Dose: 81 mg Dextrose (Dextrose 50% Inj) 0 ml IV STAT PRN; Protocol PRN Reason: Hypoglycemia Protocol Dextrose (Glutose 15) 0 gm PO ONCE PRN; Protocol PRN Reason: Hypoglycemia Protocol Glucagon (Glucagen Diagnostic Kit) 0 mg IM STAT PRN; Protocol PRN Reason: Hypoglycemia Protocol Piperacillin Sod/Tazobactam Sod (Zosyn 3.375 Gm Iv Premix) 3.375 gm in 50 mls @ 100 mls/hr IVPB Q8H [facility]; Protocol Last Admin: 03/06/18 06:00 Dose: 100 mls/hr Vancomycin/Sodium Chloride (Vancomycin 1 Gm/Ns 200 Ml) 1 gm in 200 mls @ 166.7 mls/hr IVPB Q24H [facility]; Protocol Stop: 03/10/18 07:01 Last Admin: 03/06/18 07:37 Dose: 166.7 mls/hr Dextrose (Dextrose 5% In Water 1000 Ml) 1,000 mls @ 0 mls/hr IV .Q0M PRN; Protocol PRN Reason: Hypoglycemia Protocol Potassium Phosphate 15 mmole/ (Dextrose) 255 mls @ 42.5 mls/hr IVPB ONCE ONE Stop: 03/06/18 15:59 Last Admin: 03/06/18 10:20 Dose: 42.5 mls/hr Metoprolol Tartrate (Lopressor) 12.5 mg PEG Q12 [facility] Last Admin: 03/06/18 09:30 Dose: 12.5 mg Pantoprazole Sodium (Protonix Inj) 40 mg IVP Q12H [facility] Last Admin: 03/06/18 07:37 Dose: 40 mg Potassium Chloride (Potassium Chloride Oral Soln) 40 meq PO Q6H [facility] Stop: 03/06/18 15:31 Last Admin: 03/06/18 09:30 Dose: 40 meq Rosuvastatin Calcium (Crestor) 5 mg PO HS [facility] Last Admin: 03/05/18 23:12 Dose: 5 mg Tamsulosin HCl (Flomax) 0.4 mg PO DAILY [facility] Last Admin: 03/06/18 09:29 Dose: 0.4 mg - Labs Labs: 03/06/18 07:55 03/06/18 07:55 PT 20.3 SECONDS (9.7-12.2) H D 03/06/18 07:55 INR 1.9 D 03/06/18 07:55 APTT 36 SECONDS (21-34) H 03/06/18 07:55 - Constitutional Appears: Well - Head Exam Head Exam: ATRAUMATIC, NORMAL INSPECTION, NORMOCEPHALIC - Eye Exam Eye Exam: EOMI, Normal appearance, PERRL Pupil Exam: NORMAL ACCOMODATION, PERRL - ENT Exam ENT Exam: Mucous Membranes Moist, Normal Exam - Neck Exam Neck Exam: Full ROM, Normal Inspection. absent: Lymphadenopathy - Respiratory Exam Respiratory Exam: Decreased Breath Sounds - Cardiovascular Exam Cardiovascular Exam: REGULAR RHYTHM, +S1, +S2 - GI/Abdominal Exam GI & Abdominal Exam: Soft, Diminished Bowel Sounds - Rectal Exam Rectal Exam: Deferred
--- NOTE | 2018-03-06 14:36 | CP.PCM.PN ---
Subjective - Date & Time of Evaluation Date of Evaluation: 03/06/18 Time of Evaluation: 14:34 - Subjective Subjective: Patient has no specific complatins. afebrile, tolerating free water, Objective - Vital Signs/Intake and Output Vital Signs (last 24 hours): Temp Pulse Resp BP Pulse Ox 98 F 89 21 115/54 L 95 03/06/18 12:00 03/06/18 14:00 03/06/18 14:00 03/06/18 13:41 03/06/18 14:00 Intake and Output: 03/06/18 03/06/18 06:59 18:59 Intake Total 900 1078 Output Total 375 Balance 525 1078 - Medications Medications: Current Medications Acetaminophen (Tylenol 325mg Tab) 975 mg PEG ONCE PRN PRN Reason: Fever >100.4 F Albuterol Sulfate (Albuterol 0.083% Inhal Gisella (2.5 Mg/3 Ml) Ud) 2.5 mg IH RQ6 [facility] Last Admin: 03/06/18 07:28 Dose: Not Given Aspirin (Ecotrin) 81 mg PO DAILY [facility] Last Admin: 03/06/18 09:29 Dose: 81 mg Dextrose (Dextrose 50% Inj) 0 ml IV STAT PRN; Protocol PRN Reason: Hypoglycemia Protocol Dextrose (Glutose 15) 0 gm PO ONCE PRN; Protocol PRN Reason: Hypoglycemia Protocol Glucagon (Glucagen Diagnostic Kit) 0 mg IM STAT PRN; Protocol PRN Reason: Hypoglycemia Protocol Piperacillin Sod/Tazobactam Sod (Zosyn 3.375 Gm Iv Premix) 3.375 gm in 50 mls @ 100 mls/hr IVPB Q8H [facility]; Protocol Last Admin: 03/06/18 14:14 Dose: 100 mls/hr Vancomycin/Sodium Chloride (Vancomycin 1 Gm/Ns 200 Ml) 1 gm in 200 mls @ 166.7 mls/hr IVPB Q24H [facility]; Protocol Stop: 03/10/18 07:01 Last Admin: 03/06/18 07:37 Dose: 166.7 mls/hr Dextrose (Dextrose 5% In Water 1000 Ml) 1,000 mls @ 0 mls/hr IV .Q0M PRN; Protocol PRN Reason: Hypoglycemia Protocol Potassium Phosphate 15 mmole/ (Dextrose) 255 mls @ 42.5 mls/hr IVPB ONCE ONE Stop: 03/06/18 15:59 Last Admin: 03/06/18 10:20 Dose: 42.5 mls/hr Metoprolol Tartrate (Lopressor) 12.5 mg PEG Q12 [facility] Last Admin: 03/06/18 09:30 Dose: 12.5 mg Pantoprazole Sodium (Protonix Inj) 40 mg IVP Q12H [facility] Last Admin: 03/06/18 07:37 Dose: 40 mg Potassium Chloride (Potassium Chloride Oral Soln) 40 meq PO Q6H [facility] Stop: 03/06/18 15:31 Last Admin: 03/06/18 09:30 Dose: 40 meq Rosuvastatin Calcium (Crestor) 5 mg PO HS [facility] Last Admin: 03/05/18 23:12 Dose: 5 mg Tamsulosin HCl (Flomax) 0.4 mg PO DAILY [facility] Last Admin: 03/06/18 09:29 Dose: 0.4 mg - Labs Labs: 03/06/18 07:55 03/06/18 07:55 PT 20.3 SECONDS (9.7-12.2) H D 03/06/18 07:55 INR 1.9 D 03/06/18 07:55 APTT 36 SECONDS (21-34) H 03/06/18 07:55 - Constitutional Appears: Non-toxic - Head Exam Head Exam: ATRAUMATIC, NORMAL INSPECTION - Eye Exam Pupil Exam: PERRL - ENT Exam ENT Exam: Mucous Membranes Moist - Respiratory Exam Respiratory Exam: NORMAL BREATHING PATTERN - Cardiovascular Exam Cardiovascular Exam: +S1, +S2, Murmur - GI/Abdominal Exam GI & Abdominal Exam: Normal Bowel Sounds Additional comments: peg - Extremities Exam Extremities Exam: Normal Inspection - Neurological Exam Neurological Exam: Alert, Awake Neuro motor strength exam: Left Upper Extremity: 2/1, Right Upper Extremity: 3, Left Lower Extremity: 4, Right Lower Extremity: 4 - Skin Skin Exam: Normal Color Assessment and Plan - Assessment and Plan (Free Text) Assessment: Sepsis: GPC bacteremia: continue broad spectrum abx as per ID Hypernatremia-dehydration improving with IVF and peg free water -A-fib rate controlled, off AC 2nd high INR , restart eliquis when INR < 2.0 -continue dvt/pud ppx Patient remains hemodynamically stable.
[2018-03-06 16:12] LABS: OXYCODONE SCREEN negative
[2018-03-06] MEDS ORDERED: Potassium Chloride 20 mEq ER Tab PO SCH (19:30)
[2018-03-07] MEDS: Piperacill/Tazo 3.375gm in Dex 3.375 GM/50 ML BAG IVPB SCH ×2 (05:24→13:01)
[2018-03-07] MEDS: Vancomycin 1 gm/NS 200 ml 1 GM/200 ML BAG IVPB SCH (06:26)
[2018-03-07 06:39] LABS: BASO % 0.2 % (0.0-2.0); EOS # 0.3 K/uL (0.0-0.7); EOS % 3.6 % (0.0-4.0); HEMOGLOBIN 10.7 g/dL (12.0-18.0); LYMPH # 1.2 K/uL (1.0-4.3); LYMPH % 13.9 % (20.0-40.0); MEAN CELL VOLUME 78.9 fL (80.0-94.0); MEAN CORPUSCULAR HEMOGLOBIN 25.4 pg (27.0-31.0); MEAN CORPUSCULAR HGB CONC 32.2 g/dL (33.0-37.0); MEAN PLATELET VOLUME 11.7 fL (7.2-11.7); MONO # 0.6 K/uL (0.0-0.8); MONO % 7.4 % (0.0-10.0); NEUT # 6.3 K/uL (1.8-7.0); NEUT % 74.9 % (50.0-75.0); RBC 4.2 Mil/uL (4.40-5.90); RED CELL DISTRIBUTION WIDTH 17.4 % (11.5-14.5); WHITE BLOOD COUNT 8.4 K/uL (4.8-10.8)
[2018-03-07 06:51] LABS: INR 1.5; PROTHROMBIN TIME 16.2 SECONDS (9.7-12.2)
[2018-03-07] MEDS: Albuterol 0.083% Inhal Sol (2.5 mg/3 mL) UD IH SCH ×3 (07:37→20:23)
[2018-03-07 08:35] LABS: ALB/GLOB RATIO 0.8 (1.0-2.1); ALBUMIN 2.6 g/dL (3.5-5.0); ALT/SGPT 63 U/L (21-72); AST/SGOT 38 U/L (17-59); BLOOD UREA NITROGEN 14 mg/dL (9-20); CALCIUM 7.9 mg/dl (8.6-10.4); GFR NON-AFRICAN AMERICAN > 60
[2018-03-07] MEDS ORDERED: Potassium Phosphate 15 MMOLE in Dextrose 5% In Water 250 ML IVPB ONE (08:48)
[2018-03-07 09:10] LABS: FERRITIN 71.3 ng/mL
[2018-03-07] MEDS: Magnesium Sulfate 1 gm in D5W 1 GM/100 ML BAG IVPB SCH (09:52)
--- NOTE | 2018-03-07 10:13 | CP.PCM.PN ---
Subjective - Date & Time of Evaluation Date of Evaluation: 03/07/18 Time of Evaluation: 10:11 - Subjective Subjective: Patient awake, alert in NAD on nasal canula, no acute events overnight Objective - Vital Signs/Intake and Output Vital Signs (last 24 hours): Temp Pulse Resp BP Pulse Ox 98 F 99 H 24 100/55 L 91 L 03/06/18 12:00 03/07/18 09:40 03/07/18 09:40 03/07/18 09:41 03/07/18 09:40 Intake and Output: 03/07/18 03/07/18 06:59 18:59 Intake Total Output Total Balance - Medications Medications: Current Medications Acetaminophen (Tylenol 325mg Tab) 975 mg PEG ONCE PRN PRN Reason: Fever >100.4 F Albuterol Sulfate (Albuterol 0.083% Inhal Gisella (2.5 Mg/3 Ml) Ud) 2.5 mg IH RQ6 [facility] Last Admin: 03/06/18 19:28 Dose: 2.5 mg Apixaban (Eliquis) 5 mg PO BID [facility] Aspirin (Ecotrin) 81 mg PO DAILY [facility] Last Admin: 03/07/18 09:56 Dose: 81 mg Dextrose (Dextrose 50% Inj) 0 ml IV STAT PRN; Protocol PRN Reason: Hypoglycemia Protocol Dextrose (Glutose 15) 0 gm PO ONCE PRN; Protocol PRN Reason: Hypoglycemia Protocol Glucagon (Glucagen Diagnostic Kit) 0 mg IM STAT PRN; Protocol PRN Reason: Hypoglycemia Protocol Piperacillin Sod/Tazobactam Sod (Zosyn 3.375 Gm Iv Premix) 3.375 gm in 50 mls @ 100 mls/hr IVPB Q8H [facility]; Protocol Last Admin: 03/07/18 05:24 Dose: 100 mls/hr Vancomycin/Sodium Chloride (Vancomycin 1 Gm/Ns 200 Ml) 1 gm in 200 mls @ 166.7 mls/hr IVPB Q24H [facility]; Protocol Stop: 03/10/18 07:01 Last Admin: 03/07/18 06:26 Dose: 166.7 mls/hr Dextrose (Dextrose 5% In Water 1000 Ml) 1,000 mls @ 0 mls/hr IV .Q0M PRN; Protocol PRN Reason: Hypoglycemia Protocol Potassium Phosphate 15 mmole/ (Dextrose) 255 mls @ 42.5 mls/hr IVPB ONCE ONE Stop: 03/07/18 14:47 Last Admin: 03/07/18 09:48 Dose: 42.5 mls/hr Metoprolol Tartrate (Lopressor) 12.5 mg PEG Q12 [facility] Last Admin: 03/07/18 09:55 Dose: 12.5 mg Pantoprazole Sodium (Protonix Inj) 40 mg IVP Q12H [facility] Last Admin: 03/07/18 06:26 Dose: 40 mg Rosuvastatin Calcium (Crestor) 5 mg PO HS [facility] Last Admin: 03/06/18 21:42 Dose: 5 mg Tamsulosin HCl (Flomax) 0.4 mg PO DAILY [facility] Last Admin: 03/07/18 09:55 Dose: 0.4 mg - Labs Labs: 03/07/18 06:30 03/07/18 06:30 PT 16.2 SECONDS (9.7-12.2) H 03/07/18 06:30 INR 1.5 03/07/18 06:30 APTT 33 SECONDS (21-34) 03/07/18 06:30 - Head Exam Head Exam: ATRAUMATIC, NORMAL INSPECTION - Eye Exam Eye Exam: EOMI - ENT Exam ENT Exam: Mucous Membranes Moist - Respiratory Exam Respiratory Exam: Clear to Ausculation Bilateral. absent: Accessory Muscle Use, Chest Wall Tenderness, Prolonged Expiratory Phase, Stridor - Cardiovascular Exam Cardiovascular Exam: Irregular Rhythm, +S1, +S2 - GI/Abdominal Exam GI & Abdominal Exam: Normal Bowel Sounds Additional comments: PEG - Extremities Exam Extremities Exam: Normal Capillary Refill, Pedal Edema - Neurological Exam Neurological Exam: Alert, Awake - Skin Skin Exam: Normal Color Assessment and Plan - Assessment and Plan (Free Text) Assessment: Sepsis: GPC bacteremia: continue abx as per ID Hypernatremia-dehydration improving with IVF and peg free water -A-fib rate controlled, INR < 2 restart eliquis -protonix q12 -continue dvt/pud ppx Patient remains hemodynamically stable. Patient can be transferred to telemetry
--- NOTE | 2018-03-07 10:45 | CP.PCM.PN ---
Subjective - Date & Time of Evaluation Date of Evaluation: 03/07/18 Time of Evaluation: 10:43 - Subjective Subjective: f/u portal venous gas on CT In ICU, comfortable Liver chemistries and bilirubin normalized Microcytic anemia and OB positive stool, iron indices c/w anemia of chronic disease. Off Eliquis. Thrombocytopenia improving Sono- large amount of GB sludge + wall thickening without pericholecystic fluid No reported GI issues Objective - Vital Signs/Intake and Output Vital Signs (last 24 hours): Temp Pulse Resp BP Pulse Ox 99 F 93 H 28 H 100/55 L 91 L 03/07/18 08:00 03/07/18 10:00 03/07/18 10:00 03/07/18 10:00 03/07/18 10:00 Intake and Output: 03/07/18 03/07/18 06:59 18:59 Intake Total 547.5 Output Total 0 Balance 547.5 - Medications Medications: Current Medications Acetaminophen (Tylenol 325mg Tab) 975 mg PEG ONCE PRN PRN Reason: Fever >100.4 F Albuterol Sulfate (Albuterol 0.083% Inhal Gisella (2.5 Mg/3 Ml) Ud) 2.5 mg IH RQ6 [facility] Last Admin: 03/06/18 19:28 Dose: 2.5 mg Apixaban (Eliquis) 5 mg PO BID [facility] Aspirin (Ecotrin) 81 mg PO DAILY [facility] Last Admin: 03/07/18 09:56 Dose: 81 mg Dextrose (Dextrose 50% Inj) 0 ml IV STAT PRN; Protocol PRN Reason: Hypoglycemia Protocol Dextrose (Glutose 15) 0 gm PO ONCE PRN; Protocol PRN Reason: Hypoglycemia Protocol Glucagon (Glucagen Diagnostic Kit) 0 mg IM STAT PRN; Protocol PRN Reason: Hypoglycemia Protocol Piperacillin Sod/Tazobactam Sod (Zosyn 3.375 Gm Iv Premix) 3.375 gm in 50 mls @ 100 mls/hr IVPB Q8H [facility]; Protocol Last Admin: 03/07/18 05:24 Dose: 100 mls/hr Vancomycin/Sodium Chloride (Vancomycin 1 Gm/Ns 200 Ml) 1 gm in 200 mls @ 166.7 mls/hr IVPB Q24H [facility]; Protocol Stop: 03/10/18 07:01 Last Admin: 03/07/18 06:26 Dose: 166.7 mls/hr Dextrose (Dextrose 5% In Water 1000 Ml) 1,000 mls @ 0 mls/hr IV .Q0M PRN; Protocol PRN Reason: Hypoglycemia Protocol Potassium Phosphate 15 mmole/ (Dextrose) 255 mls @ 42.5 mls/hr IVPB ONCE ONE Stop: 03/07/18 14:47 Last Admin: 03/07/18 09:48 Dose: 42.5 mls/hr Metoprolol Tartrate (Lopressor) 12.5 mg PEG Q12 [facility] Last Admin: 03/07/18 09:55 Dose: 12.5 mg Pantoprazole Sodium (Protonix Inj) 40 mg IVP Q12H [facility] Last Admin: 03/07/18 06:26 Dose: 40 mg Rosuvastatin Calcium (Crestor) 5 mg PO HS [facility] Last Admin: 03/06/18 21:42 Dose: 5 mg Tamsulosin HCl (Flomax) 0.4 mg PO DAILY [facility] Last Admin: 03/07/18 09:55 Dose: 0.4 mg - Labs Labs: 03/07/18 06:30 03/07/18 06:30 PT 16.2 SECONDS (9.7-12.2) H 03/07/18 06:30 INR 1.5 03/07/18 06:30 APTT 33 SECONDS (21-34) 03/07/18 06:30 - Constitutional Appears: Chronically Ill - Head Exam Head Exam: NORMOCEPHALIC - Eye Exam Eye Exam: absent: Scleral icterus - Respiratory Exam Respiratory Exam: NORMAL BREATHING PATTERN - Cardiovascular Exam Cardiovascular Exam: REGULAR RHYTHM - GI/Abdominal Exam GI & Abdominal Exam: Soft. absent: Distended, Tenderness Additional comments: GTube - Neurological Exam Neurological Exam: Alert, Awake Additional comments: aphasic Assessment and Plan (1) Sepsis Assessment & Plan: Possibly from acalculous cholecystitis Sepsis appears under control Rec: HIDA scan, continue conservative treatment, antibiotics Status: Acute (2) Gastrostomy status Assessment & Plan: stable Status: Acute (3) Hypochromic microcytic anemia Assessment & Plan: occult blood in stool EGD done in July- gastritis/esophagitis Not an ideal candidate for colonoscopy Status: Acute (4) Gilbert's syndrome Assessment & Plan: mainly indirect hyperbilirubinemia Stable No intervention needed Status: Acute
--- NOTE | 2018-03-07 13:06 | CP.PCM.PN ---
Subjective - Date & Time of Evaluation Date of Evaluation: 03/07/18 Time of Evaluation: 11:30 - Subjective Subjective: clinically same Objective - Vital Signs/Intake and Output Vital Signs (last 24 hours): Temp Pulse Resp BP Pulse Ox 98.9 F 72 24 122/60 95 03/07/18 12:00 03/07/18 12:00 03/07/18 12:00 03/07/18 12:00 03/07/18 12:00 Intake and Output: 03/07/18 03/07/18 06:59 18:59 Intake Total 790.0 Output Total 0 Balance 790.0 - Medications Medications: Current Medications Acetaminophen (Tylenol 325mg Tab) 975 mg PEG ONCE PRN PRN Reason: Fever >100.4 F Albuterol Sulfate (Albuterol 0.083% Inhal Gisella (2.5 Mg/3 Ml) Ud) 2.5 mg IH RQ6 [facility] Last Admin: 03/06/18 19:28 Dose: 2.5 mg Apixaban (Eliquis) 5 mg PO BID [facility] Last Admin: 03/07/18 11:00 Dose: 5 mg Aspirin (Ecotrin) 81 mg PO DAILY [facility] Last Admin: 03/07/18 09:56 Dose: 81 mg Dextrose (Dextrose 50% Inj) 0 ml IV STAT PRN; Protocol PRN Reason: Hypoglycemia Protocol Dextrose (Glutose 15) 0 gm PO ONCE PRN; Protocol PRN Reason: Hypoglycemia Protocol Glucagon (Glucagen Diagnostic Kit) 0 mg IM STAT PRN; Protocol PRN Reason: Hypoglycemia Protocol Piperacillin Sod/Tazobactam Sod (Zosyn 3.375 Gm Iv Premix) 3.375 gm in 50 mls @ 100 mls/hr IVPB Q8H [facility]; Protocol Last Admin: 03/07/18 13:01 Dose: 100 mls/hr Vancomycin/Sodium Chloride (Vancomycin 1 Gm/Ns 200 Ml) 1 gm in 200 mls @ 166.7 mls/hr IVPB Q24H [facility]; Protocol Stop: 03/10/18 07:01 Last Admin: 03/07/18 06:26 Dose: 166.7 mls/hr Dextrose (Dextrose 5% In Water 1000 Ml) 1,000 mls @ 0 mls/hr IV .Q0M PRN; Protocol PRN Reason: Hypoglycemia Protocol Potassium Phosphate 15 mmole/ (Dextrose) 255 mls @ 42.5 mls/hr IVPB ONCE ONE Stop: 03/07/18 14:47 Last Admin: 03/07/18 09:48 Dose: 42.5 mls/hr Metoprolol Tartrate (Lopressor) 12.5 mg PEG Q12 [facility] Last Admin: 03/07/18 09:55 Dose: 12.5 mg Pantoprazole Sodium (Protonix Inj) 40 mg IVP Q12H [facility] Last Admin: 03/07/18 06:26 Dose: 40 mg Rosuvastatin Calcium (Crestor) 5 mg PO HS [facility] Last Admin: 03/06/18 21:42 Dose: 5 mg Tamsulosin HCl (Flomax) 0.4 mg PO DAILY [facility] Last Admin: 03/07/18 09:55 Dose: 0.4 mg - Labs Labs: 03/07/18 06:30 03/07/18 06:30 PT 16.2 SECONDS (9.7-12.2) H 03/07/18 06:30 INR 1.5 03/07/18 06:30 APTT 33 SECONDS (21-34) 03/07/18 06:30 - Constitutional Appears: Well - Head Exam Head Exam: ATRAUMATIC, NORMAL INSPECTION, NORMOCEPHALIC - Eye Exam Eye Exam: EOMI, Normal appearance, PERRL Pupil Exam: NORMAL ACCOMODATION, PERRL - ENT Exam ENT Exam: Mucous Membranes Moist, Normal Exam - Neck Exam Neck Exam: Full ROM, Normal Inspection. absent: Lymphadenopathy - Respiratory Exam Respiratory Exam: Decreased Breath Sounds - Cardiovascular Exam Cardiovascular Exam: REGULAR RHYTHM, +S1, +S2 - GI/Abdominal Exam GI & Abdominal Exam: Soft, Diminished Bowel Sounds - Rectal Exam Rectal Exam: Deferred
--- NOTE | 2018-03-07 15:24 | CP.PCM.PN ---
Subjective - Date & Time of Evaluation Date of Evaluation: 03/07/18 Time of Evaluation: 08:00 - Subjective Subjective: awake alert nad Objective - Vital Signs/Intake and Output Vital Signs (last 24 hours): Temp Pulse Resp BP Pulse Ox 98.9 F 76 221 H 117/67 94 L 03/07/18 12:00 03/07/18 13:00 03/07/18 13:00 03/07/18 13:00 03/07/18 13:00 Intake and Output: 03/07/18 03/07/18 06:59 18:59 Intake Total 1280.0 Output Total 0 Balance 1280.0 - Medications Medications: Current Medications Acetaminophen (Tylenol 325mg Tab) 975 mg PEG ONCE PRN PRN Reason: Fever >100.4 F Albuterol Sulfate (Albuterol 0.083% Inhal Gisella (2.5 Mg/3 Ml) Ud) 2.5 mg IH RQ6 [facility] Last Admin: 03/06/18 19:28 Dose: 2.5 mg Apixaban (Eliquis) 5 mg PO BID [facility] Last Admin: 03/07/18 11:00 Dose: 5 mg Aspirin (Ecotrin) 81 mg PO DAILY [facility] Last Admin: 03/07/18 09:56 Dose: 81 mg Dextrose (Dextrose 50% Inj) 0 ml IV STAT PRN; Protocol PRN Reason: Hypoglycemia Protocol Dextrose (Glutose 15) 0 gm PO ONCE PRN; Protocol PRN Reason: Hypoglycemia Protocol Glucagon (Glucagen Diagnostic Kit) 0 mg IM STAT PRN; Protocol PRN Reason: Hypoglycemia Protocol Vancomycin/Sodium Chloride (Vancomycin 1 Gm/Ns 200 Ml) 1 gm in 200 mls @ 166.7 mls/hr IVPB Q24H [facility]; Protocol Stop: 03/10/18 07:01 Last Admin: 03/07/18 06:26 Dose: 166.7 mls/hr Dextrose (Dextrose 5% In Water 1000 Ml) 1,000 mls @ 0 mls/hr IV .Q0M PRN; Protocol PRN Reason: Hypoglycemia Protocol Metoprolol Tartrate (Lopressor) 12.5 mg PEG Q12 [facility] Last Admin: 03/07/18 09:55 Dose: 12.5 mg Pantoprazole Sodium (Protonix Inj) 40 mg IVP Q12H [facility] Last Admin: 03/07/18 06:26 Dose: 40 mg Rosuvastatin Calcium (Crestor) 5 mg PO [facility] Last Admin: 03/06/18 21:42 Dose: 5 mg Tamsulosin HCl (Flomax) 0.4 mg PO DAILY [facility] Last Admin: 03/07/18 09:55 Dose: 0.4 mg - Labs Labs: 03/07/18 06:30 03/07/18 06:30 PT 16.2 SECONDS (9.7-12.2) H 03/07/18 06:30 INR 1.5 03/07/18 06:30 APTT 33 SECONDS (21-34) 03/07/18 06:30 - Constitutional Appears: Non-toxic, Chronically Ill - Head Exam Head Exam: NORMOCEPHALIC - Eye Exam Eye Exam: absent: Scleral icterus - ENT Exam ENT Exam: Mucous Membranes Dry - Neck Exam Neck Exam: absent: Lymphadenopathy - Respiratory Exam Respiratory Exam: Decreased Breath Sounds - Cardiovascular Exam Cardiovascular Exam: REGULAR RHYTHM - GI/Abdominal Exam GI & Abdominal Exam: Distended Assessment and Plan (1) Hypernatremia Status: Acute (2) Respiratory distress Status: Acute (3) Sepsis Status: Acute (4) Tachycardia Status: Acute (5) Bandemia Status: Acute
--- NOTE | 2018-03-07 15:30 | CP.PCM.PN ---
Subjective - Date & Time of Evaluation Date of Evaluation: 03/07/18 Time of Evaluation: 15:30 Objective - Vital Signs/Intake and Output Vital Signs (last 24 hours): Temp Pulse Resp BP Pulse Ox 98.9 F 76 221 H 117/67 94 L 03/07/18 12:00 03/07/18 13:00 03/07/18 13:00 03/07/18 13:00 03/07/18 13:00 Intake and Output: 03/07/18 03/07/18 06:59 18:59 Intake Total 1280.0 Output Total 0 Balance 1280.0 - Medications Medications: Current Medications Acetaminophen (Tylenol 325mg Tab) 975 mg PEG ONCE PRN PRN Reason: Fever >100.4 F Albuterol Sulfate (Albuterol 0.083% Inhal Gisella (2.5 Mg/3 Ml) Ud) 2.5 mg IH RQ6 [facility] Last Admin: 03/06/18 19:28 Dose: 2.5 mg Apixaban (Eliquis) 5 mg PO BID [facility] Last Admin: 03/07/18 11:00 Dose: 5 mg Aspirin (Ecotrin) 81 mg PO DAILY [facility] Last Admin: 03/07/18 09:56 Dose: 81 mg Dextrose (Dextrose 50% Inj) 0 ml IV STAT PRN; Protocol PRN Reason: Hypoglycemia Protocol Dextrose (Glutose 15) 0 gm PO ONCE PRN; Protocol PRN Reason: Hypoglycemia Protocol Glucagon (Glucagen Diagnostic Kit) 0 mg IM STAT PRN; Protocol PRN Reason: Hypoglycemia Protocol Vancomycin/Sodium Chloride (Vancomycin 1 Gm/Ns 200 Ml) 1 gm in 200 mls @ 166.7 mls/hr IVPB Q24H [facility]; Protocol Stop: 03/10/18 07:01 Last Admin: 03/07/18 06:26 Dose: 166.7 mls/hr Dextrose (Dextrose 5% In Water 1000 Ml) 1,000 mls @ 0 mls/hr IV .Q0M PRN; Protocol PRN Reason: Hypoglycemia Protocol Metoprolol Tartrate (Lopressor) 12.5 mg PEG Q12 [facility] Last Admin: 03/07/18 09:55 Dose: 12.5 mg Pantoprazole Sodium (Protonix Inj) 40 mg IVP Q12H [facility] Last Admin: 03/07/18 06:26 Dose: 40 mg Rosuvastatin Calcium (Crestor) 5 mg PO HS [facility] Last Admin: 03/06/18 21:42 Dose: 5 mg Tamsulosin HCl (Flomax) 0.4 mg PO DAILY [facility] Last Admin: 03/07/18 09:55 Dose: 0.4 mg - Labs Labs: 03/07/18 06:30 03/07/18 06:30 PT 16.2 SECONDS (9.7-12.2) H 03/07/18 06:30 INR 1.5 03/07/18 06:30 APTT 33 SECONDS (21-34) 03/07/18 06:30 Assessment and Plan (1) Respiratory distress Status: Acute (2) Sepsis Status: Acute (3) Pneumonia Status: Acute
[2018-03-08] MEDS: Albuterol 0.083% Inhal Sol (2.5 mg/3 mL) UD IH SCH ×3 (01:45→07:05)
[2018-03-08] MEDS: Vancomycin 1 gm/NS 200 ml 1 GM/200 ML BAG IVPB SCH (06:28)
--- NOTE | 2018-03-08 12:26 | CP.PCM.PN ---
Subjective - Date & Time of Evaluation Date of Evaluation: 03/08/18 Time of Evaluation: 09:00 - Subjective Subjective: repeqat blood c/s neg Objective - Vital Signs/Intake and Output Vital Signs (last 24 hours): Temp Pulse Resp BP Pulse Ox 98.8 F 91 H 24 119/63 96 03/08/18 04:00 03/08/18 03:00 03/08/18 03:00 03/08/18 00:33 03/08/18 04:00 Intake and Output: 03/08/18 03/08/18 06:59 18:59 Intake Total 1920 Output Total 1200 Balance 720 - Medications Medications: Current Medications Acetaminophen (Tylenol 325mg Tab) 975 mg PEG ONCE PRN PRN Reason: Fever >100.4 F Albuterol Sulfate (Albuterol 0.083% Inhal Gisella (2.5 Mg/3 Ml) Ud) 2.5 mg IH RQ6 [facility] Last Admin: 03/08/18 07:05 Dose: 2.5 mg Apixaban (Eliquis) 5 mg PO BID [facility] Last Admin: 03/08/18 09:16 Dose: 5 mg Aspirin (Ecotrin) 81 mg PO DAILY [facility] Last Admin: 03/08/18 09:16 Dose: 81 mg Dextrose (Dextrose 50% Inj) 0 ml IV STAT PRN; Protocol PRN Reason: Hypoglycemia Protocol Dextrose (Glutose 15) 0 gm PO ONCE PRN; Protocol PRN Reason: Hypoglycemia Protocol Glucagon (Glucagen Diagnostic Kit) 0 mg IM STAT PRN; Protocol PRN Reason: Hypoglycemia Protocol Vancomycin/Sodium Chloride (Vancomycin 1 Gm/Ns 200 Ml) 1 gm in 200 mls @ 166.7 mls/hr IVPB Q24H [facility]; Protocol Stop: 03/10/18 07:01 Last Admin: 03/08/18 06:28 Dose: 166.7 mls/hr Metoprolol Tartrate (Lopressor) 12.5 mg PEG Q12 [facility] Last Admin: 03/08/18 09:16 Dose: 12.5 mg Pantoprazole Sodium (Protonix Inj) 40 mg IVP Q12H [facility] Last Admin: 03/08/18 07:30 Dose: 40 mg Rosuvastatin Calcium (Crestor) 5 mg PO HS [facility] Last Admin: 03/07/18 21:09 Dose: 5 mg Tamsulosin HCl (Flomax) 0.4 mg PO DAILY [facility] Last Admin: 03/08/18 09:16 Dose: 0.4 mg - Labs Labs: 03/07/18 06:30 03/07/18 06:30 PT 16.2 SECONDS (9.7-12.2) H 03/07/18 06:30 INR 1.5 03/07/18 06:30 APTT 33 SECONDS (21-34) 03/07/18 06:30 - Constitutional Appears: Non-toxic, Chronically Ill - Head Exam Head Exam: NORMOCEPHALIC - Eye Exam Eye Exam: absent: Scleral icterus - ENT Exam ENT Exam: Mucous Membranes Dry - Neck Exam Neck Exam: absent: Lymphadenopathy - Respiratory Exam Respiratory Exam: Decreased Breath Sounds - Cardiovascular Exam Cardiovascular Exam: REGULAR RHYTHM - GI/Abdominal Exam GI & Abdominal Exam: Distended Assessment and Plan (1) Hypernatremia Status: Acute (2) Respiratory distress Status: Acute (3) Sepsis Status: Acute (4) Tachycardia Status: Acute (5) Bandemia Status: Acute
--- NOTE | 2018-03-08 13:34 | CP.PCM.PN ---
Subjective - Date & Time of Evaluation Date of Evaluation: 03/08/18 Time of Evaluation: 13:30 - Subjective Subjective: f/u portal vein gas on CT seen at [facility]. No complaints Objective - Vital Signs/Intake and Output Vital Signs (last 24 hours): Temp Pulse Resp BP Pulse Ox 99.1 F 90 28 H 141/84 93 L 03/08/18 12:00 03/08/18 12:30 03/08/18 12:30 03/08/18 12:19 03/08/18 12:30 Intake and Output: 03/08/18 03/08/18 06:59 18:59 Intake Total 1920 Output Total 1200 Balance 720 - Medications Medications: Current Medications Acetaminophen (Tylenol 325mg Tab) 975 mg PEG ONCE PRN PRN Reason: Fever >100.4 F Albuterol Sulfate (Albuterol 0.083% Inhal Gisella (2.5 Mg/3 Ml) Ud) 2.5 mg IH RQ6 [facility] Last Admin: 03/08/18 07:05 Dose: 2.5 mg Apixaban (Eliquis) 5 mg PO BID [facility] Last Admin: 03/08/18 09:16 Dose: 5 mg Aspirin (Ecotrin) 81 mg PO DAILY [facility] Last Admin: 03/08/18 09:16 Dose: 81 mg Dextrose (Dextrose 50% Inj) 0 ml IV STAT PRN; Protocol PRN Reason: Hypoglycemia Protocol Dextrose (Glutose 15) 0 gm PO ONCE PRN; Protocol PRN Reason: Hypoglycemia Protocol Glucagon (Glucagen Diagnostic Kit) 0 mg IM STAT PRN; Protocol PRN Reason: Hypoglycemia Protocol Vancomycin/Sodium Chloride (Vancomycin 1 Gm/Ns 200 Ml) 1 gm in 200 mls @ 166.7 mls/hr IVPB Q24H [facility]; Protocol Stop: 03/10/18 07:01 Last Admin: 03/08/18 06:28 Dose: 166.7 mls/hr Metoprolol Tartrate (Lopressor) 12.5 mg PEG Q12 [facility] Last Admin: 03/08/18 09:16 Dose: 12.5 mg Pantoprazole Sodium (Protonix Inj) 40 mg IVP Q12H [facility] Last Admin: 03/08/18 07:30 Dose: 40 mg Rosuvastatin Calcium (Crestor) 5 mg PO HS [facility] Last Admin: 03/07/18 21:09 Dose: 5 mg Tamsulosin HCl (Flomax) 0.4 mg PO DAILY [facility] Last Admin: 03/08/18 09:16 Dose: 0.4 mg - Labs Labs: 03/07/18 06:30 03/07/18 06:30 PT 16.2 SECONDS (9.7-12.2) H 03/07/18 06:30 INR 1.5 03/07/18 06:30 APTT 33 SECONDS (21-34) 03/07/18 06:30 - Constitutional Appears: No Acute Distress, Chronically Ill - Eye Exam Eye Exam: absent: Scleral icterus - Respiratory Exam Respiratory Exam: NORMAL BREATHING PATTERN - Cardiovascular Exam Cardiovascular Exam: REGULAR RHYTHM - GI/Abdominal Exam GI & Abdominal Exam: Soft. absent: Tenderness - Neurological Exam Neurological Exam: Alert, Oriented x3 Assessment and Plan (1) Sepsis Assessment & Plan: Staph in blood, fevers resolved. Source of sepsis not clear. Due to portal venous gas, and initial elevation of transaminase, and thickened GB wall we are checking HIDA to look for possible acalculous cholecystitis. Patient is presently asympotomatic on antibiotics and tolerating feeds. Status: Acute (2) Gastrostomy status Assessment & Plan: functioning without any issues Status: Acute (3) Hypochromic microcytic anemia Assessment & Plan: stool OB positive on 1/2 samples. EGD done last year when he presented with GI bleed. Did not have colonoscopy. Colonoscopy can be scheduled at a time in the future if/when patient is medically stable for the procedure Status: Acute (4) Gilbert's syndrome Assessment & Plan: stable Status: Acute
--- NOTE | 2018-03-08 14:42 | CP.PCM.PN ---
Subjective - Date & Time of Evaluation Date of Evaluation: 03/08/18 Time of Evaluation: 11:00 - Subjective Subjective: clinically same Objective - Vital Signs/Intake and Output Vital Signs (last 24 hours): Temp Pulse Resp BP Pulse Ox 99.1 F 90 28 H 141/84 93 L 03/08/18 12:00 03/08/18 12:30 03/08/18 12:30 03/08/18 12:19 03/08/18 12:30 Intake and Output: 03/08/18 03/08/18 06:59 18:59 Intake Total 1920 Output Total 1200 Balance 720 - Medications Medications: Current Medications Acetaminophen (Tylenol 325mg Tab) 975 mg PEG ONCE PRN PRN Reason: Fever >100.4 F Albuterol Sulfate (Albuterol 0.083% Inhal Gisella (2.5 Mg/3 Ml) Ud) 2.5 mg IH RQ6 [facility] Last Admin: 03/08/18 07:05 Dose: 2.5 mg Apixaban (Eliquis) 5 mg PO BID [facility] Last Admin: 03/08/18 09:16 Dose: 5 mg Aspirin (Ecotrin) 81 mg PO DAILY [facility] Last Admin: 03/08/18 09:16 Dose: 81 mg Dextrose (Dextrose 50% Inj) 0 ml IV STAT PRN; Protocol PRN Reason: Hypoglycemia Protocol Dextrose (Glutose 15) 0 gm PO ONCE PRN; Protocol PRN Reason: Hypoglycemia Protocol Glucagon (Glucagen Diagnostic Kit) 0 mg IM STAT PRN; Protocol PRN Reason: Hypoglycemia Protocol Vancomycin/Sodium Chloride (Vancomycin 1 Gm/Ns 200 Ml) 1 gm in 200 mls @ 166.7 mls/hr IVPB Q24H [facility]; Protocol Stop: 03/10/18 07:01 Last Admin: 03/08/18 06:28 Dose: 166.7 mls/hr Metoprolol Tartrate (Lopressor) 12.5 mg PEG Q12 [facility] Last Admin: 03/08/18 09:16 Dose: 12.5 mg Pantoprazole Sodium (Protonix Inj) 40 mg IVP Q12H [facility] Last Admin: 03/08/18 07:30 Dose: 40 mg Rosuvastatin Calcium (Crestor) 5 mg PO HS [facility] Last Admin: 03/07/18 21:09 Dose: 5 mg Tamsulosin HCl (Flomax) 0.4 mg PO DAILY [facility] Last Admin: 03/08/18 09:16 Dose: 0.4 mg - Labs Labs: 03/07/18 06:30 03/07/18 06:30 PT 16.2 SECONDS (9.7-12.2) H 03/07/18 06:30 INR 1.5 03/07/18 06:30 APTT 33 SECONDS (21-34) 03/07/18 06:30
--- NOTE | 2018-03-08 15:30 | NM ---
Date of service: 03/08/2018 PROCEDURE: Nuclear Medicine Hepatobiliary Scan HISTORY: acalculous cholecystitis suspected COMPARISON: 03/04/2018 CT abdomen and pelvis TECHNIQUE: 5.3 mCi of technetium 99m Mebrofenin was administered intravenously. Planar images of the abdomen were obtained at 5 min intervals to 60 mins. Delayed images were also obtained. FINDINGS: LIVER: Timely and homogenous uptake. COMMON BILE DUCT: identified at 15 mins. GALLBLADDER: identified at 62 mins. SMALL BOWEL: Identified at 20 mins. IMPRESSION: Normal Hepatobiliary Scan. The cystic duct is patent.
--- NOTE | 2018-03-08 19:01 | CP.PCM.PN ---
Subjective - Date & Time of Evaluation Date of Evaluation: 03/08/18 Time of Evaluation: 19:01 Objective - Vital Signs/Intake and Output Vital Signs (last 24 hours): Temp Pulse Resp BP Pulse Ox 98.7 F 80 20 127/67 97 03/08/18 15:53 03/08/18 16:20 03/08/18 15:53 03/08/18 15:53 03/08/18 15:53 - Medications Medications: Current Medications Acetaminophen (Tylenol 325mg Tab) 975 mg PEG ONCE PRN PRN Reason: Fever >100.4 F Albuterol Sulfate (Albuterol 0.083% Inhal Gisella (2.5 Mg/3 Ml) Ud) 2.5 mg IH RQ6 [facility] Last Admin: 03/08/18 07:05 Dose: 2.5 mg Apixaban (Eliquis) 5 mg PO BID [facility] Last Admin: 03/08/18 17:50 Dose: 5 mg Aspirin (Ecotrin) 81 mg PO DAILY [facility] Last Admin: 03/08/18 09:16 Dose: 81 mg Dextrose (Dextrose 50% Inj) 0 ml IV STAT PRN; Protocol PRN Reason: Hypoglycemia Protocol Dextrose (Glutose 15) 0 gm PO ONCE PRN; Protocol PRN Reason: Hypoglycemia Protocol Glucagon (Glucagen Diagnostic Kit) 0 mg IM STAT PRN; Protocol PRN Reason: Hypoglycemia Protocol Vancomycin/Sodium Chloride (Vancomycin 1 Gm/Ns 200 Ml) 1 gm in 200 mls @ 166.7 mls/hr IVPB Q24H [facility]; Protocol Stop: 03/10/18 07:01 Last Admin: 03/08/18 06:28 Dose: 166.7 mls/hr Metoprolol Tartrate (Lopressor) 12.5 mg PEG Q12 [facility] Last Admin: 03/08/18 09:16 Dose: 12.5 mg Pantoprazole Sodium (Protonix Inj) 40 mg IVP Q12H [facility] Last Admin: 03/08/18 07:30 Dose: 40 mg Rosuvastatin Calcium (Crestor) 5 mg PO HS [facility] Last Admin: 03/07/18 21:09 Dose: 5 mg Tamsulosin HCl (Flomax) 0.4 mg PO DAILY [facility] Last Admin: 03/08/18 09:16 Dose: 0.4 mg - Labs Labs: 03/07/18 06:30 11/04/18 06:30 PT 16.2 SECONDS (9.7-12.2) H 03/07/18 06:30 INR 1.5 03/07/18 06:30 APTT 33 SECONDS (21-34) 03/07/18 06:30 Assessment and Plan (1) Respiratory distress Status: Acute (2) Sepsis Status: Acute (3) Pneumonia Status: Acute
[2018-03-09] MEDS: Albuterol 0.083% Inhal Sol (2.5 mg/3 mL) UD IH SCH ×2 (01:22→08:04)
[2018-03-09] MEDS: Vancomycin 1 gm/NS 200 ml 1 GM/200 ML BAG IVPB SCH (06:46)
--- NOTE | 2018-03-09 08:47 | CP.PCM.PN ---
Subjective - Date & Time of Evaluation Date of Evaluation: 03/09/18 Time of Evaluation: 08:45 - Subjective Subjective: f/u portal gas No abd pain, RB, fever, diarrhea, constip, MELEna, hematemesis, hemoptysis Objective - Vital Signs/Intake and Output Vital Signs (last 24 hours): Temp Pulse Resp BP Pulse Ox 98.5 F 83 20 161/74 H 94 L 03/09/18 08:14 03/09/18 08:14 03/09/18 08:14 03/09/18 08:14 03/09/18 08:14 Intake and Output: 03/09/18 03/09/18 06:59 18:59 Intake Total 1480 Output Total 400 Balance 1080 - Medications Medications: Current Medications Acetaminophen (Tylenol 325mg Tab) 975 mg PEG ONCE PRN PRN Reason: Fever >100.4 F Albuterol Sulfate (Albuterol 0.083% Inhal Gisella (2.5 Mg/3 Ml) Ud) 2.5 mg IH RQ6 [facility] Last Admin: 03/09/18 08:04 Dose: 2.5 mg Apixaban (Eliquis) 5 mg PO BID [facility] Last Admin: 03/08/18 17:50 Dose: 5 mg Aspirin (Ecotrin) 81 mg PO DAILY [facility] Last Admin: 03/08/18 09:16 Dose: 81 mg Dextrose (Dextrose 50% Inj) 0 ml IV STAT PRN; Protocol PRN Reason: Hypoglycemia Protocol Dextrose (Glutose 15) 0 gm PO ONCE PRN; Protocol PRN Reason: Hypoglycemia Protocol Glucagon (Glucagen Diagnostic Kit) 0 mg IM STAT PRN; Protocol PRN Reason: Hypoglycemia Protocol Vancomycin/Sodium Chloride (Vancomycin 1 Gm/Ns 200 Ml) 1 gm in 200 mls @ 166.7 mls/hr IVPB Q24H [facility]; Protocol Stop: 03/10/18 07:01 Last Admin: 03/09/18 06:46 Dose: 166.7 mls/hr Metoprolol Tartrate (Lopressor) 12.5 mg PEG Q12 [facility] Last Admin: 03/08/18 21:48 Dose: 12.5 mg Pantoprazole Sodium (Protonix Inj) 40 mg IVP Q12H [facility] Last Admin: 03/09/18 07:07 Dose: 40 mg Rosuvastatin Calcium (Crestor) 5 mg PO HS [facility] Last Admin: 03/08/18 21:29 Dose: 5 mg Tamsulosin HCl (Flomax) 0.4 mg PO DAILY [facility] Last Admin: 03/08/18 09:16 Dose: 0.4 mg - Labs Labs: 03/07/18 06:30 03/07/18 06:30 PT 16.2 SECONDS (9.7-12.2) H 03/07/18 06:30 INR 1.5 03/07/18 06:30 APTT 33 SECONDS (21-34) 03/07/18 06:30 Assessment and Plan (1) Anemia Status: Acute (2) Gastrostomy status Status: Acute (3) Gilbert's syndrome Status: Acute (4) Sepsis Assessment & Plan: HIDA is NORMAL.. No sign of cholecystitis. Status: Acute
--- NOTE | 2018-03-09 09:54 | RAD ---
Date of service: 03/09/2018 HISTORY: PICC Insertion COMPARISON: 03/05/2018 FINDINGS: LUNGS: Diffuse infiltrate lower left herber thorax. Patchy opacity right base, unchanged. Possible bilateral pneumonia. Follow-up advised. PLEURA: No significant pleural effusion identified, no pneumothorax apparent. CARDIOVASCULAR: No aortic atherosclerotic calcification present. Normal cardiac size. No congestive change. Right internal jugular central venous catheter noted. Right PICC catheter noted. The termination of the PICC catheter is difficult to appreciate because of the overlying internal jugular catheter but is likely in the region of the superior vena cava. OSSEOUS STRUCTURES: No significant abnormalities. VISUALIZED UPPER ABDOMEN: Normal. OTHER FINDINGS: None. IMPRESSION: New right PICC catheter, likely terminating in the region of superior vena cava although evaluation is limited as above. Extensive left basilar opacity and patchy right basilar opacity. Follow-up advised for possible bilateral pneumonia.
--- NOTE | 2018-03-09 15:49 | PQF ---
PROVIDER RESPONSE TEXT: Aspiration pneumonia REVIEWER QUERY TEXT: Clarification of Clinical Diagnostic Findings Please clarify documentation or clinical relevance for the clinical / diagnostic findings or whether those are insignificant or unable to be further specified. Aspiration Pneumonia in the setting of Sepsis and Acute Resp failure treated with BIPAP and Zosyn I V, Vancomycin IV . -Other Explanation. -Unable to Determine . The patient's Clinical Indicators include: Clinical Findings: Fever 14, P=122, RR=28 O2 Sat 91% RA, LABS: showing: Wbc= 9.1, Neuts= 82.9, Band s= 32. CT ABD /Pelvis showing Patchy ground-glass infiltrates and nodular opacities. Treatment : BIPAP , Zosyn IV, Vancomycin IV Risk Factor : Immunocompromised, Peg feeding Query created by: Charmaine Perez on 03/04/2018 5:00 PM Electronically signed by: Mckenzie RAYA 03/09/2018 3:46 PM
[2018-03-09 18:21] VITALS: BP 130/64; PULSE 69; RESP 18; TEMP 98.7; O2SAT 90
--- NOTE | 2018-03-09 18:42 | CP.PCM.PN ---
Subjective - Date & Time of Evaluation Date of Evaluation: 03/09/18 Time of Evaluation: 18:42 Objective - Vital Signs/Intake and Output Vital Signs (last 24 hours): Temp Pulse Resp BP Pulse Ox 98.7 F 69 18 130/64 90 L 03/09/18 15:10 03/09/18 15:10 03/09/18 15:10 03/09/18 15:10 03/09/18 15:10 Intake and Output: 03/09/18 03/09/18 06:59 18:59 Intake Total 1480 880 Output Total 400 200 Balance 1080 680 - Medications Medications: Current Medications Acetaminophen (Tylenol 325mg Tab) 975 mg PEG ONCE PRN PRN Reason: Fever >100.4 F Apixaban (Eliquis) 5 mg PO BID [facility] Last Admin: 03/09/18 10:30 Dose: 5 mg Aspirin (Ecotrin) 81 mg PO DAILY [facility] Last Admin: 03/09/18 10:30 Dose: 81 mg Dextrose (Dextrose 50% Inj) 0 ml IV STAT PRN; Protocol PRN Reason: Hypoglycemia Protocol Dextrose (Glutose 15) 0 gm PO ONCE PRN; Protocol PRN Reason: Hypoglycemia Protocol Glucagon (Glucagen Diagnostic Kit) 0 mg IM STAT PRN; Protocol PRN Reason: Hypoglycemia Protocol Vancomycin/Sodium Chloride (Vancomycin 1 Gm/Ns 200 Ml) 1 gm in 200 mls @ 166.7 mls/hr IVPB Q24H [facility]; Protocol Stop: 03/10/18 07:01 Last Admin: 03/09/18 06:46 Dose: 166.7 mls/hr Metoprolol Tartrate (Lopressor) 12.5 mg PEG Q12 [facility] Last Admin: 03/09/18 10:30 Dose: 12.5 mg Pantoprazole Sodium (Protonix Inj) 40 mg IVP Q12H [facility] Last Admin: 03/09/18 07:07 Dose: 40 mg Rosuvastatin Calcium (Crestor) 5 mg PO HS [facility] Last Admin: 03/08/18 21:29 Dose: 5 mg Tamsulosin HCl (Flomax) 0.4 mg PO DAILY [facility] Last Admin: 03/09/18 10:30 Dose: 0.4 mg - Labs Labs: 03/07/18 06:30 03/07/18 06:30 PT 16.2 SECONDS (9.7-12.2) H 03/07/18 06:30 INR 1.5 03/07/18 06:30 APTT 33 SECONDS (21-34) 03/07/18 06:30 Assessment and Plan (1) Respiratory distress Status: Acute (2) Sepsis Status: Acute (3) Pneumonia Status: Acute
--- NOTE | 2018-03-09 18:54 | CP.PCM.PN ---
Objective - Vital Signs/Intake and Output Vital Signs (last 24 hours): Temp Pulse Resp BP Pulse Ox 98.7 F 69 18 130/64 90 L 03/09/18 15:10 03/09/18 15:10 03/09/18 15:10 03/09/18 15:10 03/09/18 15:10 Intake and Output: 03/09/18 03/09/18 06:59 18:59 Intake Total 1480 880 Output Total 400 200 Balance 1080 680 - Medications Medications: Current Medications Acetaminophen (Tylenol 325mg Tab) 975 mg PEG ONCE PRN PRN Reason: Fever >100.4 F Apixaban (Eliquis) 5 mg PO BID [facility] Last Admin: 03/09/18 10:30 Dose: 5 mg Aspirin (Ecotrin) 81 mg PO DAILY [facility] Last Admin: 03/09/18 10:30 Dose: 81 mg Dextrose (Dextrose 50% Inj) 0 ml IV STAT PRN; Protocol PRN Reason: Hypoglycemia Protocol Dextrose (Glutose 15) 0 gm PO ONCE PRN; Protocol PRN Reason: Hypoglycemia Protocol Glucagon (Glucagen Diagnostic Kit) 0 mg IM STAT PRN; Protocol PRN Reason: Hypoglycemia Protocol Vancomycin/Sodium Chloride (Vancomycin 1 Gm/Ns 200 Ml) 1 gm in 200 mls @ 166.7 mls/hr IVPB Q24H [facility]; Protocol Stop: 03/10/18 07:01 Last Admin: 03/09/18 06:46 Dose: 166.7 mls/hr Metoprolol Tartrate (Lopressor) 12.5 mg PEG Q12 [facility] Last Admin: 03/09/18 10:30 Dose: 12.5 mg Pantoprazole Sodium (Protonix Inj) 40 mg IVP Q12H [facility] Last Admin: 03/09/18 07:07 Dose: 40 mg Rosuvastatin Calcium (Crestor) 5 mg PO HS [facility] Last Admin: 03/08/18 21:29 Dose: 5 mg Tamsulosin HCl (Flomax) 0.4 mg PO DAILY [facility] Last Admin: 03/09/18 10:30 Dose: 0.4 mg - Labs Labs: 03/07/18 06:30 03/07/18 06:30 PT 16.2 SECONDS (9.7-12.2) H 03/07/18 06:30 INR 1.5 03/07/18 06:30 APTT 33 SECONDS (21-34) 03/07/18 06:30 Assessment and Plan - Assessment and Plan (Free Text) Assessment: Patient admitted with sepsis and respiratory failure, seen and examined. On bed, awake, responsive, on PEG feeding, tolerated well.
== END 2018-03-09 21:02 | DRG 871 ==
LOC: C.ER 05:02 → C.9E 06:09 → C.9I 07:39 → C.6T 03-08 14:57
PROVIDERS: ADMIT Internal Medicine Nephrology; ATTEND Internal Medicine Nephrology
PROC: 02HV33Z Insertion of Infusion Device into Superior Vena Cava, Percutaneous Approach (ICD-10-PCS; principal; 2018-03-04)
PROC: 02HV33Z Insertion of Infusion Device into Superior Vena Cava, Percutaneous Approach (ICD-10-PCS; 2018-03-09)
DX: A41.9 Sepsis, unspecified organism (principal); J69.0 Pneumonitis due to inhalation of food and vomit; J96.00 Acute respiratory failure, unspecified whether with hypoxia or hypercapnia; E87.0 Hyperosmolality and hypernatremia; I69.359 Hemiplegia and hemiparesis following cerebral infarction affecting unspecified side; G35 Multiple sclerosis; I12.9 Hypertensive chronic kidney disease with stage 1 through stage 4 chronic kidney disease, or unspecified chronic kidney disease; Z93.1 Gastrostomy status; I48.91 Unspecified atrial fibrillation; N18.9 Chronic kidney disease, unspecified; E86.0 Dehydration; I69.320 Aphasia following cerebral infarction; R65.20 Severe sepsis without septic shock; R19.5 Other fecal abnormalities; D63.8 Anemia in other chronic diseases classified elsewhere; D69.6 Thrombocytopenia, unspecified; E80.4 Gilbert syndrome